=== PATIENT | female | born 1940 | race Caucasian/White ===

== ENCOUNTER → 2020-09-01 14:15 | Outpatient (BNVA) | payer MEDICARE, SELFPAY | PROVIDERS: PCP Internal Medicine Geriatric Medicine; Visit Provider Surgery | DX: Z76.89 Persons encountering health services in other specified circumstances (principal) ==

== ENCOUNTER → 2020-09-15 10:07 | Outpatient (BNVA) | payer MEDICARE, SELFPAY | PROVIDERS: PCP Internal Medicine Geriatric Medicine; Referring Provider Internal Medicine Geriatric Medicine; Visit Provider Surgery | DX: K64.4 Residual hemorrhoidal skin tags (principal); K64.8 Other hemorrhoids | CPT/HCPCS: 46600; 99212 ==

== ENCOUNTER → 2020-10-03 09:45 | Outpatient (BNVA) | payer MEDICARE, SELFPAY | PROVIDERS: PCP Internal Medicine Geriatric Medicine; Referring Provider Internal Medicine Geriatric Medicine; Visit Provider Nurse Practitioner | DX: Z76.89 Persons encountering health services in other specified circumstances (principal) ==

== ENCOUNTER 2021-03-17 12:37 | Observation (INO) | payer MEDICARE, SELFPAY ==
[2021-03-17] VITALS (7 sets, daily range): BP systolic 119–152; BP diastolic 53–70; PULSE 61–88; RESP 16–181; TEMP 36.7–36.9; O2SAT 97–98; BMI 35.9
--- NOTE | ~2021-03-17 | CT_ITS ---
EXAMINATION: CT ANGIOGRAM OF THE CHEST WITH AND WITHOUT CONTRAST (CT PULMONARY ANGIOGRAM FOR PE) CLINICAL INFORMATION: syncope, cp, elevated d dimer, r/o pe COMPARISON: Chest radiograph from the same date TECHNIQUE: Prior to contrast administration, noncontrast localization images were obtained. Subsequently, multidetector volumetric imaging was performed from the thoracic inlet to below the diaphragms following the administration of 71 mL Omnipaque 350 intravenous contrast. No contrast reaction reported Sagittal, coronal, and MIP oblique sagittal reformatted images were obtained on the CT workstation, uploaded to PACS, and reviewed. This CT examination was performed using dose optimization techniques as appropriate, variously including the following: *Automated exposure control *Adjustment of mA and/or kV according to patient size (this includes techniques or standardized protocols for targeted exams where dose is matched to indication/reason for exam; i.e. extremities or head) *Use of iterative reconstruction technique Total exam dose-length product 489 mGy-cm FINDINGS: QUALITY OF STUDY/CONTRAST BOLUS: Satisfactory. PULMONARY ARTERIES: No central or segmental pulmonary emboli. THORACIC AORTA: No aneurysm or dissection. Avascular calcifications are present throughout the thoracic aorta. LUNG: No focal consolidation, nodules or masses. Mild dependent atelectasis. Central airways are clear. PLEURA: No pleural effusion or pneumothorax. MEDIASTINUM: Normal heart size. No pericardial effusion. No hilar or mediastinal lymphadenopathy. No evidence of septal bowing or right heart strain. CHEST WALL/AXILLA: No axillary or internal mammary lymphadenopathy. OSSEOUS STRUCTURES: There is mild to moderate degenerative disc disease in the thoracic spine with mild kyphosis. No fractures. UPPER ABDOMEN: A 2.8 cm cyst in the upper pole the left kidney is partially imaged and is low-density. No follow-up is necessary. No reflux of contrast into the hepatic veins to suggest elevated right heart pressures. CT/CT angio chest PE protocol IMPRESSION: No evidence of pulmonary emboli. No acute findings in the chest. VTE: negative
--- NOTE | ~2021-03-17 | US_ITS ---
EXAMINATION: US EXTRACRANIAL CAROTID DUPLEX, BILATERAL CLINICAL INFORMATION: Syncope COMPARISON: None TECHNIQUE: Real-time ultrasound and Doppler techniques (integrating B-mode 2-D vascular images, Doppler spectral analysis and color-flow Doppler imaging) were utilized to interrogate the extracranial carotid arteries, the vertebral arteries and proximal subclavian arteries bilaterally. The degree of stenosis is determined by criteria similar to NASCET. FINDINGS: Right Side: 1. There is no atherosclerotic plaque seen in the bifurcation/proximal ICA region. 2. The common carotid artery PSV proximally is 83 cm/s and distally 75 cm/s. 3. The proximal internal carotid artery velocities are 67 cm/s systolic and 11 cm/s diastolic. 4. The proximal external carotid artery PSV is 125 cm/s. 5. The vertebral artery shows antegrade flow. 6. The subclavian artery waveforms are normal. Left Side: 1. There is no atherosclerotic plaque seen in the bifurcation/proximal ICA region. 2. The common carotid artery PSV proximally is 87 cm/s and distally 75 cm/s. 3. The proximal internal carotid artery velocities are 53 cm/s systolic and 10 cm/s diastolic. 4. The proximal external carotid artery PSV is 130 cm/s. 5. The vertebral artery shows antegrade flow. 6. The subclavian artery waveforms are normal. US/US carotid duplex BI IMPRESSION: 1. RIGHT: Normal right internal carotid artery without atherosclerotic plaque or hemodynamically significant stenosis. 2. LEFT: Normal left internal carotid artery without atherosclerotic plaque or hemodynamically significant stenosis.
--- NOTE | ~2021-03-17 | CT_ITS ---
EXAMINATION: CHEST. CT BRAIN WITHOUT CONTRAST. CLINICAL INFORMATION: Syncope. COMPARISON: CT brain 02/11/2019 TECHNIQUE: 5 mm thin axial and reformatted 2 mm thin sagittal and coronal images of brain were obtained. DLP 648. Chest 2 views. FINDINGS: CHEST: The lungs are well-expanded and clear. The heart size and pulmonary vascularity is normal. No gross bony abnormality seen. BRAIN: There is no acute intra-axial, extra-axial bleed, masses, collection or midline shift. There is no acute infarct in evolution. The bermudez to white matter difference is maintained normal. The lateral ventricles are symmetrical in size and configuration mild prominence. Bilateral frontal cortical sulci are patent as well. Bone windows reveal no calvarial abnormality. There is mild mucoperiosteal thickening bilateral ethmoid and maxillary sinuses. CT/CT head/brain wo con IMPRESSION: Unremarkable chest exam. No acute intracranial process seen. Mild cerebral volume loss.
--- NOTE | 2021-03-17 12:41 | ED_ITS ---
HPI - Chest Pain General Chief Complaint: Chest Pain Stated Complaint: chest pain Time Seen by Provider: 03/17/21 12:41 Source: EMS and [facility] Mode of arrival: EMS Limitations: no limitations and language barrier History of Present Illness HPI narrative: 80-year-old female with a past medical history of coronary artery disease, gout, hypertension, high cholesterol, insulin-dependent diabetes, TIA, colon cancer status post colectomy here with complaints of chest pain since yesterday with associated SOB since yesterday. No cough, abdominal pain, nausea/vomiting or diaphoresis, leg swelling or pain. Her [id number] who is at the bedside the patient has had multiple episodes of the last 3 weeks where when she is walking she starts to feel dizzy with some chest discomfort and she passes out. Per family this lasts several minutes and then it resolves. Received 324mg ASA, 0.4SL NTG [employer] PSYCHIATRIST. Pain initially 10 10 but now improving after nitro per patient. Related Data Home Medications Medication Instructions Recorded Confirmed acetaminophen 500 mg tablet 1,000 mg PO Q8H PRN 09/01/20 03/17/21 amlodipine 10 mg tablet 10 mg PO DAILY 09/01/20 03/17/21 aspirin 81 mg tablet,delayed 81 mg PO DAILY 09/01/20 03/17/21 release atorvastatin 20 mg tablet 20 mg PO DAILY 09/01/20 03/17/21 citalopram 40 mg tablet 20 mg PO DAILY tab 09/01/20 03/17/21 dulaglutide 1.5 mg/0.5 mL 1.5 mg SUBCUT QWEEK 09/01/20 03/17/21 subcutaneous pen injector losartan 100 mg tablet 100 mg PO DAILY 09/01/20 03/17/21 calcium carbonate-vitamin D3 1 cap PO DAILY 03/17/21 03/17/21 [Calcium 600 with Vitamin D3] diclofenac sodium [Voltaren] 2 g TOPICAL BID 03/17/21 03/17/21 lidocaine 1 appl TOPICAL QD-QID PRN 03/17/21 03/17/21 trazodone 1 tab PO QPM 03/17/21 03/17/21 Allergies Allergy/AdvReac Type Severity Reaction Status Date / Time No Known Allergies Allergy Verified 10/03/20 09:48 [No Known Allergies*] Review of Systems Review of Systems: Yes all other systems are reviewed and are negative Constitutional: Constitutional: Reports no additional constitutional complaints, Denies body ache(s), Denies chills, Denies fever(s), Denies headache(s) and Denies weakness Eyes: Eyes: Reports no additional eye complaints and Denies change in vision ENT: Reports system reviewed and no additional complaints, except as documented, Reports dizziness, Denies headache(s), Denies nasal congestion, Denies nasal discharge and Denies neck pain Cardiovascular: Cardiovascular: Reports no additional cardiovascular complaints, Reports chest pain, Reports syncope, Denies leg edema and Reports dyspnea Respiratory: Respiratory: Reports no additional respiratory complaints, Denies cough and Reports dyspnea Gastrointestinal: Gastrointestinal: Reports no additional gastrointestinal complaints, Denies abdominal pain, Denies diarrhea, Denies nausea and Denies vomiting Genitourinary: Genitourinary: Reports no additional female genitourinary complaints and Denies urinary incontinence Musculoskeletal: Musculoskeletal: Reports no additional musculoskeletal complaints, Denies back pain, Denies arthralgias, Denies joint swelling, Denies neck pain, Denies numbness and Denies tingling Integumentary/Breasts: Skin/Breast: Reports system reviewed and no additional complaints, except as docu and Denies rash Neurologic: Reports system reviewed and no additional complaints, except as documented, Denies Abnormal speech present, Reports dizziness, Reports syncope, Denies headache(s), Denies numbness, Denies tingling and Denies weakness PMFSH Past Medical History Attestation statement: The following information was validated with the patient. Source: old records reviewed and nursing notes reviewed Medical History (Updated 03/17/21 @ 17:56 by Amber Correa NP) CAD (coronary artery disease) Chronic back pain Chronic diarrhea Diabetes mellitus HLD (hyperlipidemia) HTN (hypertension), benign IDDM (insulin dependent diabetes mellitus) Internal and external prolapsed hemorrhoids Morbid obesity Sleep apnea Surgical History History of carpal tunnel surgery of left wrist History of esophagogastroduodenoscopy (EGD) History of partial surgical removal of colon (~2011) Hx of colonoscopy Family History Family History Mother History of stomach cancer Paternal Grandfather History of prostate cancer Sister History of breast cancer Family/Other Vaginal cancer Social History Social History Household Members: Family Alcohol intake: never Smoking Status: Former smoker Smoked in Last 30 Days: No Use of substances other than those prescribed or required for medical reasons: No Advance Directives: No Advance Directives Information Provided: No Physical Exam Vital Signs: Vital Signs: Last Vital Signs Temp 98.5 F 03/17/21 15:41 Pulse 62 03/17/21 15:41 Resp 18 03/17/21 15:41 BP 152/53 H 03/17/21 15:41 Pulse Ox 98 03/17/21 15:41 Body Mass Index 35.9 Const: General: cooperative, healthy appearing, comfortable and no acute distress Orientation/consciousness: patient oriented x3 Limitations: no limitations HENMT: Head: Yes normal to inspection Ears: hearing grossly normal bilaterally General nose exam: Normal external nose present Face and sinus: Yes normal facial exam Mouth: Normal oral and palatal mucosa present Throat: Yes posterior oropharynx normal Eyes: General: appearance normal, both eyes and all related structures Pupils: Equal, round and reactive pupils present Neck: Neck: Yes normal visual inspection Chest: Chest palpation & inspection: normal inspection of the chest Resp: Effort & Inspection: normal respiratory effort Auscultation: clear to auscultation bilaterally Cardio: Rate: regular rate Rhythm: regular rhythm Peripheral pulses: Peripheral pulses 2+ throughout GI: Inspection: Yes normal to inspection Palpation (GI): Soft to palpation and nontender Auscultation: normal bowel sounds Back/Spine/Pelvis: Thoracic/Lumbar Spine: thoracic and lumbar spine normal to inspection Skin: General skin exam: no rashes or lesions noted Neuro: General: patient oriented x3, no focal motor deficits and normal sensation to monofilament Cranial nerves: Yes CN's II-XII intact bilaterally, Yes Equal, round and reactive pupils present, Yes Bilaterally intact EOM presen t, Yes Nystagmus not present, Yes Normal facial strength present and Yes Midline tongue present Cognition (Neuro): normal cognition Speech: No Abnormal speech present Gait exam (Neuro): Normal gait present Motor exam (neuro): 5/5 motor strength present throughout Sensory Exam: Normal double simultaneous stimulation for sensation Extrem: General: Yes normal to inspection, Yes no pedal edema and Yes no calf tenderness Course Course Course Narrative: 80 yo female here with complaints of chest discomfort which is more MS on exam, subjective SOB although none really noted on exam and reports of several syncopal episodes at home in the last 2-3 weeks. Sent here from for evaluation after receiving ASA and 1 SL NTG with some improvement in symptoms. Will need labs, CXR, EKG, repeat dose of NTG. 1457-initial troponin mildly elevated. EKG shows no ischemic changes. Plan for repeat 3 hour troponin. D-dimer is elevated. Will check CTA to r/o PE. Pain is now resolved after 1 additional dose of sublingual NTG. Plan for admission. 1755-CT negative for PE. Repeat troponin delta. Discussed with Brandie nurse practitioner who accepted admission MDM - Chest Pain MDM Narrative Medical decision making narrative: ICH vs lesion, arrhythmia, orthostatic hypotension, ACS, PE Medical Records Data Attestation: I reviewed the patient's medical records. Lab Data Attestation: I reviewed the patient's lab results. Result diagrams: 03/17/21 13:13 03/17/21 13:13 Labs: Lab Results 03/17/21 03/17/21 03/17/21 Range/Units 13:12 13:13 13:13 WBC 5.4 (4.8-10.8) X10*3/uL RBC 4.42 (4.20-5.50) X10*6/uL Hgb 12.4 (12.0-16.0) g/dl Hct 38.4 (37-47) % MCV 86.9 (80-98) fL MCH 28.1 (27.0-33.0) pg MCHC 32.3 (31.0-35.0) g/dl RDW 12.3 (11.0-16.0) % Plt Count 158 L (160-400) X10*3/uL MPV 9.7 (9.4-12.3) fL Immature Gran % (Auto) 0.4 (0.0-0.4) % Neut % (Auto) 60.7 (45-73) % Lymph % (Auto) 28.7 (20-40) % [place] % (Auto) 8.5 (2-11) % Eos % (Auto) 1.3 (0-4) % Baso % (Auto) 0.4 (0-2) % Lymph # (Auto) 1.6 (1.2-4.9) X10*3/uL [place] # (Auto) 0.5 (0.1-1.2) X10*3/uL Eos # (Auto) 0.1 (0.0-0.4) X10*3/uL Baso # (Auto) 0.0 (0.0-0.2) X10*3/uL Abs Immat Gran (auto) 0.02 (0.00-0.03) X10*3/uL Absolute Neuts (auto) 3.3 (2.0-8.3) X10*3/uL Absolute Nucleated RBC 0.000 (0.0-0.012) X10*3/uL Nucleated RBC % (auto) 0.0 (0.0-0.2) /100WBC PT 12.5 (10.8-13.0) SEC INR 1.1 (0.9-1.1) D-Dimer 635 NG/ML Sodium (135-145) mmol/L Potassium (3.3-5.1) mmol/L Chloride (96-108) mmol/L Carbon Dioxide (22-29) mmol/L Anion Gap (12-20) BUN (9-16) mg/dL Creatinine (0.5-1.4) mg/dL Estim Creat Clear Calc Estimated GFR Random Glucose (60-115) mg/dL Calcium (8.4-10.2) mg/dL Magnesium (1.6-2.6) mg/dL Total Bilirubin (0.0-1.0) mg/dL Direct Bilirubin (0.0-0.5) mg/dL AST (5-31) U/L ALT (0-31) U/L Alkaline Phosphatase (39-117) U/L Troponin I High Sens 14.2 (<3.5-17.0) ng/L Total Protein (6.5-8.0) g/dL Albumin (3.5-5.0) g/dL COVID-19 ([facility]) (Negative) COVID-19 Clin Com 03/17/21 03/17/21 03/17/21 Range/Units 13:13 15:27 16:09 WBC (4.8-10.8) X10*3/uL RBC (4.20-5.50) X10*6/uL Hgb (12.0-16.0) g/dl Hct (37-47) % MCV (80-98) fL MCH (27.0-33.0) pg MCHC (31.0-35.0) g/dl RDW (11.0-16.0) % Plt Count (160-400) X10*3/uL MPV (9.4-12.3) fL Immature Gran % (Auto) (0.0-0.4) % Neut % (Auto) (45-73) % Lymph % (Auto) (20-40) % [place] % (Auto) (2-11) % Eos % (Auto) (0-4) % Baso % (Auto) (0-2) % Lymph # (Auto) (1.2-4.9) X10*3/uL [place] # (Auto) (0.1-1.2) X10*3/uL Eos # (Auto) (0.0-0.4) X10*3/uL Baso # (Auto) (0.0-0.2) X10*3/uL Abs Immat Gran (auto) (0.00-0.03) X10*3/uL Absolute Neuts (auto) (2.0-8.3) X10*3/uL Absolute Nucleated RBC (0.0-0.012) X10*3/uL Nucleated RBC % (auto) (0.0-0.2) /100WBC PT (10.8-13.0) SEC INR (0.9-1.1) D-Dimer NG/ML Sodium 141 (135-145) mmol/L Potassium 4.3 (3.3-5.1) mmol/L Chloride 105 (96-108) mmol/L Carbon Dioxide 27 (22-29) mmol/L Anion Gap 13 (12-20) BUN 17 H (9-16) mg/dL Creatinine 1.24 (0.5-1.4) mg/dL Estim Creat Clear Calc 40.2 Estimated GFR 42 Random Glucose 128 H (60-115) mg/dL Calcium 9.5 (8.4-10.2) mg/dL Magnesium 1.7 (1.6-2.6) mg/dL Total Bilirubin 0.4 (0.0-1.0) mg/dL Direct Bilirubin 0.2 (0.0-0.5) mg/dL AST 20 (5-31) U/L ALT 19 (0-31) U/L Alkaline Phosphatase 67 (39-117) U/L Troponin I High Sens 16.3 (<3.5-17.0) ng/L Total Protein 7.3 (6.5-8.0) g/dL Albumin 4.2 (3.5-5.0) g/dL COVID-19 ([facility]ONNY) Negative (Negative) COVID-19 Clin Com See Note Imaging Data CT scan - head: Attestation: I personally reviewed and interpreted this imaging study as follows: Radiologist's impression: COMPARISON: CT brain 02/11/2019 TECHNIQUE: 5 mm thin axial and reformatted 2 mm thin sagittal and coronal images of brain were obtained. DLP 648. Chest 2 views. FINDINGS: CHEST: The lungs are well-expanded and clear. The heart size and pulmonary vascularity is normal. No gross bony abnormality seen. BRAIN: There is no acute intra-axial, extra-axial bleed, masses, collection or midline shift. There is no acute infarct in evolution. The bermudez to white matter difference is maintained normal. The lateral ventricles are symmetrical in size and configuration mild prominence. Bilateral frontal cortical sulci are patent as well. Bone windows reveal no calvarial abnormality. There is mild mucoperiosteal thickening bilateral ethmoid and maxillary sinuses. CT/CT head/brain wo con IMPRESSION: Unremarkable chest exam. No acute intracranial process seen. Mild cerebral volume loss. Chest x-ray: Attestation: I personally reviewed and interpreted this imaging study as follows: Radiologist's impression: COMPARISON: CT brain 02/11/2019 TECHNIQUE: 5 mm thin axial and reformatted 2 mm thin sagittal and coronal images of brain were obtained. DLP 648. Chest 2 views. FINDINGS: CHEST: The lungs are well-expanded and clear. The heart size and pulmonary vascularity is normal. No gross bony abnormality seen. BRAIN: There is no acute intra-axial, extra-axial bleed, masses, collection or midline shift. There is no acute infarct in evolution. The bermudez to white matter difference is maintained normal. The lateral ventricles are symmetrical in size and configuration mild prominence. Bilateral frontal cortical sulci are patent as well. Bone windows reveal no calvarial abnormality. There is mild mucoperiosteal thickening bilateral ethmoid and maxillary sinuses. CT/CT head/brain wo con IMPRESSION: Unremarkable chest exam. No acute intracranial process seen. Mild cerebral volume loss. CT scan - chest: Attestation: I personally reviewed and interpreted this imaging study as f pieter: Radiologist's impression: EXAMINATION: CT ANGIOGRAM OF THE CHEST WITH AND WITHOUT CONTRAST (CT PULMONARY ANGIOGRAM FOR PE) CLINICAL INFORMATION: syncope, cp, elevated d dimer, r/o pe COMPARISON: Chest radiograph from the same date TECHNIQUE: Prior to contrast administration, noncontrast localization images were obtained. Subsequently, multidetector volumetric imaging was performed from the thoracic inlet to below the diaphragms following the administration of 71 mL Omnipaque 350 intravenous contrast. No contrast reaction reported Sagittal, coronal, and MIP oblique sagittal reformatted images were obtained on the CT workstation, uploaded to PACS, and reviewed. This CT examination was performed using dose optimization techniques as appropriate, variously including the following: *Automated exposure control *Adjustment of mA and/or kV according to patient size (this includes techniques or standardized protocols for targeted exams where dose is matched to indication/reason for exam; i.e. extremities or head) *Use of iterative reconstruction technique Total exam dose-length product 489 mGy-cm FINDINGS: QUALITY OF STUDY/CONTRAST BOLUS: Satisfactory. PULMONARY ARTERIES: No central or segmental pulmonary emboli. THORACIC AORTA: No aneurysm or dissection. Avascular calcifications are present throughout the thoracic aorta. LUNG: No focal consolidation, nodules or masses. Mild dependent atelectasis. Central airways are clear. PLEURA: No pleural effusion or pneumothorax. MEDIASTINUM: Normal heart size. No pericardial effusion. No hilar or mediastinal lymphadenopathy. No evidence of septal bowing or right heart strain. CHEST WALL/AXILLA: No axillary or internal mammary lymphadenopathy. OSSEOUS STRUCTURES: There is mild to moderate degenerative disc disease in the thoracic spine with mild kyphosis. No fractures. UPPER ABDOMEN: A 2.8 cm cyst in the upper pole the left kidney is partially imaged and is low-density. No follow-up is necessary. No reflux of contrast into the hepatic veins to suggest elevated right heart pressures. CT/CT angio chest PE protocol IMPRESSION: No evidence of pulmonary emboli. No acute findings in the chest. VTE: negative ECG Data ECG #1: Attestation: I personally reviewed and interpreted this ECG as follows: ECG interpretation date: 03/17/21 ECG interpretation time: 12:48 Interpretation: Normal sinus rhythm with a rate of 60, normal VT, normal QRS, normal QTC Discharge Plan Discharge Clinical Impression: Syncope, Atypical chest pain Patient Disposition: Admitted As Inpatient
--- NOTE | 2021-03-17 12:47 | ECG_ITS ---
Test Reason : CHEST PAIN Blood Pressure : / mmHG Vent. Rate : 060 BPM Atrial Rate : 060 BPM P-R Int : 172 ms QRS Dur : 086 ms QT Int : 416 ms P-R-T Axes : 038 029 038 degrees QTc Int : 416 ms Normal sinus rhythm Normal ECG When compared with ECG of 07-JUN-2020 09:27, No significant change was found Referred By: Amber Correa Electronically Signed By:AMBER MARTINEZ
[2021-03-17 13:22] LABS: MANUAL DIFF FLAG NO
[2021-03-17 13:26] LABS: Basophils Percent Auto 0.4 % (0-2); Eosinophils Absolute Auto 0.1 X10*3/uL (0.0-0.4); Eosinophils Percent Auto 1.3 % (0-4); Hematocrit 38.4 % (37-47); Hemoglobin 12.4 g/dl (12.0-16.0); Imm Gran Abs Auto 0.02 X10*3/uL (0.00-0.03); Imm Gran Pct Auto 0.4 % (0.0-0.4); Lymphocytes Absolute Auto 1.6 X10*3/uL (1.2-4.9); Lymphocytes Percent Auto 28.7 % (20-40); Mean Corpuscular HGB Conc 32.3 g/dl (31.0-35.0); Mean Corpuscular Hemoglobin 28.1 pg (27.0-33.0); Mean Corpuscular Volume 86.9 fL (80-98); Mean Platelet Volume 9.7 fL (9.4-12.3); Monocytes Absolute Auto 0.5 X10*3/uL (0.1-1.2); Monocytes Percent Auto 8.5 % (2-11); Neutrophils Absolute Auto 3.3 X10*3/uL (2.0-8.3); Neutrophils Percent Auto 60.7 % (45-73); Platelet Count 158 X10*3/uL (160-400); Red Blood Count 4.42 X10*6/uL (4.20-5.50); Red Cell Distribution Width 12.3 % (11.0-16.0); White Blood Count 5.4 X10*3/uL (4.8-10.8)
[2021-03-17 13:33] LABS: INTERNATIONAL NORM RATIO 1.1 (0.9-1.1); Prothrombin Time 12.5 SEC (10.8-13.0)
[2021-03-17 13:46] LABS: Alanine Aminotransferase 19 U/L (0-31); Albumin Level 4.2 g/dL (3.5-5.0); Alkaline Phosphatase 67 U/L (39-117); Aspartate Amino Transferase 20 U/L (5-31); Bilirubin Direct 0.2 mg/dL (0.0-0.5); Bilirubin Total 0.4 mg/dL (0.0-1.0); Magnesium 1.7 mg/dL (1.6-2.6); Total Protein 7.3 g/dL (6.5-8.0)
[2021-03-17 14:07] LABS: Troponin-I High Sensitivity 14.2 ng/L (<3.5-17.0)
[2021-03-17] MEDS: Nitroglycerin 0.4 MG TAB.SUBL SUBLINGUAL (14:26)
[2021-03-17 14:46] LABS: D Dimer 635 NG/ML
[2021-03-17 16:09] LABS: Anion Gap 13 (12-20); Blood Urea Nitrogen 17 mg/dL (9-16); Calcium 9.5 mg/dL (8.4-10.2); Carbon Dioxide 27 mmol/L (22-29); Chloride 105 mmol/L (96-108); Creatinine Clr Calc Pharmacy 40.2; Estimated Glomerular Filt Rate 42; Glucose Random 128 mg/dL (60-115); Potassium 4.3 mmol/L (3.3-5.1); Sodium 141 mmol/L (135-145)
[2021-03-17 16:14] LABS: COVID-19 Test Negative (Negative)
[2021-03-17] MEDS: iohexoL 350 MG/ML 100 ML INFUS..BTL IV (16:38)
[2021-03-17 17:13] LABS: Troponin-I High Sensitivity 16.3 ng/L (<3.5-17.0)
--- NOTE | 2021-03-17 17:34 | PM.EVENT ---
Event Note Date of Service: 03/17/21 Event Note: 80F presented with multiple episodes of syncope syncope orthostatic vs cardiac arrythmia check orthos tele cardio eval echo
[2021-03-17 20:14] LABS: Glucose, Whole Blood 174 mg/dL (60-115)
[2021-03-17] MEDS: traZODone HCL 100 MG TABLET PO (20:15)
[2021-03-17] MEDS: 0.9 % Sodium Chloride Flush 3 ML SYRINGE IVFLUSH (23:26)
[2021-03-18] VITALS (9 sets, daily range): BP systolic 122–160; BP diastolic 61–67; PULSE 57–94; RESP 16–22; TEMP 36–37.1; O2SAT 92–99
[2021-03-18 06:08] LABS: MANUAL DIFF FLAG NO
[2021-03-18 06:45] LABS: Basophils Percent Auto 0.4 % (0-2); Eosinophils Absolute Auto 0.1 X10*3/uL (0.0-0.4); Eosinophils Percent Auto 2.2 % (0-4); Hematocrit 38.4 % (37-47); Hemoglobin 12.4 g/dl (12.0-16.0); Imm Gran Abs Auto 0.01 X10*3/uL (0.00-0.03); Imm Gran Pct Auto 0.2 % (0.0-0.4); Lymphocytes Absolute Auto 1.6 X10*3/uL (1.2-4.9); Lymphocytes Percent Auto 29.4 % (20-40); Mean Corpuscular HGB Conc 32.3 g/dl (31.0-35.0); Mean Corpuscular Hemoglobin 27.7 pg (27.0-33.0); Mean Corpuscular Volume 85.9 fL (80-98); Mean Platelet Volume 10.3 fL (9.4-12.3); Monocytes Absolute Auto 0.5 X10*3/uL (0.1-1.2); Monocytes Percent Auto 9.7 % (2-11); Neutrophils Absolute Auto 3.2 X10*3/uL (2.0-8.3); Neutrophils Percent Auto 58.1 % (45-73); Platelet Count 165 X10*3/uL (160-400); Red Blood Count 4.47 X10*6/uL (4.20-5.50); Red Cell Distribution Width 12.2 % (11.0-16.0); White Blood Count 5.5 X10*3/uL (4.8-10.8)
[2021-03-18 06:51] LABS: Anion Gap 12 (12-20); Blood Urea Nitrogen 12 mg/dL (9-16); Calcium 9.4 mg/dL (8.4-10.2); Carbon Dioxide 28 mmol/L (22-29); Chloride 105 mmol/L (96-108); Creatinine Clr Calc Pharmacy 45.8; Estimated Glomerular Filt Rate 49; Glucose Random 143 mg/dL (60-115); Potassium 4.3 mmol/L (3.3-5.1); Sodium 141 mmol/L (135-145)
[2021-03-18 07:25] LABS: Glucose, Whole Blood 131 mg/dL (60-115)
--- NOTE | 2021-03-18 07:30 | CA_ITS ---
Transthoracic Echocardiogram Patient (Last, First, Middle): Jana Chowdhury M Gender: Female Date of : 1940 Age: 80 Procedure Date: 03/18/2021 Procedure Type: Transthoracic Echocardiogram [place] [facility] [place]: 160.02 cm Weight: 91.63 kg BSA: 1.94 m2 Heart Rate: bpm BP: 142 / 64 mmHg Dirt Supervisor: NASRIN Referring MD: Brandie Becerra NP Symptoms: syncope Study Quality: Fair ECG Rhythm: Sinus Conclusions: - The left ventricular systolic function is hyperdynamic. The visually estimated ejection fraction is >70%. - Small intracavitary and LVOT gradient, up to 6 mm Hg; with Valsalva, goes up to 14 mm Hg in the apex. - There is no dynamic left ventricular outflow tract obstruction. - No obvious valvular pathology seen on this study. Findings Left Ventricle Normal left ventricular cavity size. There is mildly increased left ventricular wall thickness. The left ventricular systolic function is hyperdynamic. The visually estimated ejection fraction is >70%. There is no evidence of regional wall motion abnormalities. There is no dynamic left ventricular outflow tract obstruction. There is no systolic anterior motion of the mitral valve. Diastolic function is normal for age. Small intracavitary and LVOT gradient, up to 6 mm Hg; with Valsalva, goes up to 14 mm Hg in the apex. Atria The left atrium is normal in size. The right atrium is normal in size. Aortic Valve There is a normal trileaflet aortic valve. There is no aortic valve stenosis. There is no aortic valve regurgitation. Mitral Valve The mitral valve appears normal. There is trace mitral valve regurgitation. There is no mitral valve stenosis. Pulmonic Valve The pulmonic valve was not well visualized. Tricuspid Valve Normal tricuspid valve structure. There is mild tricuspid valve regurgitation. The pulmonary artery systolic pressure is normal. Great Vessels The aortic annulus, sinuses of valsalva, and asc aorta are normal in size. Venous The inferior vena cava is normal in size and collapses greater than 50% with inspiration. Pericardium/Pleural There is no evidence of pericardial effusion. Prior Study Comparison Changes noted compared to prior study dated: 02/17/2011. LV is now hyperdynamic. Recommendations, Care & Conclusions No obvious valvular pathology seen on this study. Measurements 2D Linear Measurements IVSd: 1.07 0.6-0.9/0.6-1.0 cm LVIDd: 3.43 3.9-5.3/4.2-5.9 cm LVIDd Index: 1.77 2.4-3.2/2.2-3.1 cm/m2 LVIDs: 2.44 2.0-3.6 cm LVPWd: 1.07 0.7-1.1 cm Ao Root: 3.00 2.1-3.5 cm LA Diam: 3.30 2.7-3.8/3.0-4.0 cm LAIDs Index: 1.70 1.5-2.3 cm/m2 LV Mass: 137.75 67-162/88-224 g LV Mass Index: 71.01 43-95/49-115 g/m2 LVOT Diam: 2.00 3.0+(-)1.3 cm 2D Systolic Function EF 4C: 68.30 >55% EF 2C: 56.50 >55% EF BiP: 64.50 >55% Mitral Valve MV Pk E: 0.82 MV PK A: 0.88 MV Decel Time: 338.00 E/A: 0.90 E'Lateral: 10.80 E'Medial: 7.16 E/E' Med: 11.50 E/E' Lat: 7.60 PHT: 99.00 MVA PHT: 2.22 Decel Pratt: 2.43 Aortic Valve AoV Pk Wisam: 1.81 AoV Mn Wisam: 1.22 AoV VTI: 0.39 AoV Pk Grad: 13.00 Aov Mn Grad: 7.00 SAUL Cont.VTI: 2.68 LVOT LVOT Pk Wisam: 1.21 LVOT Mn Wisam: 0.95 LVOT VTI: 0.33 LVOT Pk Grad: 6.00 LVOT Mn Grad: 4.00 LVOT Diam: 2.00 LVOT Area: 3.14 Diastolic Function MV Pk E: 0.82 MV Pk A: 0.88 E/A: 0.90 E'Medial: 7.16 E/E' Med: 11.50 E' Laterial: 10.80 E/E' Lat: 7.60 Tricuspid Valve TR Pk Wisam: 2.61 TR Pk Grad: 27.00 RA Press: 3.00 RVSP: 30.00 Great Vessels Aorta Ao Root-2D: 3.00 2.0-3.7 cm Ao Asc: 3.30 2.1-3.4 cm Updated in Other Vendor System with Status of Final Mil Jackman MD electronically signed on 03/18/2021 11:45:18 AM with status of Final
[2021-03-18] MEDS: Rivaroxaban 10 MG TABLET PO (08:55)
[2021-03-18] MEDS: Escitalopram Oxalate 10 MG TABLET PO (08:56)
[2021-03-18] MEDS: Atorvastatin Calcium 20 MG TABLET PO (08:56)
[2021-03-18] MEDS: amLODIPine Besylate 10 MG TABLET PO (08:56)
[2021-03-18] MEDS: Losartan Potassium 50 MG TABLET 100 MG PO (08:56)
[2021-03-18] MEDS: Aspirin Enteric Coated 81 MG TABLET.DR PO (08:56)
[2021-03-18] MEDS: Calcium + Vitamin D 250 MG TABLET 500 MG PO (08:56)
[2021-03-18] MEDS: 0.9 % Sodium Chloride Flush 3 ML SYRINGE IVFLUSH ×3 (08:56→21:06)
--- NOTE | 2021-03-18 09:44 | MHC.CM.PN ---
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
--- NOTE | 2021-03-18 10:00 | HO.PM.IMPN ---
Subjective Subjective Date of Service: 03/18/21 <Brandie Becerra NP - Last Filed: 03/18/21 10:22> 03/18/21 <Murray Plata MD - Last Filed: 03/18/21 17:43> Interval History: Follow up syncope No further episodes No pain <Brandie Becerra NP - Last Filed: 03/18/21 10:22> Physical Exam Vital Signs: Vital Signs: Last Vital Signs Temp 96.8 F 03/18/21 07:03 Pulse 94 03/18/21 08:56 Resp 22 H 03/18/21 07:03 BP 142/64 H 03/18/21 08:56 Pulse Ox 95 03/18/21 07:03 Body Mass Index 35.9 <Brandie Becerra NP - Last Filed: 03/18/21 10:22> Appearing in no acute distress lung sounds are clear to auscultation heart regular rate rhythm, clear S1, S2 positive bowel sounds, abdomen is soft, nontender neuro patient is alert x3, no focal deficits <Brandie Becerra NP - Last Filed: 03/18/21 10:22> Objective Data Current Medications Generic Name Dose Route Start Last Admin Trade Name Freq PRN Reason Stop Dose Admin Acetaminophen 650 mg 03/17/21 18:00 Acetaminophen 325 Mg Tablet PO Q6H PRN Pain, Mild (Pain Scale 1-3) Amlodipine Besylate 10 mg 03/18/21 09:00 03/18/21 08:56 Amlodipine Besylate 10 Mg Tablet PO 10 mg DAILY NOVA Administration Protocol Aspirin 81 mg 03/18/21 09:00 03/18/21 08:56 Aspirin Enteric Coated 81 Mg Tablet. PO 81 mg DAILY NOVA Administration Atorvastatin Calcium 20 mg 03/18/21 09:00 03/18/21 08:56 Atorvastatin Calcium 20 Mg Tablet PO 20 mg DAILY NOVA Administration Calcium Carbonate/Cholecalciferol 500 mg 03/18/21 09:00 03/18/21 08:56 Calcium + Vitamin D 250 Mg Tablet PO 500 mg DAILY NOVA Administration Escitalopram Oxalate 10 mg 03/18/21 09:00 03/18/21 08:56 Escitalopram Oxalate 10 Mg Tablet PO 10 mg DAILY NOVA Administration Insulin Human Lispro 0 unit 03/17/21 21:00 03/18/21 07:30 Insulin Lispro 100 Unit/Ml 3 Ml Vial SUBCUT Not Given QIDACHS COUNTS INCLUDE 234 BEDS AT THE [facility] Protocol Losartan Potassium 100 mg 03/18/21 09:00 03/18/21 08:56 Losartan Potassium 50 Mg Tablet PO 100 mg DAILY NOVA Administration Protocol Ondansetron HCl 4 mg 03/17/21 18:00 Ondansetron Hcl 4 Mg/2 Ml Vial IVPUSH Q8H PRN Nausea and Vomiting Pharmacy Consult 1 each 03/17/21 14:51 Consult Rx Perform Med Rec MISCELLANE ONCE PRN Consult order Rivaroxaban 10 mg 03/18/21 09:00 03/18/21 08:55 Rivaroxaban 10 Mg Tablet PO 10 mg DAILY NOVA Administration Sodium Chloride 3 ml 03/18/21 00:00 03/18/21 08:56 0.9 % Sodium Chloride Flush 3 Ml Syringe IVFLUSH 3 ml QSHIFT NOVA Administration Trazodone HCl 100 mg 03/17/21 21:00 03/17/21 20:15 Trazodone Hcl 100 Mg Tablet PO 100 mg BEDTIME NOVA Administration <Brandie Becerra NP - Last Filed: 03/18/21 10:22> Labs CBC & Chem 7: : 03/18/21 05:26 03/18/21 05:26 <Brandie Becerra NP - Last Filed: 03/18/21 10:22> Assessment and Plan (1) Syncope: Status: Acute <Brandie Becerra NP - Last Filed: 03/18/21 10:22> Assessment and Plan: 80-year-old woman who is being admitted with syncope. May be related to orthostatic hypotension versus arrhythmia. Syncope. History of orthostatic hypotension in the past vs arrythmia. No arrythmia noted on telemetry -follow orthostatic blood pressures. -telemetry -Cardiology following -Echocardiogram and carotid doppler Diabetes mellitus. -Sliding scale, ADA diet. Hypertension. Stable blood pressure. -Can continue home blood pressure medications unless blood pressure drops. History of coronary artery disease. -Continue aspirin and statin. Anxiety/depression. -Continue citalopram. Deep vein thrombosis prophylaxis with Xarelto 10 mg daily. Attending: Dr. Plata <Brandie Becerra NP - Last Filed: 03/18/21 10:22> (2) Syncope and collapse: Status: Acute <Brnadie Becerra NP - Last Filed: 03/18/21 10:22> Assessment and Plan: I saw patient and discussed with mid level, I agree with above. Echo: as follow: The left ventricular systolic function is hyperdynamic. The visually estimated ejection fraction is >70%. - Small intracavitary and LVOT gradient, up to 6 mm Hg; with Valsalva, goes up to 14 mm Hg in the apex. - There is no dynamic left ventricular outflow tract obstruction. - No obvious valvular pathology seen on this study. otherwise I agree with above, discharge tomorrow <Murrayleeroy Plata MD - Last Filed: 03/18/21 17:43>
--- NOTE | 2021-03-18 10:14 | HP_ITS ---
DATE OF SERVICE: 03/17/2021 CHIEF COMPLAINT: Syncope. HISTORY OF PRESENT ILLNESS: A 80-year-old woman presenting to the ER after multiple episodes of syncope at home. According to the patient and her daughter and another family member; over the last 3 weeks, she has had multiple episodes of syncope at least twice a week since then. Her episodes are usually preceding her complaining of dizziness and headache and loss of vision and then suddenly collapsing. Her family reports that she has not fallen or injured herself because there was only someone there to help her down. They report that they will sit her down and lay her down, and she will be out for approximately 30 minutes and then wake up as if nothing ever happened. The patient reports she does not remember anything when she wakes up. The patient's family denies any seizure-like activity including trembling, foaming at the mouth, or loss of bowel or bladder function. The patient denies any history of this in the past. She does have a history of TIA and coronary artery disease, but no history of seizures. She also reported to me that sometimes prior to passing out, she does feel heart palpitations and shortness of breath. In the ER, head CT and chest CT were both negative for any acute abnormality. She does have a history of orthostatic hypotension in the past. Her labs were all within acceptable limits. EKG showed normal sinus rhythm without any acute abnormality. Serology for COVID-19 was negative, vital signs stable. The blood pressure was little bit on the higher side. Highest reading of 152/53. In the ER, she received nitroglycerin sublingual for chest discomfort. She will be placed on observation for further management of syncope. PAST MEDICAL HISTORY: 1. TIA with some right-sided facial droop. 2. Coronary artery disease. 3. Diabetes mellitus. 4. Obstructive sleep apnea. 5. Obesity. 6. Hypertension. 7. Anxiety. 8. Orthostatic hypotension. PAST SURGICAL HISTORY: Colon cancer status post colon resection. FAMILY HISTORY: Significant for coronary artery disease and hypertension. SOCIAL HISTORY: Lives with her daughter. She uses a cane and also wheelchair. The patient denies any alcohol, tobacco, or illicit drug use. ALLERGIES: NO KNOWN ALLERGIES. MEDICATIONS: 1. Acetaminophen 1000 mg p.o. q.8 hours p.r.n. 2. Amlodipine 10 mg p.o. daily. 3. Aspirin 81 mg p.o. daily. 4. Atorvastatin calcium 20 mg p.o. daily. 5. Calcium carbonate 1 tab p.o. daily. 6. Citalopram 20 mg p.o. daily. 7. Voltaren 2 g topically b.i.d. 8. Trulicity 1.5 mg subcu q.week. 9. Lidocaine 1 application topically q.i.d. p.r.n. 10. Losartan 100 mg p.o. daily. 11. Trazodone 1 tab p.o. at bedtime. REVIEW OF SYSTEMS: CONSTITUTIONAL: Denies any recent fever, chills, decrease in appetite. RESPIRATORY: See HPI. CARDIOVASCULAR: See HPI. GASTROINTESTINAL: Denies any dysphagia, abdominal pain, nausea, vomiting, or diarrhea. GENITOURINARY: Denies any dysuria, frequency, hematuria. MUSCULOSKELETAL: Denies any joint pain or swelling. NEURO/PSYCH: Denies any weakness or seizures. All other systems are reviewed and are negative. PHYSICAL EXAMINATION: CONSTITUTIONAL: Resting in bed, appearing in no acute distress. VITAL SIGNS: 98.5, 62, 18, 152/53, 98% on room air. SKIN: Intact without rash or sores. HEENT: Head is normocephalic, atraumatic. Eyes, pupils are PERRLA. Sclerae anicteric. Mouth and throat, mucous membranes are intact and moist. NECK: Supple. No lymphadenopathy. No JVD noted. CHEST: Clear to auscultation without wheezes, rhonchi, or rales. HEART: Regular rate and rhythm. Clear S1, S2. No murmurs, rubs, or gallops. ABDOMEN: Positive bowel sounds, obese. NEURO: The patient is alert and oriented x3. Cranial nerves II through XII grossly intact without focal deficits. LABORATORY DATA: WBC 5.4, hemoglobin 12.4, hematocrit 38.4, platelets 158. Sodium is 141, potassium is 4.3, chloride is 105, bicarb is 27, BUN is 17, creatinine is 1.24. Troponin is 14.2, 16.3. COVID-19 is negative. ASSESSMENT/PLAN: 80-year-old woman who is being admitted with syncope. May be related to orthostatic hypotension versus arrhythmia. 1. Syncope. History of orthostatic hypotension in the past, seems more cardiac related. a. Check orthostatic blood pressures. b. Monitor on telemetry. c. Cardiology consultation. d. Echocardiogram. 2. Diabetes mellitus. a. Sliding scale, ADA diet. 3. Hypertension. Stable blood pressure. a. Can continue home blood pressure medications unless blood pressure drops. 4. History of coronary artery disease. a. Continue aspirin and statin. 5. Anxiety/depression. a. Continue citalopram. 6. Deep vein thrombosis prophylaxis with Xarelto 10 mg daily. KENNETH Sam MD JR/TAYLORL / [id number]
--- NOTE | 2021-03-18 10:34 | P.CONCA_ITS ---
History of Present Illness History of Present Illness Date of Service: 03/18/21 Consult reason: other (Syncope) Chief complaint: Syncope Narrative: This is a cardiology consultation regarding syncopal episodes. Discussed with patient using [employer] speech language pathologist and also spoke to her grandson. It appears the patient has had a stroke in the past while in [place] but no details available. She has had some issues with ambulation secondary to that and also nonspecific left-sided numbness. According to grandson, she also sits as if she has leading to the left side. Recently, she has had some falls. Per patient as well as grandson it looks as though when she walks her legs somewhat give away and do not function normally. Hence not clear if he is describing mechanical weakness as opposed to true syncope. Independent of this there is also other reports of dizziness and headache and loss of vision then collapsing. Overall somewhat confusing as to what the actual issue was. Otherwise she has also had some left-sided chest pains but they seem to be very localized and also tender to touch and hence likely noncardiac. There is no history of known coronary disease myocardial infarction. Review of Systems Review of Systems: Yes all other systems are reviewed and are negative Cardiovascular: Cardiovascular: Reports as per HPI, Reports no additional cardiovascular complaints, Denies acrocyanosis, Denies cool extremities, Denies painful fingertips, Reports chest pain, Reports chest pain at rest, Denies diaphoresis, Reports syncope, Denies irregular heart rhythm, Denies claudication, Denies leg edema, Reports lightheadedness, Denies palpitations and Denies dyspnea Respiratory: Respiratory: Denies dyspnea Neurologic: Reports syncope Endocrine: Endocrine: Denies palpitations [facility] Past Medical History Medical History (Updated 03/18/21 @ 10:39 by Mil Jackman MD) CAD (coronary artery disease) Chronic back pain Chronic diarrhea Diabetes mellitus HLD (hyperlipidemia) HTN (hypertension), benign IDDM (insulin dependent diabetes mellitus) Internal and external prolapsed hemorrhoids Morbid obesity Sleep apnea Family History Family History Mother History of stomach cancer Paternal Grandfather History of prostate cancer Sister History of breast cancer Family/Other Vaginal cancer Surgical History Surgical History History of carpal tunnel surgery of left wrist History of esophagogastroduodenoscopy (EGD) History of partial surgical removal of colon (~2011) Hx of colonoscopy Social History Social History Household Members: Children Household Members Other:: Daughter, son in law, and grand child Housing: House Do you presently have visiting nurse or other home services: No Alcohol intake: never Smoking Status: Former smoker Smoked in Last 30 Days: No Use of substances other than those prescribed or required for medical reasons: No Currently Displaying Signs/Symptoms of Drug Intoxication Withdrawal: No Have you been hit, kicked, punched, or otherwise hurt by someone within the past year? If so, by whom?: No Do you feel safe in your current relationship?: No Current Relationship Is there a partner from a previous relationship who is making you feel unsafe now?: No Are you made to feel afraid or neglected: No Advance Directives: No Advance Directives Information Provided: No Do you have thoughts of harming others: None Do you have a plan to hurt others: No Plan Recently lost weight without trying: No How much weight loss: Not applicable Eating poorly because of decreased appetite: No Nutrition screen score: 0 Nutrition Risks: No Nutritional Risk Patient : No : No Poor oral hygiene: No service: No Meds Allergies Allergy/AdvReac Type Severity Reaction Status Date / Time No Known Allergies Allergy Verified 10/03/20 09:48 [No Known Allergies*] Active Medications: Current Medications Generic Name Dose Route Start Last Admin Trade Name Freq PRN Reason Stop Dose Admin Acetaminophen 650 mg 03/17/21 18:00 Acetaminophen 325 Mg Tablet PO Q6H PRN Pain, Mild (Pain Scale 1-3) Amlodipine Besylate 10 mg 03/18/21 09:00 03/18/21 08:56 Amlodipine Besylate 10 Mg Tablet PO 10 mg DAILY ONVA Administration Protocol Aspirin 81 mg 03/18/21 09:00 03/18/21 08:56 Aspirin Enteric Coated 81 Mg Tablet. PO 81 mg DAILY NOVA Administration Atorvastatin Calcium 20 mg 03/18/21 09:00 03/18/21 08:56 Atorvastatin Calcium 20 Mg Tablet PO 20 mg DAILY NOVA Administration Calcium Carbonate/Cholecalciferol 500 mg 03/18/21 09:00 03/18/21 08:56 Calcium + Vitamin D 250 Mg Tablet PO 500 mg DAILY NOVA Administration Escitalopram Oxalate 10 mg 03/18/21 09:00 03/18/21 08:56 Escitalopram Oxalate 10 Mg Tablet PO 10 mg DAILY NOVA Administration Insulin Human Lispro 0 unit 03/17/21 21:00 03/18/21 07:30 Insulin Lispro 100 Unit/Ml 3 Ml Vial SUBCUT Not Given QIDACHS [facility] Protocol Losartan Potassium 100 mg 03/18/21 09:00 03/18/21 08:56 Losartan Potassium 50 Mg Tablet PO 100 mg DAILY NOVA Administration Protocol Ondansetron HCl 4 mg 03/17/21 18:00 Ondansetron Hcl 4 Mg/2 Ml Vial IVPUSH Q8H PRN Nausea and Vomiting Pharmacy Consult 1 each 03/17/21 14:51 Consult Rx Perform Med Rec MISCELLANE ONCE PRN Consult order Rivaroxaban 10 mg 03/18/21 09:00 03/18/21 08:55 Rivaroxaban 10 Mg Tablet PO 10 mg DAILY [facility] Administration Sodium Chloride 3 ml 03/18/21 00:00 03/18/21 08:56 0.9 % Sodium Chloride Flush 3 Ml Syringe IVFLUSH 3 ml QSHIFT [facility] Administration Trazodone HCl 100 mg 03/17/21 21:00 03/17/21 20:15 Trazodone Hcl 100 Mg Tablet PO 100 mg BEDTIME NOVA Administration Home Medications Medication Instructions Recorded Confirmed Last Taken Type acetaminophen 500 mg tablet 1,000 mg PO Q8H PRN 09/01/20 03/17/21 03/16/21 History amlodipine 10 mg tablet 10 mg PO DAILY 09/01/20 03/17/21 03/17/21 History aspirin 81 mg tablet,delayed 81 mg PO DAILY 09/01/20 03/17/21 03/17/21 History release atorvastatin 20 mg tablet 20 mg PO DAILY 09/01/20 03/17/21 03/17/21 History citalopram 40 mg tablet 20 mg PO DAILY tab 09/01/20 03/17/21 03/17/21 History dulaglutide 1.5 mg/0.5 mL 1.5 mg SUBCUT QWEEK 09/01/20 03/17/21 03/16/21 History subcutaneous pen injector losartan 100 mg tablet 100 mg PO DAILY 09/01/20 03/17/21 03/17/21 History calcium carbonate-vitamin D3 1 cap PO DAILY 03/17/21 03/17/21 03/17/21 History [Calcium 600 with Vitamin D3] diclofenac sodium [Voltaren] 2 g TOPICAL BID 03/17/21 03/17/21 03/17/21 History lidocaine 1 appl TOPICAL QD-QID PRN 03/17/21 03/17/21 03/17/21 History trazodone 1 tab PO QPM 03/17/21 03/17/21 03/16/21 History Physical Exam Vital Signs: Vital Signs: Last Vital Signs Temp 96.8 F 03/18/21 07:03 Pulse 94 03/18/21 08:56 Resp 22 H 03/18/21 07:03 BP 142/64 H 03/18/21 08:56 Pulse Ox 95 03/18/21 07:03 Body Mass Index 35.9 Const: General: cooperative, comfortable and no acute distress Orientation/consciousness: patient oriented x3 HENMT: Other: Unremarkable Neck: Neck: Yes normal visual inspection Chest: Chest palpation & inspection: normal inspection of the chest Resp: Auscultation: clear to auscultation bilaterally, no crackles and no wh eezes Cardio: Jugular venous distension: no JVD Palpation: normal PMI Heart sounds: S1 normal heart sound present, S2 normal heart sound present, no gallops, Murmur heart sound present systolic early, III/ and at the right sternal border and no rubs GI: Palpation (GI): Soft to palpation Back/Spine/Pelvis: Other: unremarkable Skin: General skin exam: no rashes or lesions noted Neuro: General: patient oriented x3 Extrem: General: Yes no clubbing, cyanosis or edema Psych: Mental Status: mental status grossly normal Results Labs and Meds Result diagrams: 03/18/21 05:26 03/18/21 05:26 Lab results: Laboratory Results - last 24 hr 03/17/21 03/17/21 03/17/21 13:12 13:13 13:13 WBC 5.4 RBC 4.42 Hgb 12.4 Hct 38.4 MCV 86.9 MCH 28.1 MCHC 32.3 RDW 12.3 Plt Count 158 L MPV 9.7 Immature Gran % (Auto) 0.4 Neut % (Auto) 60.7 Lymph % (Auto) 28.7 Banks % (Auto) 8.5 Eos % (Auto) 1.3 Baso % (Auto) 0.4 Lymph # (Auto) 1.6 Banks # (Auto) 0.5 Eos # (Auto) 0.1 Baso # (Auto) 0.0 Abs Immat Gran (auto) 0.02 Absolute Neuts (auto) 3.3 Absolute Nucleated RBC 0.000 Nucleated RBC % (auto) 0.0 PT 12.5 INR 1.1 D-Dimer 635 Sodium Potassium Chloride Carbon Dioxide Anion Gap BUN Creatinine Estim Creat Clear Calc Estimated GFR POC Glucose Random Glucose Calcium Magnesium Total Bilirubin Direct Bilirubin AST ALT Alkaline Phosphatase Troponin I High Sens 14.2 Total Protein Albumin COVID-19 (LONNY) COVID-[employer] 03/17/21 03/17/21 03/17/21 13:13 15:27 16:09 WBC RBC Hgb Hct MCV MCH MCHC RDW Plt Count MPV Immature Gran % (Auto) Neut % (Auto) Lymph % (Auto) Banks % (Auto) Eos % (Auto) Baso % (Auto) Lymph # (Auto) Banks # (Auto) Eos # (Auto) Baso # (Auto) Abs Immat Gran (auto) Absolute Neuts (auto) Absolute Nucleated RBC Nucleated RBC % (auto) PT INR D-Dimer Sodium 141 Potassium 4.3 Chloride 105 Carbon Dioxide 27 Anion Gap 13 BUN 17 H Creatinine 1.24 Estim Creat Clear Calc 40.2 Estimated GFR 42 POC Glucose Random Glucose 128 H Calcium 9.5 Magnesium 1.7 Total Bilirubin 0.4 Direct Bilirubin 0.2 AST 20 ALT 19 Alkaline Phosphatase 67 Troponin I High Sens 16.3 Total Protein 7.3 Albumin 4.2 COVID-19 (LONNY) Negative COVID-19 [employer]ver Com See Note 03/17/21 03/18/21 03/18/21 20:10 05:26 05:26 WBC 5.5 RBC 4.47 Hgb 12.4 Hct 38.4 MCV 85.9 MCH 27.7 MCHC 32.3 RDW 12.2 Plt Count 165 MPV 10.3 Immature Gran % (Auto) 0.2 Neut % (Auto) 58.1 Lymph % (Auto) 29.4 Banks % (Auto) 9.7 Eos % (Auto) 2.2 Baso % (Auto) 0.4 Lymph # (Auto) 1.6 Banks # (Auto) 0.5 Eos # (Auto) 0.1 Baso # (Auto) 0.0 Abs Immat Gran (auto) 0.01 Absolute Neuts (auto) 3.2 Absolute Nucleated RBC 0.000 Nucleated RBC % (auto) 0.0 PT INR D-Dimer Sodium 141 Potassium 4.3 Chloride 105 Carbon Dioxide 28 Anion Gap 12 BUN 12 Creatinine 1.09 Estim Creat Clear Calc 45.8 Estimated GFR 49 POC Glucose 174 H Random Glucose 143 H Calcium 9.4 Magnesium Total Bilirubin Direct Bilirubin AST ALT Alkaline Phosphatase Troponin I High Sens Total Protein Albumin COVID-19 (LONNY) COVID-19 Flaviar 03/18/21 07:21 WBC RBC Hgb Hct MCV MCH MCHC RDW Plt Count MPV Immature Gran % (Auto) Neut % (Auto) Lymph % (Auto) Banks % (Auto) Eos % (Auto) Baso % (Auto) Lymph # (Auto) Banks # (Auto) Eos # (Auto) Baso # (Auto) Abs Immat Gran (auto) Absolute Neuts (auto) Absolute Nucleated RBC Nucleated RBC % (auto) PT INR D-Dimer Sodium Potassium Chloride Carbon Dioxide Anion Gap BUN Creatinine Estim Creat Clear Calc Estimated GFR POC Glucose 131 H Random Glucose Calcium Magnesium Total Bilirubin Direct Bilirubin AST ALT Alkaline Phosphatase Troponin I High Sens Total Protein Albumin COVID-19 (LONNY) COVID-19 Clin Com ECG Attestation: I personally reviewed and interpreted this ECG as follows: Interpretation: EKG today shows sinus rhythm at 60/Min; no significant ST-T changes and otherwise unremarkable. Imaging Radiologist's impression: Impressions Chest X-Ray 03/17/21 12:57 IMPRESSION: Unremarkable chest exam. No acute intracranial process seen. Mild cerebral volume loss. Head CT 03/17/21 12:57 IMPRESSION: Unremarkable chest exam. No acute intracranial process seen. Mild cerebral volume loss. Chest CTA 03/17/21 14:51 IMPRESSION: No evidence of pulmonary emboli. No acute findings in the chest. VTE: negative Assessment and Plan (1) Syncope and collapse: Status: Acute (2) Atypical chest pain: Status: Acute (3) Non-rheumatic aortic stenosis: Status: Acute (4) Essential hypertension: Status: Acute (5) History of stroke: Status: Acute EKG is unremarkable. Telemetry is also unremarkable. Orthostatics seem to have no significant change. Troponins are unremarkable. On examination, there is a murmur of aortic stenosis. We can get an echocardiogram for further evaluation. With regard to the history of stroke and leading to one side. We can also check carotids to see if there is any significant disease. Once more information is available, we can follow-up.
[2021-03-18 11:52] LABS: Glucose, Whole Blood 131 mg/dL (60-115)
[2021-03-18 16:29] LABS: Glucose, Whole Blood 135 mg/dL (60-115)
[2021-03-18 20:28] LABS: Glucose, Whole Blood 153 mg/dL (60-115)
[2021-03-18] MEDS: Insulin Lispro 100 UNIT/ML 3 ML VIAL SUBCUT (21:03)
[2021-03-18] MEDS: traZODone HCL 100 MG TABLET PO (21:03)
[2021-03-19] VITALS (12 sets, daily range): BP systolic 88–145; BP diastolic 52–72; PULSE 55–80; RESP 15–17; TEMP 36.1–36.6; O2SAT 96–100
[2021-03-19 07:37] LABS: Glucose, Whole Blood 143 mg/dL (60-115)
[2021-03-19] MEDS: Calcium + Vitamin D 250 MG TABLET 500 MG PO (07:49)
[2021-03-19] MEDS: Losartan Potassium 50 MG TABLET 100 MG PO (07:49)
[2021-03-19] MEDS: amLODIPine Besylate 10 MG TABLET PO (07:50)
[2021-03-19] MEDS: Atorvastatin Calcium 20 MG TABLET PO (07:50)
[2021-03-19] MEDS: Aspirin Enteric Coated 81 MG TABLET.DR PO (07:50)
[2021-03-19] MEDS: Rivaroxaban 10 MG TABLET PO (07:50)
[2021-03-19] MEDS: Escitalopram Oxalate 10 MG TABLET PO (07:50)
[2021-03-19] MEDS: 0.9 % Sodium Chloride Flush 3 ML SYRINGE IVFLUSH (07:50)
[2021-03-19 11:12] LABS: Glucose, Whole Blood 157 mg/dL (60-115)
[2021-03-19] MEDS: Insulin Lispro 100 UNIT/ML 3 ML VIAL SUBCUT (11:19)
--- NOTE | 2021-03-19 12:05 | P.PNCA_ITS ---
Subjective Subjective Date of Service: 03/19/21 Interval history: She states that she feels okay. No specific complaints. Review of Systems Review of Systems Yes all other systems are reviewed and are negative Cardiovascular: Reports as per HPI, Reports no additional cardiovascular complaints, Denies acrocyanosis, Denies cool extremities, Denies painful fi ngertips, Reports chest pain, Reports chest pain at rest, Denies diaphoresis, Reports syncope, Denies irregular heart rhythm, Denies claudication, Denies leg edema, Reports lightheadedness, Denies palpitations and Denies dyspnea Respiratory: Denies dyspnea Reports syncope Endocrine: Denies palpitations Physical Exam Vital Signs: Last Vital Signs Temp 97.5 F 03/19/21 11:20 Pulse 68 03/19/21 11:20 Resp 17 03/19/21 11:20 BP 133/63 03/19/21 11:20 Pulse Ox 96 03/19/21 11:20 Body Mass Index 35.9 Const General: cooperative, comfortable and no acute distress Orientation/consciousness: patient oriented x3 HENMT Other: Unremarkable Neck Neck: Yes normal visual inspection Chest Chest palpation & inspection: normal inspection of the chest Resp Auscultation: clear to auscultation bilaterally, no crackles and no wheezes Cardio Jugular venous distension: no JVD Palpation: normal PMI Heart sounds: S1 normal heart sound present, S2 normal heart sound present, no gallops, Murmur heart sound present systolic early, III/ and at the right sternal border and no rubs GI Palpation (GI): Soft to palpation Back/Spine/Pelvis Other: unremarkable Skin General skin exam: no rashes or lesions noted Neuro General: patient oriented x3 Extrem General: Yes no clubbing, cyanosis or edema Psych Mental Status: mental status grossly normal Results Labs and Meds Result diagrams: 03/18/21 05:26 03/18/21 05:26 Lab results: Laboratory Results - last 24 hr 03/18/21 03/18/21 03/19/21 16:20 20:17 07:26 POC Glucose 135 H 153 H 143 H 03/19/21 10:59 POC Glucose 157 H Imaging Radiologist's impression: Impressions Carotid Doppler Study 03/18/21 13:56 IMPRESSION: 1. RIGHT: Normal right internal carotid artery without atherosclerotic plaque or hemodynamically significant stenosis. 2. LEFT: Normal left internal carotid artery without atherosclerotic plaque or hemodynamically significant stenosis. Progress Note: A&P Assessment and plan (1) Syncope and collapse: Status: Acute (2) Atypical chest pain: Status: Acute (3) Essential hypertension: Status: Acute (4) History of stroke: Status: Acute Assessment and Plan: EKG is unremarkable. Telemetry is also unremarkable. Initially, orthostatics were negative but today's orthostatics seem positive. Troponins are unremarkable. Echocardiogram shows hyperdynamic LVEF and a small gradient but no evidence of any obstruction or other major abnormalities. Carotid Dopplers showed no significant stenosis. Overall not clear what her symptoms are from if it is orthostatic or otherwise. Can try small dose of beta blockers and cut back on Amlodipine. Fall Risk Details Current Medications: Current Medications Generic Name Dose Route Start Last Admin Trade Name Freq PRN Reason Stop Dose Admin Acetaminophen 650 mg 03/17/21 18:00 Acetaminophen 325 Mg Tablet PO Q6H PRN Pain, Mild (Pain Scale 1-3) Amlodipine Besylate 10 mg 03/18/21 09:00 03/19/21 07:50 Amlodipine Besylate 10 Mg Tablet PO 10 mg DAILY NOVA Administration Protocol Aspirin 81 mg 03/18/21 09:00 03/19/21 07:50 Aspirin Enteric Coated 81 Mg Tablet.Dr PO 81 mg DAILY NOVA Administration Atorvastatin Calcium 20 mg 03/18/21 09:00 03/19/21 07:50 Atorvastatin Calcium 20 Mg Tablet PO 20 mg DAILY NOVA Administration Calcium Carbonate/Cholecalciferol 500 mg 03/18/21 09:00 03/19/21 07:49 Calcium + Vitamin D 250 Mg Tablet PO 500 mg DAILY NOVA Administration Escitalopram Oxalate 10 mg 03/18/21 09:00 03/19/21 07:50 Escitalopram Oxalate 10 Mg Tablet PO 10 mg DAILY NOVA Administration Insulin Human Lispro 0 unit 03/17/21 21:00 03/19/21 11:19 Insulin Lispro 100 Unit/Ml 3 Ml Vial SUBCUT 2 unit QIDACHS NOVA Administration Protocol Losartan Potassium 100 mg 03/18/21 09:00 03/19/21 07:49 Losartan Potassium 50 Mg Tablet PO 100 mg DAILY NOVA Administration Protocol Ondansetron HCl 4 mg 03/17/21 18:00 Ondansetron Hcl 4 Mg/2 Ml Vial IVPUSH Q8H PRN Nausea and Vomiting Pharmacy Consult 1 each 03/17/21 14:51 Consult Rx Perform Med Rec MISCELLANE ONCE PRN Consult order Rivaroxaban 10 mg 03/18/21 09:00 03/19/21 07:50 Rivaroxaban 10 Mg Tablet PO 10 mg DAILY NOVA Administration Sodium Chloride 3 ml 03/18/21 00:00 03/19/21 07:50 0.9 % Sodium Chloride Flush 3 Ml Syringe IVFLUSH 3 ml QSHIFT NOVA Administration Trazodone HCl 100 mg 03/17/21 21:00 03/18/21 21:03 Trazodone Hcl 100 Mg Tablet PO 100 mg BEDTIME NOVA Administration Time Spent With Patient Time: Total time spent is greater than 50% in coordination of care (as documented) at patient's floor/unit and/or counseling patient: Time with patient: less than 15 minutes
[2021-03-19] MEDS: Metoprolol Succinate ER 25 MG TAB.ER.24H PO (12:57)
--- NOTE | 2021-03-19 13:02 | PM.DS ---
DS: Providers Provider Date of Service: 03/25/21 Date of admission: 03/17/21 18:00 Primary care physician: Elvis Daley MD Consults: 03/17/21 18:00 Consult to Cardiology Routine Consulting Provider: Mil Jackman Reason for consultation: syncope Has provider been notified: No DS: Diagnosis Discharge Diagnosis (1) Syncope and collapse: Status: Acute (2) Atypical chest pain: Status: Acute (3) Essential hypertension: Status: Acute (4) History of stroke: Status: Acute DS: Medications Discharge Medications Home Medications: Home Medications Medication Instructions Recorded Confirmed acetaminophen 500 mg tablet 1,000 mg PO Q8H PRN 09/01/20 03/17/21 amlodipine 10 mg tablet 10 mg PO DAILY 09/01/20 03/17/21 aspirin 81 mg tablet,delayed 81 mg PO DAILY 09/01/20 03/17/21 release atorvastatin 20 mg tablet 20 mg PO DAILY 09/01/20 03/17/21 citalopram 40 mg tablet 20 mg PO DAILY tab 09/01/20 03/17/21 dulaglutide 1.5 mg/0.5 mL 1.5 mg SUBCUT QWEEK 09/01/20 03/17/21 subcutaneous pen injector losartan 100 mg tablet 100 mg PO DAILY 09/01/20 03/17/21 calcium carbonate-vitamin D3 1 cap PO DAILY 03/17/21 03/17/21 [Calcium 600 with Vitamin D3] diclofenac sodium [Voltaren] 2 g TOPICAL BID 03/17/21 03/17/21 lidocaine 1 appl TOPICAL QD-QID PRN 03/17/21 03/17/21 trazodone 1 tab PO QPM 03/17/21 03/17/21 DS: Summary Hospital Course Hospital Course: Patient was admitted for a syncopal episode. Head CT shows no acute finding. ECG shows no acute ischemi. Orthostatic initially was negative but following day positive. She has been evaluated by cardiology, Echo shows hyperdynamic heart, carotid ultrasound are negative. Her blood pressure medication have adjusted with reduction of Norvasc from 10 to 5. Time Spent with Patient Time attestation: Total time spent providing and/or coordinating discharge services: Discharge coordination time: Greater than 30 minutes Physical Exam Vital Signs: Vital Signs: Last Vital Signs Temp 97.5 F 03/19/21 11:20 Pulse 68 03/19/21 12:57 Resp 17 03/19/21 11:20 BP 133/63 03/19/21 12:57 Pulse Ox 96 03/19/21 11:20 Body Mass Index 35.9 General: AO X 3, no acute distress Resp: CTA bilateral CVS: S1,S2,RRR GI: +BS, NT, no distention Skin: No rash Neuro: motor grossly intact Psych: appropriate affect DS: Data Data Completed and Pending Labs on day of discharge: Laboratory Results - last 24 hr 03/18/21 03/18/21 03/19/21 16:20 20:17 07:26 POC Glucose 135 H 153 H 143 H 03/19/21 10:59 POC Glucose 157 H Discharge Plan Discharge Anticipated Discharge Date/Time: 03/19/21 12:57 Patient Disposition: Home, Self-Care Referrals: Name,MD Elvis [Primary Care Provider] - 1 Week Discharge Medications: Continued trazodone 100 mg tablet 1 tab PO QPM RF: 0 diclofenac sodium [Voltaren] 1 % Gel 2 g TOPICAL BID RF: 0 calcium carbonate-vitamin D3 600 mg(1,500mg) -400 unit Capsule 1 cap PO DAILY RF: 0 lidocaine 5 % ointment 1 appl topical QD-QID PRN (Reason: Pain) RF: 0 acetaminophen [Tylenol Extra Strength] 500 mg tablet 1,000 mg PO Q8H PRN (Reason: Pain) RF: 0 aspirin [Adult Aspirin Regimen] 81 mg tablet,delayed release (DR/EC) 81 mg PO DAILY RF: 0 citalopram 40 mg tablet 20 mg PO DAILY RF: 0 atorvastatin [Lipitor] 20 mg tablet 20 mg PO DAILY RF: 0 Trulicity 1.5 mg/0.5 mL pen injector 1.5 mg subcut QWEEK RF: 0 losartan 100 mg tablet 100 mg PO DAILY RF: 0 Changed amlodipine 10 mg tablet 5 mg PO DAILY Qty: 0 RF: 0 Discharge Orders: Discharge Order (Routine); Ordered 03/19/21 Ordered By: Murray Plata Diet: advance to usual diet Activity on Discharge: As tolerated Stand Alone Forms: Patient Portal Discharge page Care Plan Goals: Fall prevention from syncope Health Concerns: Syncope Plan of Treatment: Blood pressure medication has been adjusted with instruction given to patient. Norvasc doses to be reduce to 5 mg. Assessment: Syncope of unclear etiology. Discharge Date/Time: 03/19/21 15:39
--- NOTE | 2021-03-19 13:03 | MHC.CM.PN ---
Patient has been medically cleared for dc to home today, no services. .
== END 2021-03-19 15:39 | disposition home or self-care (01) ==
LOC: HO.ED 16:33 → HO.EDOVER 03-18 12:10 → HO.IMC 03-18 12:10
PROVIDERS: Nurse Practitioner Family; Admitting Provider Nurse Practitioner Acute Care; Emergency Provider Emergency Medicine; PCP Internal Medicine Geriatric Medicine; Visit Provider Internal Medicine
DX: R55 Syncope and collapse (principal); R07.89 Other chest pain; I35.0 Nonrheumatic aortic (valve) stenosis; I10 Essential (primary) hypertension; R51.9 Headache, unspecified; H54.7 Unspecified visual loss; E11.9 Type 2 diabetes mellitus without complications; E78.5 Hyperlipidemia, unspecified; E66.01 Morbid (severe) obesity due to excess calories; G47.30 Sleep apnea, unspecified; R79.1 Abnormal coagulation profile; M10.9 Gout, unspecified; E78.00 Pure hypercholesterolemia, unspecified; Z68.35 Body mass index [BMI] 35.0-35.9, adult; Z91.81 History of falling; Z87.891 Personal history of nicotine dependence; Z20.822 Contact with and (suspected) exposure to COVID-19; Z86.73 Personal history of transient ischemic attack (TIA), and cerebral infarction without residual deficits; Z90.49 Acquired absence of other specified parts of digestive tract; Z79.4 Long term (current) use of insulin; Z79.899 Other long term (current) drug therapy
CPT/HCPCS: 36415; 70450; 71046; 71275; 80048; 80076; 82947; 83735; 84484; 85025; 85379; 85610; 87635; 93005; 93306; 93880; 96374; 97161; 99219; 99285; Q9967

== ENCOUNTER 2021-05-05 15:15 | Outpatient (REF) | payer MEDICARE, SELFPAY ==
--- NOTE | ~2021-05-05 | MM_ITS ---
EXAMINATION: MM SCREENING DIGITAL BREAST TOMOSYNTHESIS, BILATERAL CLINICAL INFORMATION: Screening. Asymptomatic. The lifetime risk of breast cancer based on the Tyrer-Cuzick Model is 5%. COMPARISON: Mammography: 04/03/2019, 03/15/2018 TECHNIQUE: Digital breast tomosynthesis is performed in both the craniocaudal and mediolateral oblique views along with computer-aided detection (CAD). Synthesized 2D images are generated from the tomosynthesis. FINDINGS: The breasts are almost entirely fatty (ACR BI-RADS breast composition Category a). There are no significant masses, abnormal calcifications, or other abnormalities. The axilla and skin contours are unremarkable. No significant changes. MM/MM tomosynthesis screening BI IMPRESSION: No mammographic evidence of malignancy. ASSESSMENT: BI-RADS 1: Negative RECOMMENDATION: Routine annual mammography screening. This patient's information was entered into a reminder system with a target due date for their next mammogram.
== END 2021-05-05 15:16 | disposition home or self-care (01) ==
LOC: HO.MAMMO 15:15
PROVIDERS: PCP Internal Medicine Geriatric Medicine; Visit Provider Internal Medicine Geriatric Medicine
DX: Z12.31 Encounter for screening mammogram for malignant neoplasm of breast (principal)
CPT/HCPCS: 77063; 77067

== ENCOUNTER 2021-05-28 08:41 | Outpatient (REF) | payer MEDICARE, SELFPAY ==
--- NOTE | ~2021-05-28 | XR_ITS ---
EXAMINATION: XR RIBS, RIGHT CLINICAL INFORMATION: Fall. Pain. COMPARISON: CTA chest dated 03/17/2021 TECHNIQUE: PA view of the chest as well as 3 views of the right ribs. FINDINGS: Lungs are clear. No consolidation, pneumothorax, or pleural effusion. The cardiomediastinal silhouette and pulmonary vasculature are normal. Osseous structures are unremarkable. Ribs are intact. No fractures are identified. XR/XR ribs RT 2V IMPRESSION: No displaced fracture.
--- NOTE | ~2021-05-28 | XR_ITS ---
EXAMINATION: XR CLAVICLE, RIGHT XR SHOULDER, RIGHT XR HUMERUS, RIGHT XR HAND, RIGHT CLINICAL INFORMATION: Fall. Pain. COMPARISON: Right humerus radiographs dated 04/29/2018. TECHNIQUE: AP and axial views of the right clavicle. AP, Grashey, scapular Y, and axial views of the right shoulder. AP and lateral views of the right humerus. AP, oblique, and lateral views of the right hand. FINDINGS: Right Clavicle: No acute fracture or dislocation. Acromioclavicular joint space narrowing with marginal osteophytes. No osseous erosion. No abnormal soft tissue calcification. Right Shoulder: No acute fracture or dislocation. Acromioclavicular marginal osteophytes with prominent subacromial spurring. Tiny inferior glenohumeral marginal osteophytes. No osseous erosion. Right Humerus: No acute fracture or dislocation. No lytic or blastic osseous lesion. No abnormal soft tissue calcification. Right Hand: No acute fracture or dislocation. No significant joint space narrowing or marginal osteophytes. Normal carpal alignment. No osseous erosion. No abnormal soft tissue calcification. XR/XR clavicle RT IMPRESSION: RIGHT CLAVICLE: Moderate acromioclavicular osteoarthritis with prominent subacromial spurring. No acute fracture or dislocation. RIGHT SHOULDER: Moderate acromioclavicular and mild glenohumeral osteoarthritis. No acute fracture or dislocation. RIGHT HUMERUS: Unremarkable examination. RIGHT HAND: Unremarkable examination.
--- NOTE | ~2021-05-28 | XR_ITS ---
EXAMINATION: XR CLAVICLE, RIGHT XR SHOULDER, RIGHT XR HUMERUS, RIGHT XR HAND, RIGHT CLINICAL INFORMATION: Fall. Pain. COMPARISON: Right humerus radiographs dated 04/29/2018. TECHNIQUE: AP and axial views of the right clavicle. AP, Grashey, scapular Y, and axial views of the right shoulder. AP and lateral views of the right humerus. AP, oblique, and lateral views of the right hand. FINDINGS: Right Clavicle: No acute fracture or dislocation. Acromioclavicular joint space narrowing with marginal osteophytes. No osseous erosion. No abnormal soft tissue calcification. Right Shoulder: No acute fracture or dislocation. Acromioclavicular marginal osteophytes with prominent subacromial spurring. Tiny inferior glenohumeral marginal osteophytes. No osseous erosion. Right Humerus: No acute fracture or dislocation. No lytic or blastic osseous lesion. No abnormal soft tissue calcification. Right Hand: No acute fracture or dislocation. No significant joint space narrowing or marginal osteophytes. Normal carpal alignment. No osseous erosion. No abnormal soft tissue calcification. XR/XR hand RT min 3V IMPRESSION: RIGHT CLAVICLE: Moderate acromioclavicular osteoarthritis with prominent subacromial spurring. No acute fracture or dislocation. RIGHT SHOULDER: Moderate acromioclavicular and mild glenohumeral osteoarthritis. No acute fracture or dislocation. RIGHT HUMERUS: Unremarkable examination. RIGHT HAND: Unremarkable examination.
--- NOTE | ~2021-05-28 | XR_ITS ---
EXAMINATION: XR CLAVICLE, RIGHT XR SHOULDER, RIGHT XR HUMERUS, RIGHT XR HAND, RIGHT CLINICAL INFORMATION: Fall. Pain. COMPARISON: Right humerus radiographs dated 04/29/2018. TECHNIQUE: AP and axial views of the right clavicle. AP, Grashey, scapular Y, and axial views of the right shoulder. AP and lateral views of the right humerus. AP, oblique, and lateral views of the right hand. FINDINGS: Right Clavicle: No acute fracture or dislocation. Acromioclavicular joint space narrowing with marginal osteophytes. No osseous erosion. No abnormal soft tissue calcification. Right Shoulder: No acute fracture or dislocation. Acromioclavicular marginal osteophytes with prominent subacromial spurring. Tiny inferior glenohumeral marginal osteophytes. No osseous erosion. Right Humerus: No acute fracture or dislocation. No lytic or blastic osseous lesion. No abnormal soft tissue calcification. Right Hand: No acute fracture or dislocation. No significant joint space narrowing or marginal osteophytes. Normal carpal alignment. No osseous erosion. No abnormal soft tissue calcification. XR/XR humerus RT IMPRESSION: RIGHT CLAVICLE: Moderate acromioclavicular osteoarthritis with prominent subacromial spurring. No acute fracture or dislocation. RIGHT SHOULDER: Moderate acromioclavicular and mild glenohumeral osteoarthritis. No acute fracture or dislocation. RIGHT HUMERUS: Unremarkable examination. RIGHT HAND: Unremarkable examination.
--- NOTE | ~2021-05-28 | XR_ITS ---
EXAMINATION: XR WRIST, LEFT CLINICAL INFORMATION: Fall. Pain. COMPARISON: Left hand and wrist radiographs dated 06/07/2020. TECHNIQUE: PA, lateral, oblique, and scaphoid views of the left wrist. FINDINGS: No acute fracture or dislocation. Tiny marginal osteophytes at the triscaphe and first carpal metacarpal joints, unchanged. No osseous erosion. No abnormal soft tissue calcification. XR/XR wrist LT min 3V IMPRESSION: No acute fracture or dislocation.
--- NOTE | ~2021-05-28 | XR_ITS ---
EXAMINATION: XR CLAVICLE, RIGHT XR SHOULDER, RIGHT XR HUMERUS, RIGHT XR HAND, RIGHT CLINICAL INFORMATION: Fall. Pain. COMPARISON: Right humerus radiographs dated 04/29/2018. TECHNIQUE: AP and axial views of the right clavicle. AP, Grashey, scapular Y, and axial views of the right shoulder. AP and lateral views of the right humerus. AP, oblique, and lateral views of the right hand. FINDINGS: Right Clavicle: No acute fracture or dislocation. Acromioclavicular joint space narrowing with marginal osteophytes. No osseous erosion. No abnormal soft tissue calcification. Right Shoulder: No acute fracture or dislocation. Acromioclavicular marginal osteophytes with prominent subacromial spurring. Tiny inferior glenohumeral marginal osteophytes. No osseous erosion. Right Humerus: No acute fracture or dislocation. No lytic or blastic osseous lesion. No abnormal soft tissue calcification. Right Hand: No acute fracture or dislocation. No significant joint space narrowing or marginal osteophytes. Normal carpal alignment. No osseous erosion. No abnormal soft tissue calcification. XR/XR shoulder RT min 2V IMPRESSION: RIGHT CLAVICLE: Moderate acromioclavicular osteoarthritis with prominent subacromial spurring. No acute fracture or dislocation. RIGHT SHOULDER: Moderate acromioclavicular and mild glenohumeral osteoarthritis. No acute fracture or dislocation. RIGHT HUMERUS: Unremarkable examination. RIGHT HAND: Unremarkable examination.
--- NOTE | ~2021-05-28 | XR_ITS ---
EXAMINATION: XR HIP, RIGHT CLINICAL INFORMATION: Pain following fall. COMPARISON: None TECHNIQUE: Two views of the right hip. FINDINGS: No acute fracture or dislocation. Mild joint space narrowing with tiny marginal osteophytes. No osseous erosion. Phleboliths within the pelvis. XR/XR hip RT min 2V IMPRESSION: Mild right hip osteoarthritis.
== END 2021-05-28 08:42 | disposition home or self-care (01) ==
LOC: HO.XRAY 08:41
PROVIDERS: Absent Provider Internal Medicine Geriatric Medicine; PCP Internal Medicine Geriatric Medicine; Visit Provider Internal Medicine
DX: M25.511 Pain in right shoulder (principal); M25.559 Pain in unspecified hip; M25.561 Pain in right knee; M25.562 Pain in left knee; M54.6 Pain in thoracic spine; S69.91XA Unspecified injury of right wrist, hand and finger(s), initial encounter; W19.XXXA Unspecified fall, initial encounter; Y93.9 Activity, unspecified; Y92.9 Unspecified place or not applicable; Y99.9 Unspecified external cause status
CPT/HCPCS: 71100; 73000; 73030; 73060; 73110; 73130; 73502

== ENCOUNTER 2022-02-19 10:28 | Outpatient (REF) | payer OTHER, SELFPAY ==
--- NOTE | ~2022-02-19 | XR_ITS ---
EXAMINATION: BILATERAL HANDS CLINICAL INFORMATION: Bilateral hand pain. COMPARISON: 05/28/2021 TECHNIQUE: 3 views each hand FINDINGS: Right: No fracture or dislocation recognized. Alignment and articulations are maintained. No focal soft tissue swelling seen. Left: There is unchanged ulnar deviation of the fifth digit at the MCP level. Calcifications at the ulnar carpal joint again seen. Small calcification identified at the ulnar base of the third proximal phalanx. No fracture or dislocation seen. No focal soft tissue swelling identified. XR/XR hand LT min 3V IMPRESSION: No acute bony pathology bilateral hands.
--- NOTE | ~2022-02-19 | XR_ITS ---
EXAMINATION: BILATERAL HANDS CLINICAL INFORMATION: Bilateral hand pain. COMPARISON: 05/28/2021 TECHNIQUE: 3 views each hand FINDINGS: Right: No fracture or dislocation recognized. Alignment and articulations are maintained. No focal soft tissue swelling seen. Left: There is unchanged ulnar deviation of the fifth digit at the MCP level. Calcifications at the ulnar carpal joint again seen. Small calcification identified at the ulnar base of the third proximal phalanx. No fracture or dislocation seen. No focal soft tissue swelling identified. XR/XR hand RT min 3V IMPRESSION: No acute bony pathology bilateral hands.
== END 2022-02-19 10:29 | disposition home or self-care (01) ==
LOC: HO.XRAY 10:28
PROVIDERS: PCP Internal Medicine Geriatric Medicine; Visit Provider Internal Medicine Geriatric Medicine
DX: M79.641 Pain in right hand (principal); M79.642 Pain in left hand
CPT/HCPCS: 73130

== ENCOUNTER 2022-04-21 09:38 | Outpatient (REF) | payer OTHER, SELFPAY ==
--- NOTE | ~2022-04-21 | XR_ITS ---
EXAMINATION: XR CHEST CLINICAL INFORMATION: Acute cough COMPARISON: None TECHNIQUE: 2 views of the chest were obtained. FINDINGS: No significant abnormality is noted involving the heart, lungs, mediastinum, bony thorax or soft tissues. XR/XR chest 2V IMPRESSION: Unremarkable chest examination.
== END 2022-04-21 09:39 | disposition home or self-care (01) ==
LOC: HO.XRAY 09:38
PROVIDERS: Absent Provider Internal Medicine Geriatric Medicine; PCP Internal Medicine Geriatric Medicine; Visit Provider Nurse Practitioner Primary Care
DX: R06.1 Stridor (principal)
CPT/HCPCS: 71046

== ENCOUNTER 2022-05-11 09:29 | Outpatient (REF) | payer OTHER, SELFPAY ==
--- NOTE | ~2022-05-11 | MM_ITS ---
EXAMINATION: MM SCREENING DIGITAL BREAST TOMOSYNTHESIS, BILATERAL CLINICAL INFORMATION: Screening. Asymptomatic. The lifetime risk of breast cancer based on the Tyrer-Cuzick Model is 4%. COMPARISON: Mammography: 05/05/2021, 04/03/2019, 03/15/2018 TECHNIQUE: Digital breast tomosynthesis is performed in both the craniocaudal and mediolateral oblique views along with computer-aided detection (CAD). Synthesized 2D images are generated from the tomosynthesis. FINDINGS: The breasts are almost entirely fatty (ACR BI-RADS breast composition Category a). There are no significant masses, abnormal calcifications, or other abnormalities. Background stromal markings are stable. No significant changes. The skin contours are smooth. MM/MM tomosynthesis screening BI IMPRESSION: No mammographic evidence of malignancy. ASSESSMENT: BI-RADS 1: Negative RECOMMENDATION: Routine annual mammography screening. This patient's information was entered into a reminder system with a target due date for their next mammogram.
== END 2022-05-11 09:30 | disposition home or self-care (01) ==
LOC: HO.MAMMO 09:29
PROVIDERS: PCP Internal Medicine Geriatric Medicine; Visit Provider Internal Medicine Geriatric Medicine
DX: Z12.31 Encounter for screening mammogram for malignant neoplasm of breast (principal)
CPT/HCPCS: 77063; 77067

== ENCOUNTER → 2023-02-10 14:26 | Outpatient (BNVA) | payer OTHER, SELFPAY | PROVIDERS: PCP Internal Medicine Geriatric Medicine; Visit Provider Internal Medicine | DX: E66.9 Obesity, unspecified (principal); J44.9 Chronic obstructive pulmonary disease, unspecified; G47.30 Sleep apnea, unspecified; Z68.29 Body mass index [BMI] 29.0-29.9, adult | CPT/HCPCS: 99212 ==

== ENCOUNTER → 2023-02-24 09:03 | Outpatient (REF) | payer OTHER, SELFPAY | LOC: HO.SL 09:03 | PROVIDERS: PCP Internal Medicine Geriatric Medicine; Visit Provider Internal Medicine | DX: G47.33 Obstructive sleep apnea (adult) (pediatric) (principal); G47.30 Sleep apnea, unspecified; E66.9 Obesity, unspecified | CPT/HCPCS: 95806 ==

== ENCOUNTER → 2023-04-21 14:18 | Outpatient (BNVA) | payer OTHER, SELFPAY | PROVIDERS: PCP Internal Medicine Geriatric Medicine; Visit Provider Internal Medicine | DX: G47.30 Sleep apnea, unspecified (principal); J44.9 Chronic obstructive pulmonary disease, unspecified; E66.9 Obesity, unspecified; Z68.34 Body mass index [BMI] 34.0-34.9, adult | CPT/HCPCS: 99212 ==

== ENCOUNTER 2023-06-21 14:14 | Outpatient (AMB) | payer OTHER, SELFPAY ==
--- NOTE | 2023-06-21 14:17 | A.OFFVIS_ITS ---
Intake Vital Signs 06/21/23 14:20 Height 5 ft 2.5 in Weight 183 lb BMI 32.9 BP 120/62 Blood Pressure Location Lt brachial Position Sitting Pulse 69 Pulse Source Pulse Oximeter Pulse Oximetry (%) 96 Oxygen Delivery Method Room Air Intake Visit Reasons: citlaly Intake Note: pt is here for follow up and is using her c-pap with the help of her granddaughter. The only thing she is stating that she does feel like suffocating when if first starts. Technical Support Assistant Required: No Allergies No Known Allergies [No Known Allergies*] Allergy (Verified 06/21/23 14:36) Medication List - Last Reconciled 06/21/23 by Joel Nunez MD acetaminophen (Tylenol Extra Strength) 1,000 mg PO Q8H PRN albuterol sulfate 90 mcg/actuation (Ventolin HFA) 2 puffs inhalation Q4-6H PRN 30 days amlodipine 5 mg PO DAILY amlodipine 2.5 mg PO DAILY aspirin (Adult Aspirin Regimen) 81 mg PO DAILY atorvastatin (Lipitor) 20 mg PO DAILY calcium carbonate-vitamin D3 600 mg-10 mcg (400 unit) 1 cap PO DAILY carvedilol 3.125 mg PO citalopram 40 mg PO DAILY diclofenac sodium 1% (Voltaren) 2 grams topical BID dulaglutide (Trulicity) 1.5 mg subcut QWEEK fluticasone propionate 50 mcg/actuation 0 mcg intranasal gabapentin 100 mg PO BEDTIME hydrocortisone 2.5% 0 appl topical lidocaine 5% 1 appl topical QD-QID PRN losartan 100 mg PO DAILY nystatin (Nyamyc) topical QAM trazodone 1 tab PO QPM Do you need a note to return to daycare/school/sports/work: No HPI citlaly HPI Details 83 years old very pleasant female is known case of obstructive sleep apnea, confirmed by a recent home-based sleep study. She was started on CPAP therapy using auto Pap mode, She is well use to the CPAP therapy from the past. Initially had a fullface mask which she did not like and felt suffocated. It was changed to nasal mask, which she likes better, but does have some air leak through the mouth. After putting on these mask she does have some discomfort but then she gets used to it, and has been using the CPAP actually for up to 8 hours per night. She sleeping better. She does feel that there is some air leak. [facility] Medical History CAD (coronary artery disease) Chronic back pain Chronic diarrhea COPD (chronic obstructive pulmonary disease) Diabetes mellitus History of stroke HLD (hyperlipidemia) HTN (hypertension), benign IDDM (insulin dependent diabetes mellitus) Internal and external prolapsed hemorrhoids Morbid obesity Obesity (BMI 30-39.9) Sleep apnea Surgical History History of carpal tunnel surgery of left wrist History of esophagogastroduodenoscopy (EGD) History of partial surgical removal of colon (~2011) Hx of colonoscopy Family History Mother History of stomach cancer Paternal Grandfather History of prostate cancer Sister History of breast cancer Family/Other Vaginal cancer Social History Household Members: Children Household Members Other:: Daughter, son in law, and grand child Housing: House Do you presently have visiting nurse or other home services: No Alcohol intake: never Patient Tobacco Use Status: Former Tobacco user service: No Review of Systems Const All systems reviewed & are unremarkable except as noted in HPI and below Eyes Reports no additional complaints ENT Reports no additional complaints Card Denies chest pain, Denies irregular heart rhythm and Denies leg edema Resp Reports as per HPI GI Reports no additional complaints Reports no additional complaints Musc Reports back pain and Reports arthralgias Skin/Breast Reports system reviewed and no additional complaints, except as documented Neuro Reports no additional complaints Psych Reports depression (BEING TREATED WITH MED) Endo Reports no additional complaints Physical Exam Vital Signs: Last Vital Signs Pulse 69 06/21/23 14:20 BP 120/62 06/21/23 14:20 Pulse Ox 96 06/21/23 14:20 Oxygen Delivery Method Room Air 06/21/23 14:20 BMI result Body Mass Index 32.9 Const General: healthy appearing (EXCEPT FOR BEING OVERWEIGHT), comfortable, no acute distress, alert and awake Orientation/consciousness: patient oriented x3 HEENT Other: OROPHARYNX IS NARROW, MALLAMPATI CLASS 4 Head: Yes normal to inspection General nose exam: No nasal polyps present and No nasal discharge present Face and sinus: Yes sinuses nontender Mouth: oropharynx normal (BUT NARROW 100 MALLAMPATI CLASS 4) Throat: Yes posterior oropharynx normal Eyes General: appearance normal, both eyes and all related structures Neck Neck: Yes normal visual inspection, Yes no lymphadenopathy, Yes trachea midline and Yes no JVD Thyroid: Thyroid normal Chest Chest palpation & inspection: normal inspection of the chest, normal palpation of entire chest wall and no tenderness Resp Other: PERCUSSION NOTE IS RESONANT, BREATH SOUNDS ARE DISTANT WITH PROLONGED EXPIRATORY PHASE BUT NO ACTIVE WHEEZES CREPITATIONS OR RHONCHI ARE HEARD Cardio Palpation: normal PMI Rate: regular rate Rhythm: regular rhythm Heart sounds: no gallops and no murmurs GI Palpation (GI): Soft to palpation, Tenderness to palpation present (GI), No hepatosplenomegaly present, Palpable mass present and Other GI palpation findings present (ABDOMEN IS MODERATELY OBESE AND PROTUBERANT) Auscultation: normal bowel sounds Back/Spine/Pelvis Thoracic/Lumbar Spine: thoracic and lumbar spine normal to inspection and thoraco-lumbar ROM limited Skin General skin exam: no rashes or lesions noted Neuro General: patient oriented x3 and no focal motor deficits Cranial nerves: Yes CN's II-XII intact bilaterally Extrem General: Yes normal to inspection, Yes no clubbing, cyanosis or edema and Yes no calf tenderness Psych Appearance: grossly normal and well kempt Speech and movement: Normal speech and movement present Results Reviewed Results Reviewed: Compliance report for the last 30 nights is reviewed. She has used 23/30 nights, 77%. Average use per night 8 hours 22 minute. 95th percentile pressure used 10.5. There is air leak most of the night. Residual AHI 12.9 Assessment & Plan Assessment & Plan (1) COPD (chronic obstructive pulmonary disease): Comment: PATIENT DOES HAVE MILD CHRONIC COUGH WITH INTERMITTENT WHEEZING. WOULD NOT BE ABLE TO PERFORM SPIROMETRY. CLINICALLY SHE SEEMS TO HAVE CHRONIC OBSTRUCTIVE PULMONARY DISEASE, MILD. TX: VENTOLIN 2 PUFFS Q 4-6 HOURS P.R.N., which she has used only a few times, and is doing well. Code(s): J44.9 - Chronic obstructive pulmonary disease, unspecified (2) Obesity (BMI 30-39.9): Comment: SHE IS MODERATELY OVERWEIGHT CURRENT BMI IS 32.9 . HER OBESITY IS MOSTLY ABDOMINAL. She is watching her diet, difficult for her to do any exercise. Code(s): E66.9 - Obesity, unspecified (3) Sleep apnea: Comment: OBSTRUCTIVE SLEEP APNEA FOR MANY YEARS. THE CURRENT SLEEP STUDY CONFIRMED DIAGNOSIS OF SEVERE OBSTRUCTIVE SLEEP APNEA, ALONG WITH EXCESSIVE SNORING AND NOCTURNAL HYPOXEMIA. , HAS BEEN STARTED ON CPAP THERAPY WITH AUTO PAP MODE AND PRESSURE SETTING 6-20 CM. SHE IS USING NASAL MASK, WHICH. SHE TOLERATES BETTER THAN THE FULLFACE MASK SHE IS DEFINITELY BENEFITING, BUT STILL GETTING USE TO THE THERAPY. COMPLIANCE IS IN ACCEPTABLE RANGE. AIR LEAK IS AN ISSUE, PROBABLY BECAUSE SHE KEEPS HER MOUTH OPEN. ADVISED TO TIGHTEN THE STRAPS MUCH SHE CAN TOLERATE. CHINSTRAP WOULD BE THE NEXT OPTION BUT I WILL HOLD OFF THAT FOR THE TIME BEING. Code(s): G47.30 - Sleep apnea, unspecified Coding Level of Care Code Est Pt Level 3 (15217) Diagnoses COPD (chronic obstructive pulmonary disease) J44.9 Obesity (BMI 30-39.9) E66.9 Sleep apnea G47.30
[2023-06-21 14:20] VITALS: BP 120/62; PULSE 69; O2SAT 96; BMI 32.9
== END 2023-06-21 14:39 | disposition home or self-care (01) ==
PROVIDERS: PCP Internal Medicine Geriatric Medicine; Visit Provider Internal Medicine
DX: J44.9 Chronic obstructive pulmonary disease, unspecified (principal); E66.9 Obesity, unspecified; G47.30 Sleep apnea, unspecified
CPT/HCPCS: 99213

== ENCOUNTER → 2023-06-21 14:14 | Outpatient (BNVA) | payer OTHER, SELFPAY | PROVIDERS: PCP Internal Medicine Geriatric Medicine; Visit Provider Internal Medicine | DX: J44.9 Chronic obstructive pulmonary disease, unspecified (principal); G47.30 Sleep apnea, unspecified; E66.9 Obesity, unspecified; Z68.32 Body mass index [BMI] 32.0-32.9, adult | CPT/HCPCS: 99212 ==

== ENCOUNTER 2023-07-13 08:56 | Outpatient (REF) | payer OTHER, SELFPAY ==
[2023-07-13 11:06] LABS: Alanine Aminotransferase 13 U/L (0-31); Albumin Level 4.1 g/dL (3.5-5.0); Alkaline Phosphatase 56 U/L (39-117); Anion Gap 13 (12-20); Aspartate Amino Transferase 20 U/L (5-31); Bilirubin Total 0.5 mg/dL (0.0-1.0); Blood Urea Nitrogen 13 mg/dL (9-16); Calcium 9.7 mg/dL (8.4-10.2); Carbon Dioxide 29 mmol/L (22-29); Chloride 104 mmol/L (96-108); Cholesterol 193 mg/dL (<200); Estimated Glomerular Filt Rate 43; Glucose Random 125 mg/dL (60-115); HDL Cholesterol 92 mg/dL (>40); LDL Cholesterol Calculated 89 mg/dL (<100); Potassium 4.8 mmol/L (3.3-5.1); Sodium 141 mmol/L (135-145); Total Protein 7.3 g/dL (6.5-8.0); Triglycerides 61 mg/dL (<150)
[2023-07-13 11:08] LABS: Creatinine Urine 160.99 mg/dL; Microalbum/Creatinine Ratio Ur 3.7 ug/mg cr (<30)
== END 2023-07-13 08:57 | disposition home or self-care (01) ==
LOC: HO.LAB 08:56
PROVIDERS: PCP Internal Medicine Geriatric Medicine; Visit Provider Internal Medicine Geriatric Medicine
DX: E11.8 Type 2 diabetes mellitus with unspecified complications (principal); Z79.899 Other long term (current) drug therapy
CPT/HCPCS: 36415; 80053; 80061; 82043

== ENCOUNTER 2023-11-03 13:23 | Outpatient (AMB) | payer MEDICARE, SELFPAY ==
[2023-11-03 13:40] VITALS: BP 110/60; PULSE 85; O2SAT 95; BMI 32.7
--- NOTE | 2023-11-03 13:40 | MHC.OFFVIS ---
Intake Vital Signs 11/03/23 13:40 Height 5 ft 2.5 in Weight 181 lb 14.102 oz BMI 32.7 BP 110/60 Blood Pressure Location Lt brachial Position Sitting Pulse 85 Pulse Source Pulse Oximeter Pulse Oximetry (%) 95 Oxygen Delivery Method Room Air Intake Visit Reasons: Obstructive sleep apnea Intake Note: pt is here for follow up of citlaly and states she is feeling good and using cpap with no issues, they will be ordering supplies. Communication Signals Intelligence Required: No Allergies No Known Allergies [No Known Allergies*] Allergy (Verified 11/03/23 16:54) Medication List - Last Reconciled 11/03/23 by Joel Nunez MD acetaminophen (Tylenol Extra Strength) 1,000 mg PO Q8H PRN albuterol sulfate 90 mcg/actuation (Ventolin HFA) 2 puffs inhalation Q4-6H PRN 30 days amlodipine 5 mg PO DAILY amlodipine 2.5 mg PO DAILY aspirin (Adult Aspirin Regimen) 81 mg PO DAILY atorvastatin (Lipitor) 20 mg PO DAILY calcium carbonate-vitamin D3 600 mg-10 mcg (400 unit) 1 cap PO DAILY carvedilol 3.125 mg PO citalopram 40 mg PO DAILY diclofenac sodium 1% (Voltaren) 2 grams topical BID dulaglutide (Trulicity) 1.5 mg subcut QWEEK fluticasone propionate 50 mcg/actuation 0 mcg intranasal gabapentin 100 mg PO BEDTIME hydrocortisone 2.5% 0 appl topical lidocaine 5% 1 appl topical QD-QID PRN losartan 100 mg PO DAILY nystatin (Nyamyc) topical QAM trazodone 1 tab PO QPM Do you need a note to return to daycare/school/sports/work: No HPI Obstructive sleep apnea HPI Details 83 years old lady with diagnosis of obstructive sleep apnea and COPD, is brought in by her granddaughter for 4 months follow-up. The granddaughter states that she does use the CPAP every night, and sleeps well. However some air leak is noticed at night. . She does need new supplies Breathing has been fairly good and she uses Ventolin 2 puffs Q 6 hours only. P.r.n. not on a daily basis Denies any wheezing or cough. [facility] Medical History COPD (chronic obstructive pulmonary disease) Obesity (BMI 30-39.9) History of stroke CAD (coronary artery disease) HLD (hyperlipidemia) HTN (hypertension), benign IDDM (insulin dependent diabetes mellitus) Internal and external prolapsed hemorrhoids Diabetes mellitus Chronic back pain Sleep apnea Morbid obesity Chronic diarrhea Surgical History History of esophagogastroduodenoscopy (EGD) Hx of colonoscopy History of partial surgical removal of colon (~2011) History of carpal tunnel surgery of left wrist Family History Mother History of stomach cancer Paternal Grandfather History of prostate cancer Sister History of breast cancer Family/Other Vaginal cancer Social History Household Members: Children Household Members Other:: Daughter, son in law, and grand child Housing: House Do you presently have visiting nurse or other home services: No Alcohol intake: never Patient Tobacco Use Status: Former Tobacco user service: No Review of Systems Const All systems reviewed & are unremarkable except as noted in HPI and below Eyes Reports no additional complaints ENT Reports no additional complaints Card Denies chest pain, Denies irregular heart rhythm and Denies leg edema Resp Reports as per HPI GI Reports no additional complaints Reports no additional complaints Musc Reports back pain and Reports arthralgias Skin/Breast Reports system reviewed and no additional complaints, except as documented Neuro Reports no additional complaints Psych Reports depression (BEING TREATED WITH MED) Endo Reports no additional complaints Physical Exam Vital Signs: Last Vital Signs Pulse 85 11/03/23 13:40 BP 110/60 11/03/23 13:40 Pulse Ox 95 11/03/23 13:40 Oxygen Delivery Method Room Air 11/03/23 13:40 BMI result Body Mass Index 32.7 Const General: healthy appearing (EXCEPT FOR BEING OVERWEIGHT), comfortable, no acute distress, alert and awake Orientation/consciousness: patient oriented x3 HEENT Other: OROPHARYNX IS NARROW, MALLAMPATI CLASS 4 Head: Yes normal to inspection General nose exam: No nasal polyps present and No nasal discharge present Face and sinus: Yes sinuses nontender Mouth: oropharynx normal (BUT NARROW 100 MALLAMPATI CLASS 4) Throat: Yes posterior oropharynx normal Eyes General: appearance normal, both eyes and all related structures Neck Neck: Yes normal visual inspection, Yes no lymphadenopathy, Yes trachea midline and Yes no JVD Thyroid: Thyroid normal Chest Chest palpation & inspection: normal inspection of the chest, normal palpation of entire chest wall and no tenderness Resp Other: PERCUSSION NOTE IS RESONANT, BREATH SOUNDS ARE DISTANT WITH PROLONGED EXPIRATORY PHASE BUT NO ACTIVE WHEEZES CREPITATIONS OR RHONCHI ARE HEARD Cardio Palpation: normal PMI Rate: regular rate Rhythm: regular rhythm Heart sounds: no gallops and no murmurs GI Palpation (GI): Soft to palpation, Tenderness to palpation present (GI), No hepatosplenomegaly present, Palpable mass present and Other GI palpation findings present (ABDOMEN IS MODERATELY OBESE AND PROTUBERANT) Auscultation: normal bowel sounds Back/Spine/Pelvis Thoracic/Lumbar Spine: thoracic and lumbar spine normal to inspection and thoraco-lumbar ROM limited Skin General skin exam: no rashes or lesions noted Neuro General: patient oriented x3 and no focal motor deficits Cranial nerves: Yes CN's II-XII intact bilaterally Extrem General: Yes normal to inspection, Yes no clubbing, cyanosis or edema and Yes no calf tenderness Psych Appearance: grossly normal and well kempt Speech and movement: Normal speech and movement present Results Reviewed Results Reviewed: Compliance report is reviewed. Her device is not transmitting the signals for maintenance since the July of this year. According to the granddaughter she does use it every night.. There is evidence of the air leak, And up until July the residual AHI was 11.5 Assessment & Plan Assessment & Plan (1) Sleep apnea: Comment: OBSTRUCTIVE SLEEP APNEA FOR MANY YEARS. Confirmed by the sleep study earlier this year. She has been using CPAP very regularly, and sleeps well. However there is an issue of air leak. According to her granddaughter her mask does slip of when she is sleeping. Code(s): G47.30 - Sleep apnea, unspecified Plan: We will order new supplies. The granddaughter is advised to make sure that her straps or tight, and that she will keep the mask on whole night (2) Obesity (BMI 30-39.9): Comment: SHE IS MODERATELY OVERWEIGHT CURRENT BMI IS 32.9 . HER OBESITY IS MOSTLY ABDOMINAL. She is watching her diet, difficult for her to do any exercise. Code(s): E66.9 - Obesity, unspecified Plan: Instructed about the diet once again (3) COPD (chronic obstructive pulmonary disease): Comment: PATIENT DOES HAVE MILD CHRONIC COUGH WITH INTERMITTENT WHEEZING. WOULD NOT BE ABLE TO PERFORM SPIROMETRY. CLINICALLY SHE SEEMS TO HAVE CHRONIC OBSTRUCTIVE PULMONARY DISEASE, MILD. Code(s): J44.9 - Chronic obstructive pulmonary disease, unspecified Plan: Ventolin HFA 2 puffs Q 6 hours p.r.n.. Coding Level of Care Code Est Pt Level 3 (82045) Diagnoses Sleep apnea G47.30 Obesity (BMI 30-39.9) E66.9 COPD (chronic obstructive pulmonary disease) J44.9
== END 2023-11-03 13:59 | disposition home or self-care (01) ==
PROVIDERS: PCP Internal Medicine Geriatric Medicine; Visit Provider Internal Medicine
DX: G47.30 Sleep apnea, unspecified (principal); E66.9 Obesity, unspecified; J44.9 Chronic obstructive pulmonary disease, unspecified
CPT/HCPCS: 99213

== ENCOUNTER → 2023-11-03 13:23 | Outpatient (BNVA) | payer MEDICARE, SELFPAY | PROVIDERS: PCP Internal Medicine Geriatric Medicine; Visit Provider Internal Medicine | DX: G47.30 Sleep apnea, unspecified (principal); J44.9 Chronic obstructive pulmonary disease, unspecified; E66.9 Obesity, unspecified; Z68.32 Body mass index [BMI] 32.0-32.9, adult | CPT/HCPCS: 99212 ==

== ENCOUNTER 2024-01-06 10:13 | Outpatient (REF) | payer OTHER, SELFPAY | END 2024-01-06 10:14 | disposition home or self-care (01) | LOC: HO.MAMMO 10:13 | PROVIDERS: PCP Internal Medicine Geriatric Medicine; Visit Provider Internal Medicine Geriatric Medicine | DX: Z12.31 Encounter for screening mammogram for malignant neoplasm of breast (principal) | CPT/HCPCS: 77063; 77067 ==

== ENCOUNTER → 2024-01-06 10:15 | Outpatient (BNV) | payer OTHER, SELFPAY | PROVIDERS: PCP Internal Medicine Geriatric Medicine; Visit Provider Radiology Diagnostic Radiology | DX: Z12.31 Encounter for screening mammogram for malignant neoplasm of breast (principal) | CPT/HCPCS: 77063; 77067 ==

== ENCOUNTER 2024-01-11 05:03 | Emergency (ER) | payer OTHER, SELFPAY ==
--- NOTE | ~2024-01-11 | XR_ITS ---
EXAMINATION: XR CHEST CLINICAL INFORMATION: Dyspnea COMPARISON: 822 TECHNIQUE: 2 views of the chest were obtained. FINDINGS: The lungs are clear with no focal consolidation. No evidence of pneumothorax, pulmonary edema, or pleural effusions. Cardiac size is within normal limits. Calcification is present at the aortic arch. Degenerative changes are noted in the spine. XR/XR chest 2V IMPRESSION: No acute cardiopulmonary findings.
[2024-01-11 05:13] VITALS: BP 108/43; PULSE 71; RESP 22; TEMP 36.5; O2SAT 95; BMI 31.9
--- NOTE | 2024-01-11 05:20 | ECG_ITS ---
Test Reason : CHEST PAIN Blood Pressure : / mmHG Vent. Rate : 067 BPM Atrial Rate : 067 BPM P-R Int : 180 ms QRS Dur : 086 ms QT Int : 394 ms P-R-T Axes : 035 023 023 degrees QTc Int : 416 ms Normal sinus rhythm Normal ECG When compared with ECG of 17-MAR-2021 12:48, No significant change was found Referred By: Generic ED Physician Electronically Signed By:AMBER MARTINEZ
[2024-01-11 06:04] LABS: MANUAL DIFF FLAG NO
[2024-01-11 06:05] LABS: Basophils Percent Auto 0.5 % (0-2); Eosinophils Absolute Auto 0.3 X10*3/uL (0.0-0.4); Eosinophils Percent Auto 5.8 % (0-4); Hematocrit 38.7 % (37.0-47.0); Hemoglobin 12.7 g/dl (12.0-16.0); Imm Gran Abs Auto 0.01 X10*3/uL (0.00-0.03); Imm Gran Pct Auto 0.2 % (0.0-0.4); Lymphocytes Absolute Auto 1.7 X10*3/uL (1.2-4.9); Mean Corpuscular HGB Conc 32.8 g/dl (31.0-35.0); Mean Corpuscular Hemoglobin 27.5 pg (27.0-33.0); Mean Corpuscular Volume 83.8 fL (80.0-98.0); Mean Platelet Volume 8.9 fL (9.4-12.3); Monocytes Absolute Auto 0.5 X10*3/uL (0.1-1.2); Monocytes Percent Auto 11.5 % (2-11); Neutrophils Absolute Auto 1.9 x10*3/uL (2.0-8.3); Platelet Count 114 X10*3/uL (160-400); Red Blood Count 4.62 X10*6/uL (4.20-5.50); Red Cell Distribution Width 12.6 % (11.0-16.0); White Blood Count 4.3 X10*3/uL (4.8-10.8)
[2024-01-11 06:26] LABS: Alanine Aminotransferase 18 U/L (0-31); Albumin Level 3.8 g/dL (3.5-5.0); Alkaline Phosphatase 70 U/L (39-117); Anion Gap 15 (12-20); Aspartate Amino Transferase 21 U/L (5-31); Bilirubin Total 0.3 mg/dL (0.0-1.0); Blood Urea Nitrogen 10 mg/dL (9-16); Carbon Dioxide 24 mmol/L (22-29); Chloride 104 mmol/L (96-108); Estimated Glomerular Filt Rate 39; Glucose Random 190 mg/dL (60-115); Sodium 139 mmol/L (135-145); Total Protein 6.9 g/dL (6.5-8.0)
[2024-01-11] MEDS: Albuterol Sulfate 2.5 MG, Albuterol/Iprat 2.5/0.5MG 3 ML 3 ML INHALE (06:31)
[2024-01-11 06:33] VITALS: PULSE 51; RESP 20; O2SAT 95
[2024-01-11 06:37] LABS: Influenza A PCR NEGATIVE (Negative); Influenza B PCR NEGATIVE (Negative); Resp Syncy Virus RNA Qual PCR POSITIVE (Negative); SARS COV2 PCR INHOUSE NEGATIVE (Negative)
--- NOTE | 2024-01-11 06:42 | ED.URI ---
HPI - URI/Sore Throat General Chief Complaint: Dyspnea Stated Complaint: cough Time Seen by Provider: 01/11/24 06:41 Source: patient and family Mode of arrival: ambulatory Limitations: no limitations History of Present Illness HPI Narrative: Patient history of COPD exposed to RSV from a grandson last week comes here for 4 days of dry cough and increased wheezing. Patient does have inhaler at home which she been using does not have nebulizer. No fever no vomiting patient feels chest tight patient does have a CPAP machine for sleep apnea which she been using at home Related Data Home Medications Medication Instructions Recorded Confirmed acetaminophen 500 mg tablet 1,000 mg PO Q8H PRN Pain 09/01/20 03/17/21 (Tylenol Extra Strength) aspirin 81 mg tablet,delayed 81 mg PO DAILY 09/01/20 03/17/21 release (Adult Aspirin Regimen) atorvastatin 20 mg tablet (Lipitor) 20 mg PO DAILY 09/01/20 03/17/21 dulaglutide 1.5 mg/0.5 mL 1.5 mg subcut QWEEK 09/01/20 03/17/21 subcutaneous pen injector ([employer]) losartan 100 mg tablet 100 mg PO DAILY 09/01/20 03/17/21 calcium carbonate 600 mg-vitamin 1 cap PO DAILY 03/17/21 03/17/21 D3 10 mcg (400 unit) capsule diclofenac sodium 1 % topical gel 2 g topical BID 03/17/21 03/17/21 (Voltaren) lidocaine 5 % topical ointment 1 appl topical QD-QID PRN Pain 03/17/21 03/17/21 trazodone 100 mg tablet 1 tab PO QPM 03/17/21 03/17/21 amlodipine 10 mg tablet 5 mg PO DAILY 02/10/23 amlodipine 2.5 mg tablet 2.5 mg PO DAILY 02/10/23 citalopram 40 mg tablet 40 mg PO DAILY 02/10/23 hydrocortisone 2.5 % topical cream 0 appl topical 02/10/23 with perineal applicator nystatin 100,000 unit/gram topical topical QAM 02/10/23 powder ([facility]) carvedilol 3.125 mg tablet 3.125 mg PO 06/21/23 fluticasone propionate 50 0 mcg intranasal 06/21/23 mcg/actuation nasal spray,suspension gabapentin 100 mg capsule 100 mg PO BEDTIME 06/21/23 Previous Rx's Medication Instructions Recorded albuterol sulfate 90 mcg/actuation 2 puff inhalation Q4-6H PRN 02/10/23 aerosol inhaler (Ventolin HFA) shortness of breath or wheezing 30 days #8.5 grams albuterol sulfate 2.5 mg/3 mL 2.5 mg (3 mL) inhalation Q4-6H PRN 01/11/24 (0.083 %) solution for nebulization shortness of breath or wheezing #90 mL albuterol sulfate 90 mcg/actuation 2 puff inhalation Q4-6H PRN 01/11/24 aerosol inhaler (ProAir HFA) shortness of breath or wheezing #8.5 grams codeine 10 mg-guaifenesin 100 mg/5 10 ml PO Q6H PRN cough #237 mL 01/11/24 mL oral liquid nebulizers (Compact Compressor #1 ea 01/11/24 Nebulizer) prednisone 20 mg tablet 40 mg (2 x 20 mg) PO DAILY #10 tabs 01/11/24 Allergies Allergy/AdvReac Type Severity Reaction Status Date / Time No Known Allergies Allergy Verified 01/11/24 05:13 [No Known Allergies*] Review of Systems Review of Systems: Yes all other systems are reviewed and are negative PMFSH Past Medical History Medical History COPD (chronic obstructive pulmonary disease) Obesity (BMI 30-39.9) History of stroke CAD (coronary artery disease) HLD (hyperlipidemia) HTN (hypertension), benign IDDM (insulin dependent diabetes mellitus) Internal and external prolapsed hemorrhoids Diabetes mellitus Chronic back pain Sleep apnea Morbid obesity Chronic diarrhea Surgical History History of esophagogastroduodenoscopy (EGD) Hx of colonoscopy History of partial surgical removal of colon (~2011) History of carpal tunnel surgery of left wrist Family History Family History Mother History of stomach cancer Paternal Grandfather History of prostate cancer Sister History of breast cancer Family/Other Vaginal cancer Social History Social History Household Members: Children Household Members Other:: Daughter, son in law, and grand child Housing: House Do you presently have visiting nurse or other home services: No Alcohol intake: never Patient Tobacco Use Status: Former Tobacco user Smoked in Last 30 Days: No Use of substances other than those prescribed or required for medical reasons: No Advance Directives: No Advance Directives Information Provided: No service: No Physical Exam Vital Signs: Vital Signs: Last Vital Signs Temp 97.7 F 01/11/24 05:13 Pulse 51 01/11/24 06:33 Resp 20 01/11/24 06:33 BP 108/43 L 01/11/24 05:13 Pulse Ox 95 01/11/24 05:13 O2 Del Method Room Air 01/11/24 05:13 BMI result Body Mass Index 31.9 Appearance: Alert. Oriented X3. Moderate respiratory distress with audible wheezing Eyes: No pallor or icterus ENT: Pharynx normal. Oral Mucosa moist Neck: Normal inspection. Neck supple. CVS: Normal heart rate and rhythm. Pulses normal. Respiratory: Moderate respiratory distress. Equal air entry bilateral, bilateral wheeze Abdomen: Soft and nontender. Bowel sounds are present, no mass palpable, no CVA tenderness Skin: Skin warm and dry. Normal skin color. Normal skin turgor. Extremities: No lower extremity edema. No calf tenderness Neuro: Oriented X 3. No motor deficit. Medications Administered Discontinued Medications Generic Name Dose Route Start Last Admin Trade Name Freq PRN Reason Stop Dose Admin Albuterol Sulfate 2.5 mg/ 0 mg 01/11/24 06:13 01/11/24 06:31 Albuterol/Ipratropium 3 ml INHALE 01/11/24 06:14 1 dose ONCE ONE Administration Medical Decision Making Medical Decision Making [facility] Narrative: Patient with COPD with acute bronchitis secondary to RSV. Will give supportive treatment patient is saturating 95% at this time nebulizing treatments steroids and cough syrup anticipate patient will discharge home once better. Dr. Andrea to dispo the patient Differential Diagnosis Differential Diagnoses: The differential diagnosis associated with the presentation includes RSV/bronchitis/COPD/pneumonia Lab Data [facility] Lab Attestation statement: I reviewed the patient's lab results. 01/11/24 06:01 01/11/24 06:01 Labs: Lab Results 01/11/24 01/11/24 Range/Units 05:55 06:01 WBC 4.3 L (4.8-10.8) X10*3/uL RBC 4.62 (4.20-5.50) X10*6/uL Hgb 12.7 (12.0-16.0) g/dl Hct 38.7 (37.0-47.0) % MCV 83.8 (80.0-98.0) fL MCH 27.5 (27.0-33.0) pg MCHC 32.8 (31.0-35.0) g/dl RDW 12.6 (11.0-16.0) % Plt Count 114 L (160-400) X10*3/uL MPV 8.9 L (9.4-12.3) fL Immature Gran % (Auto) 0.2 (0.0-0.4) % Neut % (Auto) 44.0 L (45-73) % Lymph % (Auto) 38.0 (20-40) % [place] % (Auto) 11.5 H (2-11) % Eos % (Auto) 5.8 H (0-4) % Baso % (Auto) 0.5 (0-2) % Lymph # (Auto) 1.7 (1.2-4.9) X10*3/uL [place] # (Auto) 0.5 (0.1-1.2) X10*3/uL Eos # (Auto) 0.3 (0.0-0.4) X10*3/uL Baso # (Auto) 0.0 (0.0-0.2) X10*3/uL Abs Immat Gran (auto) 0.01 (0.00-0.03) X10*3/uL Absolute Neuts (auto) 1.9 L (2.0-8.3) x10*3/uL Absolute Nucleated RBC 0.000 (0.0-0.012) X10*3/uL Nucleated RBC % (auto) 0.0 (0.0-0.2) /100WBC Sodium 139 (135-145) mmol/L Potassium 4.0 (3.3-5.1) mmol/L Chloride 104 (96-108) mmol/L Carbon Dioxide 24 (22-29) mmol/L Anion Gap 15 (12-20) BUN 10 (9-16) mg/dL Creatinine 1.31 (0.5-1.4) mg/dL Estim Creat Clear Calc 34.0 Estimated GFR 39 Random Glucose 190 H (60-115) mg/dL Calcium 9.0 D (8.4-10.2) mg/dL Total Bilirubin 0.3 (0.0-1.0) mg/dL AST 21 (5-31) U/L ALT 18 (0-31) U/L Alkaline Phosphatase 70 (39-117) U/L Troponin I High Sens 6.0 (<3.5-17.0) ng/L Total Protein 6.9 (6.5-8.0) g/dL Albumin 3.8 (3.5-5.0) g/dL Influenza Type A (PCR) NEGATIVE (Negative) Influenza Type B (PCR) NEGATIVE (Negative) RSV RNA Qual (PCR) POSITIVE A (Negative) SARS-CoV-2 RNA (RT-PCR) NEGATIVE (Negative) Independent Interpretation I performed an independent interpretation of an: EKG and Plain X-Ray Interpretation: Normal sinus rhythm heart rate 67 beats per minute normal interval normal axis no acute ST T wave changes impression normal EKG Radiology Impression Discussion of test interpretation with radiology: I have reviewed the radiologist's reading. Discharge Plan Discharge Clinical Impression: RSV bronchitis, COPD (chronic obstructive pulmonary disease) Patient Disposition: Home, Self-Care Instructions: Respiratory Syncytial Virus (ED), COPD (Chronic Obstructive Pulmonary Disease) (ED) Additional Instructions: Drink plenty of fluids stay hydrated use humidifier at home Nebulizing treatment as advised Prednisone as advised Cough syrup as prescribed Check your blood sugar regularly as prednisone will increase the blood sugar Prescriptions: New (DME) nebulizers [Compact Compressor Nebulizer] Misc See Rx Instructions .Route Qty: 1 0RF Rx Instructions: As directed albuterol sulfate 2.5 mg /3 mL (0.083 %) solution for nebulization 2.5 mg inhalation Q4-6H PRN (Reason: shortness of breath or wheezing) Qty: 90 0RF codeine-guaifenesin 10-100 mg/5 mL liquid 10 ml PO Q6H PRN (Reason: cough) Qty: 237 0RF prednisone 20 mg tablet 40 mg PO DAILY Qty: 10 0RF albuterol sulfate [ProAir HFA] 90 mcg/actuation HFA aerosol inhaler 2 puff inhalation Q4-6H PRN (Reason: shortness of breath or wheezing) Qty: 8.5 0RF No Action trazodone 100 mg tablet 1 tab PO QPM diclofenac sodium [Voltaren] 1 % Gel 2 g TOPICAL BID calcium carbonate-vitamin D3 600 mg(1,500mg) -400 unit Capsule 1 cap PO DAILY Rx Instructions: PATIENT WAS TAKING LIQUID OUTPATIENT lidocaine 5 % ointment 1 appl topical QD-QID PRN (Reason: Pain) acetaminophen [Tylenol Extra Strength] 500 mg tablet 1,000 mg PO Q8H PRN (Reason: Pain) aspirin [Adult Aspirin Regimen] 81 mg tablet,delayed release (DR/EC) 81 mg PO DAILY atorvastatin [Lipitor] 20 mg tablet 20 mg PO DAILY Trulicity 1.5 mg/0.5 mL pen injector 1.5 mg subcut QWEEK Patient Comments: PATIENT TAKES ON MONDAYS losartan 100 mg tablet 100 mg PO DAILY citalopram 40 mg tablet 40 mg PO DAILY amlodipine 10 mg tablet 5 mg PO DAILY amlodipine 2.5 mg tablet 2.5 mg PO DAILY hydrocortisone 2.5 % cream with perineal applicator 0 appl topical nystatin [Nyamyc] 100,000 unit/gram powder topical QAM albuterol sulfate [Ventolin HFA] 90 mcg/actuation HFA aerosol inhaler 2 puff inhalation Q4-6H PRN (Reason: shortness of breath or wheezing) 30 Days Qty: 8.5 3RF gabapentin 100 mg capsule 100 mg PO BEDTIME carvedilol 3.125 mg tablet 3.125 mg PO fluticasone propionate 50 mcg/actuation spray,suspension 0 mcg intranasal
[2024-01-11] MEDS: Albuterol Sulfate 90 MCG 8 GM INHALER 2 PUFF INHALE (07:20)
[2024-01-11] MEDS: dexAMETHasone 2 MG TABLET 10 MG PO (07:20)
--- NOTE | 2024-01-11 07:20 | MHC.EDTECH ---
mbulated with Pt with O2 sensor - remained 96-98% and reports feeling well entire time. Dr. Andrea and RN (Lita) aware.
== END 2024-01-11 07:34 | disposition home or self-care (01) ==
PROVIDERS: Internal Medicine; Emergency Provider Emergency Medicine; PCP Internal Medicine Geriatric Medicine
DX: J20.5 Acute bronchitis due to respiratory syncytial virus (principal); J44.0 Chronic obstructive pulmonary disease with (acute) lower respiratory infection; I10 Essential (primary) hypertension; E11.9 Type 2 diabetes mellitus without complications; G47.30 Sleep apnea, unspecified; Z11.52 Encounter for screening for COVID-19; Z20.828 Contact with and (suspected) exposure to other viral communicable diseases; Z99.89 Dependence on other enabling machines and devices
CPT/HCPCS: 0241U; 36415; 71046; 80053; 84484; 85025; 93005; 94640; 99284; 99285; J8540

== ENCOUNTER → 2024-01-11 05:20 | Outpatient (BNV) | payer OTHER, SELFPAY | PROVIDERS: Emergency Provider Emergency Medicine; PCP Internal Medicine Geriatric Medicine; Visit Provider Internal Medicine | DX: R07.9 Chest pain, unspecified (principal) | CPT/HCPCS: 93010 ==

== ENCOUNTER 2024-02-13 10:01 | Outpatient (AMB) | payer OTHER, SELFPAY ==
--- NOTE | 2024-02-13 10:12 | A.OFFVIS_ITS ---
Intake Vital Signs 02/13/24 10:15 Height 5 ft 3 in Weight 179 lb 10.828 oz BMI 31.8 BP 120/60 Blood Pressure Location Lt brachial Position Sitting Pulse 64 Pulse Source Pulse Oximeter Pulse Oximetry (%) 96 Oxygen Delivery Method Room Air Intake Visit Reasons: cough Intake Note: pt is here for follow up on 01/10 dx with RSV and COPD, she now has nebulizer and inhaler. cpap usage is still making her feel suffocating at night, so they are trying to get her to use it during the daytime. [employer] Required: No Allergies No Known Allergies [No Known Allergies*] Allergy (Verified 02/13/24 10:36) Medication List - Last Reconciled 02/13/24 by Joel Nunez MD acetaminophen (Tylenol Extra Strength) 1,000 mg PO Q8H PRN albuterol sulfate 2.5 mg (3 mL) inhalation Q4-6H PRN albuterol sulfate 90 mcg/actuation (Ventolin HFA) 2 puffs inhalation Q4-6H PRN 30 days amlodipine 5 mg PO DAILY amlodipine 2.5 mg PO DAILY aspirin (Adult Aspirin Regimen) 81 mg PO DAILY atorvastatin (Lipitor) 20 mg PO DAILY calcium carbonate-vitamin D3 600 mg-10 mcg (400 unit) 1 cap PO DAILY carvedilol 3.125 mg PO BID citalopram 40 mg PO DAILY codeine-guaifenesin 10-100 mg/5 mL 10 mL PO Q6H PRN diclofenac sodium 1% (Voltaren) 2 grams topical BID dulaglutide (Trulicity) 1.5 mg subcut QWEEK fluticasone propionate 50 mcg/actuation 1 spray intranasal BID gabapentin 100 mg PO BEDTIME hydrocortisone 2.5% 1 appl topical BEDTIME PRN lidocaine 5% 1 appl topical QD-QID PRN losartan 100 mg PO DAILY nebulizers (Compact Compressor Nebulizer) As directed nystatin ([facility]) topical QAM trazodone 1 tab PO QPM Do you need a note to return to daycare/school/sports/work: No HPI cough HPI Details 83 years old very pleasant female, is he re for follow-up. One month ago she was seen in the emergency room with acute exacerbation of COPD. She was diagnosed to have acute RSV infection, causing acute bronchitis. She was started on the use of nebulizer with albuterol solution, and has been using about 3 times a day. She still uses Ventolin when she goes outdoors., Breathing has improved but she still has residual cough especially at night. As far as CPAP is concerned, she does have new supplies, she does try to use it at night, but feels somewhat suffocated. So her daughters are trying to have her use the CPAP during daytime when she is sitting and watching TV. At night she is sleeping without the CPAP. Her sleep is somewhat interrupted, and she feels tired and sleepy during the daytime. [facility] Medical History COPD (chronic obstructive pulmonary disease) Obesity (BMI 30-39.9) History of stroke CAD (coronary artery disease) HLD (hyperlipidemia) HTN (hypertension), benign IDDM (insulin dependent diabetes mellitus) Internal and external prolapsed hemorrhoids Diabetes mellitus Chronic back pain Sleep apnea Morbid obesity Chronic diarrhea Surgical History History of esophagogastroduodenoscopy (EGD) Hx of colonoscopy History of partial surgical removal of colon (~2011) History of carpal tunnel surgery of left wrist Family History Mother History of stomach cancer Paternal Grandfather History of prostate cancer Sister History of breast cancer Family/Other Vaginal cancer Social History Household Members: Children Household Members Other:: Daughter, son in law, and grand child Housing: House Do you presently have visiting nurse or other home services: No Alcohol intake: never Patient Tobacco Use Status: Former Tobacco user service: No Review of Systems Const All systems reviewed & are unremarkable except as noted in HPI and below Eyes Reports no additional complaints ENT Reports no additional complaints Card Denies chest pain, Denies irregular heart rhythm and Denies leg edema Resp Reports as per HPI GI Reports no additional complaints Reports no additional complaints Musc Reports back pain and Reports arthralgias Skin/Breast Reports system reviewed and no additional complaints, except as documented Neuro Reports no additional complaints Psych Reports depression (BEING TREATED WITH MED) Endo Reports no additional complaints Physical Exam Vital Signs: Last Vital Signs Pulse 64 02/13/24 10:15 BP 120/60 02/13/24 10:15 Pulse Ox 96 02/13/24 10:15 Oxygen Delivery Method Room Air 02/13/24 10:15 BMI result Body Mass Index 31.8 Const General: healthy appearing (EXCEPT FOR BEING OVERWEIGHT), comfortable, no acute distress, alert and awake Orientation/consciousness: patient oriented x3 HEENT Other: OROPHARYNX IS NARROW, MALLAMPATI CLASS 4 Head: Yes normal to inspection General nose exam: No nasal polyps present and No nasal discharge present Face and sinus: Yes sinuses nontender Mouth: oropharynx normal (BUT NARROW 100 MALLAMPATI CLASS 4) Throat: Yes posterior oropharynx normal Eyes General: appearance normal, both eyes and all related structures Neck Neck: Yes normal visual inspection, Yes no lymphadenopathy, Yes trachea midline and Yes no JVD Thyroid: Thyroid normal Chest Chest palpation & inspection: normal inspection of the chest, normal palpation of entire chest wall and no tenderness Resp Other: PERCUSSION NOTE IS RESONANT, BREATH SOUNDS ARE DISTANT WITH PROLONGED EXPIRATORY PHASE. NO ACTIVE WHEEZES CREPITATIONS OR RHONCHI ARE HEARD Cardio Palpation: normal PMI Rate: regular rate Rhythm: regular rhythm Heart sounds: no gallops and no murmurs GI Palpation (GI): Soft to palpation, Tenderness to palpation present (GI), No hepatosplenomegaly present, Palpable mass present and Other GI palpation findings present (ABDOMEN IS MODERATELY OBESE AND PROTUBERANT) Auscultation: normal bowel sounds Back/Spine/Pelvis Thoracic/Lumbar Spine: thoracic and lumbar spine normal to inspection and thoraco-lumbar ROM limited Skin General skin exam: no rashes or lesions noted Neuro General: patient oriented x3 and no focal motor deficits Cranial nerves: Yes CN's II-XII intact bilaterally Extrem General: Yes normal to inspection, Yes no clubbing, cyanosis or edema and Yes no calf tenderness Psych Appearance: grossly normal and well kempt Speech and movement: Normal speech and movement present Results Reviewed Results Reviewed: Compliance report is reviewed. She has actually she used it for 2 days in the whole month. Residual AHI 2.8 Assessment & Plan Assessment & Plan (1) COPD (chronic obstructive pulmonary disease): Comment: PATIENT DOES HAVE MILD CHRONIC COUGH WITH INTERMITTENT WHEEZING. WOULD NOT BE ABLE TO PERFORM SPIROMETRY. CLINICALLY SHE SEEMS TO HAVE CHRONIC OBSTRUCTIVE PULMONARY DISEASE, MILD. Code(s): J44.9 - Chronic obstructive pulmonary disease, unspecified Plan: OK to use the albuterol in the nebulizer Q 6 hours p.r.n., and not more than 3 times a day. For outdoors Ventolin 2 puffs Q 4-6 hours p.r.n. is fine. (2) Sleep apnea: Comment: OBSTRUCTIVE SLEEP APNEA FOR MANY YEARS. Confirmed by the sleep study earlier this year. She has difficulty in using the CPAP at night, as she feels suffocated. Using CPAP for short periods during the daytime just to get used to it. Code(s): G47.30 - Sleep apnea, unspecified Plan: Once she gets used to the CPAP during daytime she should try to use it at night for at least 4 hours per night. Medications: Refilled albuterol sulfate 2.5 mg (3 mL) inhalation Q4-6H PRN 90 mL 3RF shortness of breath or wheezing albuterol sulfate 2.5 mg (3 mL) inhalation Q4-6H PRN 90 mL 0RF shortness of breath or wheezing Coding Level of Care Code Est Pt Level 3 (53262) Diagnoses COPD (chronic obstructive pulmonary disease) J44.9 Sleep apnea G47.30
[2024-02-13 10:15] VITALS: BP 120/60; PULSE 64; O2SAT 96; BMI 31.8
== END 2024-02-13 10:44 | disposition home or self-care (01) ==
PROVIDERS: PCP Internal Medicine Geriatric Medicine; Visit Provider Internal Medicine
DX: J44.9 Chronic obstructive pulmonary disease, unspecified (principal); G47.30 Sleep apnea, unspecified
CPT/HCPCS: 99213

== ENCOUNTER → 2024-02-13 10:01 | Outpatient (BNVA) | payer OTHER, SELFPAY | PROVIDERS: PCP Internal Medicine Geriatric Medicine; Visit Provider Internal Medicine | DX: J44.9 Chronic obstructive pulmonary disease, unspecified (principal); G47.30 Sleep apnea, unspecified; Z99.89 Dependence on other enabling machines and devices; Z79.899 Other long term (current) drug therapy | CPT/HCPCS: 99212 ==

== ENCOUNTER 2024-06-19 10:01 | Outpatient (AMB) | payer OTHER, SELFPAY ==
[2024-06-19 10:25] VITALS: BP 102/68; PULSE 66; O2SAT 97; BMI 31.5
--- NOTE | 2024-06-19 10:25 | MHC.OFFVIS ---
Vital Signs 06/19/24 10:25 Height 5 ft 3 in Weight 178 lb 0.58 oz BMI 31.5 BP 102/68 Blood Pressure Location Lt brachial Position Sitting Pulse 66 Pulse Source Pulse Oximeter Pulse Oximetry (%) 97 Oxygen Delivery Method Room Air Intake Visit Reasons: Cough Intake Note: pt is here for follow up and stats she does have a cough, using nebulizer at bedtime, this helps with sleep. pcp added advair and sprivia, she had RSV in Feb., copd. exh. sent home albuterol HFA, and nebulizer. not much cpap usage. Mechanical Insulator Required: No Allergies No Known Allergies [No Known Allergies*] Allergy (Verified 06/19/24 10:45) Medication List - Last Reconciled 06/19/24 by Joel Nunez MD acetaminophen (Tylenol Extra Strength) 1,000 mg PO Q8H PRN albuterol sulfate 90 mcg/actuation (Ventolin HFA) 2 puffs inhalation Q4-6H PRN 30 days albuterol sulfate 2.5 mg (3 mL) inhalation Q4-6H PRN amlodipine 5 mg PO DAILY amlodipine 2.5 mg PO DAILY aspirin (Adult Aspirin Regimen) 81 mg PO DAILY atorvastatin (Lipitor) 20 mg PO DAILY calcium carbonate-vitamin D3 600 mg-10 mcg (400 unit) 1 cap PO DAILY carvedilol 3.125 mg PO BID citalopram 40 mg PO DAILY codeine-guaifenesin 10-100 mg/5 mL 10 mL PO Q6H PRN diclofenac sodium 1% (Voltaren) 2 grams topical BID dulaglutide (Trulicity) 1.5 mg subcut QWEEK fluticasone propion-salmeterol 250-50 mcg/dose (Advair Diskus) 1 inh inhalation BID fluticasone propionate 50 mcg/actuation 1 spray intranasal BID gabapentin 100 mg PO BEDTIME hydrocortisone 2.5% 1 appl topical BEDTIME PRN lidocaine 5% 1 appl topical QD-QID PRN losartan 100 mg PO DAILY nebulizers (Compact Compressor Nebulizer) As directed nystatin ([facility]) topical QAM tiotropium bromide (Spiriva with HandiHaler) 1 cap inhalation DAILY trazodone 1 tab PO QPM Do you need a note to return to daycare/school/sports/work: No HPI HPI Cough: Details: 84 YEARS OLD VERY PLEASANT, WOLOF-SPEAKING FEMALE IS BROUGHT IN BY HER DAUGHTERS FOR ROUTINE FOLLOW-UP AFTER 4 MONTHS. SHE HAD RSV RESPIRATORY INFECTION BACK IN DECEMBER OF THIS YEAR, AND SINCE THEN HER COUGH HAS BEEN LINGERING, THOUGH SHE HAS NO WHEEZING ATTACKS SHE WAS BEING TREATED WITH COUGH MEDS AND ALSO USING ALBUTEROL INHALER OR NEBULIZER ON A P.R.N. BASIS. THE COUGH PERSISTED HER PRIMARY CARE PHYSICIAN STARTED HER ON ADVAIR WELL SPIRIVA, EMPIRICALLY. ACCORDING TO HER DAUGHTER THIS COMBINATION OF INHALERS DID NOT. MAKE A DIFFERENCE HOWEVER WHEN SHE USES ALBUTEROL SOLUTION IN THE NEBULIZER IT HELPS. SO SHE USES THE NEBULIZER ONCE A DAY USUALLY BEFORE GOING TO SLEEP AND THEN SHE SLEEPS AT LEAST FOR 4-5 HOURS. SHE HAS NOT BEEN USING THE CPAP REGULARLY EXCEPT FOR 1 OR 2 HOURS PER NIGHT. SHE REMAINS MODERATELY OBESE AND THERE HAS BEEN NO CHANGE IN HER WEIGHT. [facility] Medical History COPD (chronic obstructive pulmonary disease) Obesity (BMI 30-39.9) History of stroke CAD (coronary artery disease) HLD (hyperlipidemia) HTN (hypertension), benign IDDM (insulin dependent diabetes mellitus) Internal and external prolapsed hemorrhoids Diabetes mellitus Chronic back pain Sleep apnea Morbid obesity Chronic diarrhea Surgical History History of esophagogastroduodenoscopy (EGD) Hx of colonoscopy History of partial surgical removal of colon (~2011) History of carpal tunnel surgery of left wrist Family History Mother History of stomach cancer Paternal Grandfather History of prostate cancer Sister History of breast cancer Family/Other Vaginal cancer Social History Household Members: Children Household Members Other:: Daughter, son in law, and grand child Housing: House Do you presently have visiting nurse or other home services: No Alcohol intake: never Patient Tobacco Use Status: Former Tobacco user service: No Review of Systems Const All systems reviewed & are unremarkable except as noted in HPI and below Eyes Reports no additional complaints ENT Reports no additional complaints Card Denies chest pain, Denies irregular heart rhythm and Denies leg edema Resp Reports as per HPI GI Reports no additional complaints Reports no additional complaints Musc Reports back pain and Reports arthralgias Skin/Breast Reports system reviewed and no additional complaints, except as documented Neuro Reports no additional complaints Psych Reports depression (BEING TREATED WITH MED) Endo Reports no additional complaints Physical Exam Vital Signs: Last Vital Signs Pulse 66 06/19/24 10:25 BP 102/68 06/19/24 10:25 Pulse Ox 97 06/19/24 10:25 Oxygen Delivery Method Room Air 06/19/24 10:25 BMI result Body Mass Index 31.5 Const General: healthy appearing (EXCEPT FOR BEING OVERWEIGHT), comfortable, no acute distress, alert and awake Orientation/consciousness: patient oriented x3 HEENT Other: OROPHARYNX IS NARROW, MALLAMPATI CLASS 4 Head: Yes normal to inspection General nose exam: No nasal polyps present and No nasal discharge present Face and sinus: Yes sinuses nontender Mouth: oropharynx normal (BUT NARROW 100 MALLAMPATI CLASS 4) Throat: Yes posterior oropharynx normal Eyes General: appearance normal, both eyes and all related structures Neck Neck: Yes normal visual inspection, Yes no lymphadenopathy, Yes trachea midline and Yes no JVD Thyroid: Thyroid normal Chest Chest palpation & inspection: normal inspection of the chest, normal palpation of entire chest wall and no tenderness Resp Other: PERCUSSION NOTE IS RESONANT, BREATH SOUNDS ARE DISTANT WITH PROLONGED EXPIRATORY PHASE. NO ACTIVE WHEEZES CREPITATIONS OR RHONCHI ARE HEARD Cardio Palpation: normal PMI Rate: regular rate Rhythm: regular rhythm Heart sounds: no gallops and no murmurs GI Palpation (GI): Soft to palpation, Tenderness to palpation present (GI), No hepatosplenomegaly present, Palpable mass present and Other GI palpation findings present (ABDOMEN IS MODERATELY OBESE AND PROTUBERANT) Auscultation: normal bowel sounds Back/Spine/Pelvis Thoracic/Lumbar Spine: thoracic and lumbar spine normal to inspection and thoraco-lumbar ROM limited Skin General skin exam: no rashes or lesions noted Neuro General: patient oriented x3 and no focal motor deficits Cranial nerves: Yes CN's II-XII intact bilaterally Extrem General: Yes normal to inspection, Yes no clubbing, cyanosis or edema and Yes no calf tenderness Psych Appearance: grossly normal and well kempt Speech and movement: Normal speech and movement present Results Reviewed Results Reviewed: THEY COMPLIANCE REPORT FOR THE LAST 90 NIGHTS SHOWS THAT SHE HAS NOT USE THE CPAP EXCEPT FOR 1 NIGHT. 0 BASICALLY SHE IS NONCOMPLIANT AT THIS TIME Assessment & Plan Assessment & Plan (1) Obesity (BMI 30-39.9): Comment: SHE IS MODERATELY OVERWEIGHT CURRENT BMI IS 31.5 . HER OBESITY IS MOSTLY ABDOMINAL. She is watching her diet, difficult for her to do any exercise. Code(s): E66.9 - Obesity, unspecified Category: Medical Plan: TALK TO HER DAUGHTER WHO TAKES CARE OF HER ABOUT WATCHING THE DIET. (2) Sleep apnea: Comment: OBSTRUCTIVE SLEEP APNEA FOR MANY YEARS. Confirmed by the sleep study earlier this year. She has difficulty in using the CPAP at night, as she feels suffocated. SO BASICALLY SHE IS NONCOMPLIANT AT THIS TIME. HOWEVER ACCORDING TO THE DAUGHTER SHE DOES SLEEP 5-6 HOURS EVERY NIGHT. Code(s): G47.30 - Sleep apnea, unspecified Category: Medical Plan: I THINK IT WILL BE DIFFICULT FOR THIS PATIENT TO USE THE CPAP. THE DAUGHTER IS ASKED TO WATCH FOR ANY SLEEP PROBLEMS IN HER CASE. (3) COPD (chronic obstructive pulmonary disease): Comment: PATIENT DOES HAVE MILD CHRONIC COUGH WITH INTERMITTENT WHEEZING. NOT BE ABLE TO PERFORM SPIROMETRY. CLINICALLY SHE SEEMS TO HAVE CHRONIC OBSTRUCTIVE PULMONARY DISEASE, MILD. Code(s): J44.9 - Chronic obstructive pulmonary disease, unspecified Category: Medical Plan: I THINK SHE DOES NOT REALLY NEED TO USE THE ADVAIR OR SPIRIVA, HOWEVER SHE CAN USE ALBUTEROL IN THE NEBULIZER Q.4-6 HOURS P.R.N.. AND ALSO CARRY ALBUTEROL HFA FOR P.R.N. USE WHEN SHE GOES OUTDOORS. Coding Level of Care Code Est Pt Level 3 (34064) Diagnoses Obesity (BMI 30-39.9) E66.9 Sleep apnea G47.30 COPD (chronic obstructive pulmonary disease) J44.9
== END 2024-06-19 10:57 | disposition home or self-care (01) ==
PROVIDERS: PCP Internal Medicine Geriatric Medicine; Visit Provider Internal Medicine
DX: E66.9 Obesity, unspecified (principal); G47.30 Sleep apnea, unspecified; J44.9 Chronic obstructive pulmonary disease, unspecified
CPT/HCPCS: 99213

== ENCOUNTER → 2024-06-19 10:01 | Outpatient (BNVA) | payer OTHER, SELFPAY | PROVIDERS: PCP Internal Medicine Geriatric Medicine; Visit Provider Internal Medicine | DX: G47.30 Sleep apnea, unspecified (principal); J44.9 Chronic obstructive pulmonary disease, unspecified; E66.9 Obesity, unspecified; Z68.31 Body mass index [BMI] 31.0-31.9, adult | CPT/HCPCS: 99212 ==

== ENCOUNTER 2024-08-13 17:39 | Emergency (ER) | payer OTHER, SELFPAY | END 2024-08-13 20:15 | disposition left against medical advice (07) | PROVIDERS: Emergency Provider Emergency Medicine; PCP Internal Medicine Geriatric Medicine | DX: S09.90XA Unspecified injury of head, initial encounter (principal); W19.XXXA Unspecified fall, initial encounter; Y93.9 Activity, unspecified; Y92.9 Unspecified place or not applicable; Y99.9 Unspecified external cause status ==

== ENCOUNTER 2024-09-01 23:11 | Emergency (ER) | payer OTHER, SELFPAY ==
--- NOTE | ~2024-09-01 | XR_ITS ---
EXAMINATION: XR RIBS, RIGHT CLINICAL INFORMATION: Pain. COMPARISON: January 11, 2024 TECHNIQUE: 3 views of the right ribs were obtained. FINDINGS: Lungs are clear. No consolidation, pneumothorax, or pleural effusion. The cardiomediastinal silhouette and pulmonary vasculature are normal. Osseous structures are unremarkable. Ribs are intact. No fractures are identified. XR/XR ribs RT min 3V w [id number] IMPRESSION: Unremarkable examination. Electronically signed by: Jey Salguero MD 09/02/2024 02:05 AM EDT
--- NOTE | ~2024-09-01 | CT_ITS ---
EXAMINATION: CT HEAD WITHOUT CONTRAST CT CERVICAL SPINE WITHOUT CONTRAST CLINICAL INFORMATION: Fall. Pain. COMPARISON: None available. TECHNIQUE: Contiguous axial imaging was performed from the skull base to vertex without intravenous administration of contrast. Sagittal and coronal reformatted images also obtained. This CT examination was performed using dose optimization techniques as appropriate, variously including the following: *Automated exposure control *Adjustment of mA and/or kV according to patient size (this includes techniques or standardized protocols for targeted exams where dose is matched to indication/reason for exam; i.e. extremities or head) *Use of iterative reconstruction technique DLP: 1084 mGy-cm FINDINGS: There is mild cerebral volume loss with prominence of the lateral and the third ventricles. The cortical sulci are widened appropriately. The fourth ventricle and basal cisterns are normally outlined. There is mild bilateral periventricular and central white matter diminished attenuation. There is no acute territorial defects, hemorrhage or midline shift. The extra-axial spaces are unremarkable. Calvarium/scalp: Intact. Maxillofacial sinuses and mastoids: There is mucosal thickening of the left maxillary sinus. The remaining visualized maxillofacial sinuses and mastoids are clear. Cervical spine: There is straightening of the cervical spine curvature. There is mild diffuse cervical disc degenerative change with minimal loss of disc space, mild endplate change and mild osteophyte formation with mild diffuse facet osteoarthritic hypertrophic change without significant spinal canal or significant neuroforaminal narrowing. The bone mineralization is within normal limits. There is no fracture. The soft tissues are unremarkable. The visualized upper lung rodriguez are clear. CT/CT cervical spine wo IV con IMPRESSION: CT HEAD: 1. No acute intracranial process seen. 2. Mild cerebral volume loss with chronic small vessel ischemic changes. CT CERVICAL SPINE: 1. Straightening of the cervical spine with mild diffuse degenerative disc changes and facet arthropathy. 2. No acute fracture or dislocation. Electronically signed by: Jey Salguero MD 09/02/2024 01:06 AM EDT
[2024-09-01 23:13] VITALS: BP 116/61; PULSE 87; RESP 16; TEMP 36.4; O2SAT 97; BMI 33.3
--- NOTE | 2024-09-01 23:46 | ED_ITS ---
HPI - Fall General Chief Complaint: Fall Stated Complaint: fall, head strike Time Seen by Provider: 09/01/24 23:39 Source: patient and family Mode of arrival: ambulatory Limitations: no limitations History of Present Illness ED Provider: Dr. Gely Ocasio HPI Narrative: Patient comes to the emergency room accompanied by her family. According to the patient and the family, patient was ready to get ready to go to bed. Patient had a commode at bedside, states that she dropped a pillow, bent over to try to grab it and fell forward and landed on the side. Patient reporting headache, mild neck pain and rib pain especially in the posterior aspect on the right side. Patient denies losing consciousness, patient is not on blood thinners. Patient denies any chest pain or abdominal pain. Patient states that her family helps her to get up, patient was able to ambulate to the car before she came here. Related Data Home Medications ?Medication ?Instructions ?Recorded ?Confirmed acetaminophen 500 mg tablet 1,000 mg PO Q8H PRN Pain 09/01/20 06/19/24 (Tylenol Extra Strength) aspirin 81 mg tablet,delayed 81 mg PO DAILY 09/01/20 06/19/24 release (Adult Aspirin Regimen) atorvastatin 20 mg tablet (Lipitor) 20 mg PO DAILY 09/01/20 06/19/24 dulaglutide 1.5 mg/0.5 mL 1.5 mg subcut QWEEK 09/01/20 06/19/24 subcutaneous pen injector (Trulicity) losartan 100 mg tablet 100 mg PO DAILY 09/01/20 06/19/24 calcium carbonate 600 mg-vitamin 1 cap PO DAILY 03/17/21 06/19/24 D3 10 mcg (400 unit) capsule diclofenac sodium 1 % topical gel 2 g topical BID 03/17/21 06/19/24 (Voltaren) lidocaine 5 % topical ointment 1 appl topical QD-QID PRN Pain 03/17/21 06/19/24 trazodone 100 mg tablet 1 tab PO QPM 03/17/21 06/19/24 amlodipine 10 mg tablet 5 mg PO DAILY 02/10/23 06/19/24 amlodipine 2.5 mg tablet 2.5 mg PO DAILY 02/10/23 06/19/24 citalopram 40 mg tablet 40 mg PO DAILY 02/10/23 06/19/24 nystatin 100,000 unit/gram topical topical QAM 02/10/23 06/19/24 powder ([facility]) gabapentin 100 mg capsule 100 mg PO BEDTIME 06/21/23 06/19/24 carvedilol 3.125 mg tablet 3.125 mg PO BID 02/13/24 06/19/24 fluticasone propionate 50 1 spray intranasal BID 02/13/24 06/19/24 mcg/actuation nasal spray,suspension hydrocortisone 2.5 % topical cream 1 appl topical BEDTIME PRN 02/13/24 06/19/24 with perineal applicator fluticasone 250 mcg-salmeterol 50 1 inh inhalation BID 06/19/24 06/19/24 mcg/dose blistr powdr for inhalation (Advair Diskus) tiotropium bromide 18 mcg capsule 1 cap inhalation DAILY 06/19/24 06/19/24 with inhalation device (Spiriva with HandiHaler) Previous Rx's ?Medication ?Instructions ?Recorded albuterol sulfate 90 mcg/actuation 2 puff inhalation Q4-6H PRN 02/10/23 aerosol inhaler (Ventolin HFA) shortness of breath or wheezing 30 days #8.5 grams codeine 10 mg-guaifenesin 100 mg/5 10 ml PO Q6H PRN cough #237 mL 01/11/24 mL oral liquid nebulizers (Compact Compressor #1 ea 01/11/24 Nebulizer) albuterol sulfate 2.5 mg/3 mL 2.5 mg (3 mL) inhalation Q4-6H PRN 02/13/24 (0.083 %) solution for nebulization shortness of breath or wheezing #90 mL Allergies Allergy/AdvReac Type Severity Reaction Status Date / Time No Known Allergies Allergy Verified 09/01/24 23:17 [No Known Allergies*] Review of Systems Review of Systems: Constitutional : No Weight loss, No Fever, No Chills, No Night Sweats, No Fatigue, No Malaise ENT/Mouth : No Hearing loss, No Ear Pain, No Nasal Congestion, No Sinus Pain, No Hoarseness, No sore throat, No Rhinorrhea, No Swallowing Difficulty Eyes: No Eye Pain, No Swelling, No Redness, No Foreign Body, No Discharge, No Vision Changes Cardiovascular : No Chest Pain, No SOB, No Dyspnea on Exertion, No Orthopnea, No Edema, No Palpitations Respiratory : No Cough, No Sputum, No Wheezing, No Smoke Exposure, No Dyspnea Gastrointestinal : No Nausea, No Vomiting, No Diarrhea, No Constipation, No abdominal Pain, No Hematochezia, No Melena Genitourinary : no irregular bleeding, No Dysuria, No Urinary Frequency, No Hematuria, No Urinary Incontinence, No Urgency, No Flank Pain, No Urinary Flow Changes, No Hesitancy Musculoskeletal : Complaining of rib pain posteriorly on the right side, complaining of mild bilateral neck pain No joint pain, No Myalgias, No Joint Swelling Skin : No Skin Lesions, No rash Neuro : No Weakness, No Numbness, No Paresthesias, No Loss of Consciousness, No Dizziness, complaining of mild Headache Psych : No Anxiety/Panic, No Depression, No SI/HI/AH/VH, No Social Issues, Heme/Lymph: No Bruising, No Bleeding,No Lymphadenopathy Endocrine : No Polyuria, No Polydipsia, No Temperature Intolerance PMFSH Past Medical History Medical History COPD (chronic obstructive pulmonary disease) Obesity (BMI 30-39.9) History of stroke CAD (coronary artery disease) HLD (hyperlipidemia) HTN (hypertension), benign IDDM (insulin dependent diabetes mellitus) Internal and external prolapsed hemorrhoids Diabetes mellitus Chronic back pain Sleep apnea Morbid obesity Chronic diarrhea Surgical History History of esophagogastroduodenoscopy (EGD) Hx of colonoscopy History of partial surgical removal of colon (~2011) History of carpal tunnel surgery of left wrist Family History Family History Mother History of stomach cancer Paternal Grandfather History of prostate cancer Sister History of breast cancer Family/Other Vaginal cancer Social History Social History Household Members: Children Household Members Other:: Daughter, son in law, and grand child Housing: House Do you presently have visiting nurse or other home services: No Alcohol intake: never Patient Tobacco Use Status: Former Tobacco user Use of substances other than those prescribed or required for medical reasons: No Advance Directives: No Advance Directives Information Provided: No Do you have a plan to hurt others: No Plan service: No Physical Exam Vital Signs: Vital Signs: Last Vital Signs Temp 97.6 F 09/01/24 23:13 Pulse 87 09/01/24 23:13 Resp 16 09/01/24 23:13 BP 116/61 09/01/24 23:13 Pulse Ox 97 09/01/24 23:13 O2 Del Method Room Air 09/01/24 23:13 BMI result Body Mass Index 33.3 Const: Other: Appearance: Alert. Oriented X3. No acute distress. Eyes: Pupils equal, round and reactive to light. ENT: Pharynx normal. Neck: Normal inspection. Neck supple. No lymph nodes noted. No crepitus, no C- spine tenderness, no palpable step-offs CVS: Normal heart rate and rhythm. Pulses normal. Normal S1 and S2 Respiratory: No respiratory distress. Breath sounds normal. No Wheezing. No rales Abdomen: Soft and nontender. No rigidity. No distention. Skin: Skin warm and dry. Normal skin color. Normal skin turgor. Small abrasion to the middle back, no laceration Extremities: No lower extremity edema. No Lacerations. No Rash Neuro: Oriented X 3. No motor deficit. No sensory deficit. Moving all extremities. No slurred speech. CN 2 through 12 grossly intact Psych: calm, cooperative, normal affect Course Course Course Narrative: Patient's urinalysis pending, -imaging pending -patient was given p.o. medication Tylenol Medications Administered Discontinued Medications Generic Name Dose Route Start Last Admin Trade Name Freq PRN Reason Stop Dose Admin Acetaminophen 975 mg 09/01/24 23:44 09/02/24 00:10 Acetaminophen 325 Mg Tablet PO 09/01/24 23:45 975 mg ONCE ONE Administration Medical Decision Making Medical Decision Making [facility] Narrative: My interpretation head and cervical spine, no obvious finding. -my interpretation of x-ray of the ribs: No abnormality, no fracture rib Independent Interpretation I performed an independent interpretation of an: Plain X-Ray and CT Scan Radiology Impression Discussion of test interpretation with radiology: I have reviewed the radiologist's reading. Radiologist Impression: IMPRESSION: CT HEAD: 1. No acute intracranial process seen. 2. Mild cerebral volume loss with chronic small vessel ischemic changes. CT CERVICAL SPINE: 1. Straightening of the cervical spine with mild diffuse degenerative disc changes and facet arthropathy. 2. No acute fracture or dislocation. Discharge Plan Discharge Clinical Impression: Fall, Contusion Patient Disposition: Home, Self-Care Instructions: Fall Prevention (ED), Contusion in Adults (ED) Additional Instructions: Please follow-up with your primary care physician tomorrow. If you have any worsening or new symptoms, please return to the emergency room or call 911 Prescriptions: No Action trazodone 100 mg tablet 1 tab PO QPM diclofenac sodium [Voltaren] 1 % Gel 2 g TOPICAL BID calcium carbonate-vitamin D3 600 mg(1,500mg) -400 unit Capsule 1 cap PO DAILY Rx Instructions: PATIENT WAS TAKING LIQUID OUTPATIENT lidocaine 5 % ointment 1 appl topical QD-QID PRN (Reason: Pain) (DME) nebulizers [Compact Compressor Nebulizer] Misc See Rx Instructions .Route Qty: 1 0RF Rx Instructions: As directed codeine-guaifenesin 10-100 mg/5 mL liquid 10 ml PO Q6H PRN (Reason: cough) Qty: 237 0RF acetaminophen [Tylenol Extra Strength] 500 mg tablet 1,000 mg PO Q8H PRN (Reason: Pain) aspirin [Adult Aspirin Regimen] 81 mg tablet,delayed release (DR/EC) 81 mg PO DAILY atorvastatin [Lipitor] 20 mg tablet 20 mg PO DAILY Trulicity 1.5 mg/0.5 mL pen injector 1.5 mg subcut QWEEK Patient Comments: PATIENT TAKES ON MONDAYS losartan 100 mg tablet 100 mg PO DAILY citalopram 40 mg tablet 40 mg PO DAILY amlodipine 10 mg tablet 5 mg PO DAILY amlodipine 2.5 mg tablet 2.5 mg PO DAILY nystatin [[facility]] 100,000 unit/gram powder topical QAM albuterol sulfate [Ventolin HFA] 90 mcg/actuation HFA aerosol inhaler 2 puff inhalation Q4-6H PRN (Reason: shortness of breath or wheezing) 30 Days Qty: 8.5 3RF hydrocortisone 2.5 % cream with perineal applicator 1 appl topical BEDTIME PRN albuterol sulfate 2.5 mg /3 mL (0.083 %) solution for nebulization 2.5 mg inhalation Q4-6H PRN (Reason: shortness of breath or wheezing) Qty: 90 3RF fluticasone propion-salmeterol [Advair Diskus] 250-50 mcg/dose blister with device 1 inh inhalation BID tiotropium bromide [Spiriva with HandiHaler] 18 mcg capsule, w/inhalation device 1 cap inhalation DAILY Rx Instructions: puncture 1 cap using device; one dose = 2 inhalations gabapentin 100 mg capsule 100 mg PO BEDTIME carvedilol 3.125 mg tablet 3.125 mg PO BID fluticasone propionate 50 mcg/actuation spray,suspension 1 spray intranasal BID Print Language: Portuguese
[2024-09-02] MEDS: Acetaminophen 325 MG TABLET 975 MG PO (00:10)
[2024-09-02 02:37] VITALS: BP 137/68; PULSE 70; RESP 18; TEMP 36.4; O2SAT 95
== END 2024-09-02 02:38 | disposition home or self-care (01) ==
PROVIDERS: Emergency Provider Internal Medicine; PCP Internal Medicine Geriatric Medicine
DX: S30.810A Abrasion of lower back and pelvis, initial encounter (principal); T14.8XXA Other injury of unspecified body region, initial encounter; W18.12XA Fall from or off toilet with subsequent striking against object, initial encounter; E11.9 Type 2 diabetes mellitus without complications; I10 Essential (primary) hypertension; E78.5 Hyperlipidemia, unspecified; Z79.82 Long term (current) use of aspirin; Z79.84 Long term (current) use of oral hypoglycemic drugs; Z79.02 Long term (current) use of antithrombotics/antiplatelets; Y93.89 Activity, other specified; Y92.012 Bathroom of single-family (private) house as the place of occurrence of the external cause; Y99.9 Unspecified external cause status
CPT/HCPCS: 70450; 71101; 72125; 99284

== ENCOUNTER 2024-10-01 11:55 | Outpatient (REF) | payer OTHER, SELFPAY ==
[2024-10-01 13:47] LABS: Anion Gap 12 (12-20); Blood Urea Nitrogen 18 mg/dL (9-16); Calcium 9.4 mg/dL (8.4-10.2); Carbon Dioxide 28 mmol/L (22-29); Chloride 105 mmol/L (96-108); Cholesterol 168 mg/dL (<200); Estimated Glomerular Filt Rate 37; Glucose Random 139 mg/dL (60-115); HDL Cholesterol 80 mg/dL (>40); LDL Cholesterol Calculated 74 mg/dL (<100); Potassium 4.3 mmol/L (3.3-5.1); Sodium 141 mmol/L (135-145); Triglycerides 74 mg/dL (<150)
[2024-10-01 14:04] LABS: Vitamin D 25-OH Total 22.6 ng/mL (>30)
[2024-10-01 14:41] LABS: Folate 12.9 ng/mL (> or = 4.0); Vitamin B12 263 pg/mL (200-900)
== END 2024-10-01 11:56 | disposition home or self-care (01) ==
LOC: HO.HHCL 11:55
PROVIDERS: Visit Provider Internal Medicine Geriatric Medicine
DX: R20.0 Anesthesia of skin (principal); R20.2 Paresthesia of skin; R26.81 Unsteadiness on feet; W19.XXXD Unspecified fall, subsequent encounter; E11.8 Type 2 diabetes mellitus with unspecified complications
CPT/HCPCS: 36415; 80048; 80061; 82306; 82607; 82746

== ENCOUNTER 2024-10-30 14:22 | Outpatient (AMB) | payer OTHER, SELFPAY ==
[2024-10-30 14:30] VITALS: BP 120/58; PULSE 84; O2SAT 96; BMI 34.2
--- NOTE | 2024-10-30 14:30 | MHC.OFFVIS ---
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 Allergies No Known Allergies [No Known Allergies*] Allergy (Verified 10/30/24 14:49) Medication List - Last Reconciled 10/30/24 by Joel Nunez MD acetaminophen 500 mg PO Q6H PRN acetaminophen (Tylenol Extra Strength) 1,000 mg PO Q8H PRN albuterol sulfate 90 mcg/actuation (Ventolin HFA) 2 puffs inhalation Q4-6H PRN 30 days albuterol sulfate 2.5 mg (3 mL) inhalation Q4-6H PRN amlodipine 5 mg PO DAILY amlodipine 2.5 mg PO DAILY aspirin (Adult Aspirin Regimen) 81 mg PO DAILY atorvastatin (Lipitor) 20 mg PO DAILY calcium carbonate-vitamin D3 600 mg-10 mcg (400 unit) 1 cap PO DAILY carvedilol 3.125 mg PO BID citalopram 40 mg PO DAILY codeine-guaifenesin 10-100 mg/5 mL 10 mL PO Q6H PRN diclofenac sodium 1% (Voltaren) 2 grams topical BID doxycycline hyclate 100 mg PO BID 10 days dulaglutide (Trulicity) 1.5 mg subcut QWEEK fluticasone propion-salmeterol 250-50 mcg/dose (Advair Diskus) 1 inh inhalation BID fluticasone propionate 50 mcg/actuation 1 spray intranasal BID gabapentin 100 mg PO BEDTIME hydrocortisone 2.5% 1 appl topical BEDTIME PRN lidocaine 5% 1 appl topical QD-QID PRN losartan 100 mg PO DAILY nebulizers (Compact Compressor Nebulizer) As directed nystatin (Nyamyc) topical QAM tiotropium bromide (Spiriva with HandiHaler) 1 cap inhalation DAILY trazodone 1 tab PO QPM Do you need a note to return to daycare/school/sports/work: No HPI HPI Questions Pnuemonia: Details: 84 YEARS OLD VERY PLEASANT FEMALE, BROUGHT IN FOR AN URGENT VISIT BECAUSE SHE IS HAVING SEVERE COUGH FOR THE LAST 2 WEEKS. IT STARTED AFTER WHEN THE FAMILY HAD A BIG GATHERING AT HOME. AFTER THAT SHE HAD SLIGHT RUNNY NOSE AND STARTED HAVING MILD COUGH WHICH HAS PROGRESSED. THE COUGH IS MOSTLY DRY WITHOUT ANY MUCUS. SHE IS COMPLAINING OF CHEST WALL PAIN ESPECIALLY ON THE RIGHT SIDE DUE TO COUGH. SHE HAS TRIED [id number] COUGH MEDICINE WITHOUT MUCH EFFECT. SHE CONTINUES TO USE HER SPIRIVA, WIXELA 250-50 B.I.D. AND ALBUTEROL SOLUTION IN THE NEBULIZER, WITHOUT MUCH IMPROVEMENT. DENIES FEVER OR CHILLS. SHE IS A CASE OF OBSTRUCTIVE SLEEP APNEA AND HAS NOT BEEN ABLE TO USE CPAP BECAUSE OF HER SEVERE COUGH AT NIGHT. 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 Diabetes mellitus Chronic back pain Sleep apnea Morbid obesity Chronic diarrhea Surgical History History of esophagogastroduodenoscopy (EGD) Hx of colonoscopy History of partial surgical removal of colon (~2011) History of carpal tunnel surgery of left wrist Family History Mother History of stomach cancer Paternal Grandfather History of prostate cancer Sister History of breast cancer Family/Other Vaginal cancer Social History Household Members: Children Household Members Other:: Daughter, son in law, and grand child Housing: House Do you presently have visiting nurse or other home services: No Alcohol intake: never Patient Tobacco Use Status: Former Tobacco user service: No Review of Systems Const All systems reviewed & are unremarkable except as noted in HPI and below Eyes Reports no additional complaints ENT Reports no additional complaints Card Denies chest pain, Denies irregular heart rhythm and Denies leg edema Resp Reports as per HPI and Reports cough (++) GI Reports no additional complaints Reports no additional complaints Musc Reports back pain and Reports arthralgias Skin/Breast Reports system reviewed and no additional complaints, except as documented Neuro Reports no additional complaints Psych Reports depression (BEING TREATED WITH MED) Endo Reports no additional complaints Physical Exam Vital Signs: Last Vital Signs Pulse 84 10/30/24 14:30 BP 120/58 L 10/30/24 14:30 Pulse Ox 96 10/30/24 14:30 Oxygen Delivery Method Room Air 10/30/24 14:30 BMI result Body Mass Index 34.2 Const General: healthy appearing (EXCEPT FOR BEING OVERWEIGHT), comfortable, no acute distress, alert and awake Orientation/consciousness: patient oriented x3 HEENT Other: OROPHARYNX IS NARROW, MALLAMPATI CLASS 4 Head: Yes normal to inspection General nose exam: No nasal polyps present and No nasal discharge present Face and sinus: Yes sinuses nontender Mouth: oropharynx normal (BUT NARROW 100 MALLAMPATI CLASS 4) Throat: Yes posterior oropharynx normal Eyes General: appearance normal, both eyes and all related structures Neck Neck: Yes normal visual inspection, Yes no lymphadenopathy, Yes trachea midline and Yes no JVD Thyroid: Thyroid normal Chest Chest palpation & inspection: normal inspection of the chest, normal palpation of entire chest wall and no tenderness Resp Other: PERCUSSION NOTE IS RESONANT, BREATH SOUNDS ARE DISTANT WITH PROLONGED EXPIRATORY PHASE. NO ACTIVE WHEEZES CREPITATIONS OR RHONCHI ARE HEARD However she is not able to take deep breaths because of cough produced by deep inspiration. Cardio Palpation: normal PMI Rate: regular rate Rhythm: regular rhythm Heart sounds: no gallops and no murmurs GI Palpation (GI): Soft to palpation, Tenderness to palpation present (GI), No hepatosplenomegaly present, Palpable mass present and Other GI palpation findings present (ABDOMEN IS MODERATELY OBESE AND PROTUBERANT) Auscultation: normal bowel sounds Back/Spine/Pelvis Thoracic/Lumbar Spine: thoracic and lumbar spine normal to inspection and thoraco-lumbar ROM limited Skin General skin exam: no rashes or lesions noted Neuro General: patient oriented x3 and no focal motor deficits Cranial nerves: Yes CN's II-XII intact bilaterally Extrem General: Yes normal to inspection, Yes no clubbing, cyanosis or edema and Yes no calf tenderness Psych Appearance: grossly normal and well kempt Speech and movement: Normal speech and movement present Assessment & Plan Assessment & Plan (1) COPD (chronic obstructive pulmonary disease): Comment: PATIENT DOES HAVE MILD CHRONIC COUGH WITH INTERMITTENT WHEEZING. NOT ABLE TO PERFORM PFT . CLINICALLY SHE SEEMS TO HAVE CHRONIC OBSTRUCTIVE PULMONARY DISEASE, Code(s): J44.9 - Chronic obstructive pulmonary disease, unspecified Category: Medical Plan: Continue to use Advair 250-50 1 inhalation b.i.d. Spiriva HandiHaler 1 inhalation daily. Albuterol solution in the nebulizer Q 4-6 hours p.r.n. (2) Bronchitis: Comment: Persistent cough for the last 2 weeks, most likely secondary to tracheobronchitis, mostly viral , but raises question of possible pneumonia, Code(s): J40 - Bronchitis, not specified as acute or chronic Category: Medical Plan: Chest x-ray is ordered. Doxycycline 100 b.i.d. for 10 days prescribed empirically. Use guaifenesin-codeine 100-10 mg 1 tsp q.6 hours during the daytime and 2 tsp at night. Do use the humidifier in the bedroom at nighttime. (3) Cough: Comment: Most likely secondary to acute tracheobronchitis as noted above. Code(s): R05.9 - Cough, unspecified Category: Medical Plan: Treatment as under bronchitis. Orders: Orders XR chest 2V Today J40 - Bronchitis, not specified as acute or chronic, J44.9 - Chronic obstructive pulmonary disease, unspecified, R05.9 - Cough, unspecified Medications: New doxycycline hyclate 100 mg PO BID 10 days 20 tabs 0RF BRONCHITIS Coding Level of Care Code Est Pt Level 3 (96981) Diagnoses COPD (chronic obstructive pulmonary disease) J44.9 Bronchitis J40 Cough R05.9
== END 2024-10-30 15:55 | disposition home or self-care (01) ==
PROVIDERS: PCP Internal Medicine Geriatric Medicine; Visit Provider Internal Medicine
DX: J44.9 Chronic obstructive pulmonary disease, unspecified (principal); J40 Bronchitis, not specified as acute or chronic; R05.9 Cough, unspecified
CPT/HCPCS: 99213

== ENCOUNTER 2024-10-30 14:22 | Outpatient (REF) | payer OTHER, SELFPAY ==
--- NOTE | ~2024-10-30 | XR_ITS ---
EXAMINATION: XR CHEST CLINICAL INFORMATION: R05.9 - Cough, unspecified COMPARISON: X-ray 09/01/2024 TECHNIQUE: 2 views of the chest were obtained. FINDINGS: The cardiomediastinal silhouette is within normal limits. The lungs are well expanded. There is no focal consolidation, edema, or effusion. No pneumothorax. No acute osseous abnormality. XR/XR chest 2V IMPRESSION: No acute cardiopulmonary findings. Electronically signed by: Bony Barr MD 10/30/2024 05:00 PM KATIE
== END 2024-10-30 14:23 | disposition home or self-care (01) ==
LOC: HO.XRAY 14:22
PROVIDERS: PCP Internal Medicine Geriatric Medicine; Visit Provider Internal Medicine
DX: J44.9 Chronic obstructive pulmonary disease, unspecified (principal); J40 Bronchitis, not specified as acute or chronic; R05.9 Cough, unspecified
CPT/HCPCS: 71046; 99212

== ENCOUNTER 2025-01-15 09:41 | Outpatient (AMB) | payer OTHER, SELFPAY ==
--- NOTE | 2025-01-15 09:45 | MHC.OFFVIS ---
Vital Signs 01/15/25 09:46 Height 5 ft 2 in Weight 187 lb BMI 34.2 BP 130/70 Blood Pressure Location Lt brachial Position Sitting Pulse 67 Pulse Source Pulse Oximeter Pulse Oximetry (%) 98 Oxygen Delivery Method Room Air Intake Visit Reasons: cough Intake Note: pt is here for follow up she states she is good with breathing, just little more unsteady, and at night early in am with coldness she coughs [employer] Professional Required: No Allergies No Known Allergies [No Known Allergies*] Allergy (Verified 01/15/25 10:00) Medication List - Last Reconciled 01/15/25 by Joel Nunez MD acetaminophen 500 mg PO Q6H PRN acetaminophen (Tylenol Extra Strength) 1,000 mg PO Q8H PRN albuterol sulfate 90 mcg/actuation (Ventolin HFA) 2 puffs inhalation Q4-6H PRN 30 days albuterol sulfate 2.5 mg (3 mL) inhalation Q4-6H PRN amlodipine 5 mg PO DAILY amlodipine 2.5 mg PO DAILY aspirin (Adult Aspirin Regimen) 81 mg PO DAILY atorvastatin (Lipitor) 20 mg PO DAILY calcium carbonate-vitamin D3 600 mg-10 mcg (400 unit) 1 cap PO DAILY carvedilol 3.125 mg PO BID citalopram 40 mg PO DAILY codeine-guaifenesin 10-100 mg/5 mL 10 mL PO Q6H PRN diclofenac sodium 1% (Voltaren) 2 grams topical BID dulaglutide (Trulicity) 1.5 mg subcut QWEEK fluticasone propion-salmeterol 250-50 mcg/dose (Advair Diskus) 1 inh inhalation BID fluticasone propionate 50 mcg/actuation 1 spray intranasal BID gabapentin 100 mg PO BEDTIME hydrocortisone 2.5% 1 appl topical BEDTIME PRN lidocaine 5% 1 appl topical QD-QID PRN losartan 100 mg PO DAILY nebulizers (Compact Compressor Nebulizer) As directed nystatin (Nyamyc) topical QAM tiotropium bromide (Spiriva with HandiHaler) 1 cap inhalation DAILY trazodone 1 tab PO QPM Do you need a note to return to daycare/school/sports/work: No HPI HPI cough: Details: This 84 years old female is here for follow-up, for chronic cough and COPD Since her last visit after treatment with a course of doxycycline, and cough suppressant medication, she has been doing very well. She does have mild intermittent cough and occasional wheeze, .but overall has remained stable Continues to use Advair 250-50 b.i.d., Spiriva HandiHaler once a day, and albuterol in the nebulizer Q 4-6 hours p.r.n.. She also has mild nasal congestion and nasal discharge off and on and uses Flonase p.r.n. When she had severe cough she was prescribed guaifenesin with codeine syrup but does not need to use it now. [facility] Medical History Cough Bronchitis COPD (chronic obstructive pulmonary disease) Obesity (BMI 30-39.9) History of stroke CAD (coronary artery disease) HLD (hyperlipidemia) HTN (hypertension), benign IDDM (insulin dependent diabetes mellitus) Internal and external prolapsed hemorrhoids Diabetes mellitus Chronic back pain Sleep apnea Morbid obesity Chronic diarrhea Surgical History History of esophagogastroduodenoscopy (EGD) Hx of colonoscopy History of partial surgical removal of colon (~2011) History of carpal tunnel surgery of left wrist Family History Mother History of stomach cancer Paternal Grandfather History of prostate cancer Sister History of breast cancer Family/Other Vaginal cancer Social History Household Members: Children Household Members Other:: Daughter, son in law, and grand child Housing: House Do you presently have visiting nurse or other home services: No Alcohol intake: never Patient Tobacco Use Status: Former Tobacco user service: No Review of Systems Const All systems reviewed & are unremarkable except as noted in HPI and below Eyes Reports no additional complaints ENT Reports no additional complaints Card Denies chest pain, Denies irregular heart rhythm and Denies leg edema Resp Reports as per HPI and Reports cough (++) GI Reports no additional complaints Reports no additional complaints Musc Reports back pain and Reports arthralgias Skin/Breast Reports system reviewed and no additional complaints, except as documented Neuro Reports no additional complaints Psych Reports depression (BEING TREATED WITH MED) Endo Reports no additional complaints Physical Exam Vital Signs: Last Vital Signs Pulse 67 01/15/25 09:46 BP 130/70 01/15/25 09:46 Pulse Ox 98 01/15/25 09:46 Oxygen Delivery Method Room Air 01/15/25 09:46 BMI result Body Mass Index 34.2 Const General: healthy appearing (EXCEPT FOR BEING OVERWEIGHT), comfortable, no acute distress, alert and awake Orientation/consciousness: patient oriented x3 HEENT Other: OROPHARYNX IS NARROW, MALLAMPATI CLASS 4 Head: Yes normal to inspection General nose exam: No nasal polyps present and No nasal discharge present Face and sinus: Yes sinuses nontender Mouth: oropharynx normal (BUT NARROW 100 MALLAMPATI CLASS 4) Throat: Yes posterior oropharynx normal Eyes General: appearance normal, both eyes and all related structures Neck Neck: Yes normal visual inspection, Yes no lymphadenopathy, Yes trachea midline and Yes no JVD Thyroid: Thyroid normal Chest Chest palpation & inspection: normal inspection of the chest, normal palpation of entire chest wall and no tenderness Resp Other: PERCUSSION NOTE IS RESONANT, BREATH SOUNDS ARE DISTANT WITH PROLONGED EXPIRATORY PHASE. NO ACTIVE WHEEZES CREPITATIONS OR RHONCHI ARE HEARD Cardio Palpation: normal PMI Rate: regular rate Rhythm: regular rhythm Heart sounds: no gallops and no murmurs GI Palpation (GI): Soft to palpation, Tenderness to palpation present (GI), No hepatosplenomegaly present, Palpable mass present and Other GI palpation findings present (ABDOMEN IS MODERATELY OBESE AND PROTUBERANT) Auscultation: normal bowel sounds Back/Spine/Pelvis Thoracic/Lumbar Spine: thoracic and lumbar spine normal to inspection and thoraco-lumbar ROM limited Skin General skin exam: no rashes or lesions noted Neuro General: patient oriented x3 and no focal motor deficits Cranial nerves: Yes CN's II-XII intact bilaterally Extrem General: Yes normal to inspection, Yes no clubbing, cyanosis or edema and Yes no calf tenderness Psych Appearance: grossly normal and well kempt Speech and movement: Normal speech and movement present Assessment & Plan Assessment & Plan (1) COPD (chronic obstructive pulmonary disease): Comment: PATIENT DOES HAVE MILD CHRONIC COUGH WITH INTERMITTENT WHEEZING. NOT ABLE TO PERFORM PFT . CLINICALLY SHE SEEMS TO HAVE CHRONIC OBSTRUCTIVE PULMONARY DISEASE, WHICH IS FAIRLY WELL CONTROLLED AT THIS TIME. Code(s): J44.9 - Chronic obstructive pulmonary disease, unspecified Category: Medical Plan: CONTINUE ADVAIR. 250-51 INHALATION B.I.D. SPIRIVA HANDIHALER. 1 INHALATION DAILY ALBUTEROL SOLUTION IN THE NEBULIZER Q 4-6 HOURS P.R.N. FOR WHEEZING OR PERSISTENT COUGH. (2) Bronchitis: Comment: SHE IS PRONE TO HAVE BOUTS OF COUGH DUE TO RECURRENT TRACHEOBRONCHITIS. AT THIS TIME SHE HAS NO ACTIVE SYMPTOMS. Code(s): J40 - Bronchitis, not specified as acute or chronic Category: Medical Plan: SHE IS INSTRUCTED TO USE THE COUGH MEDICINE ONLY P.R.N. (3) Sleep apnea: Comment: OBSTRUCTIVE SLEEP APNEA FOR MANY YEARS. Confirmed by the sleep study in 2023 She has difficulty in using the CPAP at night, as she feels suffocated. SO BASICALLY SHE WAS NONCOMPLIANT . AND STOPPED USING THE CPAP. HOWEVER ACCORDING TO THE DAUGHTER SHE DOES SLEEP 5-6 HOURS EVERY NIGHT. Code(s): G47.30 - Sleep apnea, unspecified Category: Medical Plan: OKAY TO GO WITHOUT THE CPAP. KEEP WEIGHT IN CONTROL. Coding Level of Care Code Est Pt Level 3 (19030) Diagnoses COPD (chronic obstructive pulmonary disease) J44.9 Bronchitis J40 Sleep apnea G47.30
[2025-01-15 09:46] VITALS: BP 130/70; PULSE 67; O2SAT 98; BMI 34.2
--- OUTSIDE RECORDS SUMMARY | 2025-01-15 10:59 | XMS_ITS | Data Portability ---
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 Plan of Treatment Reminders Order Date Submit Date Provider Last Modified By Organization Details Last Modified Time Details Appointments None recorded. Lab None recorded. Referral None recorded. Procedures None recorded. Surgeries None recorded. Imaging None recorded. Medication Orders benzonatate 100 mg capsule 2021 [facility], [address] [place], [address], 13:11:55 guaifenesin 100 mg/5 mL oral liquid 2021 [facility], [address] [place], [address], 13:11:55 Patient TargetsNo targets recorded. Patient InstructionsNo instructions recorded. Reason for Referral None Reported. Medical Equipment None Reported. Medications Name Sig Start Date Stop Date Status Note LastModified by Organization Details LastModified Time atorvastatin 20 mg tablet TAKE ONE TABLET BY MOUTH EVERY DAY active Not Available Not Available No t Available citalopram 40 mg tablet TAKE 1/2 TABLET BY MOUTH DAILY active Not Available Not Available No t Available cefpodoxime 200 mg tablet TAKE 1 TABLET BY MOUTH EVERY 12 HOURS WITH FOOD active Not Available Not Available No t Available FreeStyle Lancets 28 gauge USE A NEW LANCET TWO TIMES A DAY DIRECTED active Not Available Not Available No t Available prednisone 20 mg tablet TAKE 2 TABLETS ONCE A DAY FOR 1 WEEK; THEN TAKE 1 TABLET ONCE A DAY FOR 1 WEEK; THEN TAKE 1/2 TABLET ONCE A DAY FOR 1 WEEK active Not Available Not Available N ot Available amlodipine 2.5 mg tablet TAKE ONE TABLET BY MOUTH EVERY DAY active Not Available Not Available No t Available aspirin 81 mg tablet,delaye d release TAKE ONE TABLET BY MOUTH EVERY DAY active Not Available Not Available No t Available doxycycline monohydrate 100 mg tablet TAKE 1 TABLET BY MOUTH TWO TIMES EVERY DAY active Not Available Not Available No t Available guaifenesin 100 mg/5 mL oral liquid Take 10 mL every 4 hours by oral route as needed for 7 days. 2021 active Not Available Not Available Not Avai lable trazodone 100 mg tablet TAKE ONE TABLET BY MOUTH EVERY EVENING AFTER MEALS active Not Available Not Available No t Available benzonatate 100 mg capsule TAKE ONE CAPSULE BY MOUTH THREE TIMES A DAY FOR 7 DAYS active Not Available Not Available No t Available docusate sodium 100 mg capsule TAKE ONE CAPSULE BY MOUTH TWICE A DAY active Not Available Not Available No t Available codeine 10 mg-guaifenesi n 100 mg/5 mL oral liquid TAKE 10 ML (2 TEASPOONFU LS) BY MOUTH EVERY 4 HOURS NEEDED active Not Available Not Available No t Available albuterol sulfate HFA 90 mcg/actuation aerosol inhaler INHALE 2 PUFFS EVERY 4-6HOURS NEEDED active Not Available Not Available No t Available losartan 100 mg tablet TAKE ONE TABLET BY MOUTH EVERY DAY active Not Available Not Available No t Available FreeStyle Lite Strips USE TO TEST TWO TIMES EVERY DAY DIRECTED active Not Available Not Available No t Available Lantus Solostar U-100 Insulin 100 unit/mL (3 mL) subcutaneous pen INJECT 5 UNITS UNDER THE SKIN EVERY NIGHT active Not Available Not Available No t Available Trulicity 1.5 mg/0.5 mL subcutaneous pen injector INJECT 1.5MG UNDER THE SKIN ONCE A WEEK active Not Available Not Available No t Available Procto-Med HC 2.5 % topical cream perineal applicator APPLY A THIN LAYER TOPICALLY TO AFFECTED AREA(S) 2 TO 4 TIMES EVERY DAY DIRECTED active Not Available Not Available No t Available BD Rosalind 2nd Gen Pen Needle 32 gauge x 5/32 USE ONCE A DAY WITH INSULIN active Not Available Not Available No t Available Vitals Date Recorded Heart rate Respiratory rate Body temperature Oxygen saturation Oxygen saturation in Arterial blood by Pulse oximetry Oxygen saturation Oxygen saturation in Arterial blood by Pulse oximetry Body temperature Respiratory rate Heart rate Systolic blood pressure Diastolic blood pressure Systolic blood pressure Diastolic blood pressure Provider Name and Address Organization Details Last Updated DateTime 2 65 /min 16 /min 98 [degF] 99 % 99 % 99 % 99 % 98 [degF] 16 /min 65 /min 126 mm[Hg] 70 mm[Hg] 126 mm[Hg] 70 mm[Hg] Not Available [facility] - production 13:15:58 Social History None recorded. Functional Status None recorded. Mental Status None recorded. Family History Nothing Reported. Medical History No medical history recorded. Gynecological HistoryNo gynecological history recorded. Obstetrics History GPAL:G 0 P 0 0 0 0 Past Encounters Encounter ID Performer Location Encounter Start Date Encounter Closed Date Diagnosis/Indication Diagnosis SNOMED-CT Code Diagnosis ICD10 Code Diagnosis Note [id number] Dar Fletcher MD [facility] - [facility] [address] [place] [phone] 10/27/2022 13:07:42 10/29/2022 10:53:36 Persistent cough [id number] R05.3 Per patient COVID negative x2. Supportive care Health Concerns Section Related Observation LastModified by Organization Detai ls LastModified Time None Recorded Concern Status LastModified by Organization Details LastModified Time None Recorded Advance Directives Directive None Recorded Payers Encounter Date Sequence Insurance Name Policy Number Policy Rascon Covered Member ID Rascon Member ID Guarantor Name 10/27/2022 1 [facility] - DOS PRIOR TO 2023 - DUAL ELIGIBLE (MEDICARE REPLACEMENT/ADV ANTAGE - HMO) Jana Lindo [id number] Jana Lindo Notes Date Note Type Note Provider Name and Address Organization Details Recorded Time 10/27/2022 text/html HPI: Pt had onset of cough on Tuesday 10/23. Per pt has had COVID-19 testing x 2 negative. Having fatigue and body aches. No CP or wheezing. Pt using robitussin for cough. No vomting or diarrhea. Unable to come into our walk in center. .................. .................. .................. .................. .................. .................. .................. ............... CRC Nursing Assessment: Comments: CRC RN did not require any additional information to process this visit. .................. .................. .................. .................. .................. .................. .................. ............... School Program Director Note: Pt presents awake and alert c/o non productive cough x4 days. Pt denies cp, sob, f/n/v/d. Pt sts little relief from robitussin Clear/equal LS bilaterally. Covid, flu, and strep tests negative. Pt/family educated on supportive care, warning signs for 911/ED and to follow up with PCP next week. .................. .................. .................. .................. .................. .................. .................. ............... Disposition: Fulfilled Dar Fletcher MD [address] [facility],[address], [place], [phone], [employer] 10/27/2022 21:06:23 OBGyn Episode No OBEpisode recorded.
--- OUTSIDE RECORDS SUMMARY | 2025-01-15 10:59 | XMS_ITS ---
Author Organization [facility] Address [address] [place] [address] YASIR Vergara [address] Care Team Providers Care Show Worker Name Role Phone Name Elvis IZQUIERDO Primary Care Provider Pankaj Barnes Unavailable [phone] Allergies No Known Allergies REASON FOR VISIT At Risk Footcare, Painful Nail(s) aggravated by shoes and causing difficulty standing/walking, Toe Irritation Medications Medication SIG (Take, Route, Frequency, Duration) Notes Start Date End Date Status Extra Depth Orthopedic Shoes, (1) Pair With (3) Pair Custom Heat Molded Multidensity Innersoles Dx: IDDM/PVD(E10.51), Hammertoe Foot Deformity, B/L(M20.41,M20.42), Preulcerative Skin Lesion(s)(L85.1) Wear Daily for 365 days Active Tylenol 500mg prn Active Trulicity 1.5 MG/0.5ML Subcutaneous Active Aspercreme 10 % 1 application as needed Externally Four times a day for 30 days 07/22/2022 Active Cefpodoxime Proxetil Active Losartan Potassium 100 MG Orally Once a day Active Citalopram Hydrobromide 40 MG Orally Once a day Acti ve traZODone HCl 100 MG Orally Once a day Active Atorvastatin Calcium 20 MG Orally Once a day Active Aspirin 81 MG Orally Active Ammonium Lactate 12 % 1 application to affected area Externally to feet Twice a day for 30 days Active amLODIPine Besylate 5mg Active Gabapentin Active guaiFENesin Active Albuterol Active Sulfamethoxazole-TMP DS Not-Taking Mapap Not-Taking CareOne Unifine Pentips Plus Not-Taking Baclofen Not-Taking Metoprolol Succinate ER Not-Taking Aspirin EC Low Dose Not-Taking ARIPiprazole 5 MG 1 tablet Orally Once a day Not-Taking Diphenoxylate-Atropin e Not-Taking FreeStyle Lite Test Not-Taking Fiber Not-Taking Vitamin D 1000 UNIT Orally Once a day Not-Taking Metamucil prn Not-Taking Cholestyramine Not-T aking Liquid Calcium with D3 Not-Taking Lipitor Not-Taking Fiber-Lax Not-Taking Abilify 5 MG Orally Once a day Not-Taking Zetia Not-Taking Prazosin HCl Not-Fitz ing Sucralfate Not-Takin g Metoprolol Tartrate Not-Taking Lantus SoloStar 10ML Not-Taking Fish Oil Not-Taking Dicyclomine HCl 10 MG Orally Four times a day Not-Taking Nystatin 195006 UNIT/GM Externally Powder for Breast Not-Taking Doxycycline Monohydrate Not-Taking Calcium Carb-Ergocalciferol Not-Taki ng Social History Tobacco Use: Social History Observation Description Date Details (start date - stop date) Former Smoker NA - NA Tobacco Use/Smoking Question Answer Notes Are you a: former smoker Additional Findings: Tobacco Non-User Current no n-smoker Alcohol Screen Question Answer Notes Did you have a drink containing alcohol in the p ast year? No Points 0 Interpretation Negative Tobacco use other than smoking: Question Answer Notes Are you an other tobacco user? No Vital Signs Height 5 ft 3 in in 06/05/2024 Weight 189 lbs 06/05/2024 BMI 33.48 kg/m2 06/05/2024 Procedures Procedure Date Ordered Date Performed Result Body Sit e 98658-ZTCSBPE NAIL, 6 OR MORE 06/05/2024 N/A 61415-DAEU SKIN LESIONS, OVER 4 06/05/2024 N/A Encounters Encounter Location Date Provider Diagnosis [facility] [address] [place] [address] 06/05/2024 Pankaj Hoff Type 1 diabetes mellitus with diabetic peripheral angiopathy without gangrene E10.51 ; Tinea unguium B35.1 ; Pain in right toe(s) M79.674 ; Pain in left toe(s) M79.675 ; Other hammer toe(s) (acquired), right foot M20.41 and Other hammer toe(s) (acquired), left foot M20.42 Assessments Encounter Date Diagnosis (ICD Code) Assessment Notes Treatment Notes Treatment Clinical Notes Section Notes 06/05/2024 Type 1 diabetes mellitus with diabetic peripheral angiopathy without gangrene (ICD-10 - E10.51) 06/05/2024 Tinea unguium (ICD-10 - B35.1) 06/05/2024 Pain in right toe(s) (ICD-10 - M79.674) 06/05/2024 Pain in left toe(s) (ICD-10 - M79.675) 06/05/2024 Other hammer toe(s) (acquired), right foot (ICD-10 - M20.41) Response to treatment,Impro vement 06/05/2024 Other hammer toe(s) (acquired), left foot (ICD-10 - M20.42) Response to treatment,Impro vement Plan Of Treatment Pending Test Test Name Order Date [id number]-PXYDJNV NAIL, 6 OR MORE 06/05/2024 57005-RCJT SKIN LESIONS, OVER 4 06/05/20 24 Next Appt Details Follow Up: 2 Months, Reason: Provider Name:Pankaj Hoff , 04/02/2025 02:45:00 PM, [address] [place] [address], [phone], Procedure Notes * Category Sub-Category Detail Notes Debride Nail 6-10 Nail debridement Nail debridem ent performed extensively to reduce/remove overall nail length, girth, thickness, subungual debris, and necrotic tissue, by manual and electrical means through the use of a nail nipper and/or dremel, to more viable healthy nail plate or bed tissue 1-5. Silver nitrate used for any petechial bleeding as necessary. Patient chooses, no pharmaceutical tx (53487) Keratoma Treatment Parring or Cutting o f Benign Hyperkeratotic Lesion(s) 48336 ( More than 4 Lesions ) - The Benign hyperkeratotic lesions, as described above were pared, and/or cut utilizing a sterile 15 blade, tissue nippers, and/or dremel , Q8 Progress Notes * Jana MADSEN MDOB: 2 (84 yo F)Acc No.[id number]:06/05/2024 Progress Note Patient:?Jana Madsen Provider:?Pankaj Hoff DPM :1940???Age:84 Y???Sex:Female D ate:06/05/2024 Address:[address] [place] [address] , [place], [id number] Pcp:Elvis Daley MD Subjective: * Chief Complaints: * ???At Risk FootcarePainful N ail(s) aggravated by shoes and causing difficulty standing/walkingToe Irritation * HPI: ???At Risk footcare:?Pt States Last PCP Visit:?Date?03/13/2024 ???Toe pain:?Treatments:?Rx shoes.? * Medical History:? * Surgical History:?colon [facility] colonoscopy * Hospitalization/Major Diagno stic Procedure:?[facility] F[facility] stais [facility]/07/20[facility]- dizzy, fainting 01/2021 * Family History:?Mother: dece ased, diagnosed with Family history of arthritis, Other malignant neoplasm of unspecified site.?Father: .?Siblings: unknown, Brother Heart attacl, Sister cancer.?Spouse: .? * Social History:?Tobacco Use:?Tobacco Use/Smoking?Are you a:?former smoker ?Additional Findings: Tobacco Non-User?Current non-smoker ?Tobacco use other than smoking?Are you an other tobacco user??No ???Drugs/Alcohol:?Drugs?Have you used drugs other than those for medical reasons in the past 12 months??No ?Alcohol Screen?Did you have a drink containing alcohol in the past year??No ?Points?0 ?Interpretation?Negative ???Miscellaneous:?Caffeine: yes, frequency:, 3-5 cups per day. ?Children: yes, four. ?no Exercise. ?Marital status: . ?Occupation: Disabled. * Medications:?TakingGabapenti n Albuterol guaiFENesin amLODIPine Besylate , Notes: 5mgAmmonium Lactate 12 % Cream 1 application to affected area Externally to feet Twice a dayAspirin 81 MG Tablet Delayed Release Orally Atorvastatin Calcium 20 MG Tablet Orally Once a dayCitalopram Hydrobromide 40 MG Tablet Orally Once a dayLosartan Potassium 100 MG Tablet Orally Once a daytraZODone HCl 100 MG Tablet Orally Once a dayTrulicity 1.5 MG/0.5ML Solution Pen-injector Subcutaneous Tylenol 500mg prnCefpodoxime Proxetil Aspercreme 10 % Cream 1 application as needed Externally Four times a dayExtra Depth Orthopedic Shoes, (1) Pair With (3) Pair Custom Heat Molded Multidensity Innersoles . Dx: IDDM/PVD(E10.51), Hammertoe Foot Deformity, B/L(M20.41,M20.42), Preulcerative Skin Lesion(s)(L85.1) Wear DailyTaking Gabapentin Taking Albuterol Taking guaiFENesin Taking amLODIPine Besylate , Notes: 5mgTaking Ammonium Lactate 12 % Cream 1 application to affected area Externally to feet Twice a dayTaking Aspirin 81 MG Tablet Delayed Release Orally Taking Atorvastatin Calcium 20 MG Tablet Orally Once a dayTaking Citalopram Hydrobromide 40 MG Tablet Orally Once a dayTaking Losartan Potassium 100 MG Tablet Orally Once a dayTaking traZODone HCl 100 MG Tablet Orally Once a dayTaking Trulicity 1.5 MG/0.5ML Solution Pen-injector Subcutaneous Taking Tylenol 500mg prnTaking Cefpodoxime Proxetil Taking Aspercreme 10 % Cream 1 application as needed Externally Four times a dayTaking Extra Depth Orthopedic Shoes, (1) Pair With (3) Pair Custom Heat Molded Multidensity Innersoles . Dx: IDDM/PVD(E10.51), Hammertoe Foot Deformity, B/L(M20.41,M20.42), Preulcerative Skin Lesion(s)(L85.1) Wear DailyNot-Taking/PRNDoxycycline Monohydrate Calcium Carb-Ergocalciferol Dicyclomine HCl 10 MG Capsule Orally Four times a dayFish Oil Lantus SoloStar 10ML Metoprolol Tartrate Nystatin 850550 UNIT/GM Powder Externally , Notes: Powder for BreastZetia Sucralfate Prazosin HCl Abilify 5 MG Tablet Orally Once a dayFiber-Lax Lipitor Liquid Calcium with D3 Cholestyramine Metamucil prnVitamin D 1000 UNIT Tablet Orally Once a dayDiphenoxylate-Atropine ARIPiprazole 5 MG Tablet 1 tablet Orally Once a dayFiber FreeStyle Lite Test Aspirin EC Low Dose CareOne Unifine Pentips Plus Metoprolol Succinate ER Baclofen Sulfamethoxazole-TMP DS Mapap Medication List reviewed and reconciled with the patientNot-Taking/PRN Doxycycline Monohydrate Not-Taking/PRN Calcium Carb-Ergocalciferol Not-Taking/PRN Dicyclomine HCl 10 MG Capsule Orally Four times a dayNot-Taking/PRN Fish Oil Not-Taking/PRN Lantus SoloStar 10ML Not- Taking/PRN Metoprolol Tartrate Not-Taking/PRN Nystatin 956870 UNIT/GM Powder Externally , Notes: Powder for BreastNot-Taking/PRN Zetia Not-Taking/PRN Sucralfate Not-Taking/PRN Prazosin HCl Not-Taking/PRN Abilify 5 MG Tablet Orally Once a dayNot-Taking/PRN Fiber-Lax Not-Taking/PRN Lipitor Not-Taking/PRN Liquid Calcium with D3 Not- Taking/PRN Cholestyramine Not-Taking/PRN Metamucil prnNot-Taking/PRN Vitamin D 1000 UNIT Tablet Orally Once a dayNot-Taking/PRN Diphenoxylate-Atropine Not-Taking/PRN ARIPiprazole 5 MG Tablet 1 tablet Orally Once a dayNot-Taking/PRN Fiber Not-Taking/PRN FreeStyle Lite Test Not-Taking/PRN Aspirin EC Low Dose Not-Taking/PRN CareOne Unifine Pentips Plus Not-Taking/PRN Metoprolol Succinate ER Not-Taking/PRN Baclofen Not- Taking/PRN Sulfamethoxazole-TMP DS Not-Taking/PRN Mapap Medication List reviewed and reconciled with the patient * Allergies:?N.K.Jeffryyes[Aller gies Verified] Objective: * Vitals:?Ht: 5 ft 3 in, Wt:18 9, BMI:33.48, Shoe size:8.5, BS:135. * ???Past Orders: ???Lab:HEMOGLOBIN A1C (GLYCO HEMOGLOBIN) (Order Date - 10/28/2022) (Collection Date - 10/28/2022) ? Value Reference Range ?HEMOGLOBIN A1C % (HH) 7.1 * Examination: ???Vascular: ?DP PULSES:? 1/4, B/L.?PT PULSES:? 0/4, B/L.?CAPILLARY FILL TIME:? delayed, all digits, B/L.?SKIN TEMPERTURE GRADIENT OF THE LOWER EXTERMITIES:? decreased, cool to cool, proximal to distal, B/L.?HAIR GROWTH/TEXTURE/ELASTICITY/TURGOR:? decreased, B/L.?PIGMENTATION:? mottled, B/L.?EDEMA:? 1/4, non-pitting, without aching pain, B/L, Ankle(s).?CLAUDICATION:?denies, B/L.?REST PAIN:?denies, B/L.?Nails: ?NAILS are:?Elongated, overgrown, dystrophic, lytic, greater than 3mm thick, discolored and friable with crumbly malodorous subungual debris, with pain on palpation, 1-5 Left foot, T6, T7, T9.?Dermatologic: ?SKIN FINDINGS:?Skin exam reveals Keratotic lesion(s) located at,Medial, IPJ, TA,Lateral, PIPJ, T1,Medial, PIPJ, T2,Lateral, PIPJ, T3,Medial, PIPJ, T4,Medial plantar, IPJ, T5,Heel(s),B/L.?Orthopedic: ?DIGITAL DEFORMITIES:?Digital contracture, PIPJ, 2-5 B/L, incompl-reducible to push-up test, no over, nor underlapping.?FOOTWEAR:?good condition, exhibit proper fit and accommodation for pedal deformities. OT were inspected and noted to be worn, but in good condition giving proper support at the present time.? Assessment: * Assessment: 1.?Type 1 diabetes mellitus with diabetic peripheral angiopathy without gangrene - E10.51?2.?Tinea unguium - B35.1?3.?Pain in right toe(s) - M79.674?4.?Pain in left toe(s) - M79.675?5.?Other hammer toe(s) (acquired), right foot - M20.41, Chronic problem, Stable (1=3,2=4), Response to treatment,Improvement?6.?Other hammer toe(s) (acquired), left foot - M20.42, Chronic problem, Stable (1=3,2=4), Response to treatment,Improvement? Plan: * Treatment: 2.?Tinea unguium?Procedure: 22099-XTOXJPY NAIL, 6 OR MORE * Procedures:?Debride Nail 6-10:?Nail debridement?Nail debridement performed extensively to reduce/remove overall nail length, girth, thickness, subungual debris, and necrotic tissue, by manual and electrical means through the use of a nail nipper and/or dremel, to more viable healthy nail plate or bed tissue 1-5. Silver nitrate used for any petechial bleeding as necessary. Patient chooses, no pharmaceutical tx (27178).?Keratoma Treatment:?Parring or Cutting of Benign Hyperkeratotic Lesion(s)?71675 ( More than 4 Lesions ) - The Benign hyperkeratotic lesions, as described above were pared, and/or cut utilizing a sterile 15 blade, tissue nippers, and/or dremel , Q8.? * Procedure Codes:?23036 DEBRI DE NAIL, 6 OR MORE, Modifiers: XS 23061 TRIM SKIN LESIONS, OVER 4, Modifiers: XS , Q8 * Preventive Medicine:? ??Counseling:?Discussion:?-13: Office or other outpatient visit for the evaluation and management of an established patient, which required a medically appropriate history and/or examination and LOW level of DECISION MAKING for: 1 STABLE ACUTE UNCOMPLICATED PROBLEM, 2 OR MORE MINOR PROBLEMS, OR 1 STABLE CHRONIC PROBLEM, THAT POSE(S) A LOW RISK FOR MORBIDITY/MORTALITY. The visit on the day of the encounter encompassed interpreting the data and educating the patient as to the nature of their condition, treatment options available according to their individual PMH, meds, allergies, and overall health/living conditions, as well as any potential risks or complications that may occur from a failure to adhere to, and participate in, the recommended course of therapy. The discussion included a complete verbal, and/or written explanation of the examination results, any x-rays taken, the proposed diagnosis, and outline of the treatment plan. A schedule for future care needs was also explained. The patient verbalized an understanding of the instructions at this time and agreed to be an active participant in their treatment. If the patient should think of any questions or concerns after the visit, I have encouraged the patient to call the office.?Shoe Gear Counseling:?A thorough inspection of the patients Rxed shoegear and inserts was performed and findings communicated. We reviewed the many important medical advantages for adhering to regularly wearing these shoe and insert accomidative devices daily as well as reviewed the fact that a failure in accepting these recommedations may be deleterious, unable to prevent, and disadvantagely result in, many pedal complications such as skin irritation, skin ulceration, infection, and even loss of toe/foot/leg/or even their life. Time was also spent reviewing the proper footcare techniques including daily skin moisturization, daily foot inspection for any interruption in skin integrity, open lesions, or sign of infection such as redness/malodor/drainage/swelling as well as daily shoe inspection for the presence of internal foreign bodies and shoe as well as insert wear. Patient questions re: shoes, inserts, and self foot inspections were answered to their satisfaction as the patient verbally confirmed a full understanding of the above information.? * Follow Up:?2 Months * Images: * Sign off status: Completed Addendum: * ? true * Provider:?Pankaj Hoff DPM Date:?2023 Generated for Autumn dumont/Jess/Brooklynn on:?01/15/2025 10:59 AM EST History and Physical Notes * HPI (History of Present Illness) Category Sub-Category Detail Notes Category Not es Toe pain Treatments: Rx shoes At Risk footcare Pt States Last PCP Visit: Date: Examination Category Sub-Category Detail Notes Category Not es Dermatologic SKIN FINDINGS: Skin exam reveal s Keratotic lesion(s) located at,Medial, IPJ, TA,Lateral, PIPJ, T1,Medial, PIPJ, T2,Lateral, PIPJ, T3,Medial, PIPJ, T4,Medial plantar, IPJ, T5,Heel(s),B/L Orthopedic FOOTWEAR: good condition, exhibit proper fit and accommodation for pedal deformities. OT were inspected and noted to be worn, but in good condition giving proper support at the present time DIGITAL DEFORMITIES: Digital contracture , PIPJ, 2-5 B/L, incompl-reducible to push-up test, no over, nor underlapping Vascular DP PULSES (B): 1/4, B/L PT PULSES (B): 0/4, B/L CAPILLARY FILL TIME: delayed, all digits , B/L TEMPERTURE GRADIENT (C): decreased, cool to cool, proximal to distal, B/L TROPHIC CONDITION-TEXTURE/ELASTICITY/TURGOR/HAIR GROWTH (B): decreased, B/L EDEMA (C): 1/4, non-pitting, wi thout aching pain, B/L, Ankle(s) CLAUDICATION (C): denies, B/L REST PAIN: denies, B/L PIGMENTATION: mottled, B/L Nails NAILS are: Elongated, overg rown, dystrophic, lytic, greater than 3mm thick, discolored and friable with crumbly malodorous subungual debris, with pain on palpation, 1-5 Left foot, T6, T7, T9
--- OUTSIDE RECORDS SUMMARY | 2025-01-15 11:00 | XMS_ITS | Encounter Summary ---
Author Organization [employer] Address [address] [facility] [address] [place] [address] Care Team Providers Care Security Solutions Engineer Name Role Phone Name, Elvis IZQUIERDO Primary Care Provider [phone] Reason for Visit * Reason Onset Date Comments Med Refill 12/24/2024 Encounter Details Date Type Department Care Team (Late st Contact Info) Description 12/24/2024 Refill [facility] [address] [place], [place] [id number] Name, MD Elvis [address] [place] [address] Vitamin D deficiency Social History Tobacco Use Types Packs/Day Years Used Date Smoking Tobacco: Former Cigarettes Passive Smoke Exposure: Past Alcohol Use Standard Drinks/Week Comments Never 0 (1 standard drink = 0.6 oz pur e alcohol) Alcohol Answer Date Recorded Frequency of Alcohol Consumption Not on file 07/02/2024 Average Number of Drinks Not on file 024 Frequency of Binge Drinking Not on file 06/14 Score 0 07/02/2024 Depression Answer Date Recorded Patient Health Questionnaire-9 Score 12 09/21/2024 Patient Health Questionnaire-9 Score 12 09/21/2024 Last PHQ-9: Questionnaire Data Not on file 1 11/21/2023 Housing Stability Answer Date Recorded What is your housing situation today? I have olamide vora 03/06/[address] you li ve. Do you have problems with any of the following? None of the above 03/06/2024 Food Insecurity Answer Date Recorded Within the past 12 months, y ou worried that your food would run out before you got money to buy more: Never True 03/06/2024 Within the past 12 months,th e food you bought just didn't last and you didn't have enough money to get more: Never True Transportation Answer Date Recorded In the past 12 months, has l ack of transportation kept you from medical appts, meetings, work or from getting things needed for daily living? No 03/06/2024 Utilities Answer Date Recorded In the past 12 months, has t he electric, gas, oil or water company threatened to shut off services in your home? No 03/06/2024 Depression Answer Date Recorded Patient Health Questionnaire-2 Score 4 09/21/2024 Comments Unknown Sex and Gender Information Value Date Recorded Sex Assigned at Female 09/13/2022 10:16 AM EDT Legal Sex Female 10:16 AM EDT Gender Identity Female 09/13/2022 10:16 AM EDT Sexual Orientation Straight 09/13/2022 10 :16 AM EDT documented as of this encounter Plan of Treatment Upcoming Encounters Date Type Department Care Team (Late st Contact Info) Description 02/04/2025 10:00 AM EDT Office Visit [facility] [address] [place] [id number] Name, MD Elvis [address] [place] [address] documented as of this encounter Goals Goal Patient Goal Type Associated Problems Recent Progress Patient-Stated? Author Blood Pressure < 140/90 Blood Pressure 148/77( 10:26 AM EST) No Rosa Haile, PharmD documented as of this encounter Visit Diagnoses Diagnosis Vitamin D deficiency documented in this encounter Additional Health Concerns Assessment Noted Time PHQ-9 Depression Total Score: 12 10:55 AM EST documented as of this encounter Care Teams Security Solutions Engineer Relationship Specialty Start Date End Date NameElvis MD [address] [place] [id number] PCP - General Family Medicine 02/05/16 documented as of this encounter
--- OUTSIDE RECORDS SUMMARY | 2025-01-15 11:00 | XMS_ITS ---
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 Role Phone Name Elvis IZQUIERDO Primary Care Provider Pankaj Barnes Unavailable [phone] Allergies No Known Allergies REASON FOR VISIT At Risk Footcare, Painful Nail(s) aggravated by shoes and causing difficulty standing/walking Medications Medication SIG (Take, Route, Frequency, Duration) Notes Start Date End Date Status Sucralfate Not-Takin g Fiber-Lax Not-Taking Lipitor Not-Taking Prazosin HCl Not-Fitz ing Abilify 5 MG Orally Once a day Not-Taking Lantus SoloStar 10ML Not-Taking Metoprolol Tartrate Not-Taking Fish Oil Not-Taking Nystatin 508724 UNIT/GM Externally Powder for Breast Not-Taking Zetia Not-Taking Doxycycline Monohydrate Not-Taking Calcium Carb-Ergocalciferol Not-Taki ng Aspercreme 10 % 1 application as needed Externally Four times a day for 30 days 07/22/2022 Active Extra Depth Orthopedic Shoes, (1) Pair With (3) Pair Custom Heat Molded Multidensity Innersoles Dx: IDDM/PVD(E10.51), Hammertoe Foot Deformity, B/L(M20.41,M20.42), Preulcerative Skin Lesion(s)(L85.1) Wear Daily for 365 days Active Dicyclomine HCl 10 MG Orally Four times a day Not-Taking Losartan Potassium 100 MG Orally Once a day Active traZODone HCl 100 MG Orally Once a day Active Cefpodoxime Proxetil Active Trulicity 1.5 MG/0.5ML Subcutaneous Active Tylenol 500mg prn Active Ammonium Lactate 12 % 1 application to affected area Externally to feet Twice a day for 30 days Active Aspirin 81 MG Orally Active amLODIPine Besylate 5mg Active Atorvastatin Calcium 20 MG Orally Once a day Active Citalopram Hydrobromide 40 MG Orally Once a day Acti ve Mapap Not-Taking Sulfamethoxazole-TMP DS Not-Taking Albuterol Active guaiFENesin Active Gabapentin Active CareOne Unifine Pentips Plus Not-Taking Metoprolol Succinate ER Not-Taking FreeStyle Lite Test Not-Taking Aspirin EC Low Dose Not-Taking Baclofen Not-Taking ARIPiprazole 5 MG 1 tablet Orally Once a day Not-Taking Fiber Not-Taking Metamucil prn Not-Taking Vitamin D 1000 UNIT Orally Once a day Not-Taking Diphenoxylate-Atropin e Not-Taking Liquid Calcium with D3 Not-Taking Cholestyramine Not-T aking Social History Tobacco Use: Social History Observation Description Date Details (start date - stop date) Former Smoker NA - NA Tobacco Use/Smoking Question Answer Notes Are you a: former smoker Additional Findings: Tobacco Non-User Current no n-smoker Tobacco use other than smoking: Question Answer Notes Are you an other tobacco user? No Vital Signs Height 5 ft 3 in in 08/31/2024 Weight 189 lbs 08/31/2024 BMI 33.48 kg/m2 08/31/2024 Procedures Procedure Date Ordered Date Performed Result Body Sit e 62630-JRINKKE NAIL, 6 OR MORE 08/31/2024 N/A 87214-HQWL SKIN LESIONS, OVER 4 08/31/2024 N/A Encounters Encounter Location Date Provider Diagnosis [facility] [address] [place] [address] 08/31/2024 Pankaj Hoff Type 1 diabetes mellitus with diabetic peripheral angiopathy without gangrene E10.51 ; Tinea unguium B35.1 ; Pain in right toe(s) M79.674 and Pain in left toe(s) M79.675 Assessments Encounter Date Diagnosis (ICD Code) Assessment Notes Treatment Notes Treatment Clinical Notes Section Notes 08/31/2024 Type 1 diabetes mellitus with diabetic peripheral angiopathy without gangrene (ICD-10 - E10.51) 08/31/2024 Tinea unguium (ICD-10 - B35.1) 08/31/2024 Pain in right toe(s) (ICD-10 - M79.674) 08/31/2024 Pain in left toe(s) (ICD-10 - M79.675) Plan Of Treatment Pending Test Test Name Order Date 31381-CBXBCWX NAIL, 6 OR MORE 08/31/2024 35385-TLDS SKIN LESIONS, OVER 4 08/31/20 24 Next Appt Details Follow Up: 2 Months, Reason: Provider Name:Pankaj Hoff , 04/02/2025 02:45:00 PM, [address] [place], [address], Procedure Notes * Category Sub-Category Detail Notes Debride Nail 6-10 Nail debridement Performance o f this nail treatment by a nonprofessional would put this patients foot and overall health at risk. Therefore, nail debridement was performed extensively to reduce/remove overall nail length, girth, thickness, subungual debris, and necrotic tissue, by manual and/or electrical means through the use of a nail nipper and/or dremel-type lens grinder rough, to a more viable healthy nail plate or bed tissue 6-10. Silver nitrate used for any petechial bleeding as necessary. Definitive antifungal treatment options have been reviewed and discussed with the patient. The patient chooses, no pharmaceutical tx - 49450 Keratoma Treatment Parring or Cutting o f Benign Hyperkeratotic Lesion(s) (-57) More than 4 Lesions - The Benign hyperkeratotic lesions, as described above were pared, and/or cut utilizing a sterile 15 blade, tissue nippers, and/or dremel - 52594 , Q8 Progress Notes * Jana MADSEN MDOB: 2 (84 yo F)Acc No.[id number]:08/31/2024 Progress Note Patient:?Jana Madsen Provider:?Pankaj Hoff DPM :1940???Age:84 Y???Sex:Female D ate:08/31/2024 Address:[address] [place] [address], [facility] Pcp:Elvis Daley MD Subjective: * Chief Complaints: * ???At Risk FootcarePainful N ail(s) aggravated by shoes and causing difficulty standing/walking * HPI: ???At Risk footcare:?Pt States Last PCP Visit:?Date?07/02/2024 * ROS:?General/Constitutional:?Nausea?denies.?Vomiting?denies.?Hunger Thirst?denies.?Loss appetite?denies.?Chills?denies.?Fatigue?denies.?Fever?denies.?Night Sweats?denies.?Unexplained weight loss?denies.?Ophthalmologic:?Blurred vision?denies.?Red eye?denies.?HEENTM:?Dentures?denies.?Dizziness?denies.?Glasses/contacts?denies.?Retinopathy?de nies.?Blurred/double vision?denies.?TMJ?denies.?Discharge/drainage?denies.?Implants?denies.?Hard of hearing denies.?Difficulty chewing/swallowing/speaking?denies.?Nose bleeds?denies.?Sore mouth?denies.?Swollen glands?denies.?Respiratory:?On Oxygen?denies.?Pneumonia/pleurisy?denies.?Bronchitis?denies.?Emphysema?denies.?C oughing?denies.?Cough blood?denies.?Shortness of breath?admits, that is mild.?Wheezing?denies.?Cardiovascular:?Pacemaker?denies.?MVP?denies.?WPW?denies.?CHF?denies.?Heart attack?denies.?Septal defect?denies.?Rapid beat?denies.?Chest pain ?denies.?Atrial Fib.?denies.?Murmur/Palpitations?denies.?Gastrointestinal:?Hemorrhoids?denies.?Stomach/Abdominal pain?denies.?Dark blood stool?denies.?Irritable bowel ?denies.?Constipation?denies.?Diarrhea?denies.?Vomiting?denies.?Hematology:?Swelling?admits.?Bruising??admits, on aspirin.?Bleeding problem??admits, on anticoagulants.?Genitourinary:?Blood urine?denies.?Frequent/Painfu/urination/bladder control?denies.?Kidney stones?denies.?Infection (UTI)?denies.?Nephropathy?denies.?Musculoskeletal:?Hammertoes?admits.?Bunions?denies.?Scoliosis/kyphosis?denies.?Muscle cramps / walking?denies.?Generalized aches and pains?admits.?Weakness?denies.?Integ.:?Desir?denies.?Scars?denies.?Corns/calluses?admits.?Ingrown nails?admits.?Painful nails?admits.?Rashes?denies.?Neurologic:?Difficulty sleeping?denies.?Bipolar?denies.?Brain disorder?denies.?Balance trouble?admits.?Confusion?denies.?Fainting/blackouts?denies.?Headache?denies.?Tr emors?denies.? * Medical History:? * Surgical History:?[facility] [place] [facility] * Hospitalization/Major Diagno stic Procedure:?[facility] [place] Fell down the stais 06/07/20[facility] [place]- dizzy, fainting 01/2021[facility] [place]- fell and hit head 07/2024 * Family History:?Mother: dece ased, diagnosed with Family history of arthritis, Other malignant neoplasm of unspecified site.?Father: .?Siblings: unknown, Brother Heart attacl, Sister cancer.?Spouse: .? * Social History:?Tobacco Use:?Tobacco Use/Smoking?Are you a:?former smoker ?Additional Findings: Tobacco Non-User?Current non-smoker ?Tobacco use other than smoking?Are you an other tobacco user??No ???Miscellaneous:?Caffeine: yes, frequency:, 3-5 cups per day. [...] Oil Lantus SoloStar 10ML Metoprolol Tartrate Nystatin 953885 UNIT/GM Powder Externally , Notes: Powder for [...] 10ML Not- Taking/PRN Metoprolol Tartrate Not-Taking/PRN Nystatin 751687 UNIT/GM Powder Externally , Notes: Powder for [...] reviewed and reconciled with the patient * Allergies:?N.K.D.A.yes[Aller gies Verified] Objective: * Vitals:?Ht: 5 ft 3 in, Wt: 1 89, BMI: 33.48, Shoe size: 8.5, BS: 135, Wt-k.73 kg. * ???Past Orders: ???Lab:HEMOGLOBIN A1C (GLYCO HEMOGLOBIN) (Order Date - 10/28/2022) (Collection Date - 10/28/2022) ? Value Reference Range ?HEMOGLOBIN A1C % (HH) 7.1 * Examination: ???Vascular: ?DP PULSES(B):? 1/4, B/L.?PT PULSES(B):? 0/4, B/L.?CAPILLARY FILL TIME:? delayed, all digits, B/L.?TROPHIC CONDITION-TEXTURE/ELASTICITY/TURGOR/HAIR GROWTH(B):? decreased, with sparse to absent hair growth, B/L.?TEMPERTURE GRADIENT(C):? decreased, cool to cool, proximal to distal, B/L.?PIGMENTATION:? mottled, B/L.?EDEMA(C):? 1/4, non-pitting, without aching pain, B/L, Ankle(s).?CLAUDICATION(C):?denies, B/L.?REST PAIN:?denies, B/L.?Nails: ?NAILS are:?Elongated, overgrown, dystrophic, lytic, greater than 3mm thick, discolored and friable with crumbly malodorous subungual debris, with pain on palpation, 1-5 Left foot, T6, T7, T9.?Dermatologic: ?SKIN FINDINGS:?Skin exam reveals Keratotic lesion(s) located at,Medial, IPJ, TA,Lateral, PIPJ, T1,Medial, PIPJ, T2,Lateral, PIPJ, T3,Medial, PIPJ, T4,Medial plantar, IPJ, T5,Heel(s),B/L.? Assessment: * Assessment: 1.?Type 1 diabetes mellitus with diabetic peripheral angiopathy without gangrene - E10.51?2.?Tinea unguium - B35.1?3.?Pain in right toe(s) - M79.674?4.?Pain in left toe(s) - M79.675? Plan: * Treatment: 2.?Tinea unguium?Procedure: 78669-LUEMWTG NAIL, 6 OR MORE * Procedures:?Debride Nail 6-10:?Nail debridement?Performance of this nail treatment by a nonprofessional would put this patients foot and overall health at risk. Therefore, nail debridement was performed extensively to reduce/remove overall nail length, girth, thickness, subungual debris, and necrotic tissue, by manual and/or electrical means through the use of a nail nipper and/or dremel-type lens grinder rough, to a more viable healthy nail plate or bed tissue 6-10. Silver nitrate used for any petechial bleeding as necessary. Definitive antifungal treatment options have been reviewed and discussed with the patient. The patient chooses, no pharmaceutical tx - 80575.?Keratoma Treatment:?Parring or Cutting of Benign Hyperkeratotic Lesion(s)?(-57) More than 4 Lesions - The Benign hyperkeratotic lesions, as described above were pared, and/or cut utilizing a sterile 15 blade, tissue nippers, and/or dremel - 92603 , Q8.? * Procedure Codes:?72330 DEBRI DE NAIL, 6 OR MORE, Modifiers: XS 69482 TRIM SKIN LESIONS, OVER 4, Modifiers: XS , Q8 * Follow Up:?2 Months * Images: * Sign off status: Completed true * Provider:Bev Hoff DPM Date:?2023 Generated for Autumn dumont/Jess/Brooklynn on:?01/15/2025 10:59 AM EST History and Physical Notes * HPI (History of Present Illness) Category Sub-Category Detail Notes Category Not es At Risk footcare Pt States Last PCP Visit: Date: 4 Examination Category Sub-Category Detail Notes Category Not es Dermatologic SKIN FINDINGS: Skin exam reveal s Keratotic lesion(s) located at,Medial, IPJ, TA,Lateral, PIPJ, T1,Medial, PIPJ, T2,Lateral, PIPJ, T3,Medial, PIPJ, T4,Medial plantar, IPJ, T5,Heel(s),B/L Vascular DP PULSES (B): 1/4, B/L PT PULSES (B): 0/4, B/L CAPILLARY FILL TIME: delayed, all digits , B/L TEMPERTURE GRADIENT (C): decreased, cool to cool, proximal to distal, B/L TROPHIC CONDITION-TEXTURE/ELASTICITY/TURGOR/HAIR GROWTH (B): decreased, with sparse to absent hair gr owth, B/L EDEMA (C): 1/4, non-pitting, wi thout aching pain, B/L, Ankle(s) CLAUDICATION (C): denies, B/L REST PAIN: denies, B/L PIGMENTATION: mottled, B/L Nails NAILS are: Elongated, overg rown, dystrophic, lytic, greater than 3mm thick, discolored and friable with crumbly malodorous subungual debris, with pain on palpation, 1-5 Left foot, T6, T7, T9
--- OUTSIDE RECORDS SUMMARY | 2025-01-15 11:00 | XMS_ITS | Patient Health Record ---
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 Phone Name Elvis IZQUIERDO Primary Care Provider Pankaj Barnes Unavailable [phone] Allergies No Known Allergies Results Component Value Reference Range Notes HEMOGLOBIN A1C (GLYCOHEMOGLO BIN) Reviewed date:12/07/2024 12:55:28 PM Interpretation: Performing Lab: Notes/Report: HEMOGLOBIN A1C % (HH) 6.9 Reason For Referral No Information Medications Medication SIG (Take, Route, Frequency, Duration) Notes Start Date End Date Status Cefpodoxime Proxetil Active Fiber Not-Taking Aspercreme 10 % 1 application as needed Externally Four times a day for 30 days 07/22/2022 Active FreeStyle Lite Test Not-Taking Extra Depth Orthopedic Shoes, (1) Pair With (3) Pair Custom Heat Molded Multidensity Innersoles Dx: IDDM/PVD(E10.51), Hammertoe Foot Deformity, B/L(M20.41,M20.42), Preulcerative Skin Lesion(s)(L85.1) Wear Daily for 365 days Active Aspirin EC Low Dose Not-Taking Doxycycline Monohydrate Not-Taking CareOne Unifine Pentips Plus Not-Taking Losartan Potassium 100 MG Orally Once a day Active Metamucil prn Not-Taking traZODone HCl 100 MG Orally Once a day Active Vitamin D 1000 UNIT Orally Once a day Not-Taking Trulicity 1.5 MG/0.5ML Subcutaneous Active Diphenoxylate-Atropin e Not-Taking Tylenol 500mg prn Active ARIPiprazole 5 MG 1 tablet Orally Once a day Not-Taking Liquid Calcium with D3 Not-Taking Cholestyramine Not-T aking Aspirin 81 MG Orally Active Lipitor Not-Taking Atorvastatin Calcium 20 MG Orally Once a day Active Citalopram Hydrobromide 40 MG Orally Once a day Acti ve Albuterol Active Sucralfate Not-Takin g guaiFENesin Active Prazosin HCl Not-Fitz ing amLODIPine Besylate 5mg Active Abilify 5 MG Orally Once a day Not-Taking Ammonium Lactate 12 % 1 application to affected area Externally to feet Twice a day for 30 days Active Fiber-Lax Not-Taking Lantus SoloStar 10ML Not-Taking Mapap Not-Taking Metoprolol Tartrate Not-Taking Nystatin 007818 UNIT/GM Externally Powder for Breast Not-Taking Gabapentin Active Zetia Not-Taking Metoprolol Succinate ER Not-Taking Baclofen Not-Taking Fish Oil Not-Taking Sulfamethoxazole-TMP DS Not-Taking Calcium Carb-Ergocalciferol Not-Taki ng Dicyclomine HCl 10 MG Orally Four times a day Not-Taking Immunizations Vaccine Route Administration Date Status Comme nts Influenza Unknown 03/29/2016 Administered Influenza Unknown 08/18/2016 Administered Influenza Unknown 08/15/2017 Administered Influenza Unknown 09/28/2018 Administered Influenza Unknown 08/05/2021 Administered Social History Tobacco Use: Social History Observation Description Date Details (start date - stop date) Never Smoker NA - NA Alcohol Screen Question Answer Notes Did you have a drink containing alcohol in the p ast year? No Points 0 Interpretation Negative Tobacco use other than smoking: Question Answer Notes Are you an other tobacco user? No Tobacco Control (Standard) Question Answer Notes Tobacco use: Nonsmoker Problems Problem Type SNOMED Code ICD Code Onset Dates Problem Status W/U Status Risk Notes Problem Acquired hammer toe of right foot (31654664071497 05) Other hammer toe(s) (acquired), right foot (M20.41) Active confirmed Response to treatment,I mprovement Problem Acquired hammer toe of left foot (91843170193278 03) Other hammer toe(s) (acquired), left foot (M20.42) Active confirmed Response to treatment,I mprovement Problem Peripheral circulatory disorder associated with type 1 diabetes mellitus (389158588) Type 1 diabetes mellitus with diabetic peripheral angiopathy without gangrene (E10.51) Active confirmed Vital Signs Blood pressure diastolic 86 mm Hg 12/07/2024 Height 5 ft 3 in in 12/07/2024 Blood pressure systolic 113 mm Hg 12/07/2024 Weight 189 lbs 12/07/2024 BMI 33.48 kg/m2 12/07/2024 Procedures Procedure Date Ordered Date Performed Result Body Sit e 49058-MURIJKG NAIL, 6 OR MORE 03/27/2024 N/A 69525-YRKY SKIN LESIONS, OVER 4 03/27/2024 N/A 44231-UDERIPD NAIL, 6 OR MORE 06/05/2024 N/A 45572-PZNR SKIN LESIONS, OVER 4 06/05/2024 N/A 22086-QFBHJIQ NAIL, 6 OR MORE 08/31/2024 N/A 27807-BFGA SKIN LESIONS, OVER 4 08/31/2024 N/A 40341-YDDVFLA NAIL, 6 OR MORE 12/07/2024 N/A 58836-JQJO SKIN LESIONS, OVER 4 12/07/2024 N/A Encounters Encounter Location Date Provider Diagnosis [address] [address] 03/27/2024 Pankaj Hoff Type 1 diabetes mellitus with diabetic peripheral angiopathy without gangrene E10.51 ; Tinea unguium B35.1 ; Pain in right toe(s) M79.674 ; Pain in left toe(s) M79.675 ; Other hammer toe(s) (acquired), right foot M20.41 and Other hammer toe(s) (acquired), left foot M20.[address] [address] 06/05/2024 Pankaj Hoff Type 1 diabetes mellitus with diabetic peripheral angiopathy without gangrene E10.51 ; Tinea unguium B35.1 ; Pain in right toe(s) M79.674 ; Pain in left toe(s) M79.675 ; Other hammer toe(s) (acquired), right foot M20.41 and Other hammer toe(s) (acquired), left foot M20.[address] [address] 08/31/2024 Pankaj Hoff Type 1 diabetes mellitus with diabetic peripheral angiopathy without gangrene E10.51 ; Tinea unguium B35.1 ; Pain in right toe(s) M79.674 and Pain in left toe(s) M79.[address] [facility] [address] 12/07/[facility]24 Pankaj Hoff Type 1 diabetes mellitus with diabetic peripheral angiopathy without gangrene E10.51 ; Tinea unguium B35.1 ; Pain in right toe(s) M79.674 and Pain in left toe(s) M79.[address] [address] 03/23/2024 Pankaj Hoff Assessments Encounter Date Diagnosis (ICD Code) Assessment Notes Treatment Notes Treatment Clinical Notes Section Notes 03/27/2024 Type 1 diabetes mellitus with diabetic peripheral angiopathy without gangrene (ICD-10 - E10.51) 03/27/2024 Tinea unguium (ICD-10 - B35.1) 06/05/2024 Type 1 diabetes mellitus with diabetic peripheral angiopathy without gangrene (ICD-10 - E10.51) 06/05/2024 Tinea unguium (ICD-10 - B35.1) 08/31/2024 Type 1 diabetes mellitus with diabetic peripheral angiopathy without gangrene (ICD-10 - E10.51) 08/31/2024 Tinea unguium (ICD-10 - B35.1) 12/07/2024 Type 1 diabetes mellitus with diabetic peripheral angiopathy without gangrene (ICD-10 - E10.51) 12/07/2024 Tinea unguium (ICD-10 - B35.1) 12/07/2024 Pain in right toe(s) (ICD-10 - M79.674) 08/31/2024 Pain in right toe(s) (ICD-10 - M79.674) 06/05/2024 Pain in right toe(s) (ICD-10 - M79.674) 03/27/2024 Pain in right toe(s) (ICD-10 - M79.674) 03/27/2024 Pain in left toe(s) (ICD-10 - M79.675) 06/05/2024 Pain in left toe(s) (ICD-10 - M79.675) 08/31/2024 Pain in left toe(s) (ICD-10 - M79.675) 12/07/2024 Pain in left toe(s) (ICD-10 - M79.675) 06/05/2024 Other hammer toe(s) (acquired), right foot (ICD-10 - M20.41) Response to treatment,Impro vement 03/27/2024 Other hammer toe(s) (acquired), right foot (ICD-10 - M20.41) Patient Educated with: DIABETIC FOOT CARE INSTRUCTIONS.p df (DIABETIC FOOT CARE INSTRUCTIONS.p df) 06/05/2024 Other hammer toe(s) (acquired), left foot (ICD-10 - M20.42) Response to treatment,Impro vement 03/27/2024 Other hammer toe(s) (acquired), left foot (ICD-10 - M20.42) Plan Of Treatment Pending Test Test Name Order Date 09697-OPHQKKX NAIL, 6 OR MORE 09/29/2016 12867-FOZKPXQ NAIL, 6 OR MORE 01/12/2017 82915-ODKXFWO NAIL, 6 OR MORE 04/14/2017 43147-FXJNGRD NAIL, 6 OR MORE 10/13/2017 26185-XIWYTCN NAIL, 6 OR MORE 01/12/2018 71051-JSMICZR NAIL, 6 OR MORE 06/28/2018 92774-OELKQEE NAIL, 6 OR MORE 08/13/2019 50976-XCDHCAI NAIL, 6 OR MORE 03/10/2020 67208-LIYZQTT NAIL, 6 OR MORE 06/25/2020 97517-WMOPIWL NAIL, 6 OR MORE 10/02/2020 46769-PBJYPDU NAIL, 6 OR MORE 01/08/2021 18333-AQVWXQO NAIL, 6 OR MORE 04/02/2021 41951-MSLHMSM NAIL, 6 OR MORE 01/20/2022 15757-PEOAQLE NAIL, 6 OR MORE 04/22/2022 51176-XDKOQYM NAIL, 6 OR MORE 07/22/2022 36779-JNJAVKA NAIL, 6 OR MORE 10/28/2022 15311-OPNIFMQ NAIL, 6 OR MORE 01/24/2023 57378-NQXGREK NAIL, 6 OR MORE 03/30/2023 29747-CUZFEAU NAIL, 6 OR MORE 06/06/2023 79848-MUBBZVC NAIL, 6 OR MORE 10/24/2023 75835-IUMMZDK NAIL, 6 OR MORE 03/27/2024 84452-VBYWZRV NAIL, 6 OR MORE 06/05/2024 46217-GPMQCYF NAIL, 6 OR MORE 08/31/2024 82096-XZORZVJ NAIL, 6 OR MORE 12/07/2024 03687-LHYBLWP NAIL, 6 OR MORE 10/19/2021 20878-DWJZTLX NAIL, 6 OR MORE 08/10/2021 21324-AWPFXLM NAIL, 6 OR MORE 11/22/2019 03653-TLBGRCH NAIL, 6 OR MORE 05/03/2019 91852-FUWPYEG NAIL, 6 OR MORE 12/28/2018 29325-VHIIFUN NAIL, 6 OR MORE 09/28/2018 37718-ABENKDG NAIL, 6 OR MORE 04/05/2018 20302-MNVBLCC NAIL, 6 OR MORE 07/14/2017 47204-SSUFKWV NAIL, 6 OR MORE 06/30/2016 20891-MTGXFAC NAIL, 6 OR MORE 03/29/2016 29872-AJXANBF NAIL, 6 OR MORE 08/15/2023 92138-UNJN SKIN LESIONS, OVER 4 08/15/20 23 05857-OZYE SKIN LESIONS, OVER 4 03/29/20 16 92425-DUEB SKIN LESIONS, OVER 4 06/30/20 16 23876-UHTF SKIN LESIONS, OVER 4 07/14/20 17 67460-RNTD SKIN LESIONS, OVER 4 04/05/20 18 54391-HFGF SKIN LESIONS, OVER 4 09/28/20 18 76011-QKLZ SKIN LESIONS, OVER 4 05/03/20 19 53514-ROLB SKIN LESIONS, OVER 4 12/28/19 19 53463-PZDV SKIN LESIONS, OVER 4 11/22/19 20 67015-ANQG SKIN LESIONS, OVER 4 08/10/20 21 50097-AZGY SKIN LESIONS, OVER 4 10/19/20 21 97471-LKJY SKIN LESIONS, OVER 4 12/07/19 25 57611-CFOA SKIN LESIONS, OVER 4 08/31/20 24 53270-KJSX SKIN LESIONS, OVER 4 06/05/20 24 06141-QIUF SKIN LESIONS, OVER 4 03/27/20 24 02871-SWEE SKIN LESIONS, OVER 4 10/24/20 23 10625-NSDA SKIN LESIONS, OVER 4 06/06/20 23 38825-DDQU SKIN LESIONS, OVER 4 03/30/20 23 05715-ZWMC SKIN LESIONS, OVER 4 01/25/20 23 05496-USYQ SKIN LESIONS, OVER 4 10/28/20 22 57200-ITSA SKIN LESIONS, OVER 4 07/22/20 28810-VUXK SKIN LESIONS, OVER 4 04/22/20 22 91482-DSQN SKIN LESIONS, OVER 4 01/21/20 22 54664-EVWB SKIN LESIONS, OVER 4 04/02/20 21 13482-RBKD SKIN LESIONS, OVER 4 01/08/20 21 86302-LBOM SKIN LESIONS, OVER 4 10/02/20 20 61587-HPER SKIN LESIONS, OVER 4 06/25/20 20 65847-GJBZ SKIN LESIONS, OVER 4 03/10/20 20 53185-BSPF SKIN LESIONS, OVER 4 08/13/20 19 30595-JBSE SKIN LESIONS, OVER 4 06/28/20 18 55127-RRYW SKIN LESIONS, OVER 4 01/13/20 18 38741-PQPO SKIN LESIONS, OVER 4 10/13/20 17 88089-STOZ SKIN LESIONS, OVER 4 01/13/20 17 54829-LMJS SKIN LESIONS, OVER 4 04/14/20 17 27266-MZRP SKIN LESIONS, OVER 4 09/29/20 16 Next Appt Details Provider Name:Pankaj Hoff , 04/02/2025 02:45:00 PM, [address] [place] [address], [phone], Insurance Providers Payer Name Payer Address Payer Phone Subscriber Number Group Number Insured Name Patient Relationship to Insured Coverage Start Date Coverage End Date [facility] [employer] Claims [address] [place] [id number] Jana Lindo Self - patient is the insured Medical (General) History Medical History History ICD Code Angina Arthritis asthma Back,Hip,and Knee pain Cataracts Dementia Depression Diabetes mellitus Gout Headaches High blood pressure Stroke Cholesterol COPD Surgical History Surgery Date(Month/Year) colon [facility] [place] colonoscopy Hospitalization History Reason Date(Month/Year) [facility]- dizzy, fainting 01/2021 [facility] [place] Fell down the stais 06/07/20 [facility] [place]- fell and hit head 07/2024
--- OUTSIDE RECORDS SUMMARY | 2025-01-15 11:00 | XMS_ITS | Clinical Summary ---
Author Organization [employer] Address [address] [facility] [address] [place] [address] Care Team Providers Care Finisher [employer] Name Role Phone Name, Elvis IZQUIERDO Primary Care Provider [phone] Allergies No known active allergies Medications albuterol 108 (90 Base) MCG/ACT inhalerIndicati ons:Chronic coughing INHALE 2 PUFFS EVERY 4-6HOURS NEEDED 18 g 2 023 Active acetaminophen (Tylenol 8 Hour) 650 MG ER tablet take 2 tablet by oral route every 12 hours x 5d and can take 1 tab po bid prn breakthrough pain x 1w, then take 1 tab po tid prn pain only 022 Active dulaglutide (Trulicity) 3 MG/0.5ML solution pen-injector Inject 3 mg under the skin 1 (one) time per week. 4 each 023 Active Blood Glucose Monitoring Suppl (FreeStyle Lite) w/Device kit 1 Units 2 times daily. 1 kit 024 Active albuterol (2.5 MG/3ML) 0.083% nebulizer solution Take 2.5 mg by nebulization every 6 (six) hours if needed for wheezing or shortness of breath. 024 Active Blood Pressure Monitoring (Omron 3 Series BP Monitor) device USE TO CHECK BLOOD PRESSURE DIRECTED 1 each 024 Active Fluticasone-Jefry meterol 100-50 MCG/ACT aerosol powder Inhale 1 Inhalation 2 times daily. 12 each 024 2024 Active Umeclidinium Manteno (Incruse Ellipta) 62.5 MCG/ACT aerosol powder Inhale 1 Inhalation Once per day. 30 each 024 2024 Active fluticasone (Flonase) 50 MCG/ACT nasal spray INHALE 1 TO 2 SPRAYS IN EACH NOSTRIL EVERY MORNING. CLEAN DIRECTED. 48 g 1 Active TRUEplus Lancets 33G misc TEST BLOOD SUGAR TWICE DAILY DIRECTED 100 each 11 Active glucose blood (FREESTYLE LITE) test strip TEST BLOOD SUGAR TWICE DAILY DIRECTED 100 strip 11 Active traZODone (Desyrel) 100 MG tabletIndicatio ns:Primary hypertension TAKE 1 TABLET BY MOUTH AT BEDTIME AFTER A MEAL 30 tablet 5 024 Active Diclofenac Sodium 1 % gel APPLY 2 GRAMS TOPICALLY AFFECTED AREA(S) THREE TIMES DAILY NEEDED FOR PAIN 100 g 1 024 Active cetirizine (ZyrTEC) 10 MG tablet TAKE 1/2 TABLET BY MOUTH ONCE DAILY 15 tablet 3 024 Active carvedilol (Coreg) 3.125 MG tablet TAKE 1 TABLET BY MOUTH TWICE DAILY IN THE MORNING AND IN THE EVENING WITH MEALS 60 tablet 3 024 Active citalopram (CeleXA) 40 MG tablet TAKE 1/2 TABLET BY MOUTH EVERY MORNING 45 tablet 024 Active losartan (Cozaar) 100 MG tabletIndicatio ns:Hypertension , unspecified type TAKE 1 TABLET BY MOUTH EVERY MORNING 90 tablet 2 025 Active atorvastatin (Lipitor) 20 MG tabletIndicatio ns:Hypertension , unspecified type TAKE 1 TABLET BY MOUTH EVERY MORNING 90 tablet 2 025 Active gabapentin (Neurontin) 100 MG capsule TAKE 1 CAPSULE BY MOUTH AT BEDTIME 30 capsule 025 Active cholecalciferol (Vitamin D-3) 50 MCG (1999 UT) tabletIndicatio ns:Vitamin D deficiency Take 1 tablet once daily 90 tablet 025 Active amLODIPine (Norvasc) 2.5 MG tabletIndicatio ns:Primary hypertension TAKE 1 TABLET BY MOUTH EVERY MORNING 90 tablet 1 025 Active Aspirin Low Dose 81 MG EC tabletIndicatio ns:Hypertension , unspecified type TAKE 1 TABLET BY MOUTH EVERY MORNING 90 tablet 1 025 Active amLODIPine (Norvasc) 2.5 MG tabletIndicatio ns:Primary hypertension TAKE 1 TABLET BY MOUTH EVERY MORNING 90 tablet 1 024 2024 Discontinued Aspirin Low Dose 81 MG EC tabletIndicatio ns:Hypertension , unspecified type TAKE 1 TABLET BY MOUTH EVERY MORNING 90 tablet 1 024 2024 Discontinued cholecalciferol (Vitamin D-3) 50 MCG (1999 UT) tabletIndicatio ns:Vitamin D deficiency Take 1 tablet once daily 90 tablet 024 2024 Discontinued(R eorder (will not trigger notification to Pharmacy)) Active Problems Problem Noted Date Diagnosed Date High serum creatinine 03/13/2024 COPD with asthma 03/13/2024 Edema 07/12/2023 Type 2 diabetes mellitus with diabetic nephropat hy 07/12/2023 Essential hypertension 07/12/2023 Acute thoracic back pain 12/12/2022 Hip pain 12/12/2022 D-dimer, elevated 12/12/2022 Fall 12/12/2022 Injury of right hand 12/12/2022 Neuroleptic-induced tardive dyskinesia Shoulder pain 12/12/2022 Hypertension 12/02/2022 Hemorrhoids 12/02/2022 Stage 3 chronic kidney disease 03/13/2020 Chronic low back pain 04/26/2019 Vasovagal syncope 08/18/2018 Irritable bowel syndrome with diarrhea 8 DM (diabetes mellitus), type 2 with peripheral vascular complications 11/02/2017 Serum creatinine raised 11/02/2017 Atypical chest pain 09/19/2017 Peripheral vascular disease 10/28/2016 Type 2 diabetes mellitus 10/28/2016 Coronary arteriosclerosis 02/06/2016 History of partial colectomy 02/06/2016 Diabetes mellitus type 2, uncontrolled 6 Morbid obesity 02/06/2016 Obstructive sleep apnea syndrome 04/05/2013 Gastroesophageal reflux disease 07/11/2012 Hyperlipidemia 07/11/2012 Osteoarthritis of knee 07/11/2012 Steatosis of liver 07/11/2012 Depressive disorder 07/11/2012 Diverticular disease 07/11/2012 Gallbladder calculus 07/11/2012 Osteopenia 07/11/2012 Tricuspid valve regurgitation 07/11/2012 Urinary incontinence 07/11/2012 Encounters Date Type Department Care Team Description 01/06/2025 Refill C [facility] [address] [place] [address] Elvis Daley MD Primary hypertension; Hypertension, unspecified type 01/02/2025 Telephone [facility] [address] [place] [address] Elvis Daley MD Durable Medical Equipment (Incont. Supplies - recertification) 12/24/2024 Refill C [facility] [address] [place], [place] [phone] Elvis Daley MD Vitamin D deficiency 12/12/2024 Refill [facility] [address] [place] [address] Elvis Daley MD 12/04/2024 Refill C MEDICINE [address] [place] [phone] Elvis Daley MD Hypertension, unspecified type 11/22/2024 Telephone [facility] [address] [place] [address] David Pyle [place] feb recalls 11/16/2024 Refill [facility] [address] [place] [address] Elvis Daley MD 11/13/2024 Refill [facility] [address] [place], [place] [phone] Elvis Daley MD 10/30/2024 Orders Only [facility] External Provider, [facility] 10/30/2024 Telephone [facility] [address] [place] [address] Elvis Daley MD Lab Orders from Last 3 Months Immunizations Name Administration Dates Next Due Influenza injectable quadriv alent IIV4 with preservative 12/02/2022,07/29/2016 Influenza injectable quadriv alent preservative free 08/13/2015 Influenza, High Dose Seasona l, Preservative Free 09/21/2024,07/31/2018,08/04/2017 Influenza, IIV3, injectable 08/08/2014, 1 Influenza, Split (incl. jody fied surface antigen) 09/03/2013,07/26/2012 Influenza, seasonal, injecta ble, preservative free 08/05/2021,09/28/2018,08/15/2017,08/18,03/29/2016 Pertussis 12/02/2009 Pfizer Covid-19 Vaccine 12+ 09/21/2024, Pfizer Covid-19 Vaccine 12+ Bivalent 10/05/2022 Pneumococcal Conjugate PCV 13 08/22/2015 Pneumococcal Polysaccharide PPSV23 06/29/2018, RSV Bivalent 03/15/2024 TD (adult), 2 Lf tetanus tox oid, preservative free, adsorbed 02/20/2004 Tdap 02/06/2016 Zoster, Recombinant 02/15/2023,12/15/2022 Zoster, live 08/22/2015 Social History Tobacco Use Types Packs/Day Years Used Date Smoking Tobacco: Former Cigarettes Passive Smoke Exposure: Past Tobacco Cessation:Counseling Given: Not Answered Alcohol Use Standard Drinks/Week Comments Never 0 [...] Orientation Straight 09/13/2022 10 :16 AM EDT Last Filed Vital Signs Vital Sign Reading Time Taken Comments Blood Pressure 148/77 09/21/2024 10:26 AM EST Pulse 68 09/21/2024 10:26 AM EST Temperature 36.5 ??C (97.7 ??F) 08/13/2024 6:28 PM ED T Respiratory Rate 16 09/21/2024 10:26 AM EST Oxygen Saturation 99% 09/21/2024 10:26 AM EST Inhaled Oxygen Concentration - - Weight 83.9 kg (185 lb) 09/21/2024 10:26 AM EST Height 160 cm (5' 3 ) 09/21/2024 10:26 AM EST Body Mass Index 32.77 09/21/2024 10:26 AM EST Plan of Treatment Upcoming Encounters Date Type Department Care Team (Late st Contact Info) Description 02/04/2025 10:00 AM EDT Office Visit [facility] [address] [place] [phone] Name, MD Elvis [address] [place] [address] Health Maintenance Due Date Last Done Comments Hepatitis A Vaccines (1 of 2 - Risk 2-dose series) 1961 Hepatitis B Vaccines (1 of 3 - Risk 3-dose series) 2002 SDOH Screening 03/06/2025 03/06/2024 Depression Monitoring (PHQ-9) 03/21/2025 09/21/2024, 09/21/2024 Diabetes: Hemoglobin A1C 03/21/2025 024, 07/02/2024, 03/13/2024, Additional history exists Eye Exam 04/14/2025 04/14/2023 Alcohol/Substance Use Screening 07/02/2025 07/02/2024 Depression Screening 09/21/2025 09/21/2024, 09/21/20 24 Diabetes: Foot Exam 09/21/2025 09/21/2024, 09/21/2024, 09/21/2024, Additional history exists Tobacco Screening 09/21/2025 09/21/2024 Lipid Panel 10/01/2025 10/01/2024, 08, 10/28/2022, Additional history exists DTaP/Tdap/Td Vaccines (2 - Td or Tdap) 02/05/2026 02/06/2016, 02/20/2004 Pneumococcal Vaccine: 50+ Years Completed 06/29/2018, 08/22/2015, 02/21/2002 Zoster Vaccines Completed 02/15/2023, 11/2022, 08/22/2015 RSV Patients and Patients Aged 60 years or older Completed 03/15/2024 COVID-19 Vaccine Completed 09/21/2024, 12/2023, 10/05/2022, Additional history exists Influenza Vaccine Completed 09/21/2024, , 08/05/2021, Additional history exists HIB Vaccines Aged Out No longer eligi ble based on patient's age to complete this topic HPV Vaccines Aged Out No longer eligi ble based on patient's age to complete this topic IPV Vaccines Aged Out No longer eligi ble based on patient's age to complete this topic Meningococcal Vaccine Aged Out No dileep emma eligible based on patient's age to complete this topic RSV under 20 months Aged Out No longe r eligible based on patient's age to complete this topic Rotavirus Vaccines Aged Out No longer eligible based on patient's age to complete this topic Goals Goal Patient Goal Type Associated Problems Recent Progress Patient-Stated? Author Blood Pressure < 140/90 Blood Pressure 148/77( 024 10:26 AM EST) No Rosa Haile, Arthur Procedures Procedure Name Priority Date/Time Associated Diagnosis Comments XR CHEST 2 VIEWS Routine 10/30/2024 2:57 PM EST LIPID PANEL, STANDARD Routine 10/01/2024 12:00 PM EST Diabetes mellitus type 2 with complications (CMS/HCC) POCT GLYCATED HEMOGLOBIN, TOTAL Routine 09/21/2024 10:27 AM EST Diabetes mellitus type 2 with complications (CMS/HCC) HM DIABETES EYE EXAM Routine 04/14/2023 from Last 3 Months or Most Recently Relevant to Health Maintenance Results * XR Chest 2 Views (10/30/2024 2:57 PM EST) Anatomical Region Laterality Modality Chest Radiographic Wendi ging 10/30/2024 2:57 PM EST Narrative 10/30/2024 5:03 PM EST ? [facility] ?[address] ?[place] [address] ?XRay Report ? Signed ? Patient: Jana Chowdhury ?MR#: [id number] ?? [id number] ? : 1940 ?Acct:[id number] ? Age/Sex: 84 / F ?ADM Date: 10/30/24 ? Loc: HO.XRAY ? Attending Dr: Joel Nunez MD ? Ordering Physician: Joel Nunez MD ?? Date of Service: 10/30/24 ?? Procedure(s): XR chest 2V ?? Accession Number(s): [id number] ? cc: Joel Nunez MD; NameElvis MD ? EXAMINATION: ?? XR CHEST ? CLINICAL INFORMATION: ?? R05.9 - Cough, unspecified ? COMPARISON: ?? X-ray 09/01/2024 ? TECHNIQUE: ?? 2 views of the chest were obtained. ? FINDINGS: ?? The cardiomediastinal silhouette is within normal limits. The lungs are ?? well expanded. There is no focal consolidation, edema, or effusion. No ?? pneumothorax. ? No acute osseous abnormality. ? XR/XR chest 2V ?? IMPRESSION: ?? No acute cardiopulmonary findings. ? Electronically signed by: ??Bony Barr MD ??10/30/2024 05:00 PM EST ?? RP ? Dictated By: ?Bony Barr MD ? Signed By: ?<Electronically signed by Bony Barr MD in OV> ?10/30/24 1700 ? DD/ 1457 ? TD/TT: 12/17/24 1506 ? Principal Associate: IVELISSE ? Procedure Note Donotneidater, Image - 10/30/[address] [address] XRay Report Signed Patient: Jana Chowdhury MMR#: [id number] : 2Acct:[id number] Age/Sex: 84 / FADM Date: 10/30/24 Loc: HO.XRAY Attending Dr: Joel Nunez MD Ordering Physician: Joel Nunez MD Date of Service: 10/30/24 Procedure(s): XR chest 2V Accession Number(s): [id number] cc: Joel Nunez MD; Name,Elvis IZQUIERDO EXAMINATION: XR CHEST CLINICAL INFORMATION: R05.9 - Cough, unspecified COMPARISON: X-ray 09/01/2024 TECHNIQUE: 2 views of the chest were obtained. FINDINGS: The cardiomediastinal silhouette is within normal limits. The lungs are well expanded. There is no focal consolidation, edema, or effusion. No pneumothorax. No acute osseous abnormality. XR/XR chest 2V IMPRESSION: No acute cardiopulmonary findings. Electronically signed by: Bony Barr MD 10/30/2024 05:00 PM EST Dictated By: Bony Barr MD Signed By: <Electronically signed by Bony Barr MD in OV> 10/30/24 1700 DD/ 1457 TD/TT: 10/30/24 1506 Principal Associate: IVELISSE [place] [facility] External Provider IMG XR PROCEDURES Final Result * Lipid Panel, Standard (10/01/2024 12:00 PM EST) Triglycerides 74 <150 mg/dL [facility] Comment:Desirable Triglyceri de: less than 150 mg/dLBorderline High Triglyceride 150-199 mg/dLHigh Triglyceride: 200-499 mg/dLVery High Triglyceride: greater than or equal to 5OO mg/dL Cholesterol 168 <200 mg/dL [facility] Comment:Desirable Cholestero l: less than 200 mg/dLBorderline High Cholesterol: 200-239 mg/dLHigh Cholesterol: greater than 239 mg/dL LDL Cholesterol Calculated 74 <100 mg/dL [facility] Comment:Desirable LDL: less than 100 mg/dLNear Optimal/Above Optimal LDL: 110- 129 mg/dLBorderline High LDL: 130-159 mg/dLHigh LDL: 160-189 mg/dLVery High LDL: greater than or equal to 190 mg/dL HDL Cholesterol 80 >40 mg/dL [facility] Comment:Desirable HDL: great er than 40 mg/dL Note: This HDL assay may give artificially low results in patients with liver disease. Blood Venous blood specimen / Unknown 10/01/2024 12:00 PM EST 10/01/2024 1:16 PM EST us Elvis Daley MD LAB BLOOD ORDERABLES Final Resul t Performing Organization Address City/State/[facility] Co de Phone Number [facility] [address] [place] [phone] * (ABNORMAL) POCT HGB A1C (09/21/2024 10:27 AM EST) Hemoglobin A1C 6.9(A) 4.0 - 6.0 % QC Media Lot # [id number] Lot# Expiration Date Blood 09/21/2024 10:2 7 AM EST us Elvis Daley MD POINT OF CARE TEST ENTER/EDIT OR DERABLES Final Result * Diabetes Eye Exam (04/14/2023) Eye Exam Normal Normal us Elvis Daley MD HEALTH MAINTENANCE Final Result from Last 3 Months or Most Recently Relevant to Health [place] [address] [facility] [place] [address] [place] [id number] [place] [address] [place] [address] Care Teams [employer]isher [employer] Relationship Specialty Start Date End Date Name, MD Elvis [address] [place] [address] YASIR Mullins [address] PCP - General Family Medicine 02/05/16
--- OUTSIDE RECORDS SUMMARY | 2025-01-15 11:00 | XMS_ITS | Encounter Summary ---
Author Organization [facility] Address [address] [facility] 7t [place] [address] Care Team Providers Care District Medical Examiner Name Role Phone NameElvis MD Primary Care Provider [phone] Reason for Visit * Reason Comments Med Refill Encounter Details Date Type Department Care Team (Late st Contact Info) Description 07/28/2023 Refill [facility] [address] [place] [address] [address] [place], [place] [phone] Elvis Daley MD [address] [place] [phone] Primary hypertension; Hypertension, unspecified type Social History Tobacco Use Types Packs/Day Years Used Date Smoking Tobacco: Former Cigarettes Passive Smoke Exposure: Past Alcohol Use Standard Drinks/Week Comments Never 0 (1 standard drink = 0.6 oz pur e alcohol) Depression Answer Date Recorded Patient Health Questionnaire-9 Score 11 12/02/2022 Depression Answer Date Recorded Patient Health Questionnaire-2 Score 3 12/02/2022 Comments Unknown Sex and Gender Information Value Date Recorded Sex Assigned at Female 09/13/2022 10:16 AM EDT Legal Sex Female 10:16 AM EDT Gender Identity Female 09/13/2022 10:16 AM EDT Sexual Orientation Straight 09/13/2022 10 :16 AM EDT documented as of this encounter Plan of Treatment Upcoming Encounters Date Type Department Care Team (Late Contact Info) Description 02/04/2025 10:00 AM EDT Office Visit [facility] [address] [place] [phone] Elvis Daley MD [address] [place] [phone] documented as of this encounter Visit Diagnoses Diagnosis Primary hypertension Unspecified essential hypertension Hypertension, unspecified type documented in this encounter Additional Health Concerns Assessment Noted Time PHQ-9 Depression Total Score: 11 023 9:33 AM EST documented as of this encounter Care Teams District Medical Examiner Relationship Specialty Start Date End Date Name, MD Elvis [address] [place] [address] PCP - General Family Medicine 02/05/16 documented as of this encounter
--- OUTSIDE RECORDS SUMMARY | 2025-01-15 11:00 | XMS_ITS | Encounter Summary ---
Author Organization [employer] Address [address] [facility] 7t [place] [address] Care Team Providers Care Girls Tennis Coach Name Role Phone Name, Elvis IZQUIERDO Primary Care Provider [phone] Reason for Visit * Reason Comments Med Refill Encounter Details Date Type Department Care Team (Late st Contact Info) Description 01/06/2025 Refill [facility] [address] [place], [place] [phone] Name, MD Elvis [address] [facility] [place] [address] Primary hypertension; Hypertension, unspecified type Social History [...] Description 02/04/2025 10:00 AM EDT Office Visit [facility] MEDIC[facility] [address] [place] [address] Name, MD Elvis [address] [place] [address] documented as of this encounter Goals Goal Patient Goal Type Associated Problems Recent Progress Patient-Stated? Author Blood Pressure < 140/90 Blood Pressure 148/77( 10:26 AM EST) Rosa Bello, PharmMack documented as of this encounter Visit Diagnoses Diagnosis Primary hypertension Unspecified essential hypertension Hypertension, unspecified type documented in this encounter Additional Health Concerns Assessment Noted Time PHQ-9 Depression Total Score: 12 10:55 AM EST documented as of this encounter Care Teams Girls Tennis Coach Relationship Specialty Start Date End Date NameElvis MD [address] [place] [address] PCP - General Family Medicine 02/05/16 documented as of this encounter
--- OUTSIDE RECORDS SUMMARY | 2025-01-15 11:00 | XMS_ITS | Encounter Summary ---
Author Organization [facility], Address [address] [place] [address] Phone Care Team Providers Care Dry Cure Worker Name Role Phone Name, Elvis IZQUIERDO Primary Care Provider [phone] Encounter Details Date Type Department Care Team (Late st Contact Info) Description 03/31/2020 Orders Only [facility] [address] [place] [address] Raimundo Colunga MD [address] [place] [address] Chronic kidney disease, stage 3 (moderate) (HCC); Type 2 diabetes mellitus with diabetic nephropathy (HCC); Essential hypertension; Mixed hyperlipidemia Social History Tobacco Use Types Packs/Day Years Used Date Smoking Tobacco: Former Comments Unknown Sex and Gender Information Value Date Recorded Sex Assigned at Not on file Legal Sex Female 4:32 PM EST Gender Identity Not on file Sexual Orientation Not on file COVID-19 Exposure Response Date Recorded In the last month, have you been in contact with someone who was confirmed or suspected to have Coronavirus / COVID-19? No / Unsure 03/27/2020 1:22 PM EDT documented as of this encounter Plan of Treatment Not on file documented as of this encounter Visit Diagnoses Diagnosis Chronic kidney disease, stage 3 (moderate) Type 2 diabetes mellitus with diabetic nephropathy (HCC) Essential hypertension Mixed hyperlipidemia documented in this encounter Care Teams Dry Cure Worker Relationship Specialty Start Date End Date Name, MD Elvis [address] [place] [id number] PCP - General 09/18/19 documented as of this encounter
--- OUTSIDE RECORDS SUMMARY | 2025-01-15 11:00 | XMS_ITS | Encounter Summary ---
Author Organization [employer] Address [address] [facility] 7t [place] [address] Care Team Providers Care Senior Enlisted Advisor Name Role Phone Name, Elvis IZQUIERDO Primary Care Provider [phone] Reason for Visit * Reason Onset Date Comments Durable Medical Equipment 01/02/2025 Incont . Supplies - recertification Encounter Details Date Type Department Care Team (Late st Contact Info) Description 01/02/2025 Telephone [facility] [address] [place] [address] Name, MD Elvis [address] [place] [address] Durable Medical Equipment (Incont. Supplies - recertification) Social History Tobacco Use Types Packs/Day Years [...] t he electric, gas, oil or water [employer] threatened to shut off services in your home? No 03/06/2024 Depression Answer Date Recorded Patient Health Questionnaire-2 Score 4 09/21/2024 Comments Unknown Sex and Gender Information Value Date Recorded Sex Assigned at Female 09/13/2022 10:16 AM EDT Legal Sex Female 10:16 AM EDT Gender Identity Female 09/13/2022 10:16 AM EDT Sexual Orientation Straight 09/13/2022 10 :16 AM EDT documented as of this encounter Miscellaneous Notes * Telephone Encounter - Kalie Lewis - 01/09/2025 11:28 AM EST Confirmation of order for incontinence supplies signed and faxed to Denise . Confirmation received and sent to scan. If patient calls to check status on above, please advise them to contact Denise at [phone]. * Telephone Encounter - Kalie Lewis - 01/02/2025 10:30 AM EST Confirmation of order for incontinence supplies from Denise received and placed on PCP desk for signature. documented in this encounter Plan of Treatment Upcoming Encounters Date Type Department Care Team (Late st Contact Info) Description 02/04/2025 10:00 AM EDT Office Visit [facility] [address] [place] [address] Name, MD Elvis [address] [place] [address] documented as of this encounter Goals Goal Patient Goal Type Associated Problems Recent Progress Patient-Stated? Author Blood Pressure < 140/90 Blood Pressure 148/77( 10:26 AM EST) Rosa Bello, PharmD documented as of this encounter Visit Diagnoses Not on filedocumented in this encounter Additional Health Concerns Assessment Noted Time PHQ-9 Depression Total Score: 12 10:55 AM EST documented as of this encounter Care Teams Senior Enlisted Advisor Relationship Specialty Start Date End Date Name, MD Elvis [address] [facility] [place] [address] PCP - General Family Medicine 02/05/16 documented as of this encounter
--- OUTSIDE RECORDS SUMMARY | 2025-01-15 11:00 | XMS_ITS | Clinical Summary ---
Author Organization [facility], Address [address] [place] [address] [place] [address] Phone Care Team Providers Care Planishing Hammer Operator Name Role Phone Name, Elvis IZQUIERDO Primary Care Provider [phone] Allergies No known active allergies Medications ARIPiprazole (ABILIFY) 5 MG tablet Take 5 mg by mouth 1 (one) time each day Active aspirin 81 MG tablet Take 81 mg by mouth 1 (one) time each day Active Calcium Carbonate-Vitami n D (CALCIUM 600+D PO) Take 1 tablet by mouth 1 (one) time each day Active cholestyramine (QUESTRAN) 4 GM/DOSE powder Take by mouth 3 (three) times a day with meals Active citalopram (CeleXA) 40 MG tablet Take 20 mg by mouth 1 (one) time each day Active dicyclomine (BENTYL) 10 MG capsule Take 10 mg by mouth twice a day Active polycarbophil (FIBERCON) 625 MG tablet Take 625 mg by mouth 1 (one) time each day Active omega-3 (FISH OIL) 1000 MG capsule Take 1,000 mg by mouth 1 (one) time each day Active hydroCHLOROthiaz zack (HYDRODIURIL) 12.5 MG tablet Take 12.5 mg by mouth 1 (one) time each day Active insulin glargine (LANTUS) 100 UNIT/ML injection Inject 10 Units under the skin 1 (one) time each day Active atorvastatin (LIPITOR) 20 MG tablet Take 20 mg by mouth 1 (one) time each day Active metoprolol tartrate (LOPRESSOR) 100 MG tablet Take 100 mg by mouth 1 (one) time each day Active prazosin (MINIPRESS) 2 MG capsule Take 6 mg by mouth 1 (one) time each day Active traZODone (DESYREL) 100 MG tablet Take 100 mg by mouth 1 (one) time each day Active Dulaglutide 1.5 MG/0.5ML solution pen-injector Inject 0.5 mL under the skin 1 (one) time per week Active Turmeric 500 MG capsule Take 500 mg by mouth 1 (one) time each day Active ezetimibe (ZETIA) 10 MG tablet Take 10 mg by mouth 1 (one) time each day Active Active Problems Problem Noted Date Diagnosed Date Chronic kidney disease, stage 3 (moderate) 03/13 Edema Essential hypertension Hyperlipidemia Peripheral vascular disease Serum creatinine above reference range Type 2 diabetes mellitus with diabetic nephropat hy Social History Tobacco Use Types Packs/Day Years Used Date Smoking Tobacco: Former Comments Unknown Sex and Gender Information Value Date Recorded Sex Assigned at Not on file Legal Sex Female 4:32 PM EST Gender Identity Not on file Sexual Orientation Not on file Last Filed Vital Signs Vital Sign Reading Time Taken Comments Blood Pressure 120/66 08/06/2019 12:00 PM EDT Pulse - - Temperature - - Respiratory Rate - - Oxygen Saturation - - Inhaled Oxygen Concentration - - Weight 99.3 kg (219 lb) 03/17/2020 11:50 AM EDT Height 157.5 cm (5' 2 ) 08/06/2019 12:00 PM EDT Body Mass Index 40.06 08/06/2019 12:00 PM EDT Plan of Treatment Health Maintenance Due Date Last Done Comments Pneumococcal Vaccine: 65+ Years (1 of 2 - PCV) 1946 Diabetes: Ophthalmology Exam 02/15/2020 Diabetes: Pedal Pulse Checked 02/15/2020 Diabetes: Sensory Foot Exam 02/15/2020 Diabetes: Visual Foot Exam 02/15/2020 Diabetes: Hemoglobin A1C 03/18/202112/19/2 021, 03/20/2020 Influenza Vaccine (#1) 2024 Hepatitis B Vaccine Aged Out No longe r eligible based on patient's age to complete this topic Procedures Procedure Name Priority Date/Time Associated Diagnosis Comments HEMOGLOBIN A1C Routine 12/19/2020 10:39 AM EST Type 2 diabetes mellitus with diabetic nephropathy (HCC) from Last 3 Months or Most Recently Relevant to Health Maintenance Results * (ABNORMAL) Hemoglobin A1c (12/19/2020 10:39 AM EST) Hemoglobin A1C 7.0(H) (4.0-5.6) % [facility] Comment: MONITORING: In known diabetic patients, hemoglobin A1c targets should be discussed with health care provider. DIAGNOSTIC USE: ??The [place] Diabetes Association (ADA) and the World Health Organization (WHO) recommend the use of HbA1c to diagnose diabetes using a threshold of 6.5%. Patients who have an HbA1c between 5.7% and 6.4% are considered at increased risk for developing diabetes in the future. CAUTION: Falsely low HbA1c results may be observed in patients with hemolytic anemia, homozygous forms of abnormal hemoglobin (e.g. SS, CC, SC), , recent blood loss or hemoglobin F greater than 7%. Fructosamine may be used as an alternate test in these cases. REFERENCE: ADA: Standards of Medical Care in Diabetes 2020, The Journal of Clinical and Applied Research and Education Volume 43, Supplement 1 Testing performed or reported by [facility], a Service of [facility], [address] [place] [address] Shoaib Kidd MD, Sound Controller Blood (Blood, Venous) 12/19/2020 10:39 AM EST 12/19/2020 10:41 AM EST us Seamus Ham MD LAB BLOOD ORDERABLES Final Re sult [facility] from Last 3 Months or Most Recently Relevant to Health Maintenance Insurance [employer] SNP ([id number]) Care Teams Planishing Hammer Operator Relationship Specialty Start Date End Date Name, MD Elvis [address] [place] [address] [phone] PCP - General 09/18/19
--- OUTSIDE RECORDS SUMMARY | 2025-01-15 11:00 | XMS_ITS ---
Author Organization [facility] Address [address] [place] [address] YASIR Vergara [address] Care Team Providers Care Social Service Manager Name Role Phone Name Elvis IZQUIERDO Primary Care Provider Pankaj Barnes Unavailable [phone] Allergies No Known Allergies REASON FOR VISIT At Risk Footcare, Painful Nail(s) aggravated by shoes and causing difficulty standing/walking Medications Medication SIG (Take, Route, Frequency, Duration) Notes Start Date End Date Status [facility] Unifine Pentips Plus Not-Taking Mapap Not-Taking Metoprolol Succinate ER Not-Taking Baclofen Not-Taking Sulfamethoxazole-TMP DS Not-Taking Fiber Not-Taking FreeStyle Lite Test Not-Taking Aspirin EC Low Dose Not-Taking Diphenoxylate-Atropin e Not-Taking ARIPiprazole 5 MG 1 tablet Orally Once a day Not-Taking Metamucil prn Not-Taking Vitamin D 1000 UNIT Orally Once a day Not-Taking Liquid Calcium with D3 Not-Taking Cholestyramine Not-T aking Lipitor Not-Taking Sucralfate Not-Takin g Prazosin HCl Not-Fitz ing Abilify 5 MG Orally Once a day Not-Taking Fiber-Lax Not-Taking Zetia Not-Taking Lantus SoloStar 10ML Not-Taking Metoprolol Tartrate Not-Taking Nystatin 778367 UNIT/GM Externally Powder for Breast Not-Taking Fish Oil Not-Taking Dicyclomine HCl 10 MG Orally Four times a day Not-Taking Cefpodoxime Proxetil Active Aspercreme 10 % 1 application as needed Externally Four times a day for 30 days 07/22/2022 Active Extra Depth Orthopedic Shoes, (1) Pair With (3) Pair Custom Heat Molded Multidensity Innersoles Dx: IDDM/PVD(E10.51), Hammertoe Foot Deformity, B/L(M20.41,M20.42), Preulcerative Skin Lesion(s)(L85.1) Wear Daily for 365 days Active Doxycycline Monohydrate Not-Taking Calcium Carb-Ergocalciferol Not-Taki ng Losartan Potassium 100 MG Orally Once a day Active traZODone HCl 100 MG Orally Once a day Active Trulicity 1.5 MG/0.5ML Subcutaneous Active Tylenol 500mg prn Active Citalopram Hydrobromide 40 MG Orally Once a day Acti ve guaiFENesin Active amLODIPine Besylate 5mg Active Ammonium Lactate 12 % 1 application to affected area Externally to feet Twice a day for 30 days Active Aspirin 81 MG Orally Active Atorvastatin Calcium 20 MG Orally Once a day Active Albuterol Active Gabapentin Active Social History Tobacco Use: Social History Observation Description Date Details (start date - stop date) Never Smoker NA - NA Tobacco use other than smoking: Question Answer Notes Are you an other tobacco user? No Tobacco Control (Standard) Question Answer Notes Tobacco use: Nonsmoker Vital Signs Height 5 ft 3 in in 12/07/2024 Weight 189 lbs 12/07/2024 BMI 33.48 kg/m2 12/07/2024 Blood pressure systolic 113 mm Hg 12/07/19 25 Blood pressure diastolic 86 mm Hg 025 Procedures Procedure Date Ordered Date Performed Result Body Sit e 57730-WZRVIYC NAIL, 6 OR MORE 12/07/2024 N/A 09586-BMIA SKIN LESIONS, OVER 4 12/07/2024 N/A Encounters Encounter Location Date Provider Diagnosis [facility] [address] [place] [address] 12/07/2024 Pankaj Hoff Type 1 diabetes mellitus with diabetic peripheral angiopathy without gangrene E10.51 ; Tinea unguium B35.1 ; Pain in right toe(s) M79.674 and Pain in left toe(s) M79.675 Assessments Encounter Date Diagnosis (ICD Code) Assessment Notes Treatment Notes Treatment Clinical Notes Section Notes 12/07/2024 Type 1 diabetes mellitus with diabetic peripheral angiopathy without gangrene (ICD-10 - E10.51) 12/07/2024 Tinea unguium (ICD-10 - B35.1) 12/07/2024 Pain in right toe(s) (ICD-10 - M79.674) 12/07/2024 Pain in left toe(s) (ICD-10 - M79.675) Plan Of Treatment Pending Test Test Name Order Date 39754-XOLBQZC NAIL, 6 OR MORE 12/07/2024 00038-MSSD SKIN LESIONS, OVER 4 12/07/19 25 Next Appt Details Follow Up: 2 Months, Reason: Provider Name:Pankaj Hoff , 04/02/2025 02:45:00 PM, [address] [place] [address], [phone], Procedure Notes * Category Sub-Category Detail Notes Debride Nail 6-10 Nail debridement Due to the cl inical pathology outlined in the exam findings, performance of this nail treatment is medically necessary as its management by an unskilled/untrained nonprofessional would put this patients foot and overall health at risk. Therefore, debridement to affected nail(s), as described in exam ( TA, T1, T2, T3, T4, T6, T7, T9 ), was performed exclusively by the physician of record to reduce/remove overall nail length, girth, thickness, subungual debris, and necrotic tissue, by manual and/or electrical means through the use of a nail nipper and/or dremel-type floor grinder, to a more viable healthy nail plate or bed tissue 6-10 nails in total. Silver nitrate was used for any petechial bleeding as necessary. Definitive antifungal treatment options, both pharmaceutical and surgical, have been reviewed and discussed with the patient. The patient solely prefers the use of intermittent/as needed professional debridement services for their nail condition and understands the need for additional periodic treatments to maintain effectiveness in symptomatic relief - Keratoma Treatment Parring or Cutting o f Benign Hyperkeratotic Lesion(s) (-57) More than 4 Lesions - Due to the at risk nature of the patients medical condition as documented in the exam findings, performance of this keratoderma treatment is medically necessary as its management by an unskilled/untrained nonprofessional would put this patients foot and overall health at risk. Therefore, the benign hyperkeratotic lesions, ( 8 ) in total, locations as stated and described in the exam ( Medial, IPJ, TA, Lateral, PIPJ, T1,Medial, PIPJ, T2,Lateral, PIPJ, T3,Medial, PIPJ, T4,Medial plantar, IPJ, T5,Plantar, Heel(s),B/L ), were pared, and/or cut utilizing a sterile 15 blade, tissue nippers, and/or power dremel instrumentation by the physician of record - 81959, Q8 Progress Notes * Jana MADSEN MDOB: 2 (84 yo F)Acc No.[id number]:12/07/2024 Progress Note Patient:?Jana MADSEN M Provider:?Pankaj Hoff DPM :1940???Age:84 Y???Sex:Female D ate:12/07/2024 Address:[address] [place] [address], [facility] Pcp:Elvis Daley MD Subjective: * Chief Complaints: * ???At Risk FootcarePainful N ail(s) aggravated by shoes and causing difficulty standing/walking * HPI: ???At Risk footcare:?Pt States Last PCP Visit:?Date?09/21/2024 * ROS:?General/Constitutional:?Nausea?denies.?Vomiting?denies.?Hunger Thirst?denies.?Loss appetite?denies.?Chills?denies.?Fatigue?denies.?Fever?denies.?Night Sweats?denies.?Unexplained weight loss?denies.?Ophthalmologic:?Blurred vision?denies.?Red eye?denies.?HEENTM:?Dentures?denies.?Dizziness?denies.?Glasses/contacts?denies.?Retinopathy?den ies.?Blurred/double vision?denies.?TMJ?denies.?Discharge/drainage?denies.?Implants?denies.?Hard of hearing denies.?Difficulty chewing/swallowing/speaking?denies.?Nose bleeds?denies.?Sore mouth?denies.?Swollen glands?denies.?Respiratory:?On O xygen?denies.?Pneumonia/pleurisy?denies.?Bronchitis?denies.?Emphysema?denies.?Co ughing?denies.?Cough blood?denies.?Shortness of breath?admits, that is mild.?Wheezing?denies.?Cardiovascular:?Pacemaker?denies.?MVP?denies.?WPW?denies.?CHF?denies.?Heart attack?denies.?Septal defect?denies.?Rapid beat?denies.?Chest pain ?denies.?Atrial Fib.?denies.?Murmur/Palpitations?denies.?Gastrointestinal:?Hemorrhoids?denies.?Stomach/Abdominal pain?denies.?Dark blood stool?denies.?Irritable bowel ?denies.?Constipation?denies.?Diarrhea?denies.?Vomiting?denies.?Hematology:?Swelling?admits.?Bruising??admits, on aspirin.?Bleeding problem??admits, on anticoagulants.?Genitourinary:?Blood urine?denies.?Frequent/Painfu/urination/bladder control?denies.?Kidney stones?denies.?Infection (UTI)?denies.?Nephropathy?denies.?Musculoskeletal:?Hammertoes?admits.?Bunions?denies.?Scoliosis/kyphosis?denies.?Muscle cramps / walking?denies.?Generalized aches and pains?admits.?Weakness?denies.?Integ.:?Desir?denies.?Scars?denies.?Corns/calluses?admits.?Ingrown nails?admits.?Painful nails?admits.?Rashes?denies.?Neurologic:?Difficulty sleeping?denies.?Bipolar?denies.?Brain disorder?denies.?Balance t rouble?admits.?Confusion?denies.?Fainting/blackouts?denies.?Headache?denies.?Kaleb mors?denies.? * Medical History:? * Surgical History:?colon c colonoscopy * Hospitalization/Major Diagno stic Procedure:?[facility] Fell [facility] the stais 06/07/20[facility]- dizzy, fainting 01/2021[facility]- fell and hit head 07/2024 * Family History:?Mother: dece ased, diagnosed with Other malignant neoplasm of unspecified site, Family history of arthritis.?Father: .?Siblings: unknown, Brother Heart attacl, Sister cancer.?Spouse: .? * Social History:?Tobacco Use:?Tobacco use other than smoking?Are you an other tobacco user??No ?Tobacco Control (Standard)?Tobacco use:?Nonsmoker ???Miscellaneous:?Caffeine: yes, frequency:, 3-5 cups per day. ?Children: yes, four. ?Exercise: no. ?Marital status: . ?Occupation: Disabled. * Medications:?TakingGabapenti n Albuterol guaiFENesin amLODIPine Besylate , Notes to Pharmacist: 5mgAmmonium Lactate 12 % Cream 1 application to affected area Externally to feet Twice a day Aspirin 81 MG Tablet Delayed Release Orally Atorvastatin Calcium 20 MG Tablet Orally Once a day Citalopram Hydrobromide 40 MG Tablet Orally Once a day Losartan Potassium 100 MG Tablet Orally Once a day traZODone HCl 100 MG Tablet Orally Once a day Trulicity 1.5 MG/0.5ML Solution Pen-injector Subcutaneous Tylenol 500mg prn Cefpodoxime Proxetil Aspercreme 10 % Cream 1 application as needed Externally Four times a day Extra Depth Orthopedic Shoes, (1) Pair With (3) Pair Custom Heat Molded Multidensity Innersoles . Dx: IDDM/PVD(E10.51), Hammertoe Foot Deformity, B/L(M20.41,M20.42), Preulcerative Skin Lesion(s)(L85.1) Wear Daily Taking Gabapentin Taking Albuterol Taking guaiFENesin Taking amLODIPine Besylate , Notes to Pharmacist: 5mgTaking Ammonium Lactate 12 % Cream 1 application to affected area Externally to feet Twice a day Taking Aspirin 81 MG Tablet Delayed Release Orally Taking Atorvastatin Calcium 20 MG Tablet Orally Once a day Taking Citalopram Hydrobromide 40 MG Tablet Orally Once a day Taking Losartan Potassium 100 MG Tablet Orally Once a day Taking traZODone HCl 100 MG Tablet Orally Once a day Taking Trulicity 1.5 MG/0.5ML Solution Pen-injector Subcutaneous Taking Tylenol 500mg prn Taking Cefpodoxime Proxetil Taking Aspercreme 10 % Cream 1 application as needed Externally Four times a day Taking Extra Depth Orthopedic Shoes, (1) Pair With (3) Pair Custom Heat Molded Multidensity Innersoles . Dx: IDDM/PVD(E10.51), Hammertoe Foot Deformity, B/L(M20.41,M20.42), Preulcerative Skin Lesion(s)(L85.1) Wear Daily Not-Taking/PRNDoxycycline Monohydrate Calcium Carb-Ergocalciferol Dicyclomine HCl 10 MG Capsule Orally Four times a day Fish Oil Lantus SoloStar 10ML Metoprolol Tartrate Nystatin 996154 UNIT/GM Powder Externally , Notes to Pharmacist: Powder for BreastZetia Sucralfate Prazosin HCl Abilify 5 MG Tablet Orally Once a day Fiber- Lax Lipitor Liquid Calcium with D3 Cholestyramine Metamucil prn Vitamin D 1000 UNIT Tablet Orally Once a day Diphenoxylate-Atropine ARIPiprazole 5 MG Tablet 1 tablet Orally Once a day Fiber FreeStyle Lite Test Aspirin EC Low Dose [facility] Unifine Pentips Plus Metoprolol Succinate ER Baclofen Sulfamethoxazole-TMP DS Mapap Medication List reviewed and reconciled with the patientNot-Taking/PRN Doxycycline Monohydrate Not-Taking/PRN Calcium Carb-Ergocalciferol Not-Taking/PRN Dicyclomine HCl 10 MG Capsule Orally Four times a day Not-Taking/PRN Fish Oil Not-Taking/PRN Lantus SoloStar 10ML Not-Taking/PRN Metoprolol Tartrate Not-Taking/PRN Nystatin 933953 UNIT/GM Powder Externally , Notes to Pharmacist: Powder for BreastNot-Taking/PRN Zetia Not-Taking/PRN Sucralfate Not-Taking/PRN Prazosin HCl Not-Taking/PRN Abilify 5 MG Tablet Orally Once a day Not-Taking/PRN Fiber-Lax Not-Taking/PRN Lipitor Not-Taking/PRN Liquid Calcium with D3 Not-Taking/PRN Cholestyramine Not- Taking/PRN Metamucil prn Not-Taking/PRN Vitamin D 1000 UNIT Tablet Orally Once a day Not-Taking/PRN Diphenoxylate-Atropine Not-Taking/PRN ARIPiprazole 5 MG Tablet 1 tablet Orally Once a day Not-Taking/PRN Fiber Not-Taking/PRN FreeStyle Lite Test Not-Taking/PRN Aspirin EC Low Dose Not-Taking/PRN [facility]One Unifine Pentips Plus Not-Taking/PRN Metoprolol Succinate ER Not-Taking/PRN Baclofen Not-Taking/PRN Sulfamethoxazole-TMP DS Not-Taking/PRN Mapap Medication List reviewed and reconciled with the patient * Allergies:?N.K.D.A.yes[Aller gies Verified] Objective: * Vitals:?Ht: 5 ft 3 in, Wt: 1 89, BMI: 33.48, Shoe size: 8.5, BP: 113/86 mm Hg, BS: 166, Wt-k.73 kg. * ???Past Orders: ???Lab:HEMOGLOBIN A1C (GLYCO HEMOGLOBIN) (Order Date - 09/14/2024) (Collection Date & Time - 09/14/2024 12:54 PM) ? Value Reference Range ?HEMOGLOBIN A1C % (HH) 6.9 * Examination: ???Ophthalmology Referral: ?DIABETES EYE EXAM?Procedure Performed:?Yes ?Date of Exam Performed?02/29/2024 ?Diabetic Retinopathy Screening:?Yes ?Retinal Screening Performed:?Yes ?Findings of Diabetic Eye Exam:?no retinopathy?Vascular: ?DP PULSES (B):? 1/4, B/L.?PT PULSES (B):? 0/4, B/L.?CAPILLARY FILL TIME:? delayed, all digits, B/L.?TROPHIC CONDITION-TEXTURE/ELASTICITY/TURGOR/HAIR GROWTH (B):? decreased, with sparse to absent hair growth, B/L.?TEMPERTURE GRADIENT (C):? decreased, cool to cool, proximal to distal, B/L.?PIGMENTATION:? mottled, B/L.?EDEMA (C):? 1/4, non-pitting, without aching pain, B/L, Ankle(s).?CLAUDICATION (C):?denies, B/L.?REST PAIN:?denies, B/L.?Nails: ?NAILS are:?Elongated, overgrown, dystrophic, lytic, greater than 3mm thick, discolored and friable with crumbly malodorous subungual debris, with pain on palpation, TA, T1, T2, T3, T4, T6, T7, T9.?Dermatologic: ?SKIN FINDINGS:?Skin exam reveals Keratotic lesion(s) located at,?Medial, IPJ, TA,?Lateral, PIPJ, T1,Medial, PIPJ, T2,Lateral, PIPJ, T3,Medial, PIPJ, T4,Medial plantar, IPJ, T5,Plantar, Heel(s),B/L.? Assessment: * Assessment: 1.?Type 1 diabetes mellitus with diabetic peripheral angiopathy without gangrene - E10.51 (Primary)???2.?Tinea unguium - B35.1???3.?Pain in right toe(s) - M79.674???4.?Pain in left toe(s) - M79.675??? Plan: * Treatment: 2.?Tinea unguium?Procedure: 95383-GCUIYGG NAIL, 6 OR MORE * Procedures:?Debride Nail 6-10:?Nail debridement?Due to the clinical pathology outlined in the exam findings, performance of this nail treatment is medically necessary as its management by an unskilled/untrained nonprofessional would put this patients foot and overall health at risk. Therefore, debridement to affected nail(s), as described in exam (?TA, T1, T2, T3, T4,?T6,?T7,?T9?), was performed exclusively by the physician of record to reduce/remove overall nail length, girth, thickness, subungual debris, and necrotic tissue, by manual and/or electrical means through the use of a nail nipper and/or dremel-type floor grinder, to a more viable healthy nail plate or bed tissue 6-10 nails in total. Silver nitrate was used for any petechial bleeding as necessary. Definitive antifungal treatment options, both pharmaceutical and surgical, have been reviewed and discussed with the patient. The patient solely prefers the use of intermittent/as needed professional debridement services for their nail condition and understands the need for additional periodic treatments to maintain effectiveness in symptomatic relief - 34313.?Keratoma Treatment:?Parring or Cutting of Benign Hyperkeratotic Lesion(s)?(-57) More than 4 Lesions - Due to the at risk nature of the patients medical condition as documented in the exam findings, performance of this keratoderma treatment is medically necessary as its management by an unskilled/untrained nonprofessional would put this patients foot and overall health at risk. Therefore, the benign hyperkeratotic lesions, ( 8 ) in total, locations as stated and described in the exam ( ?Medial,?IPJ,?TA,?Lateral,?PIPJ,?T1,Medial,?PIPJ,?T2,Lateral,?PIPJ,?T3,Medial,?P IPJ,?T4,Medial plantar,?IPJ,?T5,Plantar,?Heel(s),B/L?), were pared, and/or cut utilizing a sterile 15 blade, tissue nippers, and/or power dremel instrumentation by the physician of record - 27520, Q8.? * Procedure Codes:?96216 DEBRI DE NAIL, 6 OR MORE, Modifiers: XS 69856 TRIM SKIN LESIONS, OVER 4, Modifiers: XS , Q8 * Follow Up:?2 Months * Images: * Sign off status: Completed true * Provider:?Pankaj Hoff DPM Date:?2024 Generated for Autumn dumont/Jess/eTranamilcar on:?01/15/2025 10:59 AM EST History and Physical Notes * HPI (History of Present Illness) Category Sub-Category Detail Notes Category Not es At Risk footcare Pt States Last PCP Visit: Date: Examination Category Sub-Category Detail Notes Category Not es Dermatologic SKIN FINDINGS: Skin exam reveal s Keratotic lesion(s) located at, Medial, IPJ, TA, Lateral, PIPJ, T1,Medial, PIPJ, T2,Lateral, PIPJ, T3,Medial, PIPJ, T4,Medial plantar, IPJ, T5,Plantar, Heel(s),B/L Ophthalmology Referral DIABETES EYE EXAM Procedu re Performed:: Yes ?Date of Exam Performed: 02/29/2024 Diabetic Retinopathy Screening:: Yes Retinal Screening Performed:: Yes Findings of Diabetic Eye Exam:: no retin opathy Vascular DP PULSES (B): 1/4, B/L PT [...] malodorous subungual debris, with pain on palpation, TA, T1, T2, T3, T4, T6, T7, T9
== END 2025-01-15 10:06 | disposition home or self-care (01) ==
PROVIDERS: PCP Internal Medicine Geriatric Medicine; Visit Provider Internal Medicine
DX: J44.9 Chronic obstructive pulmonary disease, unspecified (principal); J40 Bronchitis, not specified as acute or chronic; G47.30 Sleep apnea, unspecified
CPT/HCPCS: 99213

== ENCOUNTER → 2025-01-15 09:41 | Outpatient (BNVA) | payer OTHER, SELFPAY | PROVIDERS: PCP Internal Medicine Geriatric Medicine; Visit Provider Internal Medicine | DX: J44.9 Chronic obstructive pulmonary disease, unspecified (principal); J40 Bronchitis, not specified as acute or chronic; G47.30 Sleep apnea, unspecified | CPT/HCPCS: 99212 ==

== ENCOUNTER 2025-02-09 08:20 | Outpatient (REF) | payer OTHER, SELFPAY ==
--- NOTE | ~2025-02-09 | XR_ITS ---
CLINICAL HISTORY: Chronic left knee pain Three views left knee. Findings: There is moderate to advanced medial compartment DJD. There is no definite malalignment. A possible joint effusion is seen. Impression: Medial compartment DJD with a possible joint effusion. This document has been electronically signed by: Amarjit Sy MD on 02/11/2025 18:56:07
== END 2025-02-09 08:21 | disposition home or self-care (01) ==
LOC: HO.XRAY 08:20
PROVIDERS: PCP Internal Medicine Geriatric Medicine; Visit Provider Internal Medicine Geriatric Medicine
DX: M25.562 Pain in left knee (principal); G89.29 Other chronic pain
CPT/HCPCS: 73562

== ENCOUNTER → 2025-02-09 08:29 | Outpatient (BNV) | payer OTHER, SELFPAY | PROVIDERS: PCP Internal Medicine Geriatric Medicine; Visit Provider Radiology Diagnostic Radiology | DX: M17.12 Unilateral primary osteoarthritis, left knee (principal) | CPT/HCPCS: 73562 ==

== ENCOUNTER 2025-05-23 09:47 | Outpatient (AMB) | payer OTHER, SELFPAY ==
--- NOTE | 2025-05-23 09:53 | MHC.OFFVIS ---
Intake Visit Reasons: cough Allergies No Known Allergies (No Known Allergies*) Allergy (Verified 01/15/25 10:00) [facility] Medical History (Updated 05/21/25 @ 07:46 by Radha Junior RN) Neuroleptic-induced tardive dyskinesia GERD (gastroesophageal reflux disease) IBS (irritable bowel syndrome) PVD (peripheral vascular disease) Chronic renal insufficiency Bronchitis COPD (chronic obstructive pulmonary disease) Obesity (BMI 30-39.9) History of stroke CAD (coronary artery disease) HLD (hyperlipidemia) HTN (hypertension), benign IDDM (insulin dependent diabetes mellitus) Internal and external prolapsed hemorrhoids Diabetes mellitus Chronic back pain Sleep apnea Morbid obesity Chronic diarrhea Surgical History History of esophagogastroduodenoscopy (EGD) Hx of colonoscopy History of partial surgical removal of colon (~2011) History of carpal tunnel surgery of left wrist Family History Mother History of stomach cancer Paternal Grandfather History of prostate cancer Sister History of breast cancer Family/Other Vaginal cancer Social History Household Members: Children Household Members Other:: Daughter, son in law, and grand child Housing: House Do you presently have visiting nurse or other home services: No Alcohol intake: never Patient Tobacco Use Status: Former Tobacco user Tobacco use type: Cigarette Advance Directives Date on File: 02/17/11 service: No Coding
--- NOTE | 2025-05-23 10:08 | MHC.OFFVIS ---
Vital Signs 05/23/25 10:10 Height 5 ft 2 in Weight 188 lb 7.924 oz BMI 34.5 BP 124/64 Blood Pressure Location Lt brachial Position Sitting Pulse 60 Pulse Source Pulse Oximeter Pulse Oximetry (%) 97 Oxygen Delivery Method Room Air Intake Visit Reasons: cough Intake Note: pt is here for follow up and states she does have a persistence cough, did have a fall yesterday, with a back bruise , family taking care of her. up and using the nebulizer a few times a day, needs refill albuterol for nebulizer, pt is having cataract surg on 05/27 for right eye and left eye 06/10 Emergency Preparedness Coordinator Required: No Allergies No Known Allergies (No Known Allergies*) Allergy (Verified 05/23/25 10:21) Medication List - Last Reconciled 05/23/25 by Joel Nunez MD acetaminophen ER 650 mg PO Q8H PRN albuterol sulfate 90 mcg/actuation (Ventolin HFA) 2 puffs inhalation Q4-6H PRN 30 days albuterol sulfate 2.5 mg (3 mL) inhalation Q4-6H PRN amlodipine 2.5 mg PO DAILY aspirin (Adult Aspirin Regimen) 81 mg PO DAILY atorvastatin (Lipitor) 20 mg PO DAILY calcium carbonate-vitamin D3 600 mg-10 mcg (400 unit) 1 cap PO DAILY carvedilol 3.125 mg PO BID citalopram 40 mg PO DAILY diclofenac sodium 1% (Voltaren) 2 grams topical BID dulaglutide (Trulicity) 3 mg subcut QWEEK empagliflozin (Jardiance) 10 mg PO QAM fluticasone propion-salmeterol 250-50 mcg/dose (Advair Diskus) 1 inh inhalation BID fluticasone propionate 50 mcg/actuation 1 spray intranasal BID gabapentin 100 mg PO BEDTIME hydrocortisone 2.5% 1 appl topical BEDTIME PRN lidocaine 5% 1 appl topical QD-QID PRN losartan 100 mg PO DAILY nebulizers (Compact Compressor Nebulizer) As directed nystatin (Nyamyc) topical QAM trazodone 1 tab PO QPM umeclidinium 62.5 mcg/actuation (Incruse Ellipta) 1 inh inhalation DAILY HPI HPI cough: Details: This 84 years old female Portuguese-speaking comes along with her daughter. She is very pleasant and claims that she has been stable. She has had no respiratory infection in the last 6 months. Cough is relatively under control and she has not needed to use codeine syrup. She does use Incruse Ellipta 1 inhalation daily and albuterol solution in the nebulizer only as needed. [facility] Medical History Neuroleptic-induced tardive dyskinesia GERD (gastroesophageal reflux disease) IBS (irritable bowel syndrome) PVD (peripheral vascular disease) Chronic renal insufficiency Bronchitis COPD (chronic obstructive pulmonary disease) Obesity (BMI 30-39.9) History of stroke CAD (coronary artery disease) HLD (hyperlipidemia) HTN (hypertension), benign IDDM (insulin dependent diabetes mellitus) Internal and external prolapsed hemorrhoids Diabetes mellitus Chronic back pain Sleep apnea Morbid obesity Chronic diarrhea Surgical History History of esophagogastroduodenoscopy (EGD) Hx of colonoscopy History of partial surgical removal of colon (~2011) History of carpal tunnel surgery of left wrist Family History Mother History of stomach cancer Paternal Grandfather History of prostate cancer Sister History of breast cancer Family/Other Vaginal cancer Social History Household Members: Children Household Members Other:: Daughter, son in law, and grand child Housing: House Do you presently have visiting nurse or other home services: No Alcohol intake: never Patient Tobacco Use Status: Former Tobacco user Tobacco use type: Cigarette Advance Directives Date on File: 02/17/11 service: No Review of Systems Const All systems reviewed & are unremarkable except as noted in HPI and below Eyes Reports no additional complaints ENT Reports no additional complaints Card Denies chest pain, Denies irregular heart rhythm and Denies leg edema Resp Reports as per HPI and Reports cough (++) GI Reports no additional complaints Reports no additional complaints Musc Reports back pain and Reports arthralgias Skin/Breast Reports system reviewed and no additional complaints, except as documented Neuro Reports no additional complaints Psych Reports depression (BEING TREATED WITH MED) Endo Reports no additional complaints Physical Exam Const General: healthy appearing (EXCEPT FOR BEING OVERWEIGHT), comfortable, no acute distress, alert and awake Orientation/consciousness: patient oriented x3 HEENT Other: OROPHARYNX IS NARROW, MALLAMPATI CLASS 4 Head: Yes normal to inspection General nose exam: No nasal polyps present and No nasal discharge present Face and sinus: Yes sinuses nontender Mouth: oropharynx normal (BUT NARROW 100 MALLAMPATI CLASS 4) Throat: Yes posterior oropharynx normal Eyes General: appearance normal, both eyes and all related structures Neck Neck: Yes normal visual inspection, Yes no lymphadenopathy, Yes trachea midline and Yes no JVD Thyroid: Thyroid normal Chest Chest palpation & inspection: normal inspection of the chest, normal palpation of entire chest wall and no tenderness Resp Other: PERCUSSION NOTE IS RESONANT, BREATH SOUNDS ARE DISTANT WITH PROLONGED EXPIRATORY PHASE. NO ACTIVE WHEEZES CREPITATIONS OR RHONCHI ARE HEARD Cardio Palpation: normal PMI Rate: regular rate Rhythm: regular rhythm Heart sounds: no gallops and no murmurs GI Palpation (GI): Soft to palpation, Tenderness to palpation present (GI), No hepatosplenomegaly present, Palpable mass present and Other GI palpation findings present (ABDOMEN IS MODERATELY OBESE AND PROTUBERANT) Auscultation: normal bowel sounds Back/Spine/Pelvis Thoracic/Lumbar Spine: thoracic and lumbar spine normal to inspection and thoraco-lumbar ROM limited Skin General skin exam: no rashes or lesions noted Neuro General: patient oriented x3 and no focal motor deficits Cranial nerves: Yes CN's II-XII intact bilaterally Extrem General: Yes normal to inspection, Yes no clubbing, cyanosis or edema and Yes no calf tenderness Psych Appearance: grossly normal and well kempt Speech and movement: Normal speech and movement present Assessment & Plan Assessment & Plan (1) Sleep apnea: Comment: OBSTRUCTIVE SLEEP APNEA FOR MANY YEARS. Confirmed by the sleep study in 2023 She has difficulty in using the CPAP at night, as she feels suffocated. SO BASICALLY SHE WAS NONCOMPLIANT AND STOPPED USING THE CPAP. HOWEVER ACCORDING TO THE DAUGHTER SHE DOES SLEEP 5-6 HOURS EVERY NIGHT, and denies daytime sleepiness Code(s): G47.30 - Sleep apnea, unspecified Category: Medical Plan: No need to use the CPAP, continue with sleep hygiene measures (2) COPD (chronic obstructive pulmonary disease): Comment: PATIENT DOES HAVE MILD CHRONIC COUGH WITH INTERMITTENT WHEEZING. NOT ABLE TO PERFORM PFT . CLINICALLY SHE SEEMS TO HAVE CHRONIC OBSTRUCTIVE PULMONARY DISEASE, WHICH IS FAIRLY WELL CONTROLLED AT THIS TIME. FORTUNATELY SHE HAS HAD NO ACUTE RESPIRATORY INFECTION OR EXACERBATION IN THE LAST 6 MONTHS. Code(s): J44.9 - Chronic obstructive pulmonary disease, unspecified Category: Medical Plan: CONTINUE TO USE INCRUSE ELLIPTA 1 INHALATION DAILY CONTINUE TO USE ALBUTEROL SOLUTION IN THE NEBULIZER Q 4-6 HOURS ONLY P.R.N. DOES HAVE ALBUTEROL HFA ON HAND TO USE 2 PUFFS Q 4-6 HOURS P.R.N. WHEN OUTDOORS. (3) Cough: Comment: Most likely secondary to bouts of acute tracheobronchitis , In the last 6 months she has had very little cough. Code(s): R05.9 - Cough, unspecified Category: Medical Plan: She does have guaifenesin - codeine syrup at home but has not needed to use it. Medications: Refilled albuterol sulfate 2.5 mg (3 mL) inhalation Q4-6H PRN 90 mL 3RF shortness of breath or wheezing Coding Level of Care Code Est Pt Level 3 (90828) Diagnoses Sleep apnea G47.30 COPD (chronic obstructive pulmonary disease) J44.9 Cough R05.9
[2025-05-23 10:10] VITALS: BP 124/64; PULSE 60; O2SAT 97; BMI 34.5
--- OUTSIDE RECORDS SUMMARY | 2025-05-23 10:18 | XMS_ITS | Data Portability ---
Author Organization [employer] [facility], [employer] [facility] Address [address] [place] [phone] Care Team Providers Care Manager Sql Name Role Phone [facility] Referring Provider Assessment No assessment recorded. Plan of Treatment Reminders Order Date Submit Date Provider Last Modified By Organization Details Last Modified Time Details Appointments None recorded. Lab None recorded. Referral None recorded. Procedures None recorded. Surgeries None recorded. Imaging None recorded. Medication Orders benzonatate 100 mg capsule 2021 [place] [employer] [facility], [address] [place], [address], 13:11:55 guaifenesin 100 mg/5 mL oral liquid 2021 [place] [employer] [facility], [address] [place], [address], 13:11:55 Patient TargetsNo targets recorded. Patient InstructionsNo [...] Body temperature Respiratory rate Heart rate Systolic And Diastolic Systolic And Diastolic Provider Name and Address Organization Details Last Updated DateTime 2 65 /min 16 /min 98 [degF] 99 % 99 % 99 % 99 % 98 [degF] 16 /min 65 /min 126/70 mm[Hg] 126/70 mm[Hg] Not Available [facility] - production 2 [...] 6138 Dar Fletcher MD Main - [facility] [address] [place] [phone] 10/27/2022 13:07:42 10/29/2022 10:53:36 Persistent cough [id number] R05.3 Per patient COVID negative x2. Supportive care Health Concerns Section Related Observation LastModified by Organization Detai ls LastModified Time None Recorded Concern Status LastModified by Organization Details LastModified Time None Recorded Advance Directives Directive None Recorded Payers Insurance Date Sequence Insurance Name Policy Number Policy Rascon Covered Member ID Rascon Member ID Guarantor Name 12/20/2023 1 [facility] - DOS PRIOR TO 2023 - DUAL ELIGIBLE (MEDICARE REPLACEMENT/ADV ANTAGE - HMO) Jana Lindo [id number] Jana Lindo 12/20/2023 1 [facility] [employer] - DOS ON OR AFTER 2023 - DUAL ELIGIBLE - PENITENTIARY OPTIONS AND ONE CARE (MEDICARE REPLACEMENT/ADV ANTAGE - HMO) Jana Lindo [id number] Jana Lindo Notes Date Note Type Note [...] .................. .................. .................. .................. .................. .................. ............... 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 Pt denies cp, sob, f/n/v/d. Pt sts little relief from robitussin Clear/equal LS bilaterally. Covid, flu, and strep tests negative. Pt/family educated on supportive care, warning signs for 911/ED and to follow up with PCP next week. .................. .................. .................. .................. .................. .................. .................. ............... Disposition: Fulfilled Dar Fletcher MD [address] [facility],[address], [place], [address], [place] [facility] [employer] 10/27/2022 21:06:23 OBGyn Episode No OBEpisode recorded.
--- OUTSIDE RECORDS SUMMARY | 2025-05-23 10:18 | XMS_ITS | Encounter Summary ---
Author Organization [facility], Address [address] [place] [address] Phone Care Team Providers Care Computed Tomography Technician Name Role Phone Name, Elvis IZQUIERDO Primary Care Provider [phone] Encounter Details Date Type Department Care Team (Late st Contact Info) Description 03/31/2020 Orders Only [facility] [address] [place] [address] Raimundo Colunga MD Chronic kidney disease, stage 3 (moderate) (HCC); [...] hyperlipidemia documented in this encounter Care Teams Computed Tomography Technician Relationship Specialty Start Date End Date Name, MD Elvis [address] [place] [id number] PCP - General 09/18/19 documented as of this encounter
--- OUTSIDE RECORDS SUMMARY | 2025-05-23 10:18 | XMS_ITS | Clinical Summary ---
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 1 kit 12/30/19 24 Active albuterol (2.5 MG/3ML) 0.083% nebulizer solution Take 2.5 mg by nebulization every 6 (six) hours if needed for wheezing or shortness of breath. 02/13/20 24 Active Blood Pressure Monitoring (Omron 3 Series BP Monitor) device USE TO CHECK BLOOD PRESSURE DIRECTED 1 each 03/06/20 24 Active TRUEplus Lancets 33G misc TEST BLOOD SUGAR TWICE DAILY DIRECTED 100 each 11 05/25/20 24 Active glucose blood (FREESTYLE LITE) test strip TEST BLOOD SUGAR TWICE DAILY DIRECTED 100 strip 11 05/25/20 24 Active Diclofenac Sodium 1 % gel APPLY 2 GRAMS TOPICALLY AFFECTED AREA(S) THREE TIMES DAILY NEEDED FOR PAIN 100 g 1 08/20/20 24 Active cetirizine (ZyrTEC) 10 MG tablet TAKE 1/2 TABLET BY MOUTH ONCE DAILY 15 tablet 3 10/05/20 24 Active losartan (Cozaar) 100 MG tabletIndications :Hypertension, unspecified type TAKE 1 TABLET BY MOUTH EVERY MORNING 90 tablet 2 12/04/19 25 Active atorvastatin (Lipitor) 20 MG tabletIndications :Hypertension, unspecified type TAKE 1 TABLET BY MOUTH EVERY MORNING 90 tablet 2 12/04/19 25 Active amLODIPine (Norvasc) 2.5 MG tabletIndications :Primary hypertension TAKE 1 TABLET BY MOUTH EVERY MORNING 90 tablet 1 01/07/20 25 Active Aspirin Low Dose 81 MG EC tabletIndications :Hypertension, unspecified type TAKE 1 TABLET BY MOUTH EVERY MORNING 90 tablet 1 01/07/20 25 Active traZODone (Desyrel) 100 MG tabletIndications :Primary hypertension TAKE 1 TABLET BY MOUTH AT BEDTIME AFTER A MEAL 30 tablet 5 02/09/20 25 Active carvedilol (Coreg) 3.125 MG tablet TAKE 1 TABLET BY MOUTH TWICE DAILY IN THE MORNING AND IN THE EVENING WITH MEALS 60 tablet 02/09/20 25 Active Incruse Ellipta 62.5 MCG/ACT aerosol powder INHALE 1 PUFF BY MOUTH EVERY DAY AT THE SAME TIME RINSE MOUTH AFTER USING 30 each 03/22/20 25 Active gabapentin (Neurontin) 100 MG capsule TAKE 1 CAPSULE BY MOUTH AT BEDTIME 30 capsule 03/22/20 25 Active Fluticasone-Salme terol 100-50 MCG/ACT aerosol powder INHALE 1 PUFF BY MOUTH TWICE DAILY. RINSE MOUTH AFTER USING. 60 each 03/22/20 25 Active fluticasone (Flonase) 50 MCG/ACT nasal spray USE 1-2 SPRAYS IN EACH NOSTRIL EVERY MORNING. CLEAN DIRECTED 48 g 03/22/20 25 Active citalopram (CeleXA) 40 MG tablet TAKE 1/2 TABLET BY MOUTH EVERY MORNING 45 tablet 03/22/20 25 Active Trulicity 3 MG/0.5ML solution auto-injectorIndi cations:Type 2 diabetes mellitus with unspecified complications (CMS/HCC) INJECT ONE PEN (= 3MG) SUBCUTANEOUSLY ONCE A WEEK DIRECTED 2 mL 03/22/20 25 Active empagliflozin (Jardiance) 10 MG Take 1 tablet (10 mg) by mouth Once per day. 30 tablet 04/16/20 25 026 Active cholecalciferol (Vitamin D-3) 50 MCG (1999 UT) tabletIndications :Vitamin D deficiency Take 1 tablet once daily 90 tablet 04/19/20 25 Active Active Problems Problem Noted Date Diagnosed Date High serum creatinine 03/13/2024 COPD with asthma 03/13/2024 Assessment & Plan (05/08/2025 9:45 AM EDT): stable Edema 07/12/2023 Type 2 diabetes mellitus with diabetic nephropat hy 07/12/2023 Essential hypertension 07/12/2023 Acute thoracic back pain 12/12/2022 Hip pain 12/12/2022 D-dimer, elevated 12/12/2022 Fall 12/12/2022 Injury of right hand 12/12/2022 Neuroleptic-induced tardive dyskinesia Shoulder pain 12/12/2022 Hypertension 12/02/2022 Hemorrhoids 12/02/2022 Stage 3 chronic kidney disease 03/13/2020 Assessment & Plan (05/08/2025 9:45 AM EDT): stable Chronic low back pain 04/26/2019 Vasovagal syncope 08/18/2018 Irritable bowel syndrome with diarrhea 8 DM (diabetes mellitus), type 2 with peripheral vascular complications 11/02/2017 Assessment & Plan (05/08/2025 9:45 AM EDT): Fasting sugars slightly elevated at 120s-140s pt aware to monitor closely and report any changes No lows Serum creatinine raised 11/02/2017 Atypical chest pain 09/19/2017 Peripheral vascular disease 10/28/2016 Assessment & Plan (05/08/2025 9:44 AM EDT): Stable currently Type 2 diabetes mellitus 10/28/2016 Coronary arteriosclerosis 02/06/2016 History of partial colectomy 02/06/2016 Diabetes mellitus type 2, uncontrolled 6 Morbid obesity 02/06/2016 Obstructive sleep apnea syndrome 04/05/2013 Gastroesophageal reflux disease 07/11/2012 Hyperlipidemia 07/11/2012 Osteoarthritis of knee 07/11/2012 Steatosis of liver 07/11/2012 Depressive disorder 07/11/2012 Diverticular disease 07/11/2012 Gallbladder calculus 07/11/2012 Osteopenia 07/11/2012 Tricuspid valve regurgitation 07/11/2012 Overview (05/08/2025): Trace 2022 echo Urinary incontinence 07/11/2012 Encounters Date Type Department Care Team Description 05/08/2025 9:00 AM EDT Office Visit [facility] [address] [place] [phone] Sue Javier NP Coronary arteriosclerosis (Primary Dx); Peripheral vascular disease (CMS/HCC); Tricuspid valve insufficiency, unspecified etiology; DM (diabetes mellitus), type 2 with peripheral vascular complications (CMS/HCC); Stage 3 chronic kidney disease, unspecified whether stage 3a or 3b CKD (CMS/HCC); COPD with asthma (CMS/HCC) 05/08/2025 Travel 05/07/2025 Telephone [facility] [address] [place] [phone] Estrada Camacho MA CHARTPREP 05/03/2025 Telephone [facility] [address] [place] [phone] Elvis Daley MD PREOP 04/25/2025 Telephone [facility] [address] [place] [phone] David Pyle MA to recall 04/19/2025 Refill [facility] [address] [place] [phone] Elvis Daley MD Vitamin D deficiency 04/16/2025 3:15 PM EDT Office Visit [facility] [address] [place] [phone] Elvis Daley MD Diabetes mellitus type 2 with complications (CMS/HCC) (Primary Dx) 04/16/2025 Travel 04/15/2025 Telephone [facility] [address] [place] [phone] Elvis Daley MD Chart Prep 03/22/2025 Refill [facility] [address] [place] [phone] Elvis Daley MD Type 2 diabetes mellitus with unspecified complications (CMS/HCC) from Last 3 Months Immunizations Immunization Administration Dates Next Due Influenza injectable quadriv [...] Answer Date Recorded Patient Health Questionnaire-9 Score 5 05/08/2025 Patient Health Questionnaire-9 Score 5 05/08/2025 Last PHQ-9: Questionnaire Data Not on file 0 05/08/2025 Housing Stability Answer Date Recorded What is your housing situation today? I have olamide vora 04/16/[address] you li ve. Do you have problems with any of the following? None of the above 04/16/2025 Food Insecurity Answer Date Recorded Within the past 12 months, y ou worried that your food would run out before you got money to buy more: Never True 04/16/2025 Within the past 12 months,th e food you bought just didn't last and you didn't have enough money to get more: Never True 01/2025 Transportation Answer Date Recorded In the past 12 months, has l ack of transportation kept you from medical appts, meetings, work or from getting things needed for daily living? No 04/16/2025 Utilities Answer Date Recorded In the past 12 months, has t he electric, gas, oil or water company threatened to shut off services in your home? No 04/16/2025 Depression Answer Date Recorded Patient Health Questionnaire-2 Score 2 05/08/2025 Internet Access Answer Date Recorded Internet Access Q1 Yes 04/16/2025 Internet Access Q2 Not on file 04/16/2025 Comments Unknown Sex and Gender Information Value Date Recorded Sex Assigned at Female 09/13/2022 10:16 AM EDT Legal Sex Female 10:16 AM EDT Gender Identity Female 09/13/2022 10:16 AM EDT Sexual Orientation Straight 09/13/2022 10 :16 AM EDT Last Filed Vital Signs Vital Sign Reading Time Taken Comments Blood Pressure 140/80 05/08/2025 9:09 AM EDT Pulse 70 05/08/2025 9:09 AM EDT Temperature 36.4 C (97.5 F) 05/08/2025 9:09 AM EDT Respiratory Rate 16 05/08/2025 9:09 AM EDT Oxygen Saturation 98% 05/08/2025 9:09 AM EDT Inhaled Oxygen Concentration - - Weight 84.6 kg (186 lb 9.6 oz) 05/08/2025 9:09 A M EDT Height 156.7 cm (5' 1.69 ) 05/08/2025 9:09 AM ED T Body Mass Index 34.47 05/08/2025 9:09 AM EDT Plan of Treatment Upcoming Encounters Date Type Department Care Team (Late st Contact Info) Description 2025 9:30 AM EDT Office Visit [facility] [address] [place] [address] Cathi Castro MD [address] [place] [address] 08/02/2025 1:45 PM EDT Office Visit [facility] [address] [facility] [place] [phone] Name, MD Elvis [address] [facility] [place] [place] [address] Health Maintenance Due Date Last Done Comments Hepatitis A Vaccines (1 of 2 - Risk 2-dose series) 1961 Hepatitis B Vaccines (1 of 3 - Risk 3-dose series) 2002 COVID-19 Vaccine ( season) 2025 09/21/2024, 03/15/2024, 10/05/2022, Additional history exists Eye Exam 04/14/2025 04/14/2023 Influenza Vaccine (#1) 2025 , 12/02/2022, 08/05/2021, Additional history exists Diabetes: Hemoglobin A1C 07/17/2025 025, 09/21/2024, 07/02/2024, Additional history exists Diabetes: Foot Exam 09/21/2025 09/21/2024, 09/21/2024, 09/21/2024, Additional history exists Lipid Panel 10/01/2025 10/01/2024, 06/16, 10/28/2022, Additional history exists DTaP/Tdap/Td Vaccines (2 - Td or Tdap) 02/05/2026 02/06/2016, 02/20/2004 SDOH Screening 04/16/2026 04/16/2025 Alcohol/Substance Use Screening 05/08/2026 05/08/2025 Depression Screening 05/08/2026 05/08/2025, 05/08/20 Tobacco Screening 05/08/2026 05/08/2025 Pneumococcal Vaccine: 50+ Years Completed 06/29/2018, 08/22/2015, 02/21/2002 Zoster Vaccines Completed 02/15/2023, 02/11/2022, 08/22/2015 RSV Patients and Patients Aged 60 years or older Completed 03/15/2024 HIB Vaccines Aged Out No longer eligi ble based on patient's age to complete this topic HPV Vaccines Aged Out No longer eligi ble based on patient's age to complete this topic IPV Vaccines Aged Out No longer eligi ble based on patient's age to complete this topic Meningococcal B Vaccine Aged Out No l onger eligible based on patient's age to complete [...] Author Blood Pressure < 140/90 Blood Pressure 140/80( 025 9:09 AM EDT) No Rosa Haile PharmD Procedures Procedure Name Priority Date/Time Associated Diagnosis Comments POCT GLUCOSE Routine 05/08/2025 9:46 AM EDT DM (diabetes mellitus), type 2 with peripheral vascular complications (CMS/HCC) POCT GLYCATED HEMOGLOBIN, TOTAL Routine 04/16/2025 3:11 PM EDT Diabetes mellitus type 2 with complications (CMS/HCC) POCT GLUCOSE Routine 04/16/2025 3:11 PM EDT Diabetes mellitus type 2 with complications (CMS/HCC) LIPID PANEL, STANDARD Routine 10/01/2024 12:00 PM EST Diabetes mellitus type 2 with complications (CMS/HCC) DIABETES EYE EXAM Routine 04/14/2023 from Last 3 Months or Most Recently Relevant to Health Maintenance Results * (ABNORMAL) POCT Glucose (05/08/2025 9:46 AM EDT) Only the most recent of2 resultswithin the time period is included. Glucose Blood, POC 199(A) 60 - 200 mg/dL QC Media Lot # [id number] Lot# Expiration Date Blood Capillary blood specimen / Unknown 05/08/2025 9:46 AM EDT Sue Javier NP POINT OF CARE TEST ENTER/EDIT OR DERABLES Final Result * (ABNORMAL) POCT HGB A1C (04/16/2025 3:11 PM EDT) Hemoglobin A1C 7.8(A) 4.0 - 6.0 % QC Media Lot # [id number] Lot# Expiration Date Blood 04/16/2025 3:11 PM EDT Elvis Daley MD POINT OF CARE TEST ENTER/EDIT OR DERABLES Final Result * Lipid Panel, Standard (10/01/2024 12:00 PM EST) Triglycerides 74 <150 mg/dL [facility] Comment:Desirable Triglyceri de: less than 150 mg/dLBorderline High Triglyceride 150-199 mg/dLHigh Triglyceride: 200-499 mg/dLVery High Triglyceride: greater than or equal to 5OO mg/dL Cholesterol 168 <200 mg/dL [facility] Comment:Desirable Cholestero l: less than 200 mg/dLBorderline High Cholesterol: 200-239 mg/dLHigh Cholesterol: greater than 239 mg/dL LDL Cholesterol Calculated 74 <100 mg/dL [facility] Comment:Desirable LDL: less than 100 mg/dLNear Optimal/Above Optimal LDL: 110- 129 mg/dLBorderline High LDL: 130-159 mg/dLHigh LDL: 160-189 mg/dLVery High LDL: greater than or equal to 190 mg/dL HDL Cholesterol 80 >40 mg/dL [facility] Comment:Desirable HDL: great er than 40 mg/dL Note: This HDL assay may give artificially low results in patients with liver disease. Blood Venous blood specimen / Unknown 10/01/2024 12:00 PM EST 10/01/2024 1:16 PM EST us Elvis Daley MD LAB BLOOD ORDERABLES Final Resul t [facility] [address] [place] [phone] * Diabetes Eye Exam (04/14/2023) Eye Exam Normal Normal Elvis Daley MD HEALTH MAINTENANCE Final Result from Last 3 Months or Most Recently Relevant to Health [place] [id number] [facility] OPTIONS (O D-SNP) AISHA [place] [id number] [place] [id number] [place] [id number] [place] [phone] Advance Directives Documents on File Type Date Recorded 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
--- OUTSIDE RECORDS SUMMARY | 2025-05-23 10:18 | XMS_ITS | Patient Health Record ---
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 Name Role Phone Name Elvis IZQUIERDO Primary Care Provider Pankaj Barnes Unavailable [phone] Allergies No Known Allergies Results Component Value Reference Range Notes HEMOGLOBIN A1C (GLYCOHEMOGLO BIN) Reviewed date:12/07/2024 12:55:28 PM Interpretation: Performing Lab: Notes/Report: HEMOGLOBIN A1C % (HH) 6.9 HEMOGLOBIN A1C (GLYCOHEMOGLO BIN) Reviewed date:03/15/2025 12:50:08 PM Interpretation: Performing Lab: Notes/Report: HEMOGLOBIN A1C % (HH) 6.9 Reason For Referral No Information Medications Medication SIG (Take, Route, Frequency, Duration) Notes Start Date End Date Status Liquid Calcium with D3 Not-Taking Cholestyramine Not-T aking Losartan Potassium 100 MG Orally Once a day Active Metamucil prn Not-Taking traZODone HCl 100 MG Orally Once a day Active Vitamin D 1000 UNIT Orally Once a day Not-Taking Trulicity 1.5 MG/0.5ML Subcutaneous Active Diphenoxylate-Atropin e Not-Taking Tylenol 500mg prn Active ARIPiprazole 5 MG 1 tablet Orally Once a day Not-Taking Cefpodoxime Proxetil Active Fiber Not-Taking Aspercreme 10 % 1 application as needed Externally Four times a day; Duration: 30 days 07/22/2022 Active FreeStyle Lite Test Not-Taking amLODIPine Besylate 5mg Active Abilify 5 MG Orally Once a day Not-Taking Ammonium Lactate 12 % 1 application to affected area Externally to feet Twice a day; Duration: 30 days Active Fiber-Lax Not-Taking Aspirin 81 MG Orally Active Lipitor Not-Taking Metoprolol Succinate ER Not-Taking Atorvastatin Calcium 20 MG Orally Once a day Active Baclofen Not-Taking Citalopram Hydrobromide 40 MG Orally Once a day Acti ve Sulfamethoxazole-TMP DS Not-Taking Mapap Not-Taking Extra Depth Orthopedic Shoes, (1) Pair With (3) Pair Custom Heat Molded Multidensity Innersoles Dx: IDDM/PVD(E10.51), Hammertoe Foot Deformity, B/L(M20.41,M20.42), Preulcerative Skin Lesion(s)(L85.1) Wear Daily; Duration: 365 days Active Fish Oil Not-Taking Lantus SoloStar 10ML Not-Taking Metoprolol Tartrate Not-Taking Nystatin 794753 UNIT/GM Externally Powder for Breast Not-Taking Gabapentin Active Zetia Not-Taking Albuterol Active Sucralfate Not-Takin g guaiFENesin Active Prazosin HCl Not-Fitz ing Aspirin EC Low Dose Not-Taking Doxycycline Monohydrate Not-Taking CareOne Unifine Pentips Plus Not-Taking Calcium Carb-Ergocalciferol Not-Taki ng Dicyclomine HCl [...] (Standard) Question Answer Notes Tobacco use: Nonsmoker AUDIT-C (Standard) Question Answer Notes Did you have a drink containing alcohol in the p ast year? No Points 0 Interpretation Negative Problems Problem Type SNOMED Code ICD Code Onset Dates Problem Status W/U Status Risk Notes Problem Acquired hammer toe of right foot (12844417468083 05) Other hammer toe(s) (acquired), right foot (M20.41) Active confirmed Response to treatment,I mprovement Problem Acquired hammer toe of left foot (70394129292227 03) Other hammer toe(s) (acquired), left foot (M20.42) Active confirmed Response to treatment,I mprovement Problem Peripheral circulatory disorder associated with type 1 diabetes mellitus (732640845) Type 1 diabetes mellitus with diabetic peripheral angiopathy without gangrene (E10.51) Active confirmed Vital Signs Blood pressure diastolic 65 mm Hg 03/15/2025 Height 5 ft 3 in in 03/15/2025 Blood pressure systolic 128 mm Hg 03/15/2025 Weight 189 lbs 03/15/2025 BMI 33.48 kg/m2 03/15/2025 Procedures Procedure Date Ordered Date Performed Result Body Sit e 94388-JRIRIBW NAIL, 6 OR MORE 06/05/2024 N/A 42587-ZBQC SKIN LESIONS, OVER 4 06/05/2024 N/A 56181-OVGCAVO NAIL, 6 OR MORE 08/31/2024 N/A 49644-DOCZ SKIN LESIONS, OVER 4 08/31/2024 N/A 53823-FRZJWWP NAIL, 6 OR MORE 03/15/2025 N/A 68989-VSZP SKIN LESIONS, OVER 4 03/15/2025 N/A 94648-DSXY SKIN LESIONS, OVER 4 12/07/2024 N/A 72151-LCFPQBQ NAIL, 6 OR MORE 12/07/2024 N/A Encounters Encounter Location Date Provider Diagnosis [address] [address] 06/05/2024 Pankaj Hoff Type 1 diabetes mellitus with diabetic peripheral angiopathy without gangrene E10.51 ; Tinea unguium B35.1 ; Pain in right toe(s) M79.674 ; Pain in left toe(s) M79.675 ; Other hammer toe(s) (acquired), right foot M20.41 and Other hammer toe(s) (acquired), left foot M20.[address] [address] 08/31/2024 Pankaj Hoff Type 1 diabetes mellitus with diabetic peripheral angiopathy without gangrene E10.51 ; Tinea unguium B35.1 ; Pain in right toe(s) M79.674 and Pain in left toe(s) M79.[address] [address] 12/07/2024 Pankaj Hoff Type 1 diabetes mellitus with diabetic peripheral angiopathy without gangrene E10.51 ; Tinea unguium B35.1 ; Pain in right toe(s) M79.674 and Pain in left toe(s) M79.675 [facility] [address] [place] [address] 03/15/2025 Pankaj Hoff Type 1 diabetes mellitus with [...] E10.51) 12/07/2024 Tinea unguium (ICD-10 - B35.1) 03/15/2025 Type 1 diabetes mellitus with diabetic peripheral angiopathy without gangrene (ICD-10 - E10.51) 03/15/2025 Tinea unguium (ICD-10 - B35.1) 12/07/2024 Pain in right toe(s) (ICD-10 - M79.674) 06/05/2024 Pain in right toe(s) (ICD-10 - M79.674) 08/31/2024 Pain in right toe(s) (ICD-10 - M79.674) 03/15/2025 Pain in right toe(s) (ICD-10 - M79.674) 06/05/2024 Pain in left toe(s) (ICD-10 - M79.675) 03/15/2025 Pain in left toe(s) (ICD-10 - M79.675) 12/07/2024 Pain in left toe(s) (ICD-10 - M79.675) 08/31/2024 Pain in left toe(s) (ICD-10 - M79.675) 03/15/2025 Other hammer toe(s) (acquired), right foot (ICD-10 - M20.41) Patient Educated with: DIABETIC FOOT CARE INSTRUCTIONS.p df (DIABETIC FOOT CARE INSTRUCTIONS.p df) 06/05/2024 Other hammer toe(s) (acquired), right foot (ICD-10 - M20.41) Response to treatment,Impro vement 06/05/2024 Other hammer toe(s) (acquired), left foot (ICD-10 - M20.42) Response to treatment,Impro vement 03/15/2025 Other hammer toe(s) (acquired), left foot (ICD-10 - M20.42) Plan Of Treatment Pending Test Test Name Order Date 15130-PANWTFH NAIL, 6 OR MORE 03/29/2016 35250-NPKRUEA NAIL, 6 OR MORE 06/30/2016 79885-JPPUMHY NAIL, 6 OR MORE 09/29/2016 30101-BOACWRZ NAIL, 6 OR MORE 01/12/2017 91357-JVOPMCV NAIL, 6 OR MORE 04/14/2017 92934-OXFTGPV NAIL, 6 OR MORE 07/14/2017 76121-HYSEQRM NAIL, 6 OR MORE 10/13/2017 98116-HZJKGQQ NAIL, 6 OR MORE 01/12/2018 63106-JEIQROU NAIL, 6 OR MORE 04/05/2018 27489-MKGKTKD NAIL, 6 OR MORE 06/28/2018 30567-RYQDAOG NAIL, 6 OR MORE 09/28/2018 39275-DATBEDV NAIL, 6 OR MORE 12/28/2018 47133-FCCBSGY NAIL, 6 OR MORE 05/03/2019 86382-YEABJBL NAIL, 6 OR MORE 08/13/2019 60444-VRANDIS NAIL, 6 OR MORE 11/22/2019 15059-YEWLXVX NAIL, 6 OR MORE 03/10/2020 17250-IIVYWFL NAIL, 6 OR MORE 06/25/2020 19365-FNMZUPS NAIL, 6 OR MORE 10/02/2020 37422-GCTHSWD NAIL, 6 OR MORE 01/08/2021 82469-PWDJUTN NAIL, 6 OR MORE 04/02/2021 77893-JIOMCJQ NAIL, 6 OR MORE 08/10/2021 24247-BOKARJH NAIL, 6 OR MORE 10/19/2021 29607-MEOITYX NAIL, 6 OR MORE 01/20/2022 74534-BXKDOJO NAIL, 6 OR MORE 04/22/2022 17406-KEEKFOS NAIL, 6 OR MORE 07/22/2022 70029-ORHVWBA NAIL, 6 OR MORE 10/28/2022 76867-VSIYKFY NAIL, 6 OR MORE 01/24/2023 21383-MNSLYTJ NAIL, 6 OR MORE 03/30/2023 34849-OJZUWZT NAIL, 6 OR MORE 06/06/2023 96744-CBZBBBT NAIL, 6 OR MORE 08/15/2023 78785-IOIJUXQ NAIL, 6 OR MORE 10/24/2023 77816-ZATSKTB NAIL, 6 OR MORE 03/27/2024 10002-XQCNWPL NAIL, 6 OR MORE 06/05/2024 99790-NMLZMSA NAIL, 6 OR MORE 08/31/2024 89645-HEREPMV NAIL, 6 OR MORE 12/07/2024 67695-KZZPACK NAIL, 6 OR MORE 03/15/2025 81308-IXLK SKIN LESIONS, OVER 4 03/15/20 68551-KIGV SKIN LESIONS, OVER 4 12/07/19 99469-FVSD SKIN LESIONS, OVER 4 08/31/20 40105-VAOM SKIN LESIONS, OVER 4 06/05/20 24 42190-QVJC SKIN LESIONS, OVER 4 03/27/20 24 38647-ECKS SKIN LESIONS, OVER 4 10/24/20 12678-BDBK SKIN LESIONS, OVER 4 08/15/20 06198-KBEK SKIN LESIONS, OVER 4 06/06/20 74096-BRYX SKIN LESIONS, OVER 4 03/30/20 65930-ZVOM SKIN LESIONS, OVER 4 01/25/20 94924-GDZQ SKIN LESIONS, OVER 4 10/28/20 40897-MAUH SKIN LESIONS, OVER 4 07/22/20 23099-XFNV SKIN LESIONS, OVER 4 04/22/20 22 63450-VXIN SKIN LESIONS, OVER 4 01/21/20 22 30200-QTPC SKIN LESIONS, OVER 4 10/19/20 21 54284-EBDK SKIN LESIONS, OVER 4 08/10/20 21 11465-MCBF SKIN LESIONS, OVER 4 04/02/20 21 61878-ASFZ SKIN LESIONS, OVER 4 01/08/20 21 01878-EFEA SKIN LESIONS, OVER 4 10/02/20 20 01964-ENOJ SKIN LESIONS, OVER 4 06/25/20 20 66689-AKRR SKIN LESIONS, OVER 4 03/10/20 20 50872-BGNL SKIN LESIONS, OVER 4 11/22/19 20 05976-ZPNU SKIN LESIONS, OVER 4 08/13/20 19 64293-ENWZ SKIN LESIONS, OVER 4 05/03/20 19 92870-VYRS SKIN LESIONS, OVER 4 12/28/19 19 71715-EYZF SKIN LESIONS, OVER 4 09/28/20 18 35214-NIXD SKIN LESIONS, OVER 4 06/28/20 18 90878-UWWA SKIN LESIONS, OVER 4 04/05/20 18 40852-XITK SKIN LESIONS, OVER 4 01/13/20 18 71905-WQVD SKIN LESIONS, OVER 4 10/13/20 17 70471-FZXL SKIN LESIONS, OVER 4 07/14/20 17 76372-PFHO SKIN LESIONS, OVER 4 01/13/20 17 62735-JJNL SKIN LESIONS, OVER 4 04/14/20 17 88094-PDZS SKIN LESIONS, OVER 4 09/29/20 16 41013-DDET SKIN LESIONS, OVER 4 06/30/20 16 81615-KCNA SKIN LESIONS, OVER 4 03/29/20 16 Next Appt Details Provider Name:Pankaj Hoff , 06/21/2025 09:00:00 AM, [address] [place], [address], Insurance Providers Payer Name Payer Address Payer Phone Subscriber Number Group Number Insured Name Patient Relationship to Insured Coverage Start Date Coverage End Date [facility] Claims [address] [place] [id number] Jana Lindo Self - patient is the insured Medical (General) History Medical History History ICD Code Angina Arthritis asthma Back,Hip,and Knee pain Cataracts Dementia Depression Diabetes mellitus Gout Headaches High blood pressure Stroke Cholesterol COPD Surgical History Surgery Date(Month/Year) colon [facility] [place] colonoscopy Hospitalization History Reason Date(Month/Year) [facility]- fell [facility] hit head 07/2024 [facility] Fell down the stais 06/07/20 [facility]- dizzy, fainting 01/2021
== END 2025-05-23 10:22 | disposition home or self-care (01) ==
LOC: HO.HPS 09:47
PROVIDERS: PCP Internal Medicine Geriatric Medicine; Visit Provider Internal Medicine
DX: G47.30 Sleep apnea, unspecified (principal); J44.9 Chronic obstructive pulmonary disease, unspecified; R05.9 Cough, unspecified
CPT/HCPCS: 99213

== ENCOUNTER → 2025-05-23 09:47 | Outpatient (BNVA) | payer OTHER, SELFPAY | PROVIDERS: PCP Internal Medicine Geriatric Medicine; Visit Provider Internal Medicine | DX: G47.30 Sleep apnea, unspecified (principal); J44.9 Chronic obstructive pulmonary disease, unspecified; R50.9 Fever, unspecified | CPT/HCPCS: 99212 ==

== ENCOUNTER 2025-05-27 07:43 | Day surgery (SDC) | payer OTHER, SELFPAY ==
--- OUTSIDE RECORDS SUMMARY | 2025-05-03 10:54 | XMS_ITS | Data Portability ---
Author Organization [facility] [employer] [facility], [employer] [facility] Address [address] [place] [id number] Care Team Providers Care Diesel Mechanic Construction Name Role Phone [facility] Referring Provider Assessment No assessment recorded. Plan of Treatment Reminders Order Date Submit Date Provider Last Modified By Organization Details Last Modified Time Details Appointments None recorded. Lab None recorded. Referral None recorded. Procedures None recorded. Surgeries None recorded. Imaging None recorded. Medication Orders benzonatate 100 mg capsule 2021 [place] [facility], [address] [place], [address], 13:11:55 guaifenesin 100 mg/5 mL oral liquid 2021 [place] [facility], [address] [place], [address], 13:11:55 Patient TargetsNo targets recorded. Patient InstructionsNo [...] 70 mm[Hg] Not Available [facility] - production 2 13:15:58 Social History None recorded. Functional Status [...] 6138 Dar Fletcher MD Main - [facility] [address] [place] [phone] 10/27/2022 13:07:42 10/29/2022 10:53:36 Persistent cough [id number] R05.3 Per patient COVID negative x2. Supportive care Health Concerns Section Related Observation LastModified by Organization Detai ls LastModified Time None Recorded Concern Status LastModified by Organization Details LastModified Time None Recorded Advance Directives Directive None Recorded Payers Insurance Date Sequence Insurance Name Policy Number Policy Rascon Covered Member ID Rascon Member ID Guarantor Name 12/20/2023 1 [facility] - DOS PRIOR TO 2023 - DUAL ELIGIBLE (MEDICARE REPLACEMENT/ADV ANTAGE - HMO) [facility] [id number] [facility] 12/20/2023 1 [facility] - DOS ON OR AFTER 2023 - DUAL ELIGIBLE - SKILLED NURSING OPTIONS AND ONE CARE (MEDICARE REPLACEMENT/ADV ANTAGE - HMO) [facility] [id number] [facility] Notes Date Note Type Note Provider Name [...] .................. .................. .................. .................. .................. .................. ............... Junior Account Manager Note: Pt presents awake and alert c/o non productive cough x4 days. Pt denies cp, sob, f/n/v/d. Pt sts little relief from robitussin Clear/equal LS bilaterally. Covid, flu, and strep tests negative. Pt/family educated on supportive care, warning signs for 911/ED and to follow up with PCP next week. .................. .................. .................. .................. .................. .................. .................. ............... Disposition: Fulfilled Dar Fletcher MD [address] [facility],[address], [place], [address], [facility] [employer] 10/27/2022 21:06:23 OBGyn Episode No OBEpisode recorded.
[2025-05-21 07:54] VITALS: BMI 34.5
--- NOTE | 2025-05-24 12:14 | HO.ANESPROP2 ---
Documented by User: Emily Moralez NP 05/24/25 12:16 HPI - Anesthesia Eval Consult details Narrative: 84yo F for Left Cataract Extraction IOL Insertion No previous cataract on record Anesthesia Pre-Procedure Meds Is the patient on any of the following meds?: GLP1/DPP4 and SGLT2 Inhib PMFSH Active Problems Active Problems: All Active Problems Cough (Acute) Essential hypertension (Acute) Bronchitis (Acute) COPD (chronic obstructive pulmonary disease) (Acute) Obesity (BMI 30-39.9) (Acute) Internal and external prolapsed hemorrhoids (Acute) Diabetes mellitus (Acute) Chronic back pain (Acute) Sleep apnea (Acute) Morbid obesity (Acute) Chronic diarrhea (Acute) Past Medical History Medical History Neuroleptic-induced tardive dyskinesia GERD (gastroesophageal reflux disease) IBS (irritable bowel syndrome) PVD (peripheral vascular disease) Chronic renal insufficiency Bronchitis COPD (chronic obstructive pulmonary disease) Obesity (BMI 30-39.9) History of stroke CAD (coronary artery disease) HLD (hyperlipidemia) HTN (hypertension), benign IDDM (insulin dependent diabetes mellitus) Internal and external prolapsed hemorrhoids Diabetes mellitus Chronic back pain Sleep apnea Morbid obesity Chronic diarrhea Family History Family History Mother History of stomach cancer Paternal Grandfather History of prostate cancer Sister History of breast cancer Family/Other Vaginal cancer Surgical History Surgical History History of esophagogastroduodenoscopy (EGD) Hx of colonoscopy History of partial surgical removal of colon (~2011) History of carpal tunnel surgery of left wrist Social History Social History Household Members: Children Household Members Other:: Daughter, son in law, and grand child Housing: House Do you presently have visiting nurse or other home services: No Alcohol intake: never Patient Tobacco Use Status: Former Tobacco user Tobacco use type: Cigarette Use of substances other than those prescribed or required for medical reasons: No Advance Directives: Yes Advance Directives Information Provided: Yes Advance Directives on File: Yes Advance Directives Date on File: 02/17/11 FDLMP: n/a service: No Meds Allergies Allergy/AdvReac Type Severity Reaction Status Date / Time No Known Allergies (No Known Allergy Verified 05/27/25 10:22 Allergies*) Home Medications ?Medication ?Instructions ?Recorded ?Confirmed ?Last Taken ?Type aspirin 81 mg tablet,delayed 81 mg PO DAILY 09/01/20 05/23/25 05/24/25 History release (Adult Aspirin Regimen) atorvastatin 20 mg tablet (Lipitor) 20 mg PO DAILY 09/01/20 05/23/25 03/17/21 History losartan 100 mg tablet 100 mg PO DAILY 09/01/20 05/23/25 03/17/21 History calcium 600 mg (as 1 cap PO DAILY 03/17/21 05/23/25 03/17/21 History carbonate)-vitamin D3 10 mcg (400 unit) capsule diclofenac sodium 1 % topical gel 2 g topical BID 03/17/21 05/23/25 03/17/21 History (Voltaren) lidocaine 5 % topical ointment 1 appl topical QD-QID PRN Pain 03/17/21 05/23/25 03/17/21 History trazodone 100 mg tablet 1 tab PO QPM 03/17/21 05/23/25 03/16/21 History amlodipine 2.5 mg tablet 2.5 mg PO DAILY 02/10/23 05/23/25 Unknown History citalopram 40 mg tablet 40 mg PO DAILY 02/10/23 05/23/25 Unknown History nystatin 100,000 unit/gram topical topical QAM 02/10/23 05/23/25 Unknown History powder ([facility]) gabapentin 100 mg capsule 100 mg PO BEDTIME 06/21/23 05/23/25 Unknown History carvedilol 3.125 mg tablet 3.125 mg PO BID 02/13/24 05/23/25 Unknown History fluticasone propionate 50 1 spray intranasal BID 02/13/24 05/23/25 Unknown History mcg/actuation nasal spray,suspension hydrocortisone 2.5 % topical cream 1 appl topical BEDTIME PRN Itching 02/13/24 05/23/25 Unknown History with perineal applicator fluticasone 250 mcg-salmeterol 50 1 inh inhalation BID 06/19/24 05/23/25 Unknown History mcg/dose blistr powdr for inhalation (Advair Diskus) acetaminophen 650 mg 650 mg PO Q8H PRN Pain 05/21/25 05/21/25 Unknown History tablet,extended release dulaglutide 3 mg/0.5 mL 3 mg subcut QWEEK 05/21/25 05/23/25 05/13/25 History subcutaneous pen injector (Trulicity) empagliflozin 10 mg tablet 10 mg PO QAM 05/21/25 05/21/25 05/24/25 History (Jardiance) umeclidinium 62.5 mcg/actuation 1 inh inhalation DAILY 05/21/25 05/23/25 Unknown History blister powder for inhalation (Incruse Ellipta) Exam Height,Weight and Vital Signs: Height 5 ft 1.69 in Weight 84.6 kg Assessment and Plan Assessment Anesthesia Assessment: Chart Reviewed Documented by User: Lien George MD 05/27/25 11:03 [facility] Past Medical History Medical History Neuroleptic-induced tardive dyskinesia GERD (gastroesophageal reflux disease) IBS (irritable bowel syndrome) PVD (peripheral vascular disease) Chronic renal insufficiency Bronchitis COPD (chronic obstructive pulmonary disease) Obesity (BMI 30-39.9) History of stroke CAD (coronary artery disease) HLD (hyperlipidemia) HTN (hypertension), benign IDDM (insulin dependent diabetes mellitus) Internal and external prolapsed hemorrhoids Diabetes mellitus Chronic back pain Sleep apnea Morbid obesity Chronic diarrhea Family History Family History Mother History of stomach cancer Paternal Grandfather History of prostate cancer Sister History of breast cancer Family/Other Vaginal cancer Family history of problems with anesthesia: No Surgical History Surgical History History of esophagogastroduodenoscopy (EGD) Hx of colonoscopy History of partial surgical removal of colon (~2011) History of carpal tunnel surgery of left wrist History of Problems with Anesthesia: No Social History Social History Household Members: Children Household Members Other:: Daughter, son in law, and grand child Housing: House Do you presently have visiting nurse or other home services: No Alcohol intake: never Patient Tobacco Use Status: Former Tobacco user Tobacco use type: Cigarette Use of substances other than those prescribed or required for medical reasons: No Advance Directives: Yes Advance Directives Information Provided: Yes Advance Directives on File: Yes Advance Directives Date on File: 02/17/11 FDLMP: n/a service: No Meds Allergies Allergy/AdvReac Type Severity Reaction Status Date / Time No Known Allergies (No Known Allergy Verified 05/27/25 10:22 Allergies*) Home Medications ?Medication ?Instructions ?Recorded ?Confirmed ?Last Taken ?Type aspirin 81 mg tablet,delayed 81 mg PO DAILY 09/01/20 05/23/25 05/24/25 History release (Adult Aspirin Regimen) atorvastatin 20 mg tablet (Lipitor) 20 mg PO DAILY 09/01/20 05/23/25 03/17/21 History losartan 100 mg tablet 100 mg PO DAILY 09/01/20 05/23/25 03/17/21 History calcium 600 mg (as 1 cap PO DAILY 03/17/21 05/23/25 03/17/21 History carbonate)-vitamin D3 10 mcg (400 unit) capsule diclofenac sodium 1 % topical gel 2 g topical BID 03/17/21 05/23/25 03/17/21 History (Voltaren) lidocaine 5 % topical ointment 1 appl topical QD-QID PRN Pain 03/17/21 05/23/25 03/17/21 History trazodone 100 mg tablet 1 tab PO QPM 03/17/21 05/23/25 03/16/21 History amlodipine 2.5 mg tablet 2.5 mg PO DAILY 02/10/23 05/23/25 Unknown History citalopram 40 mg tablet 40 mg PO DAILY 02/10/23 05/23/25 Unknown History nystatin 100,000 unit/gram topical topical QAM 02/10/23 05/23/25 Unknown History powder ([facility]) gabapentin 100 mg capsule 100 mg PO BEDTIME 06/21/23 05/23/25 Unknown History carvedilol 3.125 mg tablet 3.125 mg PO BID 02/13/24 05/23/25 Unknown History fluticasone propionate 50 1 spray intranasal BID 02/13/24 05/23/25 Unknown History mcg/actuation nasal spray,suspension hydrocortisone 2.5 % topical cream 1 appl topical BEDTIME PRN Itching 02/13/24 05/23/25 Unknown History with perineal applicator fluticasone 250 mcg-salmeterol 50 1 inh inhalation BID 06/19/24 05/23/25 Unknown History mcg/dose blistr powdr for inhalation (Advair Diskus) acetaminophen 650 mg 650 mg PO Q8H PRN Pain 05/21/25 05/21/25 Unknown History tablet,extended release dulaglutide 3 mg/0.5 mL 3 mg subcut QWEEK 05/21/25 05/23/25 05/13/25 History subcutaneous pen injector (Trulicity) empagliflozin 10 mg tablet 10 mg PO QAM 05/21/25 05/21/25 05/24/25 History (Jardiance) umeclidinium 62.5 mcg/actuation 1 inh inhalation DAILY 05/21/25 05/23/25 Unknown History blister powder for inhalation (Incruse Ellipta) Exam Airway Mallampati Class: II TM Dist: <=3cm Neck ROM: Poor Denture: Upper and Lower Heart: rrr Lungs: cta Assessment and Plan Assessment Anesthesia Assessment: Anesthesia Plan Discussed Final Anesthetic Review Family History of Problems with Anesthesia: No History of Problems with Anesthesia: No NPO: Yes ASA Class: III Final Preanesthetic Review: No Changes in Pt Med Stat, Meds/Allgs Chart Reviewed, Consent Obtained/Reviewed and Anes Risks/Benef Reviewed Patient Risk: Intermediate Procedure Risk: Low Anesthetic Plan Anesthetic Plan: MAC: Disposition: Standard PACU
[2025-05-27] MEDS: Lactated Ringers 500 ML 50 ML IV (10:18)
[2025-05-27] MEDS: Cyclopentolate 1 % Ophth Sol 2 ML DRPBTL 1 DROP EYE-LEFT ×3 (10:19→10:20)
[2025-05-27] MEDS: Tropicamide 1 % Ophth Sol 3 ML BTL 1 DROP EYE-LEFT ×3 (10:19→10:20)
[2025-05-27] MEDS: Ketorolac Tromethamine 0.5% Op 5 ML DROPS 1 DROP EYE-LEFT ×3 (10:19→10:20)
[2025-05-27] MEDS: Tetracaine HCl/PF 0.5% Oph Sol 4 ML DROPS 1 DROP EYE-LEFT (10:19)
[2025-05-27] MEDS: Phenylephrine HCL 2.5% Oph SoL 2 ML BOTTLE 1 DROP EYE-LEFT ×3 (10:19→10:20)
[2025-05-27 10:25] VITALS: BP 140/63; PULSE 56; RESP 18; TEMP 36.3; O2SAT 98
[2025-05-27 10:37] LABS: Glucose, Whole Blood 126 mg/dL (60-115)
--- NOTE | 2025-05-27 11:16 | MHC.SHP ---
Pre-Procedural Eval Section A - 24 Hr Update-Section A only Date of Service: 05/27/25 The patient is an INPATIENT: No Changes since office visit: No Cold of Flu in the past 2 weeks, No New Medical Problems, No Changes in Medication and No Patient answered all questions The patient has been examined within 24 hours of the surgical procedure. The History & Physical has been completed within 30 days and I have reviewed it.: Yes Section B - Complete if H&P > 30 days Chief Complaint: Age-related nuclear cataract, left eye Allergies: Allergies Allergy/AdvReac Type Severity Reaction Status Date / Time No Known Allergies (No Known Allergy Verified 05/27/25 10:22 Allergies*) Plan Diagnosis/Plan: Unchanged I have reviewed the history and physical and performed a pertinent physical examination on my patient. No changes have occurred unless specified. Time Spent With Patient Time: Total time managing care of this patient today ____ minutes.
--- NOTE | 2025-05-27 11:17 | HO.PNOPHT ---
Ophthalmology Procedure Procedure Date of Service: 05/27/25 Ophthalmology Viscoelastic: Healon Duet Dual Pack Pro Ophthalmology Lenses: IOL Acrysof MP - MA60AC (24.5) Procedure Notes: PREOPERATIVE DIAGNOSIS: Decreased visual acuity left eye secondary to cataract POSTOPERATIVE DIAGNOSIS: Same PROCEDURE: Left cataract extraction with intraocular lens insertion SURGEON: Julio Cesar Guo M.D. ANESTHESIA: Topical/MAC ESTIMATED BLOOD LOSS: None COMPLICATIONS: IOL damaged requiring exchange After obtaining informed consent, the patient was brought to the operation room suite and placed in the supine position. After adequate sedation per anesthesia, topical drops of Tetracaine were given to the left eye. The eye was then prepped and draped in the usual sterile fashion. The operating room microscope was then positioned over the operative eye and a lid speculum placed. A paracentesis was created. Viscoelastic was then instilled into the anterior chamber. A three plane incision was then created temporally, utilizing a 2.85 mm keratome. Capsulotomy forceps were then utilized to create a circular tear capsulotomy. Hydrodissection and hydrodelineation were carried out until adequate mobilization of the nucleus occurred. Phacoemulsification was then utilized to remove the dense central nucleus followed by removal of the cortical material utilizing the automated aspiration irrigation unit. Viscoat elastic was instilled into the posterior capsular bag followed by placement of a posterior chamber intraocular lens without difficulty. Optic had a cetral crack/damage. The lens was exchanged by intraocularfolding and explanted. A new lens was placed without difficulty.The residual Viscoat elastic was then removed utilizing the automated IA machine. The wound was check and found to be watertight. The patient tolerated the procedure well and the lid speculum was removed. Intracameral injection of Vigamox 0.1 mL followed by a subtenon injection of Kenalog-40 0.2 mL were administered. The patient will be seen in the a.m.
[2025-05-27 11:59] VITALS: BP 129/57; PULSE 60; RESP 12; TEMP 36.1; O2SAT 97
[2025-05-27 12:10] VITALS: BP 132/60; PULSE 59; RESP 10; TEMP 36.2; O2SAT 97
== END 2025-05-27 12:33 | disposition home or self-care (01) ==
PROVIDERS: PCP Internal Medicine Geriatric Medicine; Visit Provider Ophthalmology
PROC: (CPT 66985; principal; 2025-05-27 11:50)
DX: T85.29XA Other mechanical complication of intraocular lens, initial encounter (principal); Y77.2 Prosthetic and other implants, materials and accessory ophthalmic devices associated with adverse incidents; Y92.234 Operating room of hospital as the place of occurrence of the external cause; H25.12 Age-related nuclear cataract, left eye; H54.7 Unspecified visual loss
CPT/HCPCS: 66986; 82947; J2250; J3010; J3301; V2630

== ENCOUNTER 2025-06-10 06:52 | Day surgery (SDC) | payer OTHER, SELFPAY ==
[2025-05-21 08:08] VITALS: BMI 34.5
--- NOTE | 2025-06-07 11:20 | HO.ANESPROP2 ---
Documented by User: Agueda Sterling NP 06/07/25 11:24 HPI - Anesthesia Eval Consult details Narrative: 85 yr old female for right cataract extraction, IOL insertion s/p left cataract extraction 05/27/25 PCP clearance 05/30/25 Type 2 DM: on jardiance, Trulicity COPD SEPIDEH Anesthesia Pre-Procedure Meds Is the patient on any of the following meds?: GLP1/DPP4 and SGLT2 Inhib PMFSH Active Problems Active Problems: All Active Problems Cough (Acute) Essential hypertension (Acute) Bronchitis (Acute) COPD (chronic obstructive pulmonary disease) (Acute) Obesity (BMI 30-39.9) (Acute) Internal and external prolapsed hemorrhoids (Acute) Diabetes mellitus (Acute) Chronic back pain (Acute) Sleep apnea (Acute) Morbid obesity (Acute) Chronic diarrhea (Acute) Past Medical History Medical History Neuroleptic-induced tardive dyskinesia GERD (gastroesophageal reflux disease) IBS (irritable bowel syndrome) PVD (peripheral vascular disease) Chronic renal insufficiency Bronchitis COPD (chronic obstructive pulmonary disease) Obesity (BMI 30-39.9) History of stroke CAD (coronary artery disease) HLD (hyperlipidemia) HTN (hypertension), benign IDDM (insulin dependent diabetes mellitus) Internal and external prolapsed hemorrhoids Diabetes mellitus Chronic back pain Sleep apnea Morbid obesity Chronic diarrhea Family History Family History Mother History of stomach cancer Paternal Grandfather History of prostate cancer Sister History of breast cancer Family/Other Vaginal cancer Family history of problems with anesthesia: No Surgical History Surgical History History of esophagogastroduodenoscopy (EGD) Hx of colonoscopy History of partial surgical removal of colon (~2011) History of carpal tunnel surgery of left wrist History of Problems with Anesthesia: No Social History Social History Household Members: Children Household Members Other:: Daughter, son in law, and grand child Housing: House Do you presently have visiting nurse or other home services: No Alcohol intake: never Patient Tobacco Use Status: Former Tobacco user Tobacco use type: Cigarette Use of substances other than those prescribed or required for medical reasons: No Advance Directives: Yes Advance Directives Information Provided: Yes Advance Directives on File: Yes Advance Directives Date on File: 02/17/11 FDLMP: n/a service: No Meds Allergies Allergy/AdvReac Type Severity Reaction Status Date / Time No Known Allergies (No Known Allergy Verified 05/27/25 10:22 Allergies*) Home Medications ?Medication ?Instructions ?Recorded ?Confirmed ?Last Taken ?Type aspirin 81 mg tablet,delayed 81 mg PO DAILY 09/01/20 05/23/25 05/24/25 History release (Adult Aspirin Regimen) atorvastatin 20 mg tablet (Lipitor) 20 mg PO DAILY 09/01/20 05/23/25 03/17/21 History losartan 100 mg tablet 100 mg PO DAILY 09/01/20 05/23/25 03/17/21 History calcium 600 mg (as 1 cap PO DAILY 03/17/21 05/23/25 03/17/21 History carbonate)-vitamin D3 10 mcg (400 unit) capsule diclofenac sodium 1 % topical gel 2 g topical BID 03/17/21 05/23/25 03/17/21 History (Voltaren) lidocaine 5 % topical ointment 1 appl topical QD-QID PRN Pain 03/17/21 05/23/25 03/17/21 History trazodone 100 mg tablet 1 tab PO QPM 03/17/21 05/23/25 03/16/21 History amlodipine 2.5 mg tablet 2.5 mg PO DAILY 02/10/23 05/23/25 Unknown History citalopram 40 mg tablet 40 mg PO DAILY 02/10/23 05/23/25 Unknown History nystatin 100,000 unit/gram topical topical QAM 02/10/23 05/23/25 Unknown History powder (Ny[facility]) gabapentin 100 mg capsule 100 mg PO BEDTIME 06/21/23 05/23/25 Unknown History carvedilol 3.125 mg tablet 3.125 mg PO BID 02/13/24 05/23/25 Unknown History fluticasone propionate 50 1 spray intranasal BID 02/13/24 05/23/25 Unknown History mcg/actuation nasal spray,suspension hydrocortisone 2.5 % topical cream 1 appl topical BEDTIME PRN Itching 02/13/24 05/23/25 Unknown History with perineal applicator fluticasone 250 mcg-salmeterol 50 1 inh inhalation BID 06/19/24 05/23/25 Unknown History mcg/dose blistr powdr for inhalation (Advair Diskus) acetaminophen 650 mg 650 mg PO Q8H PRN Pain 05/21/25 05/21/25 Unknown History tablet,extended release dulaglutide 3 mg/0.5 mL 3 mg subcut QWEEK 05/21/25 05/23/25 05/13/25 History subcutaneous pen injector (Trulicity) empagliflozin 10 mg tablet 10 mg PO QAM 05/21/25 05/21/25 06/06/25 History (Jardiance) umeclidinium 62.5 mcg/actuation 1 inh inhalation DAILY 05/21/25 05/23/25 Unknown History blister powder for inhalation (Incruse Ellipta) Exam Height,Weight and Vital Signs: Height 5 ft 1.69 in Weight 84.6 kg Narrative Narrative: EKG 12/2023 Vent. Rate : 067 BPM Atrial Rate : 067 BPM P-R Int : 180 ms QRS Dur : 086 ms QT Int : 394 ms P-R-T Axes : 035 023 023 degrees QTc Int : 416 ms Normal sinus rhythm Normal ECG When compared with ECG of 17-MAR-2021 12:48, No significant change was found Assessment and Plan Final Anesthetic Review Family History of Problems with Anesthesia: No History of Problems with Anesthesia: No Documented by User: Delores Lund MD 06/10/25 08:40 [facility] Past Medical History Medical History Neuroleptic-induced tardive dyskinesia GERD (gastroesophageal reflux disease) IBS (irritable bowel syndrome) PVD (peripheral vascular disease) Chronic renal insufficiency Bronchitis COPD (chronic obstructive pulmonary disease) Obesity (BMI 30-39.9) History of stroke CAD (coronary artery disease) HLD (hyperlipidemia) HTN (hypertension), benign IDDM (insulin dependent diabetes mellitus) Internal and external prolapsed hemorrhoids Diabetes mellitus Chronic back pain Sleep apnea Morbid obesity Chronic diarrhea Family History Family History Mother History of stomach cancer Paternal Grandfather History of prostate cancer Sister History of breast cancer Family/Other Vaginal cancer Surgical History Surgical History History of esophagogastroduodenoscopy (EGD) Hx of colonoscopy History of partial surgical removal of colon (~2011) History of carpal tunnel surgery of left wrist Social History Social History Household Members: Children Household Members Other:: Daughter, son in law, and grand child Housing: House Do you presently have visiting nurse or other home services: No Alcohol intake: never Patient Tobacco Use Status: Former Tobacco user Tobacco use type: Cigarette Use of substances other than those prescribed or required for medical reasons: No Advance Directives: Yes Advance Directives Information Provided: Yes Advance Directives on File: Yes Advance Directives Date on File: 02/17/11 FDLMP: n/a service: No Meds Allergies Allergy/AdvReac Type Severity Reaction Status Date / Time No Known Allergies (No Known Allergy Verified 05/27/25 10:22 Allergies*) Home Medications ?Medication ?Instructions ?Recorded ?Confirmed ?Last Taken ?Type aspirin 81 mg tablet,delayed 81 mg PO DAILY 09/01/20 05/23/25 05/24/25 History release (Adult Aspirin Regimen) atorvastatin 20 mg tablet (Lipitor) 20 mg PO DAILY 09/01/20 05/23/25 03/17/21 History losartan 100 mg tablet 100 mg PO DAILY 09/01/20 05/23/25 03/17/21 History calcium 600 mg (as 1 cap PO DAILY 03/17/21 05/23/25 03/17/21 History carbonate)-vitamin D3 10 mcg (400 unit) capsule diclofenac sodium 1 % topical gel 2 g topical BID 03/17/21 05/23/25 03/17/21 History (Voltaren) lidocaine 5 % topical ointment 1 appl topical QD-QID PRN Pain 03/17/21 05/23/25 03/17/21 History trazodone 100 mg tablet 1 tab PO QPM 03/17/21 05/23/25 03/16/21 History amlodipine 2.5 mg tablet 2.5 mg PO DAILY 02/10/23 05/23/25 Unknown History citalopram 40 mg tablet 40 mg PO DAILY 02/10/23 05/23/25 Unknown History nystatin 100,000 unit/gram topical topical QAM 02/10/23 05/23/25 Unknown History powder ([facility] [place]) gabapentin 100 mg capsule 100 mg PO BEDTIME 06/21/23 05/23/25 Unknown History carvedilol 3.125 mg tablet 3.125 mg PO BID 02/13/24 05/23/25 Unknown History fluticasone propionate 50 1 spray intranasal BID 02/13/24 05/23/25 Unknown History mcg/actuation nasal spray,suspension hydrocortisone 2.5 % topical cream 1 appl topical BEDTIME PRN Itching 02/13/24 05/23/25 Unknown History with perineal applicator fluticasone 250 mcg-salmeterol 50 1 inh inhalation BID 06/19/24 05/23/25 Unknown History mcg/dose blistr powdr for inhalation (Advair Diskus) acetaminophen 650 mg 650 mg PO Q8H PRN Pain 05/21/25 05/21/25 Unknown History tablet,extended release dulaglutide 3 mg/0.5 mL 3 mg subcut QWEEK 05/21/25 05/23/25 05/13/25 History subcutaneous pen injector (Trulicity) empagliflozin 10 mg tablet 10 mg PO QAM 05/21/25 05/21/25 06/06/25 History (Jardiance) umeclidinium 62.5 mcg/actuation 1 inh inhalation DAILY 05/21/25 05/23/25 Unknown History blister powder for inhalation (Incruse Ellipta) Exam Airway Mallampati Class: II (edentulous) TM Dist: >3cm Neck ROM: Limited Loose/Missing/Broken Teeth: Yes, Upper and Lower Heart: RRR Lungs: CTA Assessment and Plan Assessment Anesthesia Assessment: Anesthesia Plan Discussed and Chart Reviewed Final Anesthetic Review NPO: Yes ASA Class: III Final Preanesthetic Review: Meds/Allgs Chart Reviewed, Consent Obtained/Reviewed and Anes Risks/Benef Reviewed Patient Risk: Intermediate Procedure Risk: Low Anesthetic Plan Anesthetic Plan: MAC: Disposition: Standard PACU
--- NOTE | 2025-06-10 07:20 | MHC.SHP ---
Pre-Procedural Eval Section A - 24 Hr Update-Section A only Date of Service: 06/10/25 The patient is an INPATIENT: No Changes since office visit: No Cold of Flu in the past 2 weeks, No New Medical Problems, No Changes in Medication and No Patient answered all questions The patient has been examined within 24 hours of the surgical procedure. The History & Physical has been completed within 30 days and I have reviewed it.: Yes Section B - Complete if H&P > 30 days Chief Complaint: Age-related nuclear cataract, right eye Allergies: Allergies Allergy/AdvReac Type Severity Reaction Status Date / Time No Known Allergies (No Known Allergy Verified 05/27/25 10:22 Allergies*) Plan Diagnosis/Plan: Unchanged I have reviewed the history and physical and performed a pertinent physical examination on my patient. No changes have occurred unless specified. Time Spent With Patient Time: Total time managing care of this patient today ____ minutes.
[2025-06-10 07:53] VITALS: BP 135/61; PULSE 68; RESP 14; TEMP 36.6; O2SAT 96
[2025-06-10] MEDS: Lactated Ringers 500 ML 50 ML IV (07:53)
[2025-06-10] MEDS: Tetracaine HCl/PF 0.5% Oph Sol 4 ML DROPS 1 DROP EYE-RIGHT (07:53)
[2025-06-10] MEDS: Tropicamide 1 % Ophth Sol 3 ML BTL 1 DROP EYE-RIGHT ×3 (07:54→08:08)
[2025-06-10] MEDS: Cyclopentolate 1 % Ophth Sol 2 ML DRPBTL 1 DROP EYE-RIGHT ×3 (07:55→08:07)
[2025-06-10] MEDS: Ketorolac Tromethamine 0.5% Op 5 ML DROPS 1 DROP EYE-RIGHT ×3 (07:57→08:10)
[2025-06-10] MEDS: Phenylephrine HCL 2.5% Oph SoL 2 ML BOTTLE 1 DROP EYE-RIGHT ×3 (07:58→08:12)
[2025-06-10 08:02] LABS: Glucose, Whole Blood 192 mg/dL (60-115)
--- NOTE | 2025-06-10 08:56 | HO.PNOPHT ---
Ophthalmology Procedure Procedure Date of Service: 06/10/25 Ophthalmology Viscoelastic: Healon Duet Dual Pack Pro Ophthalmology Lenses: IOL Acrysof MP - MA60AC (24) Procedure Notes: PREOPERATIVE DIAGNOSIS: Decreased visual acuity right eye secondary to cataract POSTOPERATIVE DIAGNOSIS: Same PROCEDURE: Right cataract extraction with intraocular lens insertion SURGEON: Julio Cesar Guo M.D. ANESTHESIA: Topical/MAC ESTIMATED BLOOD LOSS: None COMPLICATIONS: Fracture in Optic reqiurired IOL Exchange After obtaining informed consent, the patient was brought to the operating room suite and placed in the supine position. After adequate sedation per anesthesia, topical drops of Tetracaine were given to the right eye. The eye was then prepped and draped in the usual sterile fashion. The operating room microscope was then positioned over the operative eye and a lid speculum placed. A paracentesis was created. Viscoelastic was then instilled into the anterior chamber. A three plane incision was then created temporally, utilizing a 2.85 mm keratome. Capsulotomy forceps were then utilized to create a circular tear capsulotomy. Hydrodissection and hydrodelineation were carried out until adequate mobilization of the nucleus occurred. Phacoemulsification was then utilized to remove the dense central nucleus followed by removal of the cortical material utilizing the automated aspiration irrigation unit. Viscoelastic was instilled into the posterior capsular bag followed by placement of a posterior chamber intraocular lens without difficulty. A Fracture through the Optic was noted which required a lens exchange. The cornea wound was enlarged with the keratome. Viscoat was instilled anterior and posterior to the Optic. The IOL was folded in half intraocularly and removed.A new PCIOL was placed without difficulty. The residual Viscoelastic was then removed utilizing the automated IA machine. The wound was checked and found to be watertight. The patient tolerated the procedure well and the lid speculum was removed. Intracameral injection of Vigamox 0.1 mL followed by a subtenon injection of Kenalog-40 0.2 mL were administered. The patient will be seen in the a.m.
[2025-06-10 09:42] VITALS: BP 142/61; PULSE 63; RESP 17; TEMP 36.1; O2SAT 97
== END 2025-06-10 09:45 | disposition home or self-care (01) ==
PROVIDERS: PCP Internal Medicine Geriatric Medicine; Visit Provider Ophthalmology
PROC: (CPT 66985; principal; 2025-06-10 09:30)
DX: T85.21XA Breakdown (mechanical) of intraocular lens, initial encounter (principal); Y77.2 Prosthetic and other implants, materials and accessory ophthalmic devices associated with adverse incidents; H25.11 Age-related nuclear cataract, right eye; H02.411 Mechanical ptosis of right eyelid; H40.013 Open angle with borderline findings, low risk, bilateral; H40.033 Anatomical narrow angle, bilateral; H11.153 Pinguecula, bilateral; H11.133 Conjunctival pigmentations, bilateral; I10 Essential (primary) hypertension; E11.9 Type 2 diabetes mellitus without complications; E78.00 Pure hypercholesterolemia, unspecified; G51.0 Bell's palsy; J44.9 Chronic obstructive pulmonary disease, unspecified; Z86.73 Personal history of transient ischemic attack (TIA), and cerebral infarction without residual deficits; Z79.82 Long term (current) use of aspirin; Z79.85 Long-term (current) use of injectable non-insulin antidiabetic drugs; Z79.51 Long term (current) use of inhaled steroids; Z79.899 Other long term (current) drug therapy; Z87.891 Personal history of nicotine dependence
CPT/HCPCS: 66986; 82947; J2003; J2250; J3301; V2630

== ENCOUNTER 2025-06-24 09:03 | Outpatient (REF) | payer OTHER, SELFPAY ==
--- OUTSIDE RECORDS SUMMARY | 2025-06-21 05:00 | XMS_ITS ---
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 Name Role Phone Name Elvis IZQUIERDO Primary Care Provider Pankaj Barnes Unavailable [phone] Allergies No Known Allergies REASON FOR VISIT At Risk Footcare, Painful Nail(s) aggrevated by shoes and causing difficulty standing/walking, Skinproblem Medications Medication SIG (Take, Route, Frequency, Duration) Notes Start Date End Date Status Mapap Not-Taking Sulfamethoxazole-TMP DS Not-Taking Baclofen Not-Taking Metoprolol Succinate ER Not-Taking CareOne Unifine Pentips Plus Not-Taking ARIPiprazole 5 MG 1 tablet Orally Once a day Not-Taking Diphenoxylate-Atropin e Not-Taking FreeStyle Lite Test Not-Taking Fiber Not-Taking Aspirin EC Low Dose Not-Taking Vitamin D 1000 UNIT Orally Once a day Not-Taking Metamucil prn Not-Taking Cholestyramine Not-T aking Liquid Calcium with D3 Not-Taking Lipitor Not-Taking Abilify 5 MG Orally Once a day Not-Taking Prazosin HCl Not-Fitz ing Sucralfate Not-Takin g Zetia Not-Taking Fiber-Lax Not-Taking Dicyclomine HCl 10 MG Orally Four times a day Not-Taking Nystatin 963018 UNIT/GM Externally Powder for Breast Not-Taking Metoprolol Tartrate Not-Taking Lantus SoloStar 10ML Not-Taking Fish Oil Not-Taking Calcium Carb-Ergocalciferol Not-Taki ng Aspercreme 10 % 1 application as needed Externally Four times a day; Duration: 30 days 07/22/2022 Active Cefpodoxime Proxetil Active Tylenol 500mg prn Active Doxycycline Monohydrate Not-Taking traZODone HCl 100 MG Orally Once a day Active Losartan Potassium 100 MG Orally Once a day Active Citalopram Hydrobromide 40 MG Orally Once a day Acti ve Atorvastatin Calcium 20 MG Orally Once a day Active Trulicity 1.5 MG/0.5ML Subcutaneous Active Aspirin 81 MG Orally Active guaiFENesin Active Albuterol Active Ammonium Lactate 12 % 1 application to affected area Externally to feet Twice a day; Duration: 30 days Active amLODIPine Besylate 5mg Active Gabapentin Active Extra Depth Orthopedic Shoes, (1) Pair With (3) Pair Custom Heat Molded Multidensity Innersoles Dx: IDDM/PVD(E10.51), Hammertoe Foot Deformity, B/L(M20.41,M20.42), Preulcerative Skin Lesion(s)(L85.1) Wear Daily; Duration: 365 days Active Social History Tobacco Use: Social History [...] ast year? No Points 0 Interpretation Negative Vital Signs Height 5 ft 3 in in 06/21/2025 Weight 179 lbs 06/21/2025 BMI 31.7 kg/m2 06/21/2025 Blood pressure systolic 130 mm Hg 06/21/20 25 Blood pressure diastolic 65 mm Hg 025 Procedures Procedure Date Ordered Date Performed Result Body Sit e 40775-AAAXGRV NAIL, 6 OR MORE 06/21/2025 N/A 75267-CKQZ SKIN LESIONS, OVER 4 06/21/2025 N/A Encounters Encounter Location Date Provider Diagnosis [facility] [place] [address] [place] [address] 06/21/2025 Pankaj Hoff Type 1 diabetes mellitus with diabetic peripheral angiopathy without gangrene E10.51 ; Tinea unguium B35.1 ; Pain in right toe(s) M79.674 ; Pain in left toe(s) M79.675 and Xerosis of skin L85.3 Assessments Encounter Date Diagnosis (ICD Code) Assessment Notes Treatment Notes Treatment Clinical Notes Section Notes 06/21/2025 Type 1 diabetes mellitus with diabetic peripheral angiopathy without gangrene (ICD-10 - E10.51) 06/21/2025 Tinea unguium (ICD-10 - B35.1) 06/21/2025 Pain in right toe(s) (ICD-10 - M79.674) 06/21/2025 Pain in left toe(s) (ICD-10 - M79.675) 06/21/2025 Xerosis of skin (ICD-10 - L85.3) Plan Of Treatment Medication Medication Name Sig Start Date Stop Date Notes Ammonium Lactate 12 % 1 application to a ffected area Externally to feet Twice a day; Duration: 30 days Pending Test Test Name Order Date [id number]-[id number] NAIL, 6 OR MORE 06/21/2025 [id number]-YURP SKIN LESIONS, OVER 4 06/21/20 Next Appt Details Follow Up: 2 Months, Reason: Provider Name:Pankaj Hoff , 10/08/2025 02:00:00 PM, [address] [place] [address], [id number], Procedure Notes * Category Sub-Category Detail [...] exam ( TA, T1, T2, T3, T4, T5, T6, T7, T9 ), was performed exclusively by the physician of record to reduce/remove overall nail length, girth, thickness, subungual debris, and necrotic tissue, by manual and/or electrical means through the use of a nail nipper and/or dremel-type tap grinder, to a more viable healthy nail [...] to maintain effectiveness in symptomatic relief - 73330 Keratoma Treatment Parring or Cutting o f [...] instrumentation by the physician of record - 85475, Q8 Progress Notes * Jana MADSEN MDOB: 2 (85 yo F)Acc No.[id number]:06/21/2025 Progress Note Patient: Myrna HARRELLz M Provider: Javier Hoff DPM :1940 A ge:85 Y S ex:Female Date:06/21/2025 Address:[address] [place] [address] [place] Pcp:Elvis Daley MD Subjective: * Chief Complaints: * A t Risk FootcarePainful Nail(s) aggrevated by shoes and causing difficulty standing/walkingSkin problem * HPI: A t Risk footcare: Pt States Last PCP Visit: D ate 0 04/16/2025 S kin problems: Nature: d ryness , scaling. Location: B /L . Duration: s everal days. Course: w orse. Treatments: M edication ( AM Lactin ), has been effective for the condition in the past. * ROS: G eneral/Constitutional: Nausea d enies. V omiting d enies. H ankush Thirst d enies. L oss appetite d enies. C hills d enies. F atigue d enies.?Fever d enies. N ight Sweats d enies. U nexplained weight loss d enies. O phthalmologic: Blurred vision d enies. R ed eye d enies. ? H EENTM: Dentures d enies. D izziness d enies. G lasses/contacts d enies. R etinopathy d enies. B lurred/double vision d enies. T MJ?denies. D ischarge/drainage d enies. I mplants d enies. H nicolasa of hearing denies. D ifficulty chewing/swallowing/speaking d enies. N ose bleeds d enies.?Sore mouth d enies. S wollen glands d enies. R espiratory: On Oxygen d enies. P neumonia/pleurisy d enies.?Bronchitis d enies. E mphysema d enies. C oughing d enies. C ough blood?denies. S hortness of breath a dmits, that is mild. W heezing d enies. C ardiovascular: Pacemaker d enies. M MANAGER SUMMER d enies. W PW d enies. C HF d enies. H eart attack d enies. S eptal defect d enies. R apid beat d enies. C hest pain d enies. A trial Fib. d enies. M urmur/Palpitations d enies. G astrointestinal: Hemorrhoids d enies. S tomach/Abdominal pain d enies. D ark blood stool d enies. I rritable bowel d enies. C onstipation d enies. D iarrhea d enies. V omiting d enies. H ematology: Swelling a dmits. B ruising admits, on aspirin. B leeding problem admits, on anticoagulants. G enitourinary: Blood urine d enies. F requent/Painfu/urination/bladder control d enies. K idney stones d enies. I nfection (UTI) d enies. N ephropathy d enies. M usculoskeletal: Hammertoes a dmits. B unions d enies. S coliosis/kyphosis d enies. M uscle cramps / walking d enies. G eneralized aches and pains?admits. W eakness d enies. I nteg.: Desir d enies. S cars d enies. C orns/calluses?admits. I ngrown nails a dmits. P ainful nails a dmits. R ashes d enies. N eurologic: Difficulty sleeping d enies. B ipolar d enies. B rain disorder d enies. B alance trouble a dmits. C onfusion d enies. F ainting/blackouts d enies. H eadache d enies. T remors d enies. * Medical History: * Surgical History: [place] [facility] [place] * Hospitalization/Major Diagno stic Procedure: [facility] st[facility]07[facility]- dizzy, fainting 01/2021[facility]- fell and hit head 07/2024 * Family History: M other: , diagnosed with Other malignant neoplasm of unspecified site, Family history of arthritis. F ather: . S iblings: unknown, Brother Heart attacl, Sister cancer.?Spouse: . * Social History: T obacco Use: T obacco use other than smoking A re you an other tobacco user? N o Tobacco Control (Standard) T obacco use: N onsmoker D rugs/Alcohol: D rugs H ave you used drugs other than those for medical reasons in the past 12 months? N o M iscellaneous: C affeine: yes, frequency:, 3-5 cups per day. Children: yes, four. Exercise: no. Marital status: . Occupation: Disabled. D rug/Alcohol: A MONICA-C (Standard) D id you have a drink containing alcohol in the past year? N o P oints 0 I nterpretation N egative * Medications: T akingExtra Depth Orthopedic Shoes, (1) Pair With (3) Pair Custom Heat Molded Multidensity Innersoles . Dx: IDDM/PVD(E10.51), Hammertoe Foot Deformity, B/L(M20.41,M20.42), Preulcerative Skin Lesion(s)(L85.1) Wear Daily Gabapentin Albuterol guaiFENesin amLODIPine Besylate , Notes to [...] a day Taking Trulicity 1.5 MG/0.5ML Solution Pen- injector Subcutaneous Taking Tylenol 500mg prn Taking Cefpodoxime Proxetil Taking Aspercreme 10 % Cream 1 application as needed Externally Four times a day Not-Taking/PRNDoxycycline Monohydrate Calcium Carb-Ergocalciferol Dicyclomine HCl 10 MG Capsule Orally Four times a day Fish Oil Lantus SoloStar 10ML Metoprolol Tartrate Nystatin 791816 UNIT/GM Powder Externally , Notes to Pharmacist: [...] SoloStar 10ML Not-Taking/PRN Metoprolol Tartrate Not-Taking/PRN Nystatin 193025 UNIT/GM Powder Externally , Notes to Pharmacist: [...] reviewed and reconciled with the patient * Allergies: N .K.D.A.yes[Allergies Verified] Objective: * Vitals: H t: 5 ft 3 in, Wt:179, BMI: 31.7, Shoe size:8.5, BP:130/65mm Hg, Wt-k.19 kg. * P ast Orders: L ab:HEMOGLOBIN A1C (GLYCOHEMOGLOBIN) (Order Date - 04/16/2025) (Collection Date & Time - 06/21/2025 09:01 AM) Value Reference Range HEMOGLOBIN A1C % (HH) 7.8 * Examination: O phthalmology Referral: DIABETES EYE EXAM P rocedure Performed: Y es D ate of Exam Performed 0 04/19/2025 D iabetic Retinopathy Screening: Y es R etinal Screening Performed: Y es F indings of Diabetic Eye Exam: n o retinopathy V ascular: DP PULSES (B): 1/4, B/L. PT PULSES (B): 0/4, B/L. CAPILLARY FILL TIME: delayed, all digits, B/L. TROPHIC CONDITION-TEXTURE/ELASTICITY/TURGOR/HAIR GROWTH (B):? decreased, with sparse to absent hair growth, B/L. TEMPERTURE GRADIENT (C): decreased, cool to cool, proximal to distal, B/L. PIGMENTATION: mottled, B/L. EDEMA (C): 1/4, non-pitting, without aching pain, B/L, Ankle(s). CLAUDICATION (C): d enies, B/L. REST PAIN: d enies, B/L. N ails: NAILS are: E longated, overgrown, dystrophic, lytic, greater than 3mm thick, discolored and friable with crumbly malodorous subungual debris, with pain on palpation, TA, T1, T2, T3, T4, T5, T6, T7, T9, all other nails not described with characteristics as possessing mycosis are elongated, overgrown, and dystrophic . D ermatologic: SKIN FINDINGS: S kin exam reveals Keratotic lesion(s) located at, M edial, IPJ, TA, L ateral, PIPJ, T1,Medial, PIPJ, T2,Lateral, PIPJ, T3,Medial, PIPJ, T4,Medial plantar, IPJ, T5,Plantar, Heel(s),B/L , Skin shows sign(s) of, dryness, scaling, in a stocking fashion, no fissure(s) present, B/L. Assessment: * Assessment: 1. T ype 1 diabetes mellitus with diabetic peripheral angiopathy without gangrene - E10.51 (Primary) S pecify :Q8 2 . T inea unguium - B35.1 3 . P ain in right toe(s) - M79.674 4 . P ain in left toe(s) - M79.675 5 . X erosis of skin - L85.3 S pecify :Acute problem, Uncomplicated (3), Rx Management (4) Plan: * Treatment: 2. T inea unguium P rocedure: [id number] NAIL, 6 OR MORE 3. X erosis of skin Refill Ammonium Lactate Cream, 12 %, 1 application to affected area, Externally to feet, Twice a day, 30 days, 140 Gram, Refills 2. * Procedures: D ebride Nail 6-10: Nail debridement D ue to the clinical pathology outlined in the exam findings, performance of this nail treatment is medically necessary as its management by an unskilled/untrained nonprofessional would put this patients foot and overall health at risk. Therefore, debridement to affected nail(s), as described in exam ( TA, T1, T2, T3, T4, T5, T6, T7, T9 ), was performed exclusively by the physician of record to reduce/remove overall nail length, girth, thickness, subungual debris, and necrotic tissue, by manual and/or electrical means through the use of a nail nipper and/or dremel-type tap grinder, to a more viable healthy nail [...] to maintain effectiveness in symptomatic relief - 72680. K eratoma Treatment: Parring or Cutting of Benign Hyperkeratotic Lesion(s) ( -57) More than 4 Lesions - Due to [...] stated and described in the exam ( M edial, I PJ, T A, L ateral, P IPJ, T 1,Medial, P IPJ, T 2,Lateral, P IPJ, T 3,Medial, P IPJ, T 4,Medial plantar, I PJ, T 5,Plantar, H eel(s),B/L ) , were pared, and/or cut utilizing a sterile 15 blade, tissue nippers, and/or power dremel instrumentation by the physician of record - 49058, Q8. * Procedure Codes: 1 1721 DEBRIDE NAIL, 6 OR MORE, Modifiers: XS 82264 TRIM SKIN LESIONS, OVER 4, Modifiers: XS , Q8 * Preventive Medicine: Counseling: D iscussion: - 13: Office or other outpatient visit for the [...] have encouraged the patient to call the office. X erosis: T he patient was counseled on the diagnosis, potential etiologies, and treatment options for their skin condition. We discussed the risks and benefits of each option from performing no treatment, to utilizing OTC topical skin creams/ointments, to utilizing prescription topical creams/ointments, to utilizing customized compounded topical medications and use of nocturnal occlusion with any/all previously detailed therapies. We discussed the advantages and disadvantages of each possible treatment and importance for adherence to all the recommended therapies for optimum success and avoid potential complications such as open sore/infection/possible hospitalization. We discussed the potential effectiveness of each topical preparation as well as each ones possible side effects and/or patient medication interactions. Patient questions re: use, dosage, successful outcomes, and application consistency were reviewed and the patient verbalized that all answers were clearly understood. The patient has decided to apply Rx skin creams to their feet save the interspaces while paying special attention to the heels. Such was sent to their pharmacy at the time of visit. Screening/Special Tests: F all Risk Screening: N o falls in the past year F ALLS: Screening for Future Fall Risk Have you had any falls with injury in the past year? N o * Follow Up: 2 Months * Images: * Sign off status: Completed true * Provider: Javier Hoff DPM Date: 06/21/2025 Generated for Autumn dumont/Jess/Brooklynn on: 06/24/2025 09:30 AM EDT History and Physical Notes * HPI (History of Present Illness) Category Sub-Category Detail Notes Category Not es Skin problems Nature: dryness , scaling Location: B/L Duration: several days Course: worse Treatments: Medication ( AM Lact in ), has been effective for the condition in the past At Risk footcare Pt States Last PCP Visit: Date: Examination Category Sub-Category Detail Notes Category Not es Dermatologic SKIN FINDINGS: Skin exam reveal s Keratotic lesion(s) located at, Medial, IPJ, TA, Lateral, PIPJ, T1,Medial, PIPJ, T2,Lateral, PIPJ, T3,Medial, PIPJ, T4,Medial plantar, IPJ, T5,Plantar, Heel(s),B/L , Skin shows sign(s) of, dryness, scaling, in a stocking fashion, no fissure(s) present, B/L Ophthalmology Referral DIABETES EYE EXAM Procedu re Performed:: Yes Date of Exam Performed: 04/19/2025 Diabetic Retinopathy Screening:: Yes Retinal Screening Performed:: [...] on palpation, TA, T1, T2, T3, T4, T5, T6, T7, T9, all other nails not described with characteristics as possessing mycosis are elongated, overgrown, and dystrophic
--- OUTSIDE RECORDS SUMMARY | 2025-06-24 09:31 | XMS_ITS | Encounter Summary ---
Author Organization [facility], Address [address] [place] [address] Phone Care Team Providers Care Issuer Name Role Phone Name, Elvis IZQUIERDO Primary Care Provider [phone] Encounter Details Date Type Department Care Team (Late st Contact Info) Description 03/31/2020 Orders Only [facility] [address] [place] [address] Raimundo Colunga MD Chronic kidney [...] hyperlipidemia documented in this encounter Care Teams Issuer Relationship Specialty Start Date End Date Name, MD Elvis [address] [place] [id number] PCP - General 09/18/19 documented as of this encounter
--- OUTSIDE RECORDS SUMMARY | 2025-06-24 09:31 | XMS_ITS | Clinical Summary ---
Author Organization [employer] Address [address] [place] [address] [address] [place] [address] Care Team Providers Care Hog Ribber Name Role Phone Name, Elivs IZQUIERDO Primary Care Provider [phone] Allergies No known active allergies Medications albuterol 108 (90 Base) MCG/ACT inhalerIndicatio ns:Chronic coughing INHALE 2 PUFFS EVERY 4-6HOURS NEEDED 18 g 2 023 Active acetaminophen (Tylenol 8 Hour) 650 MG ER tablet take 2 tablet by oral route every 12 hours x 5d and can take 1 tab po bid prn breakthrough pain x 1w, then take 1 tab po tid prn pain only 022 Active Blood Glucose Monitoring Suppl (FreeStyle Lite) w/Device kit 1 Units 2 times daily. 1 kit 024 Active albuterol (2.5 MG/3ML) 0.083% nebulizer solution Take 2.5 mg by nebulization every 6 (six) hours if needed for wheezing or shortness of breath. 024 Active Blood Pressure Monitoring (Omron 3 Series BP Monitor) device USE TO CHECK BLOOD PRESSURE DIRECTED 1 each 024 Active TRUEplus Lancets 33G misc TEST BLOOD SUGAR TWICE DAILY DIRECTED 100 each 11 024 Active glucose blood (FREESTYLE LITE) test strip TEST BLOOD SUGAR TWICE DAILY DIRECTED 100 strip 11 024 Active Diclofenac Sodium 1 % gel APPLY 2 GRAMS TOPICALLY AFFECTED AREA(S) THREE TIMES DAILY NEEDED FOR PAIN 100 g 1 024 Active losartan (Cozaar) 100 MG tabletIndication s:Hypertension, unspecified type TAKE 1 TABLET BY MOUTH EVERY MORNING 90 tablet 2 Active atorvastatin (Lipitor) 20 MG tabletIndication s:Hypertension, unspecified type TAKE 1 TABLET BY MOUTH EVERY MORNING 90 tablet 025 Active amLODIPine (Norvasc) 2.5 MG tabletIndication s:Primary hypertension TAKE 1 TABLET BY MOUTH EVERY MORNING 90 tablet Active Aspirin Low Dose 81 MG EC tabletIndication s:Hypertension, unspecified type TAKE 1 TABLET BY MOUTH EVERY MORNING 90 tablet 025 Active traZODone (Desyrel) 100 MG tabletIndication s:Primary hypertension TAKE 1 TABLET BY MOUTH AT BEDTIME AFTER A MEAL 30 tablet Active carvedilol (Coreg) 3.125 MG tablet TAKE 1 TABLET BY MOUTH TWICE DAILY IN THE MORNING AND IN THE EVENING WITH MEALS 60 tablet Active Incruse Ellipta 62.5 MCG/ACT aerosol powder INHALE 1 PUFF BY MOUTH EVERY DAY AT THE SAME TIME RINSE MOUTH AFTER USING 30 each Active gabapentin (Neurontin) 100 MG capsule TAKE 1 CAPSULE BY MOUTH AT BEDTIME 30 capsule Active Fluticasone-Salm eterol 100-50 MCG/ACT aerosol powder INHALE 1 PUFF BY MOUTH TWICE DAILY. RINSE MOUTH AFTER USING. 60 each Active fluticasone (Flonase) 50 MCG/ACT nasal spray USE 1-2 SPRAYS IN EACH NOSTRIL EVERY MORNING. CLEAN DIRECTED 48 g Active citalopram (CeleXA) 40 MG tablet TAKE 1/2 TABLET BY MOUTH EVERY MORNING 45 tablet Active Trulicity 3 MG/0.5ML solution auto-injectorInd ications:Type 2 diabetes mellitus with unspecified complications (CMS/HCC) INJECT ONE PEN (= 3MG) SUBCUTANEOUSLY ONCE A WEEK DIRECTED 2 mL Active empagliflozin (Jardiance) 10 MG Take 1 tablet (10 mg) by mouth Once per day. 30 tablet 2025 Active cholecalciferol (Vitamin D-3) 50 MCG (1999 UT) tabletIndication s:Vitamin D deficiency Take 1 tablet once daily 90 tablet 025 Active cetirizine (ZyrTEC) 10 MG tablet TAKE 1/2 TABLET BY MOUTH EVERY DAY 15 tablet 1 025 Active cetirizine (ZyrTEC) 10 MG tablet TAKE 1/2 TABLET BY MOUTH ONCE DAILY 15 tablet 3 024 2024 Discontinued Active Problems Problem Noted Date Diagnosed Date Preop examination 2025 Assessment & Plan (2025 12:15 PM EDT): RCRI score is 1 which means she has 1.1% of risk Surgery should proceed as scheduled Patient will be n.p.o. 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) 2025 Travel 05/27/2025 Orders Only GENERIC EXTERNAL DATA DEPARTMENT Provider, Generic External Data 05/08/2025 9:00 AM EDT Office Visit [address] [address] Sue Javier NP Coronary arteriosclerosis (Primary Dx); Peripheral vascular disease (CMS/HCC); Tricuspid valve insufficiency, unspecified etiology; DM (diabetes mellitus), type 2 with peripheral vascular complications (CMS/HCC); Stage 3 chronic kidney disease, unspecified whether stage 3a or 3b CKD (CMS/HCC); COPD with asthma (CMS/HCC) 05/08/2025 Travel 05/07/[address] [address] Estrada Camacho [place] CHARTPREP 05/03/2025 Telephone [facility] [address] [place] [address] Elvis Dlaey MD PREOP 04/25/2025 Telephone [facility] [address] [place] [phone] David Pyle [place] to recall 04/19/2025 Refill [facility] [address] [place] [phone] Elvis Daley MD Vitamin D deficiency 04/16/2025 3:15 PM EDT Office Visit [address] [address] Elvis Daley MD Diabetes mellitus type 2 with complications (CMS/HCC) (Primary Dx) 04/16/2025 Travel 04/15/2025 Telephone [facility] [place] [address] Elvis Daley MD Chart Prep from Last 3 Months Immunizations Immunization Administration [...] Sign Reading Time Taken Comments Blood Pressure 120/62 2025 9:45 AM EDT Pulse 60 2025 9:45 AM EDT Temperature 36.4 C (97.5 F) 2025 9:45 AM EDT Respiratory Rate 12 2025 9:45 AM EDT Oxygen Saturation 98% 05/08/2025 9:09 AM EDT Inhaled Oxygen Concentration - - Weight 84 kg (185 lb 4 oz) 2025 9:45 AM ED T Height 157.5 cm (5' 2 ) 2025 9:45 AM EDT Body Mass Index 33.88 2025 9:45 AM EDT Plan of Treatment Upcoming Encounters Date Type Department Care Team (Late st Contact Info) Description 08/02/2025 1:45 PM EDT Office Visit [facility] [address] [place], [place] [phone] Name, MD Elvis [address] [place] [address] Health Maintenance Due Date Last Done Comments [...] Additional history exists Lipid Panel 10/01/2025 10/01/2024, 08/3 , 10/28/2022, Additional history exists DTaP/Tdap/Td Vaccines (2 - Td or Tdap) 02/05/2026 02/06/2016, 02/20/2004 SDOH Screening 04/16/2026 04/16/2025 Alcohol/Substance Use Screening 05/08/2026 05/08/2025 Depression Screening 05/08/2026 05/08/2025, 05/08/20 Tobacco Screening 2026 2025 Pneumococcal Vaccine: 50+ Years Completed 06/29/2018, 08/22/2015, [...] Author Blood Pressure < 140/90 Blood Pressure 120/62( 025 9:45 AM EDT) No Rosa Haile PharmD Procedures Procedure Name Priority Date/Time Associated Diagnosis Comments GLUCOSE, WHOLE BLOOD Routine 06/10/2025 7:59 AM EDT POCT GLUCOSE Routine 2025 9:48 AM EDT DM (diabetes mellitus), type 2 with peripheral vascular complications (CMS/HCC) GLUCOSE, WHOLE BLOOD Routine 05/27/2025 10:33 AM EDT POCT GLUCOSE Routine 05/08/2025 9:46 AM EDT [...] Relevant to Health Maintenance Results * (ABNORMAL) Glucose, Whole Blood (06/10/2025 7:59 AM EDT) Only the most recent of2 resultswithin the time period is included. Glucose, Whole Blood 192(H) 60 - 115 mg/dL [facility] Comment:METER #: [id number] 06/10/2025 7:59 AM EDT 06/10/2025 8:02 AM EDT us Generic External Data Provider LAB BLOOD ORDERAB LES Final Result [facility] [address] [place] [phone] * POCT Glucose (2025 9:48 AM EDT) Only the most recent of3 resultswithin the time period is included. Glucose Blood, POC 158 60 - 200 mg/dL Comment:fasting QC Media Lot # [id number] Lot# Expiration Date [id number] Blood Capillary blood specimen / Unknown 2025 9:48 AM EDT us Cathi Castelan MD POINT OF CARE TEST EN TER/EDIT ORDERABLES Final Result * (ABNORMAL) POCT HGB A1C (04/16/2025 3:11 PM EDT) Hemoglobin A1C 7.8(A) 4.0 - 6.0 % QC Media Lot # [id number] Lot# Expiration Date Blood 04/16/2025 3:11 PM EDT us Elvis Daley MD POINT OF CARE TEST ENTER/EDIT OR DERABLES Final Result * Lipid Panel, Standard (10/01/2024 12:00 PM EST) Triglycerides 74 <150 mg/dL [facility] Comment:Desirable Triglyceri de: less than 150 mg/dLBorderline High Triglyceride 150-199 mg/dLHigh Triglyceride: 200-499 mg/dLVery High Triglyceride: greater than or equal to 5OO mg/dL Cholesterol 168 <200 mg/dL [facility] Comment:Desirable Cholestero l: less than 200 mg/dLBorderline High Cholesterol: 200-239 mg/dLHigh Cholesterol: greater than 239 mg/dL LDL Cholesterol Calculated 74 <100 mg/dL [facility] Comment:Desirable LDL: less than 100 mg/dLNear Optimal/Above Optimal LDL: 110- 129 mg/dLBorderline High LDL: 130-159 mg/dLHigh LDL: 160-189 mg/dLVery High LDL: greater than or equal to 190 mg/dL HDL Cholesterol 80 >40 mg/dL [facility] Comment:Desirable HDL: great er than 40 mg/dL Note: This HDL assay may give artificially low results in patients with liver disease. Blood Venous blood specimen / Unknown 10/01/2024 12:00 PM EST 10/01/2024 1:16 PM EST us Elvis Daley MD LAB BLOOD ORDERABLES Final Resul t [facility] [address] [place] [phone] * Diabetes Eye Exam (04/14/2023) Eye Exam Normal Normal us Elvis Daley MD HEALTH MAINTENANCE Final Result from Last 3 Months or Most Recently Relevant to Health Maintenance Insurance [facility] [employer] OPTIONS (HMO D-SNP) [place] [id number] Advance Directives Documents on File Type Date Recorded Patient Tours Hostess Expl anation Advance Directives and Living Will 01/18/2025 HEALTH CARE PROXY 12/05/24 Care Teams Hog Ribber Relationship Specialty Start Date End Date Name, MD Elvis [address] [facility] [place] [address] PCP - General Family Medicine 02/05/16
[2025-06-24 12:05] LABS: Anion Gap 10 (12-20); Blood Urea Nitrogen 18 mg/dL (9-16); Calcium 9.4 mg/dL (8.4-10.2); Carbon Dioxide 31 mmol/L (22-29); Chloride 108 mmol/L (96-108); Estimated Glomerular Filt Rate 35; Potassium 4.6 mmol/L (3.3-5.1); Sodium 144 mmol/L (135-145)
== END 2025-06-24 09:04 | disposition home or self-care (01) ==
LOC: HO.HHCL 09:03
PROVIDERS: PCP Internal Medicine Geriatric Medicine; Visit Provider Internal Medicine Geriatric Medicine
DX: E11.8 Type 2 diabetes mellitus with unspecified complications (principal)
CPT/HCPCS: 36415; 80048; 82043; 82570

== ENCOUNTER 2025-08-08 10:14 | Outpatient (REF) | payer OTHER, SELFPAY ==
--- OUTSIDE RECORDS SUMMARY | 2025-04-02 10:45 | XMS_ITS ---
Author Organization [facility] Address [address] [place] [address] Care Team Providers Care Packing Checker Name Role Phone Name Elvis IZQUIERDO Primary Care Provider UnavailPankaj Mg Unavailable [phone] Encounters Encounter Location Date Provider Diagnosis [address] [address] 04/02/2025 Pankaj Hoff Plan Of Treatment Next Appt Details Provider Name:Pankaj Hoff , 10/08/2025 02:00:00 PM, [address] [place], [address], Progress Notes * Jana MADSEN MDOB: 2 (85 yo F)Acc No.[id number]:04/02/2025 Progress Note Patient: Jana HARRELL Provider: Javier Hoff DPM :1940 A ge:84 Y S ex:Female Date:04/02/2025 Address:[address] [place] [address] [place] Jernigan [phone] Pcp:Elvis Daley MD Subjective: * Chief Complaints: [...] Hoff DPM Date: 04/02/2025 Generated for Autumn dumont/Jess/Geniaitting on: 0 08/08/2025 12:37 PM EDT
--- NOTE | ~2025-08-08 | XR_ITS ---
EXAMINATION: XR CERVICAL SPINE CLINICAL INFORMATION: NECK PAIN FINDINGS: There is straightening of the cervical lordosis. There is no prevertebral soft tissue swelling. C2-3: Unremarkable C3-4: There is mild retrolisthesis. C4-5: There is mild disc space narrowing and endplate osteophytes. C5-6: There is mild disc space narrowing and endplate osteophytes. C6-7: Unremarkable C7-T1: Obscured by overlying soft tissues, grossly unremarkable. XR/XR cervical spine 3V IMPRESSION: There is straightening of the expected cervical lordosis. This can be idiopathic, but can also be related to degenerative change, muscle spasm, or posterior soft tissue injury. Electronically signed by: Ketan Ingram MD 08/08/2025 10:48 AM EDT
--- NOTE | ~2025-08-08 | XR_ITS ---
EXAMINATION: XR THORACIC SPINE CLINICAL INFORMATION: fall, has posterior neck and upper back pain COMPARISON: None available. TECHNIQUE: 3 views of the thoracic spine were obtained. FINDINGS: There is mild to moderate disc space narrowing, most advanced in the thoracic spine. There are anterior osteophytes. There is endplate sclerosis in the midthoracic spine. There is no listhesis. XR/XR thoracic spine 3V IMPRESSION: Mild to moderate degenerative disc disease is most advanced in the midthoracic spine. Electronically signed by: Ketan Ingram MD 08/08/2025 10:53 AM EDT
--- OUTSIDE RECORDS SUMMARY | 2025-08-08 12:38 | XMS_ITS | Clinical Summary ---
Author Organization [facility], Address [address] [place] [address] [place] [address] Phone Care Team Providers Care Joint Sealer Name Role Phone Name, Elvis IZQUIERDO Primary Care Provider [phone] Allergies No known active allergies Medications ARIPiprazole [...] Due Date Last Done Comments Pneumococcal Vaccine: 50+ Years (1 of 2 - PCV) 1959 Diabetes: Ophthalmology Exam 02/15/2020 Diabetes: Pedal Pulse Checked 02/15/2020 Diabetes: Sensory Foot Exam 02/15/2020 Diabetes: Visual Foot Exam 02/15/2020 Diabetes: Hemoglobin A1C 03/18/202112/19/2 021, 03/20/2020 Influenza Vaccine (#1) 2025 Hepatitis B Vaccine Aged Out No longe [...] AM EST) Hemoglobin A1C 7.0(H) (4.0-5.6) % [facility] Comment: MONITORING: In known diabetic patients, hemoglobin A1c targets should be discussed with health care provider. DIAGNOSTIC USE: The [place] Diabetes Association (ADA) and the World Health [...] Supplement 1 Testing performed or reported by [facility], a Service of [facility], [address] [place] [address] Shoaib Kidd MD, Stamping Die Maker Blood specimen (specimen) Venous blood / Unknown 12/19/2020 10:39 AM EST 12/19/2020 10:41 AM EST us Seamus Ham MD LAB BLOOD ORDERABLES Final Re sult [facility] from Last 3 Months or Most Recently Relevant to Health Maintenance Insurance Care Dual SNP ([id number]) Care Teams Joint Sealer Relationship Specialty Start Date End Date Name, MD Elvis [address] [place] [address] [phone] PCP - General 09/18/19
--- OUTSIDE RECORDS SUMMARY | 2025-08-08 12:38 | XMS_ITS | Encounter Summary ---
Author Organization [facility], Address [address] [place] [address] Phone Care Team Providers Care Car Inspector Name Role Phone Name, Elvis IZQUIERDO Primary Care Provider [phone] Encounter Details Date Type Department Care Team (Late st Contact Info) Description 03/31/2020 Orders Only [facility] [address] [place] [address] Raimundo Colunga MD Chronic kidney [...] hyperlipidemia documented in this encounter Care Teams Car Inspector Relationship Specialty Start Date End Date Name, MD Elvis [address] [place] [phone] PCP - General 09/18/19 documented as of this encounter
--- OUTSIDE RECORDS SUMMARY | 2025-08-08 12:38 | XMS_ITS | Patient Health Record ---
Author Organization [facility] Address [address] [place] [address] Jai YASIR [address] Care Team Providers Care Comptometrist Name Role Phone Name Elvis IZQUIERDO Primary Care Provider Pankaj Barnes Unavailable [phone] Allergies No Known Allergies Results Component Value Reference Range Notes HEMOGLOBIN A1C (GLYCOHEMOGLO BIN) Reviewed date:12/07/2024 12:55:28 PM Interpretation: Performing Lab: Notes/Report: HEMOGLOBIN A1C % (HH) 6.9 HEMOGLOBIN A1C (GLYCOHEMOGLO BIN) Reviewed date:03/15/2025 12:50:08 PM Interpretation: Performing Lab: Notes/Report: HEMOGLOBIN A1C % (HH) 6.9 HEMOGLOBIN A1C (GLYCOHEMOGLO BIN) Reviewed date:06/21/2025 09:01:44 AM Interpretation: Performing Lab: Notes/Report: HEMOGLOBIN A1C % (HH) 7.8 Reason For Referral No Information Medications Medication SIG (Take, Route, Frequency, Duration) Notes Start Date End Date Status Dicyclomine HCl 10 MG Orally Four times a day Not-Taking Calcium Carb-Ergocalciferol Not-Taki ng Nystatin 894426 UNIT/GM Externally Powder for Breast Not-Taking Metoprolol Tartrate Not-Taking Lantus SoloStar 10ML Not-Taking Fish Oil Not-Taking Mapap Not-Taking guaiFENesin Active Abilify 5 MG Orally Once a day Not-Taking Aspirin EC Low Dose Not-Taking Albuterol Active Prazosin HCl Not-Fitz ing Gabapentin Active Sucralfate Not-Takin g Extra Depth Orthopedic Shoes, (1) Pair With (3) Pair Custom Heat Molded Multidensity Innersoles Dx: IDDM/PVD(E10.51), Hammertoe Foot Deformity, B/L(M20.41,M20.42), Preulcerative Skin Lesion(s)(L85.1) Wear Daily; Duration: 365 days Active Zetia Not-Taking Sulfamethoxazole-TMP DS Not-Taking Baclofen Not-Taking Metoprolol Succinate ER Not-Taking amLODIPine Besylate 5mg Active [employer] Unifine Pentips Plus Not-Taking Aspirin 81 MG Orally Active traZODone HCl 100 MG Orally Once a day Active Losartan Potassium 100 MG Orally Once a day Active Citalopram Hydrobromide 40 MG Orally Once a day Acti ve Atorvastatin Calcium 20 MG Orally Once a day Active ARIPiprazole 5 MG 1 tablet Orally Once a day Not-Taking Diphenoxylate-Atropin e Not-Taking Vitamin D 1000 UNIT Orally Once a day Not-Taking Metamucil prn Not-Taking FreeStyle Lite Test Not-Taking Fiber Not-Taking Aspercreme 10 % 1 application as needed Externally Four times a day; Duration: 30 days 07/22/2022 Active Cefpodoxime Proxetil Active Tylenol 500mg prn Active Trulicity 1.5 MG/0.5ML Subcutaneous Active Ammonium Lactate 12 % 1 application to affected area Externally to feet Twice a day; Duration: 30 days Active Cholestyramine Not-T aking Liquid Calcium with D3 Not-Taking Lipitor Not-Taking Doxycycline Monohydrate Not-Taking Fiber-Lax Not-Taking Immunizations Vaccine Route Administration Date Status Comme nts Influenza Unknown 03/29/2016 Administered Influenza Unknown 08/18/2016 Administered Influenza Unknown 08/15/2017 Administered Influenza Unknown 09/28/2018 Administered Influenza Unknown 08/05/2021 Administered Influenza Unknown 08/14/2024 Administered Social History Tobacco Use: Social History [...] Problem Acquired hammer toe of right foot (96476566249490 05) Other hammer toe(s) (acquired), right foot (M20.41) Active confirmed Response to treatment,I mprovement Problem Acquired hammer toe of left foot (28549782254494 03) Other hammer toe(s) (acquired), left foot (M20.42) Active confirmed Response to treatment,I mprovement Problem Peripheral circulatory disorder associated with type 1 diabetes mellitus (448196406) Type 1 diabetes mellitus with diabetic peripheral angiopathy without gangrene (E10.51) Active confirmed Vital Signs Blood pressure diastolic 65 mm Hg 06/21/2025 Height 5 ft 3 in in 06/21/2025 Blood pressure systolic 130 mm Hg 06/21/2025 Weight 179 lbs 06/21/2025 BMI 31.7 kg/m2 06/21/2025 Procedures Procedure Date Ordered Date Performed Result Body Sit e 24587-BJGBWHX NAIL, 6 OR MORE 08/31/2024 N/A 59664-DIBR SKIN LESIONS, OVER 4 08/31/2024 N/A 24932-YWLUFIP NAIL, 6 OR MORE 12/07/2024 N/A 42240-NECG SKIN LESIONS, OVER 4 12/07/2024 N/A 62343-RYVJQXZ NAIL, 6 OR MORE 03/15/2025 N/A 11759-JOUO SKIN LESIONS, OVER 4 03/15/2025 N/A 56668-AEPLOXC NAIL, 6 OR MORE 06/21/2025 N/A 35346-ZNRX SKIN LESIONS, OVER 4 06/21/2025 N/A Encounters Encounter Location Date Provider [facility] [address] 08/31/2024 Pankaj Hoff Type 1 diabetes mellitus with diabetic peripheral angiopathy without gangrene E10.51 ; Tinea unguium B35.1 ; Pain in right toe(s) M79.674 and Pain in left toe(s) M79.675 [facility] [address] 12/07/2024 Pankaj Hoff Type 1 diabetes mellitus with diabetic peripheral angiopathy without gangrene E10.51 ; Tinea unguium B35.1 ; Pain in right toe(s) M79.674 and Pain in left toe(s) M79.675 [facility] [address] 03/15/2025 Pankaj Hoff Type 1 diabetes mellitus with diabetic peripheral angiopathy without gangrene E10.51 ; Tinea unguium B35.1 ; Pain in right toe(s) M79.674 ; Pain in left toe(s) M79.675 ; Other hammer toe(s) (acquired), right foot M20.41 and Other hammer toe(s) (acquired), left foot M20.42 [facility] [address] 06/21/2025 Pankaj Hoff Type 1 diabetes mellitus [...] E10.51) 03/15/2025 Tinea unguium (ICD-10 - B35.1) 06/21/2025 Type 1 diabetes mellitus with diabetic peripheral angiopathy without gangrene (ICD-10 - E10.51) 06/21/2025 Tinea unguium (ICD-10 - B35.1) 08/31/2024 Pain in right toe(s) (ICD-10 - M79.674) 03/15/2025 Pain in right toe(s) (ICD-10 - M79.674) 06/21/2025 Pain in right toe(s) (ICD-10 - M79.674) 12/07/2024 Pain in right toe(s) (ICD-10 - M79.674) 03/15/2025 Pain in left toe(s) (ICD-10 - M79.675) 12/07/2024 Pain in left toe(s) (ICD-10 - M79.675) 08/31/2024 Pain in left toe(s) (ICD-10 - M79.675) 06/21/2025 Pain in left toe(s) (ICD-10 - M79.675) 03/15/2025 Other hammer toe(s) (acquired), right foot (ICD-10 - M20.41) Patient Educated with: DIABETIC FOOT CARE INSTRUCTIONS.p df (DIABETIC FOOT CARE INSTRUCTIONS.p df) 03/15/2025 Other hammer toe(s) (acquired), left foot (ICD-10 - M20.42) 06/21/2025 Xerosis of skin (ICD-10 - L85.3) Plan Of Treatment Pending Test Test Name Order Date 14104-UHGZEZX NAIL, 6 OR MORE 03/29/2016 28667-NMWFMVC NAIL, 6 OR MORE 06/30/2016 88819-TSLMRLS NAIL, 6 OR MORE 09/29/2016 45068-ITZULMC NAIL, 6 OR MORE 01/12/2017 59273-UQWDCSM NAIL, 6 OR MORE 04/14/2017 19281-DWMPFGU NAIL, 6 OR MORE 07/14/2017 45920-DCCYGCB NAIL, 6 OR MORE 10/13/2017 46997-VQEMNGK NAIL, 6 OR MORE 01/12/2018 89650-EGAGWII NAIL, 6 OR MORE 04/05/2018 18713-ICUYDWG NAIL, 6 OR MORE 06/28/2018 77434-ODJRIXG NAIL, 6 OR MORE 09/28/2018 38811-PRUIHGX NAIL, 6 OR MORE 12/28/2018 78505-CFCUFTM NAIL, 6 OR MORE 05/03/2019 85233-BRQTJDO NAIL, 6 OR MORE 08/13/2019 17037-JYMCBUS NAIL, 6 OR MORE 11/22/2019 04507-XLTXLEI NAIL, 6 OR MORE 03/10/2020 83769-QHQOAYY NAIL, 6 OR MORE 06/25/2020 79480-MGODDBS NAIL, 6 OR MORE 10/02/2020 79643-LFIPEWZ NAIL, 6 OR MORE 01/08/2021 37977-HYHJTLX NAIL, 6 OR MORE 04/02/2021 58217-OIKYSPS NAIL, 6 OR MORE 08/10/2021 03891-KJIKKXE NAIL, 6 OR MORE 10/19/2021 28817-XOLLHBV NAIL, 6 OR MORE 01/20/2022 16833-PTOAWFW NAIL, 6 OR MORE 04/22/2022 11496-BPCRUGN NAIL, 6 OR MORE 07/22/2022 22262-OHYASYM NAIL, 6 OR MORE 10/28/2022 75938-RTFTYPI NAIL, 6 OR MORE 01/24/2023 35000-NRIWNNU NAIL, 6 OR MORE 03/30/2023 44549-DXPJGNU NAIL, 6 OR MORE 06/06/2023 10391-PXWJUNG NAIL, 6 OR MORE 08/15/2023 62929-AWAITEL NAIL, 6 OR MORE 10/24/2023 27545-AHCLZCK NAIL, 6 OR MORE 03/27/2024 77333-MHRRREG NAIL, 6 OR MORE 06/05/2024 88954-GMHBKMD NAIL, 6 OR MORE 08/31/2024 35343-XNBUJWV NAIL, 6 OR MORE 12/07/2024 67422-FSOAVQP NAIL, 6 OR MORE 03/15/2025 08187-JTVROEL NAIL, 6 OR MORE 06/21/2025 00790-URZQ SKIN LESIONS, OVER 4 06/21/20 25392-LMIQ SKIN LESIONS, OVER 4 03/15/20 77883-EPCS SKIN LESIONS, OVER 4 12/07/19 31457-IMIB SKIN LESIONS, OVER 4 08/31/20 99809-GEZQ SKIN LESIONS, OVER 4 06/05/20 24 74365-FHAQ SKIN LESIONS, OVER 4 03/27/20 47888-KDBF SKIN LESIONS, OVER 4 10/24/20 75911-WADG SKIN LESIONS, OVER 4 08/15/20 61277-IKNN SKIN LESIONS, OVER 4 06/06/20 10292-QWZB SKIN LESIONS, OVER 4 03/30/20 06310-PNRL SKIN LESIONS, OVER 4 01/25/20 96994-VMSV SKIN LESIONS, OVER 4 10/28/20 94252-ZZRX SKIN LESIONS, OVER 4 07/22/20 91298-UXJX SKIN LESIONS, OVER 4 04/22/20 22 61629-ZETM SKIN LESIONS, OVER 4 01/21/20 22 43762-PTTS SKIN LESIONS, OVER 4 10/19/20 21 99180-KLHJ SKIN LESIONS, OVER 4 08/10/20 21 21021-ZVVY SKIN LESIONS, OVER 4 04/02/20 21 25087-ZBJM SKIN LESIONS, OVER 4 01/08/20 21 49409-HTQH SKIN LESIONS, OVER 4 10/02/20 20 50013-ITAN SKIN LESIONS, OVER 4 06/25/20 20 56996-OIMT SKIN LESIONS, OVER 4 03/10/20 20 73628-ABDG SKIN LESIONS, OVER 4 11/22/19 15792-LWHF SKIN LESIONS, OVER 4 08/13/20 19 80089-SWBJ SKIN LESIONS, OVER 4 05/03/20 19 09382-TFEG SKIN LESIONS, OVER 4 12/28/19 19 89082-UHXQ SKIN LESIONS, OVER 4 09/28/20 18 08774-GRQK SKIN LESIONS, OVER 4 06/28/20 18 43107-LNUR SKIN LESIONS, OVER 4 04/05/20 18 37410-UHSX SKIN LESIONS, OVER 4 01/13/20 18 33859-HILV SKIN LESIONS, OVER 4 10/13/20 17 14925-OTDG SKIN LESIONS, OVER 4 07/14/20 17 34385-SYDT SKIN LESIONS, OVER 4 01/13/20 17 19457-XCKA SKIN LESIONS, OVER 4 04/14/20 17 68088-XZSY SKIN LESIONS, OVER 4 09/29/20 16 35356-QHTF SKIN LESIONS, OVER 4 06/30/20 16 40463-RXTE SKIN LESIONS, OVER 4 03/29/20 16 Next Appt Details Provider Name:Pankaj Hoff , 10/08/2025 02:00:00 PM, [address] [facility], [place], [address], Insurance Providers Payer Name Payer Address Payer Phone Subscriber Number Group Number Insured Name Patient Relationship to Insured Coverage Start Date Coverage End Date [facility] [employer] Claims [address] [place] [id number] Jana Lindo Self - patient is the insured Medical (General) History Medical History History ICD Code Angina Arthritis asthma Back,Hip,and Knee pain Cataracts Dementia Depression Diabetes mellitus Gout Headaches High blood pressure Stroke Cholesterol COPD Surgical History Surgery Date(Month/Year) colon [facility] [place] Hospital[place] Reason Date[place] [facility] [place] [facility] [place], [place] [facility] [place] 06[place]07[place]20
== END 2025-08-08 10:15 | disposition home or self-care (01) ==
LOC: HO.XRAY 10:14
PROVIDERS: PCP Internal Medicine Geriatric Medicine; Visit Provider Emergency Medicine
DX: M54.2 Cervicalgia (principal); M54.9 Dorsalgia, unspecified
CPT/HCPCS: 72040; 72072

== ENCOUNTER → 2025-08-08 10:24 | Outpatient (BNV) | payer OTHER, SELFPAY | PROVIDERS: PCP Internal Medicine Geriatric Medicine; Visit Provider Radiology Diagnostic Radiology | DX: M54.2 Cervicalgia (principal); M51.34 Other intervertebral disc degeneration, thoracic region | CPT/HCPCS: 72040; 72072 ==

== ENCOUNTER 2025-08-14 14:37 | Outpatient (REF) | payer OTHER, SELFPAY ==
--- OUTSIDE RECORDS SUMMARY | 2025-08-14 15:49 | XMS_ITS | Clinical Summary ---
Author Organization [employer] Address [address] [facility] 7[address] [place] [address] Care Team Providers Care Tank Filler Name Role Phone Name, Elvis IZQUIERDO Primary Care Provider [phone] Allergies No known active allergies Medications albuterol [...] 2 025 Active atorvastatin (Lipitor) 20 MG tabletIndication s:Hypertension, unspecified type TAKE 1 TABLET BY MOUTH EVERY MORNING 90 tablet 2 025 Active traZODone (Desyrel) 100 MG tabletIndication s:Primary hypertension TAKE 1 TABLET BY MOUTH AT BEDTIME AFTER A MEAL 30 tablet 5 Active carvedilol (Coreg) 3.125 MG tablet TAKE [...] ications:Type 2 diabetes mellitus with unspecified complications (HCC) INJECT ONE PEN (= 3MG) SUBCUTANEOUSLY ONCE A WEEK DIRECTED 2 mL Active empagliflozin (Jardiance) 10 MG Take 1 tablet (10 mg) by mouth Once per day. 30 tablet 025 2025 Active cetirizine (ZyrTEC) 10 MG tablet TAKE 1/2 TABLET BY MOUTH EVERY DAY 15 tablet Active cholecalciferol VITAMIN D (Vitamin D-3) 50 MCG (1999 UT) tabletIndication s:Vitamin D deficiency TAKE 1 TABLET BY MOUTH EVERY MORNING 90 tablet Active Aspirin Low Dose 81 MG EC tabletIndication s:Hypertension, unspecified type TAKE 1 TABLET BY MOUTH EVERY MORNING 90 tablet 1 025 Active amLODIPine (Norvasc) 2.5 MG tabletIndication s:Primary hypertension TAKE 1 TABLET BY MOUTH EVERY MORNING 90 tablet 1 025 Active amLODIPine (Norvasc) 2.5 MG tabletIndication s:Primary hypertension TAKE 1 TABLET BY MOUTH EVERY MORNING 90 tablet 1 025 2024 Discontinued Aspirin Low Dose 81 MG EC tabletIndication s:Hypertension, unspecified type TAKE 1 TABLET BY MOUTH EVERY MORNING 90 tablet 1 025 2024 Discontinued cholecalciferol (Vitamin D-3) 50 MCG (1999) tabletIndication s:Vitamin D deficiency Take 1 tablet once daily 90 tablet 025 2024 Discontinued Active Problems Problem Noted Date [...] High serum creatinine 03/13/2024 COPD with asthma (CMS/HCC) 03/13/2024 Assessment & Plan (05/08/2025 9:45 AM EDT): stable Edema 07/12/2023 Type 2 diabetes mellitus with diabetic nephropat hy 07/12/2023 Essential hypertension 07/12/2023 Acute thoracic back pain 12/12/2022 Hip pain 12/12/2022 D-dimer, elevated 12/12/2022 Fall 12/12/2022 Injury of right hand 12/12/2022 Neuroleptic-induced tardive dyskinesia Shoulder pain 12/12/2022 Hypertension 12/02/2022 Hemorrhoids 12/02/2022 Stage 3 chronic kidney disease (CMS/HCC) 020 Assessment & Plan (05/08/2025 9:45 AM EDT): [...] mellitus type 2, uncontrolled 6 Morbid obesity ([facility]) 02/06/2016 Obstructive sleep apnea syndrome 04/05/2013 Gastroesophageal reflux disease 07/11/2012 Hyperlipidemia 07/11/2012 Osteoarthritis of knee 07/11/2012 Steatosis of liver 07/11/2012 Depressive disorder 07/11/2012 Diverticular disease 07/11/2012 Gallbladder calculus 07/11/2012 Osteopenia 07/11/2012 Tricuspid valve regurgitation 07/11/2012 Overview (05/08/2025): Trace 2022 echo Urinary incontinence 07/11/2012 Encounters Date Type Department Care Team Description 08/14/2025 Telephone [facility] [address] [place] [address] NameElvis MD Appointment Request 08/13/2025 Refill [facility] [address] [place] [address] NameElvis MD Hypertension, unspecified type; Primary hypertension 08/09/2025 Results Follow-Up [facility] [address] [place] [address] Luis Carter MD XR Thoracic Spine 3 Views 08/08/2025 Orders Only [facility] [address] [place] [phone] Luis Carter MD 08/06/2025 10:40 AM EDT Office Visit [facility] [address] [place] [address] Luis Carter MD Injury of head, initial encounter (Primary Dx); Intractable acute post-traumatic headache; Neck pain; Upper back pain; Fall, initial encounter; Chest pain, unspecified type 08/06/2025 Telephone [facility] [address] [place] [address] Elvis Daley MD R/S PCP APPT 08/06/2025 Travel 08/06/2025 Telephone [facility] [address] [place] [address] Elvis Daley MD Nurse Triage 08/01/[address] [address] David Pyle MA chart prep 07/26/[address] [address] Elvis Daley MD Vitamin D deficiency 06/14/[address] [address] Elvis Daley MD 06/10/2025 Orders Only GENERIC EXTERNAL DATA DEPARTMENT Provider, Generic External Data 2025 9:30 AM EDT Office Visit [facility] [address] [place] [address] Cathi Castro MD Preop examination (Primary Dx); DM (diabetes mellitus), type 2 with peripheral vascular complications ([facility]) 2025 Travel 05/27/2025 Orders Only GENERIC EXTERNAL DATA DEPARTMENT Provider, Generic External Data from Last 3 Months Immunizations Immunization Administration [...] Sign Reading Time Taken Comments Blood Pressure 138/74 08/06/2025 10:45 AM EDT Pulse 85 08/06/2025 10:45 AM EDT Temperature 36.8 C (98.2 F) 08/06/2025 10:45 AM EDT Respiratory Rate 18 08/06/2025 10:45 AM EDT Oxygen Saturation 98% 08/06/2025 10:45 AM EDT Inhaled Oxygen Concentration - - Weight 83.3 kg (183 lb 9.6 oz) 08/06/2025 10:45 AM EDT Height 157.5 cm (5' 2 ) 2025 9:45 AM EDT Body Mass Index 33.58 2025 9:45 AM EDT Plan of Treatment Upcoming Encounters Date Type Department Care Team (Late st Contact Info) Description 10/22/2025 10:00 AM EST Office Visit [facility] [address] [place] [phone] Name, MD Elvis [address] [place] [phone] Health Maintenance Due Date Last Done Comments Hepatitis A Vaccines (1 of 2 - Risk 2-dose series) 1961 Hepatitis B Vaccines (1 of 3 - Risk 3-dose series) 2002 COVID-19 Vaccine ( season) 2025 09/21/2024, 03/15/2024, 10/05/2022, Additional history exists Influenza Vaccine (#1) 2025 , 12/02/2022, 08/05/2021, Additional history exists Diabetes: Hemoglobin A1C 07/17/2025 025, 09/21/2024, 07/02/2024, Additional history exists Diabetes: Foot Exam 09/21/2025 09/21/2024, 09/21/2024, 09/21/2024, Additional history exists Lipid Panel 10/01/2025 10/01/2024, 08, 10/28/2022, Additional history exists DTaP/Tdap/Td Vaccines (2 - Td or Tdap) 02/05/2026 02/06/2016, 02/20/2004 SDOH Screening 04/16/2026 04/16/2025 Alcohol/Substance Use Screening 05/08/2026 05/08/2025 Depression Screening 05/08/2026 05/08/2025, 05/08/20 Eye Exam 07/10/2026 07/10/2025, 04/14/2023 Tobacco Screening 08/06/2026 08/06/2025 Pneumococcal Vaccine: 50+ Years Completed 06/29/2018, 08/22/2015, 02/21/2002 Zoster Vaccines Completed 02/15/2023, 020 11/2022, 08/22/2015 RSV Patients and Patients Aged [...] Author Blood Pressure < 140/90 Blood Pressure 138/74( 025 10:45 AM EDT) No Rosa Haile, Arthur Procedures Procedure Name Priority Date/Time Associated Diagnosis Comments XR THORACIC SPINE 3 VIEWS Routine 08/08/2025 10:40 AM EDT XR CERVICAL SPINE 3V Routine 08/08/2025 10:32 AM EDT ECG 12-LEAD Routine 08/06/2025 12:11 PM EDT Chest pain, unspecified type ALBUMIN, RANDOM URINE W/CREATININE Routine 06/24/2025 9:35 AM EDT Diabetes mellitus type 2 with complications (CMS/HCC) BASIC METABOLIC PANEL Routine 06/24/2025 9:35 AM EDT Diabetes mellitus type 2 with complications (CMS/HCC) GLUCOSE, WHOLE BLOOD Routine 06/10/2025 7:59 AM EDT POCT GLUCOSE Routine 2025 9:48 AM EDT DM (diabetes mellitus), type 2 with peripheral vascular complications (CMS/HCC) GLUCOSE, WHOLE BLOOD Routine 05/27/2025 10:33 AM EDT POCT GLYCATED HEMOGLOBIN, TOTAL Routine 04/16/2025 3:11 PM EDT Diabetes mellitus type 2 with complications (CMS/HCC) LIPID PANEL, STANDARD Routine 10/01/2024 12:00 PM EST Diabetes mellitus type 2 with complications (CMS/HCC) DIABETES EYE EXAM Routine 04/14/2023 from Last 3 Months or Most Recently Relevant to Health Maintenance Results * XR Thoracic Spine 3 Views (08/08/2025 10:40 AM EDT) Anatomical Region Laterality Modality Spine, T-spine Radiographic Wendi ging 08/08/2025 10:4 0 AM EDT Narrative 08/08/2025 10:56 AM EDT [address] [address] XRay Report Signed Patient: Guicho KimtizJana MR#: [id number] : 1940 Acct:[id number] Age/Sex: 85 / F ADM Date: 08/08/25 Loc: D[facility] Attending Dr: Luis Carter MD Ordering Physician: LUIS CARTER MD Date of Service: 08/08/25 Procedure(s): XR thoracic spine 3V Accession Number(s): [id number] cc: LUIS CARTER MD; Name,Elvis IZQUIERDO Reason for Exam: fall, has posterior neck and upper back pain EXAMINATION: XR THORACIC SPINE CLINICAL INFORMATION: fall, has posterior neck and upper back pain COMPARISON: None available. TECHNIQUE: 3 views of the thoracic spine were obtained. FINDINGS: There is mild to moderate disc space narrowing, most advanced in the thoracic spine. There are anterior osteophytes. There is endplate sclerosis in the midthoracic spine. There is no listhesis. XR/XR thoracic spine 3V IMPRESSION: Mild to moderate degenerative disc disease is most advanced in the midthoracic spine. Electronically signed by: Ketan Ingram MD 08/08/2025 10:53 AM EDT Dictated By: Ketan Ingram MD Signed By: <Electronically signed by Ketan Ingram MD in OV> 08/08/25 1053 DD/ 1040 TD/TT: 08/08/25 1044 Trucker Hand: Procedure Note Donotuseinterpreter, Image - 08/08/2025 [place] [address] XRay Report Signed Patient: Jana Chowdhury [facility]#: [id number] : 1940cct:[id number] Age/Sex: 85 / FADM Date: 08/08/25 Loc: DRA[facility] Attending Dr: Luis Carter MD Ordering Physician: LUIS CARTER MD Date of Service: 08/08/25 Procedure(s): XR thoracic spine 3V Accession Number(s): [id number] cc: LUIS CARTER MD; Name,Elvis IZQUIERDO Reason for Exam: fall, has posterior neck and upper back pain EXAMINATION: XR THORACIC SPINE CLINICAL INFORMATION: fall, has posterior neck and upper back pain COMPARISON: None available. TECHNIQUE: 3 views of the thoracic spine were obtained. FINDINGS: There is mild to moderate disc space narrowing, most advanced in the thoracic spine. There are anterior osteophytes. There is endplate sclerosis in the midthoracic spine. There is no listhesis. XR/XR thoracic spine 3V IMPRESSION: Mild to moderate degenerative disc disease is most advanced in the midthoracic spine. Electronically signed by: Ketan Ingram MD 08/08/2025 10:53 AM EDT RP Dictated By: Ketan Ingram MD Signed By: <Electronically signed by Ketan Ingram MD in OV> 08/08/25 1053 DD/ 1040 TD/TT: 08/08/25 1044 Trucker Hand: Luis Carter MD IMG XR PROCEDURES Final Result * XR CERVICAL SPINE 3V (08/08/2025 10:32 AM EDT) Anatomical Region Laterality Modality Abdomen Radiographic Wendi ging 08/08/2025 10:3 2 AM EDT Narrative 08/08/2025 10:50 AM EDT [place] [address] XRay Report Signed Patient: Jana Chowdhury MR#: [id number] : 1940 Acct:[id number] Age/Sex: 85 / F ADM Date: 08/08/25 Loc: D[facility] Attending Dr: Luis Carter MD Ordering Physician: LUIS CARTER MD Date of Service: 08/08/25 Procedure(s): XR cervical spine 3V Accession Number(s): [id number] cc: LUIS CARTER MD; Name,Elvis IZQUIERDO Reason for Exam: NECK PAIN EXAMINATION: XR CERVICAL SPINE CLINICAL INFORMATION: NECK PAIN FINDINGS: There is straightening of the cervical lordosis. There is no prevertebral soft tissue swelling. C2-3: Unremarkable C3-4: There is mild retrolisthesis. C4-5: There is mild disc space narrowing and endplate osteophytes. C5-6: There is mild disc space narrowing and endplate osteophytes. C6-7: Unremarkable C7-T1: Obscured by overlying soft tissues, grossly unremarkable. XR/XR cervical spine 3V IMPRESSION: There is straightening of the expected cervical lordosis. This can be idiopathic, but can also be related to degenerative change, muscle spasm, or posterior soft tissue injury. Electronically signed by: Ketan Ingram MD 08/08/2025 10:48 AM EDT RP Dictated By: Ketan Ingram MD Signed By: <Electronically signed by Ketan Ingram MD in OV> 08/08/25 1048 DD/ 1032 TD/TT: 08/08/25 1044 Trucker Hand: Procedure Note Donotuseinterpreter, Image - 08/08/2025 [place] [address] XRay Report Signed Patient: Jana Chowdhury MMR#: [id number] : 2Acct:[id number] Age/Sex: 85 / FADM Date: 08/08/25 Loc: [facility] Attending Dr: Luis Carter MD Ordering Physician: LUIS CARTER MD Date of Service: 08/08/25 Procedure(s): XR cervical spine 3V Accession Number(s): [id number] cc: LUIS CARTER MD; Name,Elvis IZQUIERDO Reason for Exam: NECK PAIN EXAMINATION: XR CERVICAL SPINE CLINICAL INFORMATION: NECK PAIN FINDINGS: There is straightening of the cervical lordosis. There is no prevertebral soft tissue swelling. C2-3: Unremarkable C3-4: There is mild retrolisthesis. C4-5: There is mild disc space narrowing and endplate osteophytes. C5-6: There is mild disc space narrowing and endplate osteophytes. C6-7: Unremarkable C7-T1: Obscured by overlying soft tissues, grossly unremarkable. XR/XR cervical spine 3V IMPRESSION: There is straightening of the expected cervical lordosis. This can be idiopathic, but can also be related to degenerative change, muscle spasm, or posterior soft tissue injury. Electronically signed by: Ketan Ingram MD 08/08/2025 10:48 AM EDT RP Dictated By: Ketan Ingram MD Signed By: <Electronically signed by Ketan Ingram MD in OV> 08/08/25 1048 DD/ 1032 TD/TT: 08/08/25 1044 Trucker Hand: Luis Carter MD IMG XR PROCEDURES Final Result * (ABNORMAL) ECG 12-LEAD (08/06/2025 12:11 PM EDT) Luis Wilkerson MD - 08/06/2025 12:11 PM EDT Luis Carter MD 08/06/2025 4:33 PM ECG 12 lead Date/Time: 08/06/2025 12:11 PM Performed by: Luis Carter MD Authorized by: Luis Carter MD Previous ECG: Previous ECG: Unavailable Interpretation: Interpretation: abnormal Details: MAR Rate: ECG rate: 62 ECG rate assessment: normal Rhythm: Rhythm: sinus rhythm QRS: QRS axis: Normal QRS intervals: Normal QRS conduction: normal ST segments: ST segments: Normal T waves: T waves: normal Q waves: Abnormal Q-waves: not present Other findings: Other findings: LAE Luis Carter MD ECG ORDERABLES Edited Result - Final * Albumin, Random Urine W/Creatinine (06/24/2025 9:35 AM EDT) Creatinine, Urine 56.26 mg/dL [facility] Microalbumin Urine <5.0 mg/L [facility] Microalbum Creatinine Ratio Ur TNP <30 ug/mg cr [facility] Comment:Unable to calculate albumin/creatinine ratio due to lowmicroalbumin or creatinine result. Urine (Urine, Random) 06/24/2025 9:35 AM EDT 06/24/2025 11:14 AM EDT Elvis Daley MD LAB URINE ORDERABLES Final Resul t [facility] [address] [place] [address] [phone] * (ABNORMAL) Basic Metabolic Panel (06/24/2025 9:35 AM EDT) Sodium 144 135 - 145 mmol/L [facility] Potassium 4.6 3.3 - 5.1 mmol/L [facility] Chloride 108 96 - 108 mmol/L [facility] Carbon Dioxide 31(H) 22 - 29 mmol/L [facility] Anion Gap 10(L) 12 - 20 [facility] Urea Nitrogen (BUN) 18(H) 9 - 16 mg/dL [facility] Creatinine, Serum 1.43(H) 0.5 - 1.4 mg/dL [facility] Estimated Glomerular Filt Rate 35 [facility] Comment:Chronic Kidney Disea se: Estimated GFR < 60 mL/min/1.38b3Barxfw Kidney Disease: Estimated GFR < 15 mL/min/1.73m2 Glucose 92 60 - 115 mg/dL [facility] Calcium 9.4 8.4 - 10.2 mg/dL [facility] Blood Venous blood specimen / Unknown 06/24/2025 9:35 AM EDT 06/24/2025 11:22 AM EDT us Elvis Daley MD LAB BLOOD ORDERABLES Final Resul t [facility] [address] [place] [address] [phone] * (ABNORMAL) Glucose, Whole Blood (06/10/2025 7:59 AM EDT) Only the most recent of2 resultswithin the time period is included. Glucose, Whole Blood 192(H) 60 - 115 mg/dL [facility] Comment:METER #: [id number] 06/10/2025 7:59 AM EDT 06/10/2025 8:02 AM EDT us Generic External Data Provider LAB BLOOD ORDERAB LES Final Result [facility] [address] [place] [address] [phone] * POCT Glucose (2025 9:48 AM EDT) Glucose Blood, POC 158 60 - 200 mg/dL Comment:fasting QC Media Lot # [id number] Lot# Expiration Date [id number] Blood Capillary blood specimen / Unknown 2025 [...] 12:00 PM EST) Triglycerides 74 <150 mg/dL [facility] Comment:Desirable Triglyceri de: less than 150 mg/dLBorderline High Triglyceride 150-199 mg/dLHigh Triglyceride: 200-499 mg/dLVery High Triglyceride: greater than or equal to 5OO mg/dL Cholesterol 168 <200 mg/dL [facility] Comment:Desirable Cholestero l: less than 200 mg/dLBorderline High Cholesterol: 200-239 mg/dLHigh Cholesterol: greater than 239 mg/dL LDL Cholesterol Calculated 74 <100 mg/dL [facility] Comment:Desirable LDL: less than 100 mg/dLNear Optimal/Above Optimal LDL: 110- 129 mg/dLBorderline High LDL: 130-159 mg/dLHigh LDL: 160-189 mg/dLVery High LDL: greater than or equal to 190 mg/dL HDL Cholesterol 80 >40 mg/dL [facility] Comment:Desirable HDL: great er than 40 mg/dL Note: This HDL assay may give artificially low results in patients with liver disease. Blood Venous blood specimen / Unknown 10/01/2024 12:00 PM EST 10/01/2024 1:16 PM EST us Elvis Daley MD LAB BLOOD ORDERABLES Final Resul t [facility] [address] [place] [address] [phone] * Diabetes Eye Exam (04/14/2023) [facility] Signature Eye Exam Normal Normal Elvis Daley MD HEALTH MAINTENANCE Final Result from Last 3 Months or Most Recently Relevant to Health Maintenance Insurance * Guarantor: Jana Chowdhury Account Type Relation to Patient Date of Phone Billing Address Personal/Family Self [address] [place] [address] [facility] [employer] (O D-SNP) AISHA AUGUSTE [id number] * Guarantor: Jana Chowdhury Account Type Relation to Patient Date of Phone Billing Address Personal/Family Self [address] [place] [address] * Guarantor: Jana Chowdhury Account Type Relation to Patient Date of Phone Billing Address Personal/Family Self [address] [place] [address] * Guarantor: Jana Chowdhury Account Type Relation to Patient Date of Phone Billing Address Personal/Family Self [address] [place] [address] Advance Directives Documents on File Type Date Recorded 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
--- OUTSIDE RECORDS SUMMARY | 2025-08-14 15:49 | XMS_ITS | Encounter Summary ---
Author Organization [employer] Address [address] [facility] [address] [place] [address] Care Team Providers Care Environmental Intern Name Role Phone Name, Elvis IZQUIERDO Primary Care Provider [phone] Reason for Visit * Reason Onset Date Comments Nurse Triage 08/06/2025 Encounter Details Date Type Department Care Team ([facility] st Contact Info) Description 08/06/2025 Telephone [facility] [address] [place], [place] [phone] Name, MD Elvis [address] [place] [address] Nurse Triage Social History Tobacco Use Types Packs/Day Years [...] encounter Miscellaneous Notes * Telephone Encounter - Ashley Baltazar RN - 08/06/2025 9:04 AM EDT Called pt. Grand Daughter. Pt. Has been having dizzy spells lately. Pt. Has been unsteady on gait lately. Pt. Went to use bathroom last night and she fell forward and bumped the the top middle of herhead. The bump is the size of a quarter. No vomiting no loss of consciousness at time of fall. Alert and oriented at the time of fall and alert and oriented at present. No laceration noted. Pt. Has headache, upper right shoulder pain. Pt. Declines going to ED. Advised granddaughter to bring pt. To [facility] walk in for evaluation and possible Xray. Pt. Missed appointment. With PCP last week and needs a FU appointment. No upcoming availability in PCP schedule so I will send this note to Blue team nurses to discuss with PCP where pt. Can be put into PCP's schedule. Protocol Used: Falls and Falling (Adult) Protocol-Based Disposition: Go to Office or Video Visit Now- Declines ED. Will come to [facility] walk in today. Positive Triage Question: * Moderate weakness (e.g., interferes with work, school, normal activities) and new-onset or getting worse * All higher-acuity triage questions were negative Care Advice Discussed: * Reassurance and Education - Direct Blow (Minor Bruise, Contusion) * Use a Cold Pack for Pain, Swelling, or Bruising * Use Heat on Area After 48 Hours * Telephone Encounter - Sade Fermin - 08/06/2025 8:52 AM EDT Symptom: Fall Outcome: Transfer to a nurse or provider NOW! Reason: Was knocked out (was unconscious) The caller accepted this outcome. Tc from pt Daughter requesting an XR pt palomino not want to go to ER, contact daughter at [phone] documented in this encounter Plan of Treatment Upcoming Encounters Date Type Department Care Team (Late st Contact Info) Description 10/22/2025 10:00 AM EST Office Visit [facility] [address] [place] [address] Name, MD Elvis [address] [place] [address] documented as of this encounter Goals Goal Patient Goal Type Associated Problems Recent Progress Patient-Stated? Author Blood Pressure < 140/90 Blood Pressure 138/74( 025 10:45 AM EDT) No Rosa Haile, PharmD documented as of this encounter Visit Diagnoses Not on filedocumented in this encounter Additional Health Concerns Assessment Noted Time PHQ-9 Depression Total Score: 5 05/08/20 25 9:25 AM EDT documented as of this encounter Care Teams Environmental Intern Relationship Specialty Start Date End Date NameElvis MD [address] [place] [address] PCP - General Family Medicine 02/05/16 documented as of this encounter
--- OUTSIDE RECORDS SUMMARY | 2025-08-14 15:49 | XMS_ITS | Encounter Summary ---
Author Organization [employer] [facility] Address [address] [facility] 7[address] [place] [address] Care Team Providers Care Ambulatory Service Representative Name Role Phone Name, Elvis IZQUIERDO Primary Care Provider [phone] Reason for Visit * Reason Comments Med Refill Encounter Details Date Type Department Care Team (Late st Contact Info) Description 07/28/2023 Refill [facility] [address] [place] [address] [phone] Name, MD Elvis [address] [place] [address] [phone] Primary hypertension; Hypertension, unspecified type Social History [...] Description 10/22/2025 10:00 AM EST Office Visit [facility] [address] [place] [address] [phone] Name, MD Elvis [address] [place] [address] [phone] documented as of this encounter Visit Diagnoses Diagnosis Primary hypertension Unspecified essential hypertension Hypertension, unspecified type documented in this encounter Additional Health Concerns Assessment Noted Time PHQ-9 Depression Total Score: 11 023 9:33 AM EST documented as of this encounter Care Teams Ambulatory Service Representative Relationship Specialty Start Date End Date Name, MD Elvis [address] [place] [address] PCP - General Family Medicine 02/05/16 documented as of this encounter
--- OUTSIDE RECORDS SUMMARY | 2025-08-14 15:49 | XMS_ITS | Clinical Summary ---
Author Organization [facility], Address [address] [place] [address] [place] [address] Phone Care Team Providers Care Flatbed Press Operator Name Role Phone Name, Elvis IZQUIERDO Primary Care Provider [phone] Allergies No known active allergies Medications ARIPiprazole [...] AM EST) Hemoglobin A1C 7.0(H) (4.0-5.6) % [facility] Comment: MONITORING: In known diabetic patients, hemoglobin A1c targets should be discussed with health care provider. DIAGNOSTIC USE: The [place] Diabetes Association (ADA) and the World Health [...] Supplement 1 Testing performed or reported by [facility], a Service of [facility], [address] [place] [address] Shoaib Kidd MD, Assistant Terminal Manager Blood specimen (specimen) Venous blood / Unknown 12/19/2020 10:39 AM EST 12/19/2020 10:41 AM EST us Seamus Ham MD LAB BLOOD ORDERABLES Final Re sult [facility] from Last 3 Months or Most Recently Relevant to Health Maintenance Insurance Care Dual SNP ([id number]) Care Teams Flatbed Press Operator Relationship Specialty Start Date End Date Name, MD Elvis [address] [place] [address] [phone] PCP - General 09/18/19
--- OUTSIDE RECORDS SUMMARY | 2025-08-14 15:49 | XMS_ITS | Encounter Summary ---
Author Organization [facility], Address [address] [place] [address] Phone Care Team Providers Care Rivet Heater Name Role Phone Name, Elvis IZQUIERDO Primary Care Provider [phone] Encounter Details Date Type Department Care Team (Late st Contact Info) Description 03/31/2020 Orders Only [facility] [address] [place] [address] Raimundo Colunga MD Chronic kidney [...] hyperlipidemia documented in this encounter Care Teams Rivet Heater Relationship Specialty Start Date End Date Name, MD Elvis [address] [place] [address] PCP - General 09/18/19 documented as of this encounter
--- OUTSIDE RECORDS SUMMARY | 2025-08-14 15:49 | XMS_ITS | Encounter Summary ---
Author Organization [employer] Address [address] [facility] 7t [place] [address] Care Team Providers Care Tanning Wheel Operator Name Role Phone Name, Elvis IZQUIERDO Primary Care Provider [phone] Reason for Visit * Reason Onset Date Comments Results 08/09/2025 Encounter Details Date Type Department Care Team ([facility] st Contact Info) Description 08/09/2025 Results Follow-Up [facility] PEDS [address] [place], [place] [phone] Luis Carter MD [address] [place] [address] XR Thoracic Spine 3 Views Social History Tobacco Use Types Packs/Day Years [...] encounter Miscellaneous Notes * Telephone Encounter - Jojo Kahn RN - 08/10/2025 9:11 AM EDT Telephone call placed to pt's granddaughter/caregiver Ame on HIPAA regarding below results and POC. Informed XR showed no acute findings: no Fx or dislocation. Only thing seen was age-related wear and tear (degenerative changes). Ame verbalized understanding and denied having any further questions or concerns at this time. * Telephone Encounter - Cheri Simon RN - 08/09/2025 1:29 PM EDT TC placed to the pt granddaughter Ame and a VM was left to call back the pt regarding the result message below ----- Message from Luis Carter MD sent at 08/09/2025 1:09 PM EDT ----- Please notify patient or her granddaughter that x-rays of the thoracic and cervical spine were readas degenerative changes. There were no fractures or dislocations noted. Thank you Demetrio ----- Message ----- From: Interface, Ris Results In Sent: 08/08/2025 10:56 AM EDT To: Luis Carter MD documented in this encounter Plan of Treatment Upcoming Encounters Date Type Department Care Team (Late st Contact Info) Description 10/22/2025 10:00 AM EST Office Visit [facility] [address] [place] [address] Name, MD Elvis [address] [place] [address] documented as of this encounter Goals Goal [...] documented as of this encounter Care Teams Tanning Wheel Operator Relationship Specialty Start Date End Date NameElvis MD [address] [place] [address] PCP - General Family Medicine 02/05/16 documented as of this encounter
--- OUTSIDE RECORDS SUMMARY | 2025-08-14 15:49 | XMS_ITS | Encounter Summary ---
Author Organization [employer] Address [address] [facility] 7t [place] [address] Care Team Providers Care Solid Glass Rod Dowel Machine Operator Name Role Phone Name, Elvis IZQUIERDO Primary Care Provider [phone] Reason for Visit * Reason Comments Med Refill Encounter Details Date Type Department Care Team ([facility] st Contact Info) Description 08/13/2025 Refill [facility] MED & PEDS [address] [place], [place] [phone] Name, MD Elvis [address] [place] [address] Hypertension, unspecified type; Primary hypertension Social History Tobacco Use Types Packs/Day Years [...] Description 10/22/2025 10:00 AM EST Office Visit [facility] MEDICINE [address] [place] [address] NameElvis MD [address] [place] [address] documented as of this encounter Goals Goal Patient Goal Type Associated Problems Recent Progress Patient-Stated? Author Blood Pressure < 140/90 Blood Pressure 138/74( 025 10:45 AM EDT) No Rosa Haile, Arthur documented as of this encounter Visit Diagnoses Diagnosis Hypertension, unspecified type Primary hypertension Unspecified essential hypertension documented in this encounter Additional Health Concerns Assessment Noted Time PHQ-9 Depression Total Score: 5 05/08/20 25 9:25 AM EDT documented as of this encounter Care Teams Solid Glass Rod Dowel Machine Operator Relationship Specialty Start Date End Date Elvis Daley MD [address] [place] [id number] PCP - General Family Medicine 02/05/16 documented as of this encounter
--- OUTSIDE RECORDS SUMMARY | 2025-08-14 15:49 | XMS_ITS | Encounter Summary ---
Author Organization [employer] Address [address] [facility] 7t [place] [address] Care Team Providers Care Battery Builder Name Role Phone Name, Elvis IZQUIERDO Primary Care Provider [phone] Reason for Visit * Reason Onset Date Comments Appointment Request 08/14/2025 Encounter Details Date Type Department Care Team ([facility] st Contact Info) Description 08/14/2025 Telephone [facility] MEDICINE [address] [place] [address] Name, MD Elvis [address] [place] [address] Appointment Request Social History Tobacco Use Types Packs/Day Years [...] encounter Miscellaneous Notes * Telephone Encounter - Elvis Mckeon - 08/14/2025 3:14 PM EDT Tc from pt Granddaughter requesting an urgent apt due to pt feeling lumps on breast. They went to [facility] women center and they had stated that they cannot examine the pt until the PCP has Examine the pt. Pt will need a physical breast exam. Contact Granddaughter at [phone] documented in this encounter Plan of Treatment Upcoming Encounters Date Type Department Care Team (Late st Contact Info) Description 10/22/2025 10:00 AM EST Office Visit [facility] MEDICINE [address] [place] [address] Name, MD Elvis [address] [place] [address] documented as of this encounter Goals Goal Patient Goal Type Associated Problems Recent Progress Patient-Stated? Author Blood Pressure < 140/90 Blood Pressure 138/74( 025 10:45 AM EDT) No Rosa Haile RodD documented as of this encounter Visit Diagnoses Not on filedocumented in this encounter Additional Health Concerns Assessment Noted Time PHQ-9 Depression Total Score: 5 05/08/20 25 9:25 AM EDT documented as of this encounter Care Teams Battery Builder Relationship Specialty Start Date End Date Name, MD Elvis [address] [place] [address] PCP - General Family Medicine 02/05/16 documented as of this encounter
== END 2025-08-14 14:38 | disposition home or self-care (01) ==
LOC: HO.MAMMO 14:37
PROVIDERS: PCP Internal Medicine Geriatric Medicine; Visit Provider Internal Medicine Geriatric Medicine
DX: Z13.89 Encounter for screening for other disorder (principal)

== ENCOUNTER 2025-09-25 07:49 | Outpatient (REF) | payer OTHER, SELFPAY ==
--- OUTSIDE RECORDS SUMMARY | 2025-04-02 09:45 | XMS_ITS ---
Author Organization [facility] Address [address] [place] [address] Care Team Providers Care Vacuum Applicator Operator Name Role Phone Name Elvis IZQUIERDO Primary Care Provider UnavailPankaj Mg Unavailable [phone] Encounters Encounter Location Date Provider Diagnosis [address] [address] 04/02/2025 Pankaj Hoff Plan Of Treatment Next Appt Details Provider Name:Pankaj Hoff , 09/27/2025 12:15:00 PM, [address] [place], [address], Progress Notes * Jana MADSEN MDOB: 2 (85 yo F)Acc No.[id number]:04/02/2025 Progress Note Patient: Jana HARRELL Provider: Javier Hoff DPM :1940 A ge:84 Y S ex:Female Date:04/02/2025 Address:[address] [place] [address] [id number] Pcp:Elvis Daley MD Subjective: * Chief Complaints: * * Medical History: Objective: * Vitals: Assessment: Plan: * Treatment: * Images: * The named appointment provid er may or may not be the originator of this progress note, and it is not deemed complete until electronically signed by the appointment provider. Sign off status: Pending * Provider: Javier Hoff DPM Date: 04/02/2025 Generated for Autumn dumont/Jess/Brooklynn on: 1 11/25/2024 07:52 AM EST
--- NOTE | ~2025-09-25 | US_ITS ---
EXAMINATION: MM DIAGNOSTIC DIGITAL BREAST TOMOSYNTHESIS, BILATERAL Limited left breast ultrasound. CLINICAL INFORMATION: Left breast palpable lumps and pain upper outer quadrant and 12:00. COMPARISON: Mammography: Comparison is made with relevant prior exams. TECHNIQUE: Digital breast mammography with tomosynthesis is performed in both the craniocaudal and mediolateral oblique views along with computer-aided detection (CAD). FINDINGS: There are scattered areas of fibroglandular density. Right: There are no significant masses, abnormal calcifications, or other abnormalities. Left: 2 BB markers in the upper central upper outer breast middle depth without underlying abnormal finding at the place of patient's pain and palpable lumps. No suspicious calcifications or other abnormal findings. Targeted color Doppler ultrasound scanning in the left breast upper central breast upper outer quadrant in the areas of the patient's palpable lumps and pain 11 at 3:00 demonstrates normal fibroglandular breast tissue. There is no sonographic abnormal finding. Results are provided to the patient at time of visit by the technologist. US/US Breast LT Limited Mamm Only IMPRESSION: Right: Negative. Left: No mammographic or sonographic abnormal finding to account for the patient's left breast pain and palpable lumps. Recommend clinical evaluation follow-up. ASSESSMENT: BI-RADS Category 1: Negative RECOMMENDATION: 1 year F/U This patient's information was entered into a reminder system with a target due date for their next mammogram. Electronically signed by: Jessica Meier DO 09/25/2025 11:04 AM [facility]
--- OUTSIDE RECORDS SUMMARY | 2025-09-25 07:52 | XMS_ITS | Encounter Summary ---
Author Organization [facility], Address [address] [place] [address] Phone Care Team Providers Care Rehab Spec Name Role Phone Name, Elvis IZQUIERDO Primary Care Provider [phone] Encounter Details Date Type Department Care Team (Late st Contact Info) Description 03/31/2020 Orders Only [facility] [address] [place] [address] Raimundo Colunga MD Chronic kidney [...] hyperlipidemia documented in this encounter Care Teams Rehab Spec Relationship Specialty Start Date End Date Name, MD Elvis [address] [place] [address] PCP - General 09/18/19 documented as of this encounter
--- OUTSIDE RECORDS SUMMARY | 2025-09-25 07:52 | XMS_ITS | Clinical Summary ---
Author Organization [facility], Address [address] [place] [address] [place] [address] Phone Care Team Providers Care Registered Nurses Name Role Phone Name, Elvis IZQUIERDO Primary Care Provider [phone] Allergies No known active allergies Medications ARIPiprazole [...] AM EST) Hemoglobin A1C 7.0(H) (4.0-5.6) % [facility] Comment: MONITORING: In known diabetic patients, hemoglobin A1c targets should be discussed with health care provider. DIAGNOSTIC USE: The [place] Diabetes Association (ADA) and the World Health [...] Supplement 1 Testing performed or reported by [facility], a Service of [facility], [address] [place] [address] Shoaib Kidd MD, Cardiac Nurse Practitioner Blood specimen (specimen) Venous blood / Unknown 12/19/2020 10:39 AM EST 12/19/2020 10:41 AM EST us Seamus Ham MD LAB BLOOD ORDERABLES Final Re sult [facility] from Last 3 Months or Most Recently Relevant to Health Maintenance Insurance Care Dual SNP ([id number]) Care Teams Registered Nurses Relationship Specialty Start Date End Date Name, MD Elvis [address] [place] [address] [phone] PCP - General 09/18/19
--- OUTSIDE RECORDS SUMMARY | 2025-09-25 07:52 | XMS_ITS | Clinical Summary ---
Author Organization [employer] Address [address] [facility] 7t [place] [address] Care Team Providers Care Supply Specialist Name Role Phone Name, Elvis IZQUIERDO Primary Care Provider [phone] Allergies No known active allergies Medications albuterol [...] BLOOD PRESSURE DIRECTED 1 each 024 Active Diclofenac Sodium 1 % gel APPLY 2 GRAMS TOPICALLY AFFECTED AREA(S) THREE TIMES DAILY NEEDED FOR PAIN 100 g 1 024 Active Incruse Ellipta 62.5 MCG/ACT aerosol powder INHALE 1 PUFF BY MOUTH EVERY DAY AT THE SAME TIME RINSE MOUTH AFTER USING 30 each 11 025 Active gabapentin (Neurontin) 100 MG capsule TAKE 1 CAPSULE BY MOUTH AT BEDTIME 30 capsule 025 Active Fluticasone-Salm eterol 100-50 MCG/ACT aerosol powder [...] Once per day. 30 tablet 2025 Active cetirizine (ZyrTEC) 10 MG tablet [...] BY MOUTH EVERY MORNING 90 tablet 1 Active carvedilol (Coreg) 3.125 MG tablet TAKE 1 TABLET BY MOUTH TWICE DAILY IN THE MORNING AND IN THE EVENING WITH MEALS 60 tablet 5 Active traZODone (Desyrel) 100 MG tabletIndication s:Primary hypertension TAKE 1 TABLET BY MOUTH AT BEDTIME AFTER A MEAL 30 tablet 5 Active TRUEplus Lancets 33G misc USE DIRECTED TO TEST BLOOD SUGAR TWICE DAILY DIRECTED 100 each Active glucose blood (FREESTYLE LITE) test strip USE DIRECTED TO TEST BLOOD SUGAR TWICE DAILY 100 strip Active atorvastatin (Lipitor) 20 MG tabletIndication s:Hypertension, unspecified type TAKE 1 TABLET BY MOUTH EVERY MORNING 90 tablet 2 Active losartan (Cozaar) 100 MG tabletIndication s:Hypertension, unspecified type TAKE 1 TABLET BY MOUTH EVERY MORNING 90 tablet 2 025 Active TRUEplus Lancets 33G misc TEST BLOOD SUGAR TWICE DAILY DIRECTED 100 each 11 024 2024 Discontinued glucose blood (FREESTYLE LITE) test strip TEST BLOOD SUGAR TWICE DAILY DIRECTED 100 strip 11 024 2024 Discontinued losartan (Cozaar) 100 MG tabletIndication s:Hypertension, unspecified type TAKE 1 TABLET BY MOUTH EVERY MORNING 90 tablet 2 025 2024 Discontinued atorvastatin (Lipitor) 20 MG tabletIndication s:Hypertension, unspecified type TAKE 1 TABLET BY MOUTH EVERY MORNING 90 tablet 2 025 2024 Discontinued Active Problems Problem Noted [...] High serum creatinine 03/13/2024 COPD with asthma ([facility]) 03/13/2024 Assessment & Plan (05/08/2025 9:45 AM EDT): stable Edema 07/12/2023 Type 2 diabetes mellitus with diabetic nephropat hy 07/12/2023 Essential hypertension 07/12/2023 Acute thoracic back pain 12/12/2022 Hip pain 12/12/2022 D-dimer, elevated 12/12/2022 Fall 12/12/2022 Injury of right hand 12/12/2022 Neuroleptic-induced tardive dyskinesia Shoulder pain 12/12/2022 Hypertension 12/02/2022 Hemorrhoids 12/02/2022 Stage 3 chronic kidney disease ([facility]/HCC) Assessment & Plan (05/08/2025 9:45 AM EDT): [...] mellitus type 2, uncontrolled 6 Morbid obesity ([facility]) 02/06/2016 Obstructive sleep apnea syndrome 04/05/2013 Gastroesophageal reflux disease 07/11/2012 Hyperlipidemia 07/11/2012 Osteoarthritis of knee 07/11/2012 Steatosis of liver 07/11/2012 Depressive disorder 07/11/2012 Diverticular disease 07/11/2012 Gallbladder calculus 07/11/2012 Osteopenia 07/11/2012 Tricuspid valve regurgitation 07/11/2012 Overview (05/08/2025): Trace 2022 echo Urinary incontinence 07/11/2012 Encounters Date Type Department Care Team Description 09/11/2025 Refill [facility] MEDICINE [address] [place] [address] NameElvis MD Hypertension, unspecified type 08/28/2025 Refill [facility] MED & PEDS [address] [place], [place] [phone] Elvis Daley MD 08/18/2025 Refill [facility] [address] [place], [place] [phone] NameElvis MD Primary hypertension 08/16/2025 9:30 AM EDT Office Visit [facility] [address] [place] [address] NameElvis MD Breast pain in female (Primary Dx); Mass of left breast, unspecified quadrant 08/16/2025 Travel 08/15/2025 Telephone [facility] [address] [place] [address] Matilde Rosen NP Chart Prep 08/14/[address] [address] Elvis Daley MD Appointment Request 08/13/2025 Refill [facility] [address] [place] [address] Elvis Daley MD Hypertension, unspecified type; Primary hypertension 08/09/2025 Results Follow-Up [facility] PEDS [address] [place] [address] Luis Sanders MD XR Thoracic Spine 3 Views 08/08/2025 Orders Only [facility] [address] [place] [address] Luis Sanders MD 08/06/2025 10:40 AM EDT Office Visit [facility] [address] [place] [address] Luis Sanders MD Injury of head, initial encounter (Primary Dx); Intractable acute post-traumatic headache; Neck pain; Upper back pain; Fall, initial encounter; Chest pain, unspecified type 08/06/2025 Telephone [facility] [address] [place] [address] Elvis Daley MD R/S PCP APPT 08/06/2025 Travel 08/06/2025 Telephone [facility] [address] [place] [address] Elvis Daley MD Nurse Triage 08/01/[address] [address] David Pyle [place] chart prep 07/26/[address] [address] Elvis Daley MD Vitamin D deficiency from Last 3 Months Immunizations Immunization Administration Dates Next Due Influenza injectable quadriv alent IIV4 with preservative 12/02/2022,07/29/2016 Influenza injectable quadriv alent preservative free 08/13/2015 Influenza, High Dose Seasona l, Preservative Free 09/21/2024,07/31/2018,08/04/2017 Influenza, IIV3, injectable 08/08/2014, 1 Influenza, Split (incl. jody fied surface antigen) 09/03/2013,07/26/2012 Influenza, seasonal, injecta ble, preservative free 08/05/2021,09/28/2018,08/15/2017,08/18,03/29/2016 Pertussis 12/02/2009 Pfizer Covid-19 Vaccine 12+ 09/21/2024, 4 Pfizer Covid-19 Vaccine 12+ Bivalent 10/05/2022 Pneumococcal [...] Sign Reading Time Taken Comments Blood Pressure 118/60 08/16/2025 9:30 AM EDT Pulse 65 08/16/2025 9:30 AM EDT Temperature 36 C (96.8 F) 08/16/2025 9:30 AM EDT Respiratory Rate 17 08/16/2025 9:30 AM EDT Oxygen Saturation 100% 08/16/2025 9:30 AM EDT Inhaled Oxygen Concentration - - Weight 81.9 kg (180 lb 9.6 oz) 08/16/2025 9:30 A M EDT Height 157.5 cm (5' 2 ) 08/16/2025 9:30 AM EDT Body Mass Index 33.03 08/16/2025 9:30 AM EDT Plan of Treatment Upcoming Encounters Date Type Department Care Team (Late st Contact Info) Description 10/22/2025 10:00 AM EST Office Visit [facility] [address] [place], [place] [phone] Name, MD Elvis [address] [place] [address] Health Maintenance Due Date Last Done Comments [...] Eye Exam 07/10/2026 07/10/2025, 04/14/2023 Tobacco Screening 08/16/2026 08/16/2025 Pneumococcal Vaccine: 50+ Years Completed 06/29/2018, 08/22/2015, [...] Author Blood Pressure < 140/90 Blood Pressure 118/60( 025 9:30 AM EDT) No Rosa Haile PharmD Procedures Procedure Name Priority Date/Time Associated Diagnosis Comments XR THORACIC SPINE 3 VIEWS Routine 08/08/2025 10:40 AM EDT XR CERVICAL SPINE 3V Routine 08/08/2025 10:32 AM EDT ECG 12-LEAD Routine 08/06/2025 12:11 PM EDT Chest pain, unspecified type POCT GLYCATED HEMOGLOBIN, TOTAL Routine 04/16/2025 3:11 [...] AM EDT Narrative 08/08/2025 10:56 AM EDT [address] [address] XRay Report Signed Patient: Jana Chowdhury MR#: [id number] : 1940 Acct:[id number] Age/Sex: 85 / F ADM Date: 08/08/25 Loc: HO.XRAY Attending Dr: Luis Sanders MD Ordering Physician: LUIS SANDERS MD Date of Service: 08/08/25 Procedure(s): XR thoracic spine 3V Accession Number(s): [id number] cc: LUIS SANDERS MD; Name,Elvis IZQUIERDO Reason for Exam: fall, [...] 08/08/25 1053 DD/ 1040 TD/TT: 08/08/25 1044 Learning Officer: Procedure Note Donotuseinterpreter, Image - 08/08/[address] [address] XRay Report Signed Patient: Jana Chowdhury [facility]#: [id number] : 1940cct:[id number] Age/Sex: 85 / FADM Date: 08/08/25 Loc: HO.XRAY Attending Dr: Luis Sanders MD Ordering Physician: LUIS SANDERS MD Date of Service: 08/08/25 Procedure(s): XR thoracic spine 3V Accession Number(s): [id number] cc: LUIS SANDERS MD; Name,Elvis IZQUIERDO Reason for Exam: fall, [...] 08/08/25 1053 DD/ 1040 TD/TT: 08/08/25 1044 Learning Officer: us Luis Sanders MD IMG XR PROCEDURES Final Result * XR CERVICAL SPINE 3V (08/08/2025 10:32 AM EDT) Anatomical Region Laterality Modality Abdomen Radiographic Wendi ging 08/08/2025 10:3 2 AM EDT Narrative 08/08/2025 10:50 AM EDT [place] [address] XRay Report Signed Patient: Jana Chowdhury MR#: [id number] : 1940 Acct:[id number] Age/Sex: 85 / F ADM Date: 08/08/25 Loc: HO.FISH Attending Dr: Luis Sanders MD Ordering Physician: LUIS SANDERS MD Date of Service: 08/08/25 Procedure(s): XR cervical spine 3V Accession Number(s): [id number] cc: LUIS SANDERS MD; Name,Elvis IZQUIERDO Reason for Exam: NECK [...] 08/08/25 1048 DD/ 1032 TD/TT: 08/08/25 1044 Learning Officer: Procedure Note Donotuseinterpreter, Image - 08/08/[address] [address] XRay Report Signed Patient: Jana Chowdhury MMR#: [id number] : 2Acct:[id number] Age/Sex: 85 / FADM Date: 08/08/25 Loc: HO.XRAY Attending Dr: Luis Sanders MD Ordering Physician: LUIS SANDERS MD Date of Service: 08/08/25 Procedure(s): XR cervical spine 3V Accession Number(s): [id number] cc: LUIS SANDERS MD; Name,Elvis IZQUIERDO Reason for Exam: NECK [...] 08/08/25 1048 DD/ 1032 TD/TT: 08/08/25 1044 Learning Officer: Luis Sanders MD IMG XR PROCEDURES Final Result * (ABNORMAL) ECG 12-LEAD (08/06/2025 12:11 PM EDT) Luis Wilkerson MD - 08/06/2025 12:11 PM EDT Luis Sanders MD 08/06/2025 4:33 PM ECG 12 lead Date/Time: 08/06/2025 12:11 PM Performed by: Luis Sanders MD Authorized by: Luis Sanders MD Previous ECG: Previous ECG: Unavailable Interpretation: Interpretation: abnormal Details: MAR Rate: ECG rate: 62 ECG rate assessment: normal Rhythm: Rhythm: sinus rhythm QRS: QRS axis: Normal QRS intervals: Normal QRS conduction: normal ST segments: ST segments: Normal T waves: T waves: normal Q waves: Abnormal Q-waves: not present Other findings: Other findings: LAE Luis Sanders MD ECG ORDERABLES Edited Result - Final * (ABNORMAL) POCT HGB A1C (04/16/2025 3:11 PM EDT) Hemoglobin A1C 7.8(A) 4.0 - 6.0 % QC Media Lot # [id number] Lot# Expiration Date Blood 04/16/2025 3:11 PM EDT Elvis Daley MD POINT OF CARE TEST ENTER/EDIT OR DERABLES Final Result * Lipid Panel, Standard (10/01/2024 12:00 PM EST) Triglycerides 74 <150 mg/dL [facility] Comment:Desirable Triglyceri de: less than 150 mg/dLBorderline High Triglyceride 150-199 mg/dLHigh Triglyceride: 200-499 mg/dLVery High Triglyceride: greater than or equal to 5OO mg/dL Cholesterol 168 <200 mg/dL [facility] Comment:Desirable Cholestero l: less than 200 mg/dLBorderline High Cholesterol: 200-239 mg/dLHigh Cholesterol: greater than 239 mg/dL LDL Cholesterol Calculated 74 <100 mg/dL [facility] Comment:Desirable LDL: less than 100 mg/dLNear Optimal/Above Optimal LDL: 110- 129 mg/dLBorderline High LDL: 130-159 mg/dLHigh LDL: 160-189 mg/dLVery High LDL: greater than or equal to 190 mg/dL HDL Cholesterol 80 >40 mg/dL [facility] Comment:Desirable HDL: great er than 40 mg/dL Note: This HDL assay may give artificially low results in patients with liver disease. Blood Venous blood specimen / Unknown 10/01/2024 12:00 PM EST 10/01/2024 1:16 PM EST us Elvis Daley MD LAB BLOOD ORDERABLES Final Resul t [facility] [address] [place] [address] [phone] * Diabetes Eye Exam (04/14/2023) [facility] Signature Eye Exam Normal Normal us Elvis Daley MD HEALTH MAINTENANCE Final Result from Last 3 Months or Most Recently Relevant to Health Maintenance Insurance * Guarantor: Jana Chowdhury Account Type Relation to Patient Date of Phone Billing Address Personal/Family Self [address] [place] [address] [facility] [employer] (O D-SNP) [place] [phone] * Guarantor: Jana Chowdhury Account Type Relation to Patient Date of Phone Billing Address Personal/Family Self [address] [place] [address] * Guarantor: Jana Chowdhury Account Type Relation to Patient Date of Phone Billing Address Personal/Family Self [address] [place] [address] * Guarantor: Jana Chowdhury Account Type Relation to Patient Date of Phone Billing Address Personal/Family Self [address] [place] [address] Advance Directives Documents on File Type Date Recorded Patient Manager Adobe Expl [employer]ation Advance Directives and Living Will 01/18/2025 HEALTH CARE PROXY 12/05/24 Care Teams Supply Specialist Relationship Specialty Start Date End Date Name, MD Elvis [address] [place] [address] PCP - General Family Medicine 02/05/16
--- OUTSIDE RECORDS SUMMARY | 2025-09-25 07:52 | XMS_ITS | Data Portability ---
Author Organization [employer] [facility], [place] [facility] Address [address] [place] [phone] Care Team Providers Care Tubular Riveter Name Role Phone Unavailable Referring Provider Assessment No assessment recorded. Plan of Treatment Reminders Order Date Submit Date Provider Last Modified By Organization Details Last Modified Time Details Appointments None recorded. Lab None recorded. Referral None recorded. Procedures None recorded. Surgeries None recorded. Imaging None recorded. Medication Orders benzonatate 100 mg capsule 2021 [facility], [address] [place], [address], 13:11:55 guaifenesin 100 mg/5 mL oral liquid 2021 [facility], [address] [place], [address], 13:11:55 Patient TargetsNo targets recorded. Patient InstructionsNo [...] 126/70 mm[Hg] Not Available [facility] - production 13:15:58 Social History None recorded. Functional Status None recorded. Mental Status None recorded. Family History Nothing Reported. Medical History No medical history recorded. Gynecological HistoryNo gynecological history recorded. Obstetrics History GPAL:G 0 P 0 0 0 0 Past Encounters Encounter ID Performer Location Encounter Start Date Encounter Closed Date Diagnosis/Indication Diagnosis SNOMED-CT Code Diagnosis ICD10 Code Diagnosis IMO Codes Diagnosis Note [id number] Dar Fletcher MD Main - [facility] [address] [place] [phone] 10/27/2022 13:07:42 10/29/2022 10:53:36 Persistent cough 251693131 R05.3 Per patient COVID negative x2. Supportive care Health Concerns Section Related Observation LastModified by Organization Detai ls LastModified Time None Recorded Concern Status LastModified by Organization Details LastModified Time None Recorded Advance Directives Directive None Recorded Payers Insurance Date Sequence Insurance Name Policy Number Policy Rascon Covered Member ID Rascon Member ID Guarantor Name 12/20/2023 1 [facility] - DOS PRIOR TO 2023 - DUAL ELIGIBLE (MEDICARE REPLACEMENT/ADV ANTAGE - HMO) Jana Lindo [id number] Jana Lindo 12/20/2023 1 [facility] - DOS ON OR AFTER 2023 - DUAL ELIGIBLE - NURSING HOME OPTIONS AND ONE CARE (MEDICARE REPLACEMENT/ADV ANTAGE - HMO) Jana Lindo [id number] Jana Lindo Notes Date Note Type Note Provider Name and Address Organization Details Recorded Time 10/27/2022 text/html ROS as noted in the HPI HPI: Pt had onset of cough on [...] .................. .................. .................. .................. .................. .................. ............... Grease Packer Note: Pt presents awake and alert c/o [...] Disposition: Fulfilled Dar Fletcher MD [address] [facility],[address], [place], [address], [place] - [employer], [place] 10/27/2022 21:06:23 OBGyn Episode No OBEpisode recorded.
--- OUTSIDE RECORDS SUMMARY | 2025-09-25 07:53 | XMS_ITS | Patient Health Record ---
Author Organization [facility] Address [address] [place] [address] Jai YASIR [phone] Care Team Providers Care Radiology Administrator Name Role Phone Name Elvis IZQUIERDO Primary Care Provider Pankaj Barnes Unavailable [phone] Allergies No Known Allergies Results Component Value Reference Range Notes HEMOGLOBIN A1C (GLYCOHEMOGLO BIN) Reviewed date:03/15/2025 12:50:08 [...] day Not-Taking Calcium Carb-Ergocalciferol Not-Taki ng Nystatin 618206 UNIT/GM Externally Powder for Breast Not-Taking Metoprolol [...] Problem Acquired hammer toe of right foot (44690526818397 05) Other hammer toe(s) (acquired), right foot (M20.41) Active confirmed Response to treatment,I mprovement Problem Acquired hammer toe of left foot (75137986186826 03) Other hammer toe(s) (acquired), left foot (M20.42) Active confirmed Response to treatment,I mprovement Problem Peripheral circulatory disorder associated with type 1 diabetes mellitus (950779065) Type 1 diabetes mellitus with diabetic peripheral angiopathy without gangrene (E10.51) Active confirmed Vital Signs Blood pressure diastolic 65 mm Hg 06/21/2025 Height 5 ft 3 in in 06/21/2025 Blood pressure systolic 130 mm Hg 06/21/2025 Weight 179 lbs 06/21/2025 BMI 31.7 kg/m2 06/21/2025 Procedures Procedure Date Ordered Date Performed Result Body Sit e 61651-EMXLSLM NAIL, 6 OR MORE 12/07/2024 N/A 07966-WHXQ SKIN LESIONS, OVER 4 12/07/2024 N/A 36139-ZPANOYN NAIL, 6 OR MORE 03/15/2025 N/A 66016-FDAW SKIN LESIONS, OVER 4 03/15/2025 N/A 76217-AJMXGUK NAIL, 6 OR MORE 06/21/2025 N/A 80105-NMCU SKIN LESIONS, OVER 4 06/21/2025 N/A Encounters Encounter Location Date Provider Diagnosis [address] [phone] 12/07/2024 Pankaj Hoff Type 1 diabetes mellitus with diabetic peripheral angiopathy without gangrene E10.51 ; Tinea unguium B35.1 ; Pain in right toe(s) M79.674 and Pain in left toe(s) M79.675 [facility] [address] 03/15/2025 Pankaj Hoff Type 1 diabetes mellitus with diabetic peripheral angiopathy without gangrene E10.51 ; Tinea unguium B35.1 ; Pain in right toe(s) M79.674 ; Pain in left toe(s) M79.675 ; Other hammer toe(s) (acquired), right foot M20.41 and Other hammer toe(s) (acquired), left foot M20.[address] [address] 06/21/2025 Pankaj Hoff Type 1 diabetes mellitus [...] E10.51) 06/21/2025 Tinea unguium (ICD-10 - B35.1) 03/15/2025 Pain in right toe(s) (ICD-10 - [...] Treatment Pending Test Test Name Order Date 29807-SHGLFMJ NAIL, 6 OR MORE 03/29/2016 73126-XCHCPTB NAIL, 6 OR MORE 06/30/2016 16601-BJNUFBZ NAIL, 6 OR MORE 09/29/2016 32912-XIXJNIT NAIL, 6 OR MORE 01/12/2017 71209-DJVOJTA NAIL, 6 OR MORE 04/14/2017 71119-KIMXAMM NAIL, 6 OR MORE 07/14/2017 31962-POQBZYE NAIL, 6 OR MORE 10/13/2017 16858-ZOAWYDD NAIL, 6 OR MORE 01/12/2018 69762-LXJFHOX NAIL, 6 OR MORE 04/05/2018 82637-BIGTYVH NAIL, 6 OR MORE 06/28/2018 20466-QYVUBHK NAIL, 6 OR MORE 09/28/2018 40080-TAMPTTF NAIL, 6 OR MORE 12/28/2018 20489-CAXUYLJ NAIL, 6 OR MORE 05/03/2019 61050-ICNEAQT NAIL, 6 OR MORE 08/13/2019 10046-VGYJIIF NAIL, 6 OR MORE 11/22/2019 94731-VUEEELS NAIL, 6 OR MORE 03/10/2020 98136-DHAMVYK NAIL, 6 OR MORE 06/25/2020 48624-WGPRQSI NAIL, 6 OR MORE 10/02/2020 50793-XYPGNML NAIL, 6 OR MORE 01/08/2021 21173-TIHNOJT NAIL, 6 OR MORE 04/02/2021 32937-QXMWIOY NAIL, 6 OR MORE 08/10/2021 97573-JJVKWIY NAIL, 6 OR MORE 10/19/2021 86086-SZFGFGB NAIL, 6 OR MORE 01/20/2022 46887-HQAHRTL NAIL, 6 OR MORE 04/22/2022 34178-NBHIVZO NAIL, 6 OR MORE 07/22/2022 49586-DWCZUVF NAIL, 6 OR MORE 10/28/2022 43833-LGEMJDV NAIL, 6 OR MORE 01/24/2023 06340-GWRQTUJ NAIL, 6 OR MORE 03/30/2023 14289-JWYFSCA NAIL, 6 OR MORE 06/06/2023 37737-EAEVKGU NAIL, 6 OR MORE 08/15/2023 52451-ZJOZGXA NAIL, 6 OR MORE 10/24/2023 56021-ZHPJPAA NAIL, 6 OR MORE 03/27/2024 26943-URFSIRM NAIL, 6 OR MORE 06/05/2024 40422-NRRPDVR NAIL, 6 OR MORE 08/31/2024 91007-OMZXNEA NAIL, 6 OR MORE 12/07/2024 99920-LTNXSJD NAIL, 6 OR MORE 03/15/2025 23739-GNFWEML NAIL, 6 OR MORE 06/21/2025 66241-PQOA SKIN LESIONS, OVER 4 06/21/20 66373-YXWU SKIN LESIONS, OVER 4 03/15/20 00962-BGJM SKIN LESIONS, OVER 4 12/07/19 07828-YJKJ SKIN LESIONS, OVER 4 08/31/20 55922-IIRG SKIN LESIONS, OVER 4 06/05/20 73181-PFEY SKIN LESIONS, OVER 4 03/27/20 49671-ISNP SKIN LESIONS, OVER 4 10/24/20 79124-JCLV SKIN LESIONS, OVER 4 08/15/20 78568-RMOD SKIN LESIONS, OVER 4 06/06/20 74223-GVSU SKIN LESIONS, OVER 4 03/30/20 60216-AJCN SKIN LESIONS, OVER 4 01/25/20 63557-KRDW SKIN LESIONS, OVER 4 10/28/20 13458-CNJR SKIN LESIONS, OVER 4 07/22/20 24660-ANVI SKIN LESIONS, OVER 4 04/22/20 29114-UGOQ SKIN LESIONS, OVER 4 01/21/20 34921-QQNY SKIN LESIONS, OVER 4 10/19/20 17723-CDFX SKIN LESIONS, OVER 4 08/10/20 77277-TZNM SKIN LESIONS, OVER 4 04/02/20 70603-JARK SKIN LESIONS, OVER 4 01/08/20 87274-PDCQ SKIN LESIONS, OVER 4 10/02/20 22929-EENT SKIN LESIONS, OVER 4 06/25/20 05845-VEMU SKIN LESIONS, OVER 4 03/10/20 20 46104-IWHA SKIN LESIONS, OVER 4 11/22/19 99372-MFPX SKIN LESIONS, OVER 4 08/13/20 74763-FKKK SKIN LESIONS, OVER 4 05/03/20 35715-SGJQ SKIN LESIONS, OVER 4 12/28/19 11181-QVTR SKIN LESIONS, OVER 4 09/28/20 30554-ZUMB SKIN LESIONS, OVER 4 06/28/20 18 49909-EYBV SKIN LESIONS, OVER 4 04/05/20 25191-DQRR SKIN LESIONS, OVER 4 03/01/20 18 71148-VQAO SKIN LESIONS, OVER 4 10/13/20 17 54068-RZIV SKIN LESIONS, OVER 4 07/14/20 17 75409-TDZQ SKIN LESIONS, OVER 4 01/13/20 17 70378-TYWO SKIN LESIONS, OVER 4 04/14/20 17 32588-AECU SKIN LESIONS, OVER 4 09/29/20 16 98076-ZVJN SKIN LESIONS, OVER 4 06/30/20 16 15664-BPWJ SKIN LESIONS, OVER 4 03/29/20 16 Next Appt Details Provider Name:Pankaj Mckay Luis Eduardo , 09/27/2025 12:15:00 PM, [address] [place], [address], Insurance Providers Payer Name Payer Address Payer Phone Subscriber Number Group Number Insured Name Patient Relationship to Insured Coverage Start Date Coverage End Date [facility] [employer] Claims [address] AISHA Ferraro [id number] Jana Lindo Self - patient is the insured Medical (General) History Medical History History ICD Code Angina Arthritis asthma Back,Hip,and Knee pain Cataracts Dementia Depression Diabetes mellitus Gout Headaches High blood pressure Stroke Cholesterol COPD Surgical History Surgery Date(Month/Year) colon [facility] colonoscopy Hospitalization History Reason Date(Month/Year) [facility] 07/2024 [facility], fainting 01/2021 [facility] F[place] down the stais 06/07/20
--- OUTSIDE RECORDS SUMMARY | 2025-09-25 07:53 | XMS_ITS | Encounter Summary ---
Author Organization [employer] [facility] Address [address] [facility] [address] [place] [address] Care Team Providers Care Carpenter Bridge Name Role Phone Name, Elvis IZQUIERDO Primary Care Provider [phone] Reason for Visit * Reason Comments Med Refill Encounter Details Date Type Department Care Team (Late st Contact Info) Description 07/28/2023 Refill [facility] MEDICINE [address] [place] [address] [phone] Name, MD Elvis [address] [place] [address] [phone] Primary hypertension; Hypertension, unspecified type Social History [...] Description 10/22/2025 10:00 AM EST Office Visit [facility] [address] [place] [address] [phone] Name, MD Elvis [address] [place] [address] [phone] documented as of this encounter Visit Diagnoses Diagnosis Primary hypertension Unspecified essential hypertension Hypertension, unspecified type documented in this encounter Additional Health Concerns Assessment Noted Time PHQ-9 Depression Total Score: 11 023 9:33 AM EST documented as of this encounter Care Teams Carpenter Bridge Relationship Specialty Start Date End Date Name, MD Elvis [address] [place] [address] PCP - General Family Medicine 02/05/16 documented as of this encounter
--- OUTSIDE RECORDS SUMMARY | 2025-09-25 07:53 | XMS_ITS | Encounter Summary ---
Author Organization [employer] Address [address] [facility] [address] [place] [address] Care Team Providers Care Dental Therapist Name Role Phone Name, Elvis IZQUIERDO Primary Care Provider [phone] Reason for Visit * Reason Onset Date Comments Nurse Triage 08/06/2025 Encounter Details Date Type Department Care Team ([facility] st Contact Info) Description 08/06/2025 Telephone [facility] MEDICINE [address] [place], [place] [phone] Name, MD Elvis [address] [place] [address] Nurse Triage Social History Tobacco Use Types [...] ED. Advised granddaughter to bring pt. To [facility] walk in for evaluation and possible Xray. [...] Visit Now- Declines ED. Will come to [facility] walk in today. Positive Triage Question: * [...] to go to ER, contact daughter at [phone] documented in this encounter Plan of Treatment Upcoming Encounters Date Type Department Care Team (Late st Contact Info) Description 10/22/2025 10:00 AM EST Office Visit [facility] MEDICINE [address] [place] [address] Name, MD Elvis [address] [place] [address] documented as of this encounter Goals Goal Patient Goal Type Associated Problems Recent Progress Patient-Stated? Author Blood Pressure < 140/90 Blood Pressure 118/60( 025 9:30 AM EDT) No Rosa Haile, PharmD documented as of this encounter Visit Diagnoses Not on filedocumented in this encounter Additional Health Concerns Assessment Noted Time PHQ-9 Depression Total Score: 5 05/08/20 25 9:25 AM EDT documented as of this encounter Care Teams Dental Therapist Relationship Specialty Start Date End Date NameElvis MD [address] [place] [address] PCP - General Family Medicine 02/05/16 documented as of this encounter
== END 2025-09-25 07:50 | disposition home or self-care (01) ==
LOC: HO.MAMMO 07:49
PROVIDERS: PCP Internal Medicine Geriatric Medicine; Visit Provider Internal Medicine Geriatric Medicine
DX: N64.4 Mastodynia (principal); N63.25 Unspecified lump in the left breast, overlapping quadrants
CPT/HCPCS: 76642; 77062; 77066

== ENCOUNTER → 2025-09-25 08:00 | Outpatient (BNV) | payer OTHER, SELFPAY | PROVIDERS: PCP Internal Medicine Geriatric Medicine; Visit Provider Internal Medicine | DX: N63.25 Unspecified lump in the left breast, overlapping quadrants (principal); N64.4 Mastodynia | CPT/HCPCS: 76642; 77066; G0279 ==